=== PATIENT | male | born 1970 | race Caucasian/White ===

== ENCOUNTER → 2016-08-05 | Outpatient (REF) | payer OTHER ==
[~2016-08-05] MED LIST: /ADVA50050 IN; /BUSP5TA OR; /LAMO10TA PO; /LAMO15TA PO; /LAMO20TA PO; /QUET25TA OR; ALLE10TA11 PO; ALLO100T OR; AMBI10TA OR; BUSP10TA2 OR; BUSP15TA OR; CELE20TA OR; CELE40TA OR; CLAR5CHW OR; COLCRYS OR; COMBVENT; CONC18TA OR; CONC36TA2 PO; CONC54TA2 PO; EFFE75CA75 OR; FAMO40TA2 OR; FOLI1TAB86 PO; GABA600T3 OR; IBUP600T OR; IMIT100T PO; INDO50CA2 OR; KLON0.5T OR; KLON1TAB OR; MINI2CAP PO; NEUR600T OR; NEUR600T PO; NEXI20CA OR; NEXI20GR OR; NICO2LOZ PO; PEPC40TA OR; PRIL40CA PO; PROZ20CA11 PO; QUET30TA OR; THIA50CA PO; TRAM50TA2 OR; TRAZ100T OR; TRAZ100T2 PO; TRAZ150T OR; VENL75TA2 OR; VENTAER IN; proair
== END ==
LOC: M SFHCSACK 14:33
PROVIDERS: ATTEND Physician Assistant
DX: Z51.81 Encounter for therapeutic drug level monitoring (principal); Z79.899 Other long term (current) drug therapy

== ENCOUNTER 2016-09-18 18:21 | Inpatient (IN) | payer OTHER ==
[~2016-09-18] VITALS: Ht 180.3 cm; Wt 94.4 kg
[2016-09-18] MEDS ORDERED: HYDR25T PO (18:35)
[2016-09-18] MEDS ORDERED: METH40TA PO (18:35)
[2016-09-18] MEDS ORDERED: ADDE5TAB5 PO (18:35)
[2016-09-18] MEDS ORDERED: BUPR15TA PO (18:35)
[2016-09-18 19:58] LABS: MEAN CORPUSCULAR HEMOGLOBIN 31.1 pg (27.0-33.0); MEAN CORPUSCULAR HGB CONC 35.2 g/dl (32.0-36.5); MEAN CORPUSCULAR VOLUME 88.3 fl (80.0-96.0); RED CELL DISTRIBUTION WIDTH 13.9 % (11.5-14.5); WHITE BLOOD COUNT 5.8 K/mm3 (4.0-10.0)
[2016-09-18 20:26] LABS: METHADONE URINE POSITIVE (NEGATIVE)
[2016-09-18 20:35] LABS: ALBUMIN 4.2 GM/DL (3.2-5.2); ALBUMIN/GLOBULIN RATIO 1.56 (1.00-1.93); ALKALINE PHOSPHATASE 101 U/L (45-117); ALT/SGPT 125 U/L (12-78); ANION GAP 9 MEQ/L (8-16); AST/SGOT 81 U/L (15-37); BILIRUBIN,DIRECT 0.2 MG/DL (0.0-0.2); BILIRUBIN,TOTAL 0.4 MG/DL (0.2-1.0); BLOOD UREA NITROGEN 15 MG/DL (7-18); CALCIUM LEVEL 8.7 MG/DL (8.5-10.1); CARBON DIOXIDE LEVEL 25 MEQ/L (21-32); CHLORIDE LEVEL 108 MEQ/L (98-107); CREATININE FOR GFR 0.86 MG/DL (0.70-1.30); GLOMERULAR FILTRATION RATE > 60.0 (>60); GLUCOSE, FASTING 100 MG/DL (70-105); POTASSIUM SERUM 3.9 MEQ/L (3.5-5.1); SODIUM LEVEL 142 MEQ/L (136-145); TOTAL PROTEIN 6.9 GM/DL (6.4-8.2)
[2016-09-18] MEDS: hydrOXYzine 25 MG TAB PO SCH (21:00)
[2016-09-18] MEDS ORDERED: MAALOX 30 ML SUSP *UDC PO PRN (23:00)
[2016-09-18] MEDS ORDERED: MOM 30ML SUSPENSION UDC PO PRN (23:00)
[2016-09-18] MEDS ORDERED: ACETAMINOPHEN TAB 650MG DOSE (2X325MG) PO PRN (23:00)
[2016-09-18] MEDS ORDERED: SUMAtriptan SUCCINATE 25 MG TAB PO PRN (23:00)
[2016-09-18] MEDS ORDERED: traZODone 50 MG TAB PO PRN (23:00)
[2016-09-18] MEDS ORDERED: ALBUTEROL 90 MCG/ACT 8GM HFA INHALER INH PRN (23:00)
[2016-09-18] MEDS ORDERED: LORA10TA2 PO (23:31)
[2016-09-18] MEDS ORDERED: OMEP40CA2 PO (23:31)
[2016-09-18] MEDS ORDERED: METH10CO PO (23:31)
[2016-09-18] MEDS ORDERED: ALBU17IN INH (23:31)
[2016-09-18] MEDS ORDERED: SUMA100T2 PO (23:35)
[2016-09-18] MEDS ORDERED: NARC1SPR (23:35)
[2016-09-18] MEDS ORDERED: NICO2GUM PO (23:35)
[2016-09-18] MEDS ORDERED: NAPR1TAB86 PO (23:35)
[2016-09-19] MEDS ORDERED: diphenhydrAMINE INJ 50MG/ML VIAL (J1200) IM STA (00:55)
[2016-09-19] MEDS ORDERED: HALOPERIDOL 5 MG/ML VIAL (J1630) IM PRN (01:00)
[2016-09-19 03:27] VITALS: BP 125/75
[2016-09-19 08:00] VITALS: BP 134/76
[2016-09-19] MEDS: buPROPion **SR TABLET** (ZYBAN) 150MG PO SCH (08:11)
[2016-09-19] MEDS: OMEPRAZOLE 20 MG CAP PO SCH (08:11)
[2016-09-19] MEDS: LORATADINE 10 MG TAB PO SCH (08:11)
[2016-09-19] MEDS: hydrOXYzine 25 MG TAB PO SCH (08:11)
[2016-09-19] MEDS: ADDERALL 5 MG TAB PO SCH ×2 (08:12→14:35)
[2016-09-19] MEDS ORDERED: METH10CO PO (09:25)
[2016-09-19] MEDS ORDERED: METHADONE 5 MG TAB (S0109) PO ONE (09:45)
[2016-09-19] MEDS ORDERED: METHADONE 10 MG TAB (S0109) PO ONE (10:00)
--- NOTE | 2016-09-19 11:59 | HPEPDOC ---
Medical History and Physical Date of Admission Sep 18, 2016 at 22:52 History and Physical PCP: Dr Keenan Bernardo ATTENDING: Dr. Armaan Washington HPI: 46 yo M admitted to [facility] for unspecified depressive disorder, being medically examined today. No acute medical complaints today. Denies any fevers, chills, weakness, fatigue, QUINONES, CP, SOB, cough, palpitations, abdominal pain, N/V /D or changes in bowel or bladder habits. PMHx: Depression ADHD Anxiety Allergies GERD Asthma Migraine headache History of substance use-currently following [facility] History of hepatitis C- following with Dr. 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 History of cocaine , states none in the past 2 years. States no marijuana in the past 2 years. Has not used methamphetamine in the past 1 year. IV Drug Use: History of IV heroin. Tattoos done unprofessionally: Denies FAMHX: Mother: Alive, diabetes Father: , pancreatic cancer Siblings: One brother Alive, well Children: None Unexpected deaths due to medical reasons: None. ROS: As noted in HPI, otherwise 11pt ROS of systems reviewed and unremarkable PE: GEN: 46 yo M, appears stated age. Well-nourished, well developed. No acute distress. Alert and oriented x 3. Pleasant, interactive. HEENT: Normocephalic, atraumatic. Pupils are equal, round, and reactive to light. Extraocular movements are intact. No nystagmus appreciated. Sclera are nonicteric. Conjunctiva without injection. Nose midline. Nasal turbinates without bogginess. EACs both patent BL. TMs both visualized and flores with good cone of light, no bulging or erythema. No facial asymmetry. Moist mucous membranes. Dentition fair. Pharynx pink and moist, no cobblestoning. Neck supple , trachea midline. No lymphadenopathy or thyromegaly appreciated. CHEST: Regular rate and rhythm, +S1, +S2 LUNGS: Clear to auscultation bilaterally. No wheezes, rales, or rhonchi. Breathing appears symmetric and easy. Patient is speaking in full sentences. No accessory muscle use. ABD: Round, soft, non-tender, non-distended. +Bowel sounds throughout. No rebound or guarding. No costovertebral angle tenderness. EXT: Pulses 2+ bilaterally dorsalis pedis and radial. No lower extremity edema appreciated. SKIN: [place], dry, warm. Capillary refill <2sec. No rashes. NEURO: Alert and oriented x 3. Cranial nerves III-XII are intact. No focal deficits appreciated. EKG: pending A&P: 46 yo M admitted to [facility] for unspecified depressive disorder 1. Psych. Plan per Psychiatry. Obtain baseline EKG to assure the safety of psychiatric medications as they can prolong the QT interval. 2. Nicotine dependence. Patch available. 3. Elevated LFTs. Likely related to Chronic hepatitis C. Recheck CMP. Monitor. 4. History of chronic hepatitis C. Patient states is following with Dr. Brito. Arrange follow-up with Dr. Brito at discharge. 5. Follow up. No Primary Care Provider. Will attempt to establish PCP on discharge. 6. History of Substance use. Per psychiatry. Patient states following with [facility] methadone program. 7. GERD. Continue Prilosec 40 mg daily. 8. Allergies. Continue loratadine 10 mg daily. 9. Asthma. Continue albuterol HFA 2 puffs every 4 hours as needed. 10. Migraine headache. Continue naproxen 500 mg twice a day as needed, Imitrex 100 mg as needed at onset of headache. 11. Staff member Brennen present throughout exam. Vital Signs Vital Signs Label Value Date Time Patient Temperature 96.9 degrees F 09/19/16 0800 Temperature Source Core 09/19/16 08 Pulse 83 09/19/16 08 Respiratory Rate 16 bpm 09/19/16 08 Blood Pressure Assessment 134/76 (95) 09/19/16 08 Bedside Pulse Oximetry 96 % 09/19/16 08 Item Value Date Time Oxygen Delivery Method Room Air 09/19/16 0800 Laboratory Data Labs 24H Laboratory Tests 2 09/18/16 19:41: Acetaminophen Level 2.4L, Aspartate Amino Transf (AST/SGOT) 81H, Alanine Aminotransferase (ALT/SGPT) 125H, Alkaline Phosphatase 101, Total Bilirubin 0.4 , Direct Bilirubin 0.2, Albumin 4.2, Albumin/Globulin Ratio 1.56, Anion Gap 9, Calcium Level 8.7, Ethyl Alcohol Level < 0.003, Glomerular Filtration Rate > 60.0, Salicylates Level 2.0L, Thyroid Stimulating Hormone (TSH) 1.540, Total Protein 6.9, Urine Amphetamines Screen POSITIVEH, Urine Benzodiazepines Screen NEGATIVE, Urine Opiates Screen NEGATIVE, Urine Barbiturates Screen NEGATIVE, Urine Cannabinoids Screen NEGATIVE, Urine Cocaine Metabolite Screen NEGATIVE, Urine Methadone Screen POSITIVEH, Urine Phencyclidine Screen NEGATIVE CBC/BMP Laboratory Tests 09/18/16 19:41 Red Blood Count 4.55, Mean Corpuscular Volume 88.3, Mean Corpuscular Hemoglobin 31.1, Mean Corpuscular Hemoglobin Concent 35.2, Red Cell Distribution Width 13.9 Home Medications Scheduled (Methadone HCl) 10 Mg/Ml Con 113 MG PO DAILY . VERIFIED WITH CREDO Amphetamine/Dextroamphetamine (Adderall 5 mg) 1 Tab Tab 20 MG PO BID MORNING AND MID AFTERNOON Bupropion HCl (Wellbutrin Sr) 150 Mg Tabcr 150 MG PO DAILY Loratadine (Loratadine) 10 Mg Tab 10 MG PO DAILY Omeprazole (Omeprazole) 40 Mg Cap 40 MG PO DAILY Scheduled PRN (Narcan) 4 Mg/0.1 Ml Spr 4 MG NA ASDIRECTED PRN PRN OVERDOSE REVERSAL Albuterol Sulfate (Ventolin Hfa) 200 Puff/8 Gm Aers 2 PUFF INH QID PRN PRN SHORTNESS OF BREATH Hydroxyzine HCl (Hydroxyzine HCl) 25 Mg Tab 25 MG PO BID PRN PRN ANXIETY MID AFTERNOON AND QHS Naproxen Sodium (Naproxen Sodium) 500 Mg Tab 500 MG PO BID PRN PRN PAIN Nicotine Polacrilex (Nicotine Polacrilex) 2 Mg Gum 2 MG PO Q1H PRN PRN SMOKING CESSATION Sumatriptan Succinate (Sumatriptan Succinate) 100 Mg Tab 100 MG PO ASDIRECTED PRN PRN MIGRAINE Allergies Coded Allergies: No Known Allergies (Verified Allergy, 01/03/03) Gladys Azar Sep 19, 2016 11:59
[2016-09-19] MEDS: NICOTINE 21MG/24HR 1 EA TRANSDERMAL TD SCH (12:16)
[2016-09-19 12:46] LABS: ALBUMIN 4.6 GM/DL (3.2-5.2); ALBUMIN/GLOBULIN RATIO 1.77 (1.00-1.93); ALKALINE PHOSPHATASE 97 U/L (45-117); ALT/SGPT 136 U/L (12-78); ANION GAP 8 MEQ/L (8-16); AST/SGOT 88 U/L (15-37); BILIRUBIN,TOTAL 0.6 MG/DL (0.2-1.0); BLOOD UREA NITROGEN 14 MG/DL (7-18); CALCIUM LEVEL 9.5 MG/DL (8.5-10.1); CARBON DIOXIDE LEVEL 26 MEQ/L (21-32); CHLORIDE LEVEL 107 MEQ/L (98-107); GLOMERULAR FILTRATION RATE > 60.0 (>60); GLUCOSE, FASTING 96 MG/DL (70-105); POTASSIUM SERUM 4.2 MEQ/L (3.5-5.1); SODIUM LEVEL 141 MEQ/L (136-145); TOTAL PROTEIN 7.2 GM/DL (6.4-8.2)
[2016-09-19 18:00] VITALS: BP 132/73
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
--- NOTE | 2016-09-19 22:25 | ECGEPIP ---
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
[2016-09-20] MEDS: hydrOXYzine 25 MG TAB PO SCH ×3 (02:21→21:38)
[2016-09-20 06:20] VITALS: BP 146/91
[2016-09-20] MEDS: OMEPRAZOLE 20 MG CAP PO SCH (08:24)
[2016-09-20] MEDS: ADDERALL 5 MG TAB PO SCH ×2 (08:24→14:33)
[2016-09-20] MEDS: buPROPion **SR TABLET** (ZYBAN) 150MG PO SCH (08:24)
[2016-09-20] MEDS: NICOTINE 21MG/24HR 1 EA TRANSDERMAL TD SCH (08:25)
[2016-09-20] MEDS: LORATADINE 10 MG TAB PO SCH (08:25)
[2016-09-20] MEDS: METHADONE 10 MG TAB (S0109) PO SCH (08:25)
[2016-09-20] MEDS ORDERED: METHADONE 10 MG TAB (S0109) PO SCH (09:00)
[2016-09-20 11:38] LABS: ALBUMIN 4.3 GM/DL (3.2-5.2); ALBUMIN/GLOBULIN RATIO 1.48 (1.00-1.93); ALKALINE PHOSPHATASE 99 U/L (45-117); ALT/SGPT 126 U/L (12-78); ANION GAP 7 MEQ/L (8-16); AST/SGOT 82 U/L (15-37); BILIRUBIN,TOTAL 0.4 MG/DL (0.2-1.0); BLOOD UREA NITROGEN 17 MG/DL (7-18); CALCIUM LEVEL 9.1 MG/DL (8.5-10.1); CARBON DIOXIDE LEVEL 27 MEQ/L (21-32); CHLORIDE LEVEL 107 MEQ/L (98-107); CREATININE FOR GFR 0.82 MG/DL (0.70-1.30); GLOMERULAR FILTRATION RATE > 60.0 (>60); GLUCOSE, FASTING 103 MG/DL (70-105); POTASSIUM SERUM 4.1 MEQ/L (3.5-5.1); SODIUM LEVEL 141 MEQ/L (136-145); TOTAL PROTEIN 7.2 GM/DL (6.4-8.2)
--- NOTE | 2016-09-20 15:16 | REP ---
RIGHT UPPER QUADRANT ULTRASOUND: Real-time sonographic evaluation of the right upper quadrant performed. The gallbladder demonstrates no evidence of intraluminal sludge or calculi, wall thickening or pericholecystic fluid. There is no intrahepatic or extrahepatic biliary dilatation, common bile duct measuring 5 mm in diameter. Liver demonstrates diffuse fatty infiltration, but no gross mass. Pancreas not optimally seen due to overlying bowel gas but visualized portions are grossly unremarkable. The right kidney demonstrates no hydronephrosis or nephrolithiasis with normal size at 10.9 cm in length. IMPRESSION: Diffuse fibrofatty infiltration of the liver. Signed by Live Washington MD 09/20/2016 04:18 P
[2016-09-20 18:00] VITALS: BP 121/70
--- NOTE | 2016-09-20 20:09 | IPNPDOC ---
[facility] Progress Note Progress Note DATE OF SERVICE: 09/20/16 INTERVAL HISTORY: The patient is met with today shortly in his room. He described that he was feeling better in the milieu and that the groups had been helpful for making his mood less reactive. He alluded that he was feeling close to discharge as he was able to tolerate another patient's rudeness with out any issues. He spoke of the events that lead him in. Nurses note no issues overnight. VITAL SIGNS: See below. NEW TEST RESULTS: See below CURRENT MEDICATIONS: See below. MENTAL STATUS EXAMINATION: General: Well dressed with good hygiene Speech: Spontaneous and fluid Thought processes: Linear and logical Thought content: Curious about discharge Abstract reasoning, and computation: Intact Description of associations: Intact Description of abnormal or psychotic thoughts:Denies any suicidal or homicidal ideation. Denies any auditory or visual hallucinations. Does not appear to be responding to internal stimuli. Does not appear to be endorsing any bizarre or paranoid ideation. Judgment: Fair Insight: Fair Orientation: Alert and orientated 3 Recent and remote memory: Intact Attention span and concentration: Intact Fund of knowledge: Adequate Mood: "Better" Affect: Euthymic with a full range DIAGNOSES: 1. Unspecified depressive disorder. 2. Borderline personality disorder, provisional. 3. Polysubstance abuse, severe, on maintenance treatment ASSESSMENT: 46-year-old male with a long history of substance abuse who is currently on methadone treatment presents in a state provoked by acute stressors. He appears to stabilize quite well in the milieu with no severe psychiatric interventions required. MANAGEMENT PLAN: Medications: Continue methadone, bupropion, Adderall as below Psychotherapy: Standard per melendez Social: Family meeting with caesar for possible discharge Friday Misc: None Disposition: The patient will require a longer inpatient stay in order to arrange a safe and effective discharge TIME SPENT: 15 minutes. Vital Signs Vital Signs Date Time Temp Pulse Resp B/P Pulse Ox O2 Delivery O2 Flow Rate FiO2 09/20/16 08:25 16 09/20/16 06:20 97.8 115 146/91 09/19/16 08:00 96 Room Air Laboratory Data 24H Labs Laboratory Tests 2 09/20/16 10:32: Blood Urea Nitrogen 17, Creatinine 0.82, Sodium Level 141, Potassium Level 4.1, Chloride Level 107, Carbon Dioxide Level 27, Calcium Level 9.1, Aspartate Amino Transf (AST/SGOT) 82H, Alanine Aminotransferase (ALT/SGPT) 126H, Alkaline Phosphatase 99, Total Bilirubin 0.4, Total Protein 7.2, Albumin 4.3, Albumin/ Globulin Ratio 1.48, Anion Gap 7L, Glomerular Filtration Rate > 60.0 CBC/BMP Laboratory Tests 09/20/16 10:32 Calcium Level 9.1, Aspartate Amino Transf (AST/SGOT) 82 H, Alanine Aminotransferase (ALT/SGPT) 126 H, Alkaline Phosphatase 99, Total Bilirubin 0.4 , Total Protein 7.2, Albumin 4.3 Current Medications Current Medications Acetaminophen (Tylenol Tab) 650 mg Q6HP PRN PO HEADACHE or DISCOMFORT; Start at 23:00; Stop 10/18/16 at 22:59 Al Hydrox/Mg Hydrox/Simethicone (Mylanta) 30 ml Q4HP PRN PO HEARTBURN/ INDIGESTION; Start 09/18/16 at 23:00; Stop 10/18/16 at 22:59 Albuterol Sulfate (Proventil, Ventolin Hfa) 2 puff Q4HP PRN INH SHORTNESS OF BREATH; Start 09/18/16 at 23:00; Stop 10/18/16 at 22:59 Amphetamine/ Dextroamphetamine (Adderall) 20 mg BID@09,15 PO Last administered on 09/20/16 14:33; Start 09/19/16 at 09:00; Stop 09/26/16 at 08:59 Bupropion HCl (Zyban, Wellbutrin Sr) 150 mg DAILY PO Last administered on 08:24; Start 09/19/16 at 09:00; Stop 10/19/16 at 08:59 Haloperidol (Haldol) 5 mg Q6HP PRN IM AGITATION Last administered on 09/19/16 01:11; Start 09/19/16 at 01:00; Stop 09/19/16 at 03:34; Status DC Home Med (Med Rec Complete!) ASDIRECTED XX ; Start 09/18/16 at 23:45; Stop at 23:45; Status DC Hydroxyzine HCl (Atarax) 25 mg BID PO Last administered on 09/20/16 08:24; Start 09/18/16 at 21:00; Stop 10/18/16 at 20:59 Loratadine (Claritin) 10 mg DAILY PO Last administered on 09/20/16 08:25; Start 09/19/16 at 09:00; Stop 10/19/16 at 08:59 Magnesium Hydroxide (Milk Of Magnesia) 30 ml DAILYPRN PRN PO CONSTIPATION; Start 09/18/16 at 23:00; Stop 10/18/16 at 22:59 Methadone HCl (Dolophine) 110 mg DAILY PO Last administered on 09/20/16 08:25 ; Start 09/20/16 at 09:00; Stop 09/27/16 at 08:59 Methadone HCl (Dolophine) 113 mg DAILY PO ; Start 09/20/16 at 09:00; Stop at 09:00; Status DC Nicotine (Nicoderm Cq 21mg) 1 patch DAILY TD Last administered on 09/20/16 08: 25; Start 09/19/16 at 09:00; Stop 10/19/16 at 08:59 Omeprazole (PriLOSEC) 40 mg DAILY PO Last administered on 09/20/16 08:24; Start 09/19/16 at 09:00; Stop 10/19/16 at 08:59 Sumatriptan Succinate (Imitrex) 100 mg BIDP PRN PO HEADACHE; Start 09/18/16 at 23:00; Stop 10/18/16 at 22:59 Trazodone HCl (Desyrel) 50 mg QHSP PRN PO INSOMNIA; Start 09/18/16 at 23:00; Stop 10/18/16 at 22:59 Allergies Coded Allergies: No Known Allergies (Verified Allergy, 01/03/03) GME ATTESTATION My preceptor for this patient encounter was physically present in the building during the encounter and was fully available. As needed, all aspects of the patient interview, examination, medical decision making process, and medical care plan development were reviewed and approved by the preceptor. Preceptor is aware and concurs with the plan as stated in the body of this note and will attest to such by his/her cosignature. SIVAKUMAR VELASCO DO Sep 20, 2016 20:09 SIVAKUMAR VELASCO DO Sep 20, 2016 20:09
[2016-09-21 06:29] VITALS: BP 113/54
[2016-09-21 07:03] LABS: ALBUMIN 4.2 GM/DL (3.2-5.2); ALBUMIN/GLOBULIN RATIO 1.56 (1.00-1.93); ALKALINE PHOSPHATASE 110 U/L (45-117); ALT/SGPT 130 U/L (12-78); ANION GAP 8 MEQ/L (8-16); AST/SGOT 85 U/L (15-37); BILIRUBIN,TOTAL 0.5 MG/DL (0.2-1.0); BLOOD UREA NITROGEN 18 MG/DL (7-18); CARBON DIOXIDE LEVEL 27 MEQ/L (21-32); CHLORIDE LEVEL 108 MEQ/L (98-107); CREATININE FOR GFR 0.83 MG/DL (0.70-1.30); GLOMERULAR FILTRATION RATE > 60.0 (>60); GLUCOSE, FASTING 101 MG/DL (70-105); POTASSIUM SERUM 4.2 MEQ/L (3.5-5.1); SODIUM LEVEL 143 MEQ/L (136-145); TOTAL PROTEIN 6.9 GM/DL (6.4-8.2)
[2016-09-21] MEDS: OMEPRAZOLE 20 MG CAP PO SCH (08:03)
[2016-09-21] MEDS: hydrOXYzine 25 MG TAB PO SCH ×2 (08:03→21:16)
[2016-09-21] MEDS: LORATADINE 10 MG TAB PO SCH (08:03)
[2016-09-21] MEDS: ADDERALL 5 MG TAB PO SCH ×2 (08:03→16:02)
[2016-09-21] MEDS: NICOTINE 21MG/24HR 1 EA TRANSDERMAL TD SCH (08:03)
[2016-09-21] MEDS: buPROPion **SR TABLET** (ZYBAN) 150MG PO SCH (08:03)
[2016-09-21] MEDS: METHADONE 10 MG TAB (S0109) PO SCH (08:05)
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
[2016-09-21 18:00] VITALS: BP 130/84
[2016-09-21] MEDS: IBUPROFEN 400 MG TAB PO PRN (21:16)
[2016-09-22 06:26] VITALS: BP 128/74
[2016-09-22] MEDS: NICOTINE 21MG/24HR 1 EA TRANSDERMAL TD SCH (08:17)
[2016-09-22] MEDS: METHADONE 10 MG TAB (S0109) PO SCH (08:18)
[2016-09-22] MEDS: OMEPRAZOLE 20 MG CAP PO SCH (08:19)
[2016-09-22] MEDS: LORATADINE 10 MG TAB PO SCH (08:19)
[2016-09-22] MEDS: hydrOXYzine 25 MG TAB PO SCH ×2 (08:19→21:40)
[2016-09-22] MEDS: ADDERALL 5 MG TAB PO SCH ×2 (08:19→15:05)
[2016-09-22] MEDS: buPROPion **SR TABLET** (ZYBAN) 150MG PO SCH (08:19)
[2016-09-22] MEDS: IBUPROFEN 400 MG TAB PO PRN ×2 (08:20→21:40)
--- NOTE | 2016-09-22 08:20 | IPN ---
DATE: 09/22/2016 I reviewed the case of Mr. Alexis with Dr. Ventura yesterday. He stated the following. He stated the patient was feeling better after being from stressors and was able to begin planning eventual discharge. The patient had stated that he was doing well on Wellbutrin. The patient was interested in outpatient psychotherapy. MENTAL STATUS: It was early in the morning to the patient was not yet well dressed. Speech was spontaneous and fluid. Thought processes were linear and logical. Thought content demonstrated no thought disorder. The patient discussed how he was improving and looking forward to the future. Abstract reasoning is intact. No loose associations were noted. No suicidal or homicidal ideations. No auditory or visual hallucinations. Judgment fair. Insight improving. Orientation: Alert and oriented times three. Recent and remote memory were intact. Mood was improved. Affect was pleasant. Present medications and present orders include the patient is presently on Wellbutrin 150 mg daily, methadone 110 mg daily. DIAGNOSIS: Unspecified depressive disorder. Borderline personality disorder. Provisional polysubstance abuse, severe, on maintenance treatment.
[2016-09-22] MEDS ORDERED: buPROPion **XL** TABLET 150MG (WELLBUTRIN XL) PO SCH (09:00)
[2016-09-22 18:00] VITALS: BP 122/76
[2016-09-23 06:14] VITALS: BP 114/59
[2016-09-23] MEDS: NICOTINE 21MG/24HR 1 EA TRANSDERMAL TD SCH (08:26)
[2016-09-23] MEDS: buPROPion **SR TABLET** (ZYBAN) 150MG PO SCH (08:27)
[2016-09-23] MEDS: LORATADINE 10 MG TAB PO SCH (08:27)
[2016-09-23] MEDS: OMEPRAZOLE 20 MG CAP PO SCH (08:27)
[2016-09-23] MEDS: ADDERALL 5 MG TAB PO SCH ×2 (08:27→14:58)
[2016-09-23] MEDS: hydrOXYzine 25 MG TAB PO SCH (08:27)
[2016-09-23] MEDS: METHADONE 10 MG TAB (S0109) PO SCH (08:28)
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
== END 2016-09-23 16:30 | disposition home or self-care (01) | DRG 754 ==
LOC: M ED 20:09 → M ED INP 22:52 → M PSY 09-19 03:27
PROVIDERS: ADMIT Psychiatry & Neurology Psychiatry; ATTEND Psychiatry & Neurology Psychiatry
DX: F32.9 Major depressive disorder, single episode, unspecified (principal); B18.2 Chronic viral hepatitis C; Z79.899 Other long term (current) drug therapy; F17.200 Nicotine dependence, unspecified, uncomplicated; F60.3 Borderline personality disorder; J45.909 Unspecified asthma, uncomplicated; K21.9 Gastro-esophageal reflux disease without esophagitis; G43.909 Migraine, unspecified, not intractable, without status migrainosus

== ENCOUNTER → 2016-11-14 | Outpatient (REF) | payer OTHER ==
[~2016-11-14] MED LIST changes: +ADDE5TAB5 PO; +ALBU17IN INH; +BUPR15TA PO; +HYDR25T PO; +LORA10TA2 PO; +METH10CO PO; +METH40TA PO; +NAPR1TAB86 PO; +NARC1SPR; +NICO2GUM PO; +OMEP40CA2 PO; +SUMA100T2 PO
[2016-11-14 13:24] LABS: BASO % 0.4 % (0.0-1.0); EOS # 0.2 K/mm3 (0.0-0.50); EOS % 4.7 % (0.0-3.0); LARGE UNSTAINED CELL # 0.1 K/mm3 (0.0-0.4); LARGE UNSTAINED CELL % 1.6 % (0.0-4.0); LYMPH # 2.4 K/mm3 (1.5-4.5); LYMPH % 47.5 % (24.0-44.0); MEAN CORPUSCULAR HEMOGLOBIN 31.5 pg (27.0-33.0); MEAN CORPUSCULAR HGB CONC 35.1 g/dl (32.0-36.5); MEAN CORPUSCULAR VOLUME 89.8 fl (80.0-96.0); MONO # 0.3 K/mm3 (0.0-0.8); MONO % 5.3 % (0.0-5.0); NEUTROPHILS % 40.5 % (36.0-66.0); PLATELET COUNT, AUTOMATED 155 k/mm3 (150-450); RED CELL DISTRIBUTION WIDTH 12.9 % (11.5-14.5)
[2016-11-14 14:16] LABS: ALBUMIN 4.1 GM/DL (3.2-5.2); ALBUMIN/GLOBULIN RATIO 1.58 (1.00-1.93); ALKALINE PHOSPHATASE 138 U/L (45-117); ALT/SGPT 136 U/L (12-78); ANION GAP 8 MEQ/L (8-16); AST/SGOT 79 U/L (15-37); BILIRUBIN,TOTAL 0.4 MG/DL (0.2-1.0); BLOOD UREA NITROGEN 12 MG/DL (7-18); CALCIUM LEVEL 8.5 MG/DL (8.5-10.1); CARBON DIOXIDE LEVEL 26 MEQ/L (21-32); CHLORIDE LEVEL 108 MEQ/L (98-107); CREATININE FOR GFR 0.76 MG/DL (0.70-1.30); GLOMERULAR FILTRATION RATE > 60.0 (>60); GLUCOSE, FASTING 96 MG/DL (70-105); POTASSIUM SERUM 3.8 MEQ/L (3.5-5.1); SODIUM LEVEL 142 MEQ/L (136-145); TOTAL PROTEIN 6.7 GM/DL (6.4-8.2)
[2016-11-15 09:42] LABS: HEPATITIS B SURFACE ANTIBODY POSITIVE (POSITIVE)
[2016-11-16 08:07] LABS: ALT 132 IU/L (0-55); GGT 82 IU/L (0-65); HAPTOGLOBIN <10 mg/dL (34-200); TOTAL BILIRUBIN 0.3 mg/dL (0.0-1.2)
== END ==
LOC: M SFHCPLAZ 11:03
PROVIDERS: ATTEND Internal Medicine Infectious Disease
DX: B18.2 Chronic viral hepatitis C (principal)

== ENCOUNTER → 2017-04-01 | Outpatient (REF) | payer OTHER ==
[~2017-04-01] MED LIST changes: +ADDE1TAB14 PO; -ADDE5TAB5 PO; +HYDR-3363 PO; -HYDR25T PO; -NICO2GUM PO; +NICO2GUM40 PO
== END ==
LOC: M SFHCPLAZ 11:33
PROVIDERS: ATTEND Internal Medicine Infectious Disease
DX: B18.2 Chronic viral hepatitis C (principal)

== ENCOUNTER → 2017-06-09 | Outpatient (CLI) | payer OTHER ==
--- NOTE | 2017-06-10 11:20 | ECGEPIP ---
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 No significant change compared with 09/19/2016. Electronically Signed On 06-10-2017 11:20:06 EST by Armaan Orozco
== END ==
LOC: M EKG 10:12
PROVIDERS: ATTEND Family Medicine
DX: F11.20 Opioid dependence, uncomplicated (principal)

== ENCOUNTER → 2017-06-25 | Outpatient (REF) | payer OTHER ==
[2017-06-25 15:14] LABS: BASO % 0.7 % (0.0-1.0); EOS # 0.2 10^3/uL (0.0-0.50); IMMATURE GRANULOCYTE % 0.2 % (0-0); LYMPH # 2.4 10^3/uL (1.5-4.5); LYMPH % 41.9 % (24.0-44.0); MEAN CORPUSCULAR HEMOGLOBIN 30.7 pg (27.0-33.0); MEAN CORPUSCULAR HGB CONC 35.9 g/dl (32.0-36.5); MEAN CORPUSCULAR VOLUME 85.5 fl (80.0-96.0); MONO # 0.3 10^3/uL (0.0-0.8); NEUTROPHILS # 2.8 10^3/uL (1.8-7.7); NEUTROPHILS % 48.2 % (36.0-66.0); PLATELET COUNT, AUTOMATED 154 10^3/uL (150-450); RED CELL DISTRIBUTION WIDTH 12.7 % (11.5-14.5); WHITE BLOOD COUNT 5.8 10^3/uL (4.0-10.0)
[2017-06-25 15:24] LABS: PLT CLUMPS? POS FLAG; POS COUNT POS FLAG
[2017-06-25 15:34] LABS: ALBUMIN 4.7 GM/DL (3.2-5.2); ALBUMIN/GLOBULIN RATIO 1.57 (1.00-1.93); ALKALINE PHOSPHATASE 124 U/L (45-117); ALT/SGPT 81 U/L (12-78); AMYLASE 49 U/L (25-115); ANION GAP 7 MEQ/L (8-16); AST/SGOT 51 U/L (7-37); BILIRUBIN,DIRECT 0.2 MG/DL (0.0-0.2); BILIRUBIN,TOTAL 0.7 MG/DL (0.2-1.0); BLOOD UREA NITROGEN 11 MG/DL (7-18); CALCIUM LEVEL 9.1 MG/DL (8.5-10.1); CARBON DIOXIDE LEVEL 28 MEQ/L (21-32); CHLORIDE LEVEL 105 MEQ/L (98-107); CHOLESTEROL LEVEL 195 MG/DL (<200); CREATININE FOR GFR 0.85 MG/DL (0.70-1.30); GLOMERULAR FILTRATION RATE > 60.0 (>60); GLUCOSE, FASTING 100 MG/DL (70-105); POTASSIUM SERUM 4.3 MEQ/L (3.5-5.1); SODIUM LEVEL 140 MEQ/L (136-145); TOTAL PROTEIN 7.7 GM/DL (6.4-8.2); TRIGLYCERIDES LEVEL 142 MG/DL (<150)
[2017-07-01 14:19] LABS: HEPATITIS C QUANTITATION HCV Not Detected IU/mL (.)
== END ==
LOC: M SFHCSACK 09:35
DX: G47.01 Insomnia due to medical condition (principal); E78.2 Mixed hyperlipidemia; Z13.29 Encounter for screening for other suspected endocrine disorder; Z13.21 Encounter for screening for nutritional disorder; B18.2 Chronic viral hepatitis C; K21.9 Gastro-esophageal reflux disease without esophagitis

== ENCOUNTER → 2018-03-06 | Outpatient (CLI) | payer OTHER | LOC: M EKG 10:28 | DX: F11.20 Opioid dependence, uncomplicated (principal) | CPT/HCPCS: 93005 ==

== ENCOUNTER → 2018-05-06 | Outpatient (REF) | payer OTHER ==
[2018-05-06 14:29] LABS: BASO % 0.4 % (0.0-1.0); EOS # 0.2 10^3/uL (0.0-0.50); EOS % 3.5 % (0.0-3.0); HEMATOCRIT 43.5 % (42.0-52.0); HEMOGLOBIN 15.2 g/dl (13.5-17.5); IMMATURE GRANULOCYTE % 0.2 % (0-3.0); LYMPH % 37.4 % (24.0-44.0); MEAN CORPUSCULAR HEMOGLOBIN 29.8 pg (27.0-33.0); MEAN CORPUSCULAR HGB CONC 34.9 g/dl (32.0-36.5); MEAN CORPUSCULAR VOLUME 85.3 fl (80.0-96.0); MONO # 0.4 10^3/uL (0.0-0.8); MONO % 6.6 % (0.0-5.0); NEUTROPHILS # 2.8 10^3/uL (1.8-7.7); NEUTROPHILS % 51.9 % (36.0-66.0); PLATELET COUNT, AUTOMATED 150 10^3/uL (150-450); WHITE BLOOD COUNT 5.5 10^3/uL (4.0-10.0)
[2018-05-06 14:41] LABS: ALBUMIN 4.5 GM/DL (3.2-5.2); ALBUMIN/GLOBULIN RATIO 1.61 (1.00-1.93); ALKALINE PHOSPHATASE 99 U/L (45-117); ALT/SGPT 69 U/L (12-78); ANION GAP 8 MEQ/L (8-16); AST/SGOT 48 U/L (7-37); BILIRUBIN,TOTAL 0.4 MG/DL (0.2-1.0); BLOOD UREA NITROGEN 11 MG/DL (7-18); CALCIUM LEVEL 9.5 MG/DL (8.5-10.1); CARBON DIOXIDE LEVEL 27 MEQ/L (21-32); CHLORIDE LEVEL 104 MEQ/L (98-107); GLOMERULAR FILTRATION RATE > 60.0 (>60); GLUCOSE, FASTING 106 MG/DL (70-100); POTASSIUM SERUM 4.3 MEQ/L (3.5-5.1); SODIUM LEVEL 139 MEQ/L (136-145); TOTAL PROTEIN 7.3 GM/DL (6.4-8.2)
[2018-05-06 14:51] LABS: ESTIMATED AVERAGE GLUCOSE 100 MG/DL (60-110); HEMOGLOBIN A1c 5.1 %
== END ==
LOC: M SFHCSACK 08:58
DX: J30.9 Allergic rhinitis, unspecified (principal); E78.2 Mixed hyperlipidemia; F31.70 Bipolar disorder, currently in remission, most recent episode unspecified

== ENCOUNTER → 2018-09-23 | Outpatient (REF) | payer OTHER ==
[~2018-09-23] MED LIST changes: -/ADVA50050 IN; -/LAMO10TA PO; -/LAMO15TA PO; -/LAMO20TA PO; -/QUET25TA OR; +ADVA1AER2 IN; +LAMI1TAB7 PO; +LAMI1TAB8 PO; +LAMI1TAB9 PO; +LORA-243 PO; -LORA10TA2 PO; +SERO1TAB3 OR
== END ==
LOC: M SFHCPLAZ 10:29
PROVIDERS: ATTEND Dermatology
DX: D23.61 Other benign neoplasm of skin of right upper limb, including shoulder (principal)

== ENCOUNTER → 2018-11-10 | Outpatient (CLI) | payer OTHER ==
--- NOTE | 2018-11-11 02:01 | REP ---
Clinical: Right ankle pain Technique: AP, lateral, bilateral oblique views. Findings: Mild generalized age-related changes. No acute fracture or dislocation. Skeletal structures and joint spaces are intact and normal. Ankle mortise appears stable. No subcutaneous emphysema or radiodense foreign body. Impression: Mild lateral swelling. No acute fracture dislocation. Age-related changes noted. Electronically Signed by Fito Bullock MD 11/11/2018 01:53 A
== END ==
LOC: M WUC 11:21
PROVIDERS: ATTEND Physician Assistant
DX: M25.571 Pain in right ankle and joints of right foot (principal)

== ENCOUNTER → 2018-11-13 | Outpatient (REF) | payer OTHER ==
[2018-11-13 15:24] LABS: BASO % 0.8 % (0.0-1.0); EOS # 0.2 10^3/uL (0.0-0.50); HEMATOCRIT 41.7 % (42.0-52.0); HEMOGLOBIN 14.7 g/dl (13.5-17.5); LYMPH # 2.4 10^3/uL (1.5-4.5); LYMPH % 47.8 % (24.0-44.0); MEAN CORPUSCULAR HEMOGLOBIN 28.9 pg (27.0-33.0); MEAN CORPUSCULAR HGB CONC 35.3 g/dl (32.0-36.5); MEAN CORPUSCULAR VOLUME 81.9 fl (80.0-96.0); MONO # 0.4 10^3/uL (0.0-0.8); MONO % 7.2 % (0.0-5.0); PLATELET COUNT, AUTOMATED 137 10^3/uL (150-450); RED BLOOD COUNT 5.09 10^6/uL (4.30-6.10)
[2018-11-13 16:06] LABS: ALBUMIN 3.9 GM/DL (3.2-5.2); ALT/SGPT 89 U/L (12-78); AMYLASE 34 U/L (25-115); BILIRUBIN,TOTAL 0.4 MG/DL (0.2-1.0); BLOOD UREA NITROGEN 14 MG/DL (7-18); CALCIUM LEVEL 8.7 MG/DL (8.5-10.1); CARBON DIOXIDE LEVEL 28 MEQ/L (21-32); CHLORIDE LEVEL 105 MEQ/L (98-107); CHOLESTEROL LEVEL 173 MG/DL (<200); CHOLESTEROL RISK RATIO 4.942 (<5); CREATININE FOR GFR 0.84 MG/DL (0.70-1.30); FREE T4 0.79 NG/DL (0.76-1.46); GLOMERULAR FILTRATION RATE > 60.0 (>60); GLUCOSE, FASTING 113 MG/DL (70-100); HDL CHOLESTEROL 35 MG/DL (>40); LDL CHOLESTEROL 67 MG/DL (<100); LIPASE 119 U/L (73-393); NON-HDL-C 138 MG/DL; POTASSIUM SERUM 4.3 MEQ/L (3.5-5.1); SODIUM LEVEL 139 MEQ/L (136-145); TOTAL 25(OH) VITAMIN D 27.2 NG/ML (30.0-100.0); TOTAL PROTEIN 6.8 GM/DL (6.4-8.2); TRIGLYCERIDES LEVEL 357 MG/DL (<150)
[2018-11-13 19:17] LABS: HEMOGLOBIN A1c 5.7 %
[2018-11-18 00:08] LABS: TESTOSTERONE FREE (DIRECT) 0.4 pg/mL (6.8-21.5)
== END ==
LOC: M SFHCSACK 08:51
PROVIDERS: ATTEND Physician Assistant
DX: F10.21 Alcohol dependence, in remission (principal); J45.40 Moderate persistent asthma, uncomplicated; E78.2 Mixed hyperlipidemia; F90.2 Attention-deficit hyperactivity disorder, combined type; R73.01 Impaired fasting glucose; R68.82 Decreased libido; Z13.21 Encounter for screening for nutritional disorder

== ENCOUNTER → 2019-01-04 | Outpatient (CLI) | payer OTHER ==
--- NOTE | 2019-01-08 10:27 | SLEEPHOME ---
DATE OF PROCEDURE: 01/04/2019 ORDERED BY: JENNIFER Abel Diagnostic home sleep testing was performed due to concern for the obstructive sleep apnea syndrome in this patient with a history of excessive somnolence and nonrestorative sleep. For testing a nocturnal T3 respiratory monitoring device was used. Continuous record was made of pulse, oxygen saturation, airflow, chest and abdominal strain, and body position. 10 hours and 59 minutes of data were reviewed. There were 6 hours and 10 minutes marked time in bed. During the interval marked time in bed, there were 50 respiratory events identified of 10 seconds in duration or greater for a respiratory event index of 8.1. The events were primarily obstructive. 13 mixed and central apneas were seen. Baseline pulse rate 71 beats per minute. Pulse rate ranged 61-195. Baseline saturation 91%. Saturations fell to 76%. Testing was performed in both the supine and nonsupine positions. IMPRESSION: Abnormal home sleep testing with repetitive respiratory events and oxygen desaturations to 76% with a respiratory event index of 8.1 is consistent with the obstructive sleep apnea syndrome. RECOMMENDATIONS: The patient should be encouraged to undergo formal sleep evaluation.
== END ==
LOC: M SLEEP HO 11:30
PROVIDERS: ATTEND Nurse Practitioner Family
DX: R40.0 Somnolence (principal)

== ENCOUNTER → 2019-02-22 | Outpatient (REF) | payer OTHER | LOC: M SFHCPLAZ 08:19 | PROVIDERS: ATTEND Internal Medicine Infectious Disease | DX: B18.2 Chronic viral hepatitis C (principal) ==

== ENCOUNTER → 2019-02-22 | Outpatient (REF) | payer OTHER ==
[~2019-02-22] MED LIST changes: -OMEP40CA2 PO; +OMEP40CA97 PO
== END ==
LOC: M LABDRAWP 08:38
PROVIDERS: ATTEND Physician Assistant
DX: J45.40 Moderate persistent asthma, uncomplicated (principal); E78.2 Mixed hyperlipidemia; R73.01 Impaired fasting glucose; E55.9 Vitamin D deficiency, unspecified; Z53.9 Procedure and treatment not carried out, unspecified reason

== ENCOUNTER → 2019-02-23 | Outpatient (CLI) | payer OTHER ==
[~2019-02-23] MED LIST changes: +OMEP40CA2 PO; -OMEP40CA97 PO
[2019-02-23 08:01] LABS: BASO % 0.6 % (0.0-1.0); EOS # 0.2 10^3/uL (0.0-0.50); HEMATOCRIT 43.1 % (42.0-52.0); LYMPH # 2.2 10^3/uL (1.5-4.5); MEAN CORPUSCULAR HEMOGLOBIN 30.7 pg (27.0-33.0); MEAN CORPUSCULAR HGB CONC 34.8 g/dl (32.0-36.5); MEAN CORPUSCULAR VOLUME 88.1 fl (80.0-96.0); MONO # 0.3 10^3/uL (0.0-0.8); MONO % 6.3 % (0.0-5.0); NEUTROPHILS # 2.3 10^3/uL (1.8-7.7); NEUTROPHILS % 45.9 % (36.0-66.0); PLATELET COUNT, AUTOMATED 142 10^3/uL (150-450); RED BLOOD COUNT 4.89 10^6/uL (4.30-6.10); WHITE BLOOD COUNT 4.9 10^3/uL (4.0-10.0)
[2019-02-23 08:23] LABS: ALBUMIN 4.2 GM/DL (3.2-5.2); ALT/SGPT 102 U/L (12-78); BILIRUBIN,TOTAL 0.5 MG/DL (0.2-1.0); BLOOD UREA NITROGEN 16 MG/DL (7-18); CALCIUM LEVEL 9.3 MG/DL (8.5-10.1); CARBON DIOXIDE LEVEL 29 MEQ/L (21-32); CHLORIDE LEVEL 103 MEQ/L (98-107); CHOLESTEROL LEVEL 189 MG/DL (<200); CHOLESTEROL RISK RATIO 4.108 (<5); CREATININE FOR GFR 0.87 MG/DL (0.70-1.30); GLOMERULAR FILTRATION RATE > 60.0 (>60); GLUCOSE, FASTING 106 MG/DL (70-100); HDL CHOLESTEROL 46 MG/DL (>40); LDL CHOLESTEROL 100 MG/DL (<100); NON-HDL-C 143 MG/DL; POTASSIUM SERUM 4.1 MEQ/L (3.5-5.1); SODIUM LEVEL 141 MEQ/L (136-145); TOTAL PROTEIN 6.9 GM/DL (6.4-8.2); TRIGLYCERIDES LEVEL 217 MG/DL (<150)
[2019-02-23 09:02] LABS: TOTAL 25(OH) VITAMIN D 57.3 NG/ML (30.0-100.0)
[2019-02-23 15:56] LABS: HEMOGLOBIN A1c 5.1 %
== END ==
LOC: M LAB 07:27
PROVIDERS: ATTEND Physician Assistant
DX: J45.40 Moderate persistent asthma, uncomplicated (principal); E78.2 Mixed hyperlipidemia; R73.01 Impaired fasting glucose; E55.9 Vitamin D deficiency, unspecified

== ENCOUNTER → 2019-02-23 | Outpatient (CLI) | payer OTHER ==
[2019-02-26 14:28] LABS: ANTINUCLEAR ANTIBODIES DIRECT Negative (Negative); CERULOPLASMIN 25.3 mg/dL (16.0-31.0); HEPATITIS C QUANTITATION HCV Not Detected IU/mL (.)
== END ==
LOC: M LAB 07:25
PROVIDERS: ATTEND Internal Medicine Infectious Disease
DX: B18.2 Chronic viral hepatitis C (principal)

== ENCOUNTER → 2019-03-03 | Outpatient (CLI) | payer OTHER ==
[~2019-03-03] MED LIST changes: -OMEP40CA2 PO; +OMEP40CA97 PO
[2019-03-03 09:58] LABS: FREE T4 0.98 NG/DL (0.76-1.46); PERCENT SATURATION 34.3 % (19.7-50.0); THYROID STIMULATING HORMONE 1.2 uIU/ML (0.358-3.740)
[2019-03-03 12:50] LABS: CORTISOL AM 5.7 UG/DL (4.3-22.4)
[2019-03-06 08:24] LABS: ANTINUCLEAR ANTIBODIES DIRECT Negative (Negative); CERULOPLASMIN 24.9 mg/dL (16.0-31.0); HEPATITIS C QUANTITATION HCV Not Detected IU/mL (.)
== END ==
LOC: M LAB 07:42
PROVIDERS: ATTEND Internal Medicine Infectious Disease
DX: E34.9 Endocrine disorder, unspecified (principal); B18.2 Chronic viral hepatitis C

== ENCOUNTER → 2019-03-03 | Outpatient (CLI) | payer OTHER ==
[2019-03-03 07:38] LABS: HEMATOCRIT 41.8 % (42.0-52.0); HEMOGLOBIN 14.9 g/dl (13.5-17.5); MEAN CORPUSCULAR HEMOGLOBIN 31.3 pg (27.0-33.0); MEAN CORPUSCULAR HGB CONC 35.6 g/dl (32.0-36.5); MEAN CORPUSCULAR VOLUME 87.8 fl (80.0-96.0); PLATELET COUNT, AUTOMATED 141 10^3/uL (150-450); RED BLOOD COUNT 4.76 10^6/uL (4.30-6.10); WHITE BLOOD COUNT 5.1 10^3/uL (4.0-10.0)
[2019-03-03 08:10] LABS: ALBUMIN 4.2 GM/DL (3.2-5.2); ALT/SGPT 88 U/L (12-78); BILIRUBIN,TOTAL 0.5 MG/DL (0.2-1.0); BLOOD UREA NITROGEN 16 MG/DL (7-18); CALCIUM LEVEL 9.1 MG/DL (8.5-10.1); CARBON DIOXIDE LEVEL 31 MEQ/L (21-32); CHLORIDE LEVEL 105 MEQ/L (98-107); GLOMERULAR FILTRATION RATE > 60.0 (>60); GLUCOSE, FASTING 113 MG/DL (70-100); SODIUM LEVEL 141 MEQ/L (136-145); TOTAL PROTEIN 6.9 GM/DL (6.4-8.2)
[2019-03-03 09:47] LABS: CHLAMYDIA DNA AMPLIFICATION NEGATIVE (NEGATIVE); GC DNA AMPLIFICATION NEGATIVE (NEGATIVE)
[2019-03-03 12:44] LABS: HEPATITIS B SURFACE ANTIGEN NEGATIVE (NEGATIVE)
[2019-03-03 13:11] LABS: HIV 1&2 SCREEN CENTAUR NEGATIVE (NEGATIVE)
[2019-03-03 13:45] LABS: HEPATITIS C VIRUS ABY INDEX > 11.0 INDEX (<0.8)
--- NOTE | 2019-03-03 20:34 | ECGEPIP ---
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
== END ==
LOC: M LAB 06:47
PROVIDERS: ATTEND Family Medicine
DX: F11.20 Opioid dependence, uncomplicated (principal)

== ENCOUNTER → 2019-03-03 | Outpatient (CLI) | payer OTHER ==
[2019-03-03 09:25] LABS: HEMATOCRIT 42.2 % (42.0-52.0); HEMOGLOBIN 15.2 g/dl (13.5-17.5); MEAN CORPUSCULAR HEMOGLOBIN 31.3 pg (27.0-33.0); PLATELET COUNT, AUTOMATED 138 10^3/uL (150-450); RED BLOOD COUNT 4.85 10^6/uL (4.30-6.10)
[2019-03-03 09:52] LABS: ALBUMIN 4.2 GM/DL (3.2-5.2); ALT/SGPT 92 U/L (12-78); BILIRUBIN,DIRECT 0.1 MG/DL (0.0-0.2); BILIRUBIN,TOTAL 0.6 MG/DL (0.2-1.0); TOTAL PROTEIN 6.9 GM/DL (6.4-8.2)
[2019-03-03 12:39] LABS: ESTRADIOL < 19.0 PG/ML (<39.8); LUTEINIZING HORMONE 0.7 mIU/mL (1.5-9.3); PROLACTIN 2.8 NG/ML (2.1-17.7)
[2019-03-03 12:40] LABS: FOLLICLE STIMULATING HORMONE 1.6 mIU/mL (1.4-18.1)
[2019-03-05 00:07] LABS: TESTOSTERONE FREE (DIRECT) 1.3 pg/mL (6.8-21.5)
== END ==
LOC: M LAB 07:46
PROVIDERS: ATTEND Nurse Practitioner Women's Health
DX: E29.1 Testicular hypofunction (principal); Z12.5 Encounter for screening for malignant neoplasm of prostate

== ENCOUNTER → 2019-04-01 | Outpatient (CLI) | payer OTHER ==
[~2019-04-01] MED LIST changes: +OMEP40CA2 PO; -OMEP40CA97 PO; +PROHANCE 279.3MG/ML 15ML VIAL (A9576) As Ordered ONE; +PROHANCE 279.3MG/ML 5ML VIAL (A9576) As Ordered ONE
--- NOTE | 2019-04-01 13:06 | REP ---
MRI brain without and with intravenous contrast: Pituitary study. History: Testicular hypofunction. Comparison brain CT study: May 05, 2009. Technique: Axial and sagittal imaging planes are utilized for T1 and T2-weighted scans. Sequences include spin-echo, fast spin echo, FLAIR, and diffusion weighted sequences. This study includes dynamic postcontrast imaging of the pituitary. Gadolinium enhancement dose is 10 mL of intravenous ProHance. MRI findings: Bony calvarium is intact. Craniocervical junction and upper cervical cord are normal in appearance. There is no MR evidence of significant paranasal sinus disease. No intraorbital abnormality is seen. The deep facial soft tissues are unremarkable. Pituitary and sella turcica appear normal in size. Pituitary gland measures 5 mm in height which is normal. The pituitary stalk is in the midline. Dynamically acquired sequential post contrast images show homogeneous enhancement of pituitary gland and the pituitary stalk. There is no evidence of pituitary microadenoma or macroadenoma. The suprasellar cistern is unremarkable. Optic chiasm is unremarkable. [place]-white differentiation pattern is intact. No abnormal white matter lesion is appreciated. There is no evidence of hemorrhage, mass, infarct midline shift. 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 Impression: There is no evidence of pituitary or parasellar neoplasm. Unremarkable MRI study of the brain. Electronically Signed by Yaya Mcqueen MD 04/01/2019 02:05 P
== END ==
LOC: M RAD 08:11
PROVIDERS: ATTEND Internal Medicine Endocrinology, Diabetes & Metabolism
DX: E29.1 Testicular hypofunction (principal)
CPT/HCPCS: 70553; A9576

== ENCOUNTER → 2019-05-04 | Outpatient (CLI) | payer OTHER ==
[~2019-05-04] MED LIST changes: -OMEP40CA2 PO; +OMEP40CA97 PO; -PROHANCE 279.3MG/ML 15ML VIAL (A9576) As Ordered ONE; -PROHANCE 279.3MG/ML 5ML VIAL (A9576) As Ordered ONE
[2019-05-04 10:46] LABS: HEMATOCRIT 49.4 % (42.0-52.0); HEMOGLOBIN 16.6 g/dl (13.5-17.5)
== END ==
LOC: M LAB 09:57
PROVIDERS: ATTEND Nurse Practitioner Family
DX: E29.1 Testicular hypofunction (principal)

== ENCOUNTER → 2019-05-12 | Outpatient (CLI) | payer OTHER ==
--- NOTE | 2019-05-13 18:48 | SLEEPHOME ---
DATE OF PROCEDURE: 05/12/2019 ORDERED BY: JENNIFER Abel Diagnostic home sleep testing was performed due to concern for the obstructive sleep apnea syndrome in this patient with a history of excessive somnolence, snoring and nonrestorative sleep. For testing a nocturnal T3 respiratory monitoring device was used. Continuous record was made of pulse, oxygen saturation, airflow, chest, abdominal strain and body position. 10 hours and 59 minutes of data were reviewed. There were 7 hours and 48 minutes marked as time in bed. During the interval marked time in bed, there were 40 respiratory events identified of 10 seconds in duration or greater for a respiratory event index of 5.1. The events were primarily obstructive. They were more frequently associated with supine posture. Baseline pulse rate 76 beats per minute. Pulse rate ranged 46-111. Baseline saturation was 91%. Lowest oxygen saturation recorded was 80%. Testing was performed in both the supine and nonsupine positions. IMPRESSION: Abnormal home sleep testing with repetitive respiratory events and oxygen desaturations to 80% with a respiratory event index of 5.1 is consistent with the obstructive sleep apnea syndrome. RECOMMENDATIONS: Though the events were primarily seen in the supine posture, the significant oxygen desaturations suggest further workup would be appropriate, and the patient should be encouraged to undergo a formal sleep evaluation.
== END ==
LOC: M SLEEP HO 11:28
PROVIDERS: ATTEND Nurse Practitioner Family
DX: R40.0 Somnolence (principal); G47.9 Sleep disorder, unspecified

== ENCOUNTER → 2019-05-18 | Outpatient (CLI) | payer OTHER | LOC: M LAB 08:36 | PROVIDERS: ATTEND Internal Medicine Endocrinology, Diabetes & Metabolism | DX: E29.1 Testicular hypofunction (principal) ==

== ENCOUNTER → 2019-07-21 | Outpatient (REF) | payer OTHER | LOC: M SFHCSACK 09:32 | PROVIDERS: ATTEND Physician Assistant | DX: J45.40 Moderate persistent asthma, uncomplicated (principal); E78.2 Mixed hyperlipidemia; R73.01 Impaired fasting glucose; E55.9 Vitamin D deficiency, unspecified; Z53.9 Procedure and treatment not carried out, unspecified reason ==

== ENCOUNTER → 2019-07-27 | Outpatient (CLI) | payer OTHER ==
[2019-07-27 11:35] LABS: BASO % 0.3 % (0.0-1.0); EOS # 0.1 10^3/uL (0.0-0.5); EOS % 2.2 % (0.0-3.0); HEMATOCRIT 51.7 % (42.0-52.0); HEMOGLOBIN 17.1 g/dl (13.5-17.5); LYMPH # 2.3 10^3/uL (1.5-5.0); MEAN CORPUSCULAR HEMOGLOBIN 28.5 pg (27.0-33.0); MEAN CORPUSCULAR HGB CONC 33.1 g/dl (32.0-36.5); MEAN CORPUSCULAR VOLUME 86.2 fl (80.0-96.0); MONO # 0.4 10^3/uL (0.0-0.8); MONO % 6.5 % (0.0-5.0); NEUTROPHILS # 3.5 10^3/uL (1.5-8.5); NEUTROPHILS % 54.7 % (36.0-66.0); PLATELET COUNT, AUTOMATED 161 10^3/uL (150-450); WHITE BLOOD COUNT 6.3 10^3/uL (4.0-10.0)
[2019-07-27 11:56] LABS: HEMOGLOBIN A1c 6.3 %
[2019-07-27 12:10] LABS: ALBUMIN 4.6 GM/DL (3.2-5.2); ALT/SGPT 104 U/L (12-78); BILIRUBIN,TOTAL 0.6 MG/DL (0.2-1.0); BLOOD UREA NITROGEN 9 MG/DL (7-18); CALCIUM LEVEL 9.8 MG/DL (8.5-10.1); CARBON DIOXIDE LEVEL 30 MEQ/L (21-32); CHLORIDE LEVEL 103 MEQ/L (98-107); CHOLESTEROL LEVEL 181 MG/DL (<200); CHOLESTEROL RISK RATIO 3.851 (<5); CREATININE FOR GFR 0.88 MG/DL (0.70-1.30); GLOMERULAR FILTRATION RATE > 60.0 (>60); GLUCOSE, FASTING 86 MG/DL (70-100); HDL CHOLESTEROL 47 MG/DL (>40); LDL CHOLESTEROL 81 MG/DL (<100); NON-HDL-C 134 MG/DL; POTASSIUM SERUM 4.3 MEQ/L (3.5-5.1); SODIUM LEVEL 139 MEQ/L (136-145); TOTAL PROTEIN 7.6 GM/DL (6.4-8.2); TRIGLYCERIDES LEVEL 267 MG/DL (<150)
[2019-07-27 12:13] LABS: TOTAL 25(OH) VITAMIN D 32.9 NG/ML (30.0-100.0)
== END ==
LOC: M LAB 10:53
PROVIDERS: ATTEND Physician Assistant
DX: J45.40 Moderate persistent asthma, uncomplicated (principal); E78.2 Mixed hyperlipidemia; R73.01 Impaired fasting glucose; E55.9 Vitamin D deficiency, unspecified

== ENCOUNTER → 2019-10-08 | Outpatient (CLI) | payer OTHER ==
[2019-10-08 08:09] LABS: HEMATOCRIT 50.4 % (42.0-52.0); HEMOGLOBIN 17.4 g/dl (13.5-17.5)
== END ==
LOC: M LAB 07:15
PROVIDERS: ATTEND Nurse Practitioner Family
DX: E29.1 Testicular hypofunction (principal)

== ENCOUNTER → 2019-12-30 | Outpatient (CLI) | payer OTHER ==
[2019-12-30 11:50] LABS: BASO # 0.1 10^3/uL (0.0-0.2); BASO % 0.6 % (0.0-1.0); EOS # 0.1 10^3/uL (0.0-0.5); EOS % 1.5 % (0.0-3.0); HEMATOCRIT 51.5 % (42.0-52.0); HEMOGLOBIN 17.5 g/dl (13.5-17.5); LYMPH # 2.9 10^3/uL (1.5-5.0); LYMPH % 36.4 % (24.0-44.0); MEAN CORPUSCULAR HEMOGLOBIN 28.9 pg (27.0-33.0); MEAN CORPUSCULAR VOLUME 85.1 fl (80.0-96.0); MONO # 0.6 10^3/uL (0.0-0.8); MONO % 7.5 % (0.0-5.0); NEUTROPHILS # 4.2 10^3/uL (1.5-8.5); NEUTROPHILS % 53.7 % (36.0-66.0); PLATELET COUNT, AUTOMATED 177 10^3/uL (150-450); RED BLOOD COUNT 6.05 10^6/uL (4.30-6.10); WHITE BLOOD COUNT 7.9 10^3/uL (4.0-10.0)
[2019-12-30 12:33] LABS: ALBUMIN 4.6 GM/DL (3.2-5.2); ALT/SGPT 108 U/L (12-78); BILIRUBIN,TOTAL 0.9 MG/DL (0.2-1.0); BLOOD UREA NITROGEN 12 MG/DL (7-18); CALCIUM LEVEL 9.9 MG/DL (8.5-10.1); CARBON DIOXIDE LEVEL 27 MEQ/L (21-32); CHLORIDE LEVEL 104 MEQ/L (98-107); CHOLESTEROL LEVEL 165 MG/DL (<200); CHOLESTEROL RISK RATIO 4.024 (<5); CREATININE FOR GFR 0.99 MG/DL (0.70-1.30); FREE T4 0.93 NG/DL (0.76-1.46); GLOMERULAR FILTRATION RATE > 60.0 (>60); GLUCOSE, FASTING 103 MG/DL (70-100); HDL CHOLESTEROL 41 MG/DL (>40); LDL CHOLESTEROL 75 MG/DL (<100); LITHIUM LEVEL 0.35 MEQ/L (0.60-1.20); NON-HDL-C 124 MG/DL; POTASSIUM SERUM 4.2 MEQ/L (3.5-5.1); SODIUM LEVEL 140 MEQ/L (136-145); THYROID STIMULATING HORMONE 0.823 uIU/ML (0.358-3.740); TOTAL PROTEIN 7.7 GM/DL (6.4-8.2); TRIGLYCERIDES LEVEL 243 MG/DL (<150)
== END ==
LOC: M LAB 10:59
PROVIDERS: ATTEND Nurse Practitioner Psychiatric/Mental Health
DX: F31.81 Bipolar II disorder (principal)

== ENCOUNTER → 2020-03-29 | Outpatient (CLI) | payer OTHER, MEDICAID ==
[2020-03-29 11:07] LABS: HEMOGLOBIN 15.8 g/dl (13.5-17.5); MEAN CORPUSCULAR HEMOGLOBIN 28.4 pg (27.0-33.0); MEAN CORPUSCULAR HGB CONC 33.6 g/dl (32.0-36.5); MEAN CORPUSCULAR VOLUME 84.5 fl (80.0-96.0); PLATELET COUNT, AUTOMATED 142 10^3/uL (150-450); RED BLOOD COUNT 5.56 10^6/uL (4.30-6.10); WHITE BLOOD COUNT 4.7 10^3/uL (4.0-10.0)
[2020-03-29 11:45] LABS: ALBUMIN 4.3 GM/DL (3.2-5.2); ALT/SGPT 64 U/L (12-78); BILIRUBIN,TOTAL 0.6 MG/DL (0.2-1.0); BLOOD UREA NITROGEN 9 MG/DL (7-18); CALCIUM LEVEL 9.1 MG/DL (8.5-10.1); CARBON DIOXIDE LEVEL 27 MEQ/L (21-32); CHLORIDE LEVEL 107 MEQ/L (98-107); CREATININE FOR GFR 0.86 MG/DL (0.70-1.30); GLOMERULAR FILTRATION RATE > 60.0 (>60); GLUCOSE, FASTING 96 MG/DL (70-100); POTASSIUM SERUM 3.8 MEQ/L (3.5-5.1); SODIUM LEVEL 138 MEQ/L (136-145); TOTAL PROTEIN 7.4 GM/DL (6.4-8.2)
[2020-03-29 13:01] LABS: HEPATITIS B SURFACE ANTIGEN NEGATIVE (NEGATIVE)
[2020-03-29 13:29] LABS: HIV 1&2 SCREEN CENTAUR NEGATIVE (NEGATIVE)
[2020-03-29 13:54] LABS: HEPATITIS C VIRUS ABY INDEX > 11.0 INDEX (<0.8)
== END ==
LOC: M LAB 08:55
PROVIDERS: ATTEND Family Medicine
DX: F11.10 Opioid abuse, uncomplicated (principal)

== ENCOUNTER → 2020-04-27 | Outpatient (CLI) | payer OTHER ==
[2020-04-27 08:50] LABS: FREE T4 0.89 NG/DL (0.76-1.46); LITHIUM LEVEL 0.54 MEQ/L (0.60-1.20); THYROID STIMULATING HORMONE 1.16 uIU/ML (0.358-3.740)
== END ==
LOC: M LAB 07:54
PROVIDERS: ATTEND Nurse Practitioner Psychiatric/Mental Health
DX: F43.12 Post-traumatic stress disorder, chronic (principal)

== ENCOUNTER → 2020-05-15 | Outpatient (CLI) | payer OTHER ==
[2020-05-15 08:13] LABS: HEMATOCRIT 46.2 % (42.0-52.0); HEMOGLOBIN 15.3 g/dl (13.5-17.5)
== END ==
LOC: M LAB 07:21
PROVIDERS: ATTEND Nurse Practitioner Family
DX: E29.1 Testicular hypofunction (principal)

== ENCOUNTER → 2020-11-24 | Outpatient (CLI) | payer OTHER ==
[2020-11-24 08:21] LABS: HEMATOCRIT 50.7 % (42.0-52.0)
== END ==
LOC: M LAB 07:17
PROVIDERS: ATTEND Nurse Practitioner Family
DX: E29.1 Testicular hypofunction (principal)

== ENCOUNTER 2021-04-12 13:46 | Inpatient (IN) | payer OTHER ==
[~2021-04-12] VITALS: Ht 180.3 cm; Wt 109.1 kg
[~2021-04-12 13:46] MED LIST changes: +OMEP40CA4 PO; -OMEP40CA97 PO
--- OUTSIDE RECORDS SUMMARY | 2021-04-12 13:54 | CCD | Continuity of Care Document ---
Author Author Fortunato Mendez Organization Unknown Address [address] [place] [address] Phone [phone] Care Team Providers Care Sanitation Officer Name Role Phone Earl Sin JENNIFER AUTM [phone] Archana Johnson PA-C AUTM [phone] Problems Active Problems Provider Date Pure hyperglyceridemia Mar Chakraborty MD Onset: 03/04/2019 Testicular hypofunction Mar Chakraborty MD Onset: 9 Social History Type Date Description Comments Sex Unknown Cigarette Use Former Cigarette Smoker 1 Pack D aily quit 2015 ETOH Use Rarely consumes alcohol Tobacco Use Start: Unknown End: Unknown Patient is a former smoker Recreational Drug Use Former Drug User past ETOH , cocaine and IV Heroin Smoking Status Reviewed: 12/13/20 Patient is a former smoker Allergies, Adverse Reactions, Alerts Description No Known Drug Allergies Medications Active Medications SIG Qnty Indications Ordering Provide r Date BD 3ML Syringe/Safetyglide Shielding Im Needle 62GC1-5/2" 22G X 1-1/2" 3 ML Misc use every 10 days with testosterone 10units Whitley Castorena NP 04/30/2019 Testosterone Cypionate 200mg/ml So lution inject 0.6ml intramuscularly every 10 days code f testo def. 3ml E29.1 Mar Chakraborty MD 04/07/2019 Bupropion Hydrochloride ER (XL) 300mg Tablets ER 24HR 1 po qd Unknown Esomeprazole Magnesium 40mg Capsul es DR 1 po qd Unknown Cetirizine HCL 10mg Tablets 1 po qd Unknown Multivitamin Adult Tablets 1 by mouth every day Unknown Prazosin HCL 1mg Capsules 1 p o qd Unknown Mirtazapine 15mg Tablets 1 po qd Unknown Hydroxyzine HCL 25mg Tablets 1 po qd Unknown Arnuity Ellipta 100mcg/Act Aerosol 1 inhalation once daily Unknown Gabapentin 600mg Tablets 1 by mouth three times a day Unknown Fluticasone Propionate 50mcg/Act Suspension prn Unknown Ventolin HFA 108(90Base) mcg/Act A erosol prn Unknown Vitamin D3 1000Unit Capsules 1 by mouth every day Unknown Methadone HCL 40mg Tablets Soluble 1 tie by mouth daily. states its 55 mg's Unknown Immunizations Description No Information Available Vital Signs Date Vital Result Comment 12/13/2020 9:28am BP Systolic 140 mmHg BP Diastolic 84 mmHg Heart Rate 73 /min Body Temperature 97.1 F Height 70.4 inches 5'10.40" Weight 256.00 lb BMI (Body Mass Index) 36.3 kg/m2 O2 % BldC Oximetry 93 % 10/05/2020 9:59am Body Temperature 96.0 F Height 70.4 inches 5'10.40" Results Test Acquired Date Facility Test Result H/L Range Note Hemoglobin & Hematocrit 11/24/2020 [facility] [address] [place] [address] [phone])- - Hemoglobin 17.0 g/dL Normal 13.5-17.5 Hematocrit 50.7 % Normal 42.0-52.0 Laboratory test finding 11/24/2020 [facility] [address] [place] [address] (315)- - Testosterone 777 ng/dL Normal 241-827 1 1 NORMAL RANGES ARE FOR ADULT FEMALES (OVER 15 YRS) AND MALES (OVER 19 YRS). FOR PEDIATRIC RANGES PLE ASE CONSULT LITERATURE. Procedures Date Code Description Status 03/01/2021 02841 Injec Therapeutic Or Diagnostic Subcut Or Intramuscular Completed 02/19/2021 24294 Injec Therapeutic Or Diagnostic Subcut Or Intramuscular Completed 02/08/2021 47621 Injec Therapeutic Or Diagnostic Subcut Or Intramuscular Completed 01/25/2021 87226 Injec Therapeutic Or Diagnostic Subcut Or Intramuscular Completed 01/15/2021 60380 Injec Therapeutic Or Diagnostic Subcut Or Intramuscular Completed 01/05/2021 57967 Injec Therapeutic Or Diagnostic Subcut Or Intramuscular Completed 12/25/2020 81354 Injec Therapeutic Or Diagnostic Subcut Or Intramuscular Completed 12/13/2020 57312 Injec Therapeutic Or Diagnostic Subcut Or Intramuscular Completed 12/13/2020 27627 Office/Outpatient Established Mo d MDM 30-39 Min Completed 11/20/2020 79312 Injec Therapeutic Or Diagnostic Subcut Or Intramuscular Completed 11/10/2020 83111 Injec Therapeutic Or Diagnostic Subcut Or Intramuscular Completed 10/31/2020 24043 Injec Therapeutic Or Diagnostic Subcut Or Intramuscular Completed 10/16/2020 07457 Injec Therapeutic Or Diagnostic Subcut Or Intramuscular Completed 10/05/2020 18619 Injec Therapeutic Or Diagnostic Subcut Or Intramuscular Completed 09/25/2020 84025 Injec Therapeutic Or Diagnostic Subcut Or Intramuscular Completed 09/14/2020 12921 Injec Therapeutic Or Diagnostic Subcut Or Intramuscular Completed 09/04/2020 70947 Injec Therapeutic Or Diagnostic Subcut Or Intramuscular Completed Medical Devices Description No Information Available Encounters Type Date Location Provider Dx Diagnosis Office Visit 03/01/2021 9:00a DR. Mar Chakraborty [facility] E29.1 Testicular hypofunction Office Visit 02/19/2021 9:00a DR. Mar Chakraborty [facility] E29.1 Testicular hypofunction Office Visit 02/08/2021 9:00a DR. Mar Chakraborty End[facility] Nurses E29.1 Testicular hypofunction Office Visit 01/25/2021 10:00a DR. Mar Chakraborty Endo Nurses E29.1 Testicular hypofunction Office Visit 01/15/2021 9:00a DR. Mar Chakraborty Endo Nurses E29.1 Testicular hypofunction Office Visit 01/05/2021 9:00a DR. Mar Chakraborty Endo Nurses E29.1 Testicular hypofunction Office Visit 12/25/2020 9:00a DR. Mar Chakraborty Endo Nurses E29.1 Testicular hypofunction Office Visit 12/13/2020 9:00a DR. Mar Castorena, Gypsy P E29.1 Testicular hypofunction Office Visit 11/20/2020 9:00a DR. Mar Chakraborty Endo Nurses E29.1 Testicular hypofunction Office Visit 11/10/2020 9:00a DR. Mar Chakraborty Endo Nurses E29.1 Testicular hypofunction Office Visit 10/31/2020 9:00a DR. Mar Chakraborty Endo Nurses E29.1 Testicular hypofunction Office Visit 10/16/2020 10:00a DR. Mar Chakraborty Endo Nurses E29.1 Testicular hypofunction Office Visit 10/05/2020 9:30a DR. Mar Chakraborty Endo Nurses E29.1 Testicular hypofunction Office Visit 09/25/2020 9:30a DR. Mar Chakraborty Endo Nurses E29.1 Testicular hypofunction Office Visit 09/14/2020 9:30a DR. Mar Chakraborty Endo Nurses E29.1 Testicular hypofunction Office Visit 09/04/2020 9:30a DR. Mar Chakraborty Endo Nurses E29.1 Testicular hypofunction Assessments Date Code Description Provider 03/01/2021 E29.1 Testicular hypofunction Whitley Castorena, JOE 03/01/2021 E29.1 Testicular hypofunction Endo Elaine ses 02/19/2021 E29.1 Testicular hypofunction Mar Chakraborty MD 02/19/2021 E29.1 Testicular hypofunction Endo Elaine ses 02/08/2021 E29.1 Testicular hypofunction Whitley Castorena, JOE 02/08/2021 E29.1 Testicular hypofunction Endo Elaine ses 01/25/2021 E29.1 Testicular hypofunction Mar Chakraborty MD 01/25/2021 E29.1 Testicular hypofunction Endo Elaine ses 01/15/2021 E29.1 Testicular hypofunction Whitley Castorena, JOE 01/15/2021 E29.1 Testicular hypofunction Endo Elaine ses 01/05/2021 E29.1 Testicular hypofunction Whitley Castorena, JOE 01/05/2021 E29.1 Testicular hypofunction Endo Elaine ses 12/25/2020 E29.1 Testicular hypofunction Mar Chakraborty MD 12/25/2020 E29.1 Testicular hypofunction Endo Elaine ses 12/13/2020 E29.1 Testicular hypofunction Whitley Castorena NP 11/20/2020 E29.1 Testicular hypofunction Mar Chakraborty MD 11/20/2020 E29.1 Testicular hypofunction Endo Elaine ses 11/10/2020 E29.1 Testicular hypofunction Mar Chakraborty MD 11/10/2020 E29.1 Testicular hypofunction Endo Elaine ses 10/31/2020 E29.1 Testicular hypofunction Whitley Castorena, CIGAR HEAD PERFORATOR 10/31/2020 E29.1 Testicular hypofunction Endo Elaine ses 10/16/2020 E29.1 Testicular hypofunction Whitley Castorena, CIGAR HEAD PERFORATOR 10/16/2020 E29.1 Testicular hypofunction Endo Elaine ses 10/05/2020 E29.1 Testicular hypofunction Mar Chakraborty MD 10/05/2020 E29.1 Testicular hypofunction Endo Elaine ses 09/25/2020 E29.1 Testicular hypofunction Whitley Castorena, CIGAR HEAD PERFORATOR 09/25/2020 E29.1 Testicular hypofunction Endo Elaine ses 09/14/2020 E29.1 Testicular hypofunction Whitley Castorena, CIGAR HEAD PERFORATOR 09/14/2020 E29.1 Testicular hypofunction Endo Elaine ses 09/04/2020 E29.1 Testicular hypofunction Whitley Castorena, CIGAR HEAD PERFORATOR 09/04/2020 E29.1 Testicular hypofunction Endo Elaine ses Plan of Treatment Future Appointment(s):* 03/12/2021 9:00 am - Endo Nurses at DR. Mar Chakraborty * 06/13/2021 9:00 am - Whitley Castorena, CIGAR HEAD PERFORATOR at DR. Mar Chakraborty Functional Status Description No Information Available Mental Status Description No Information Available Referrals Refer to Dr Reason for Referral Status Appt Date Mar Chakraborty MD TESTICULAR HYPO FUNCTION Created [facility], [address] [place] [address] [phone]
--- OUTSIDE RECORDS SUMMARY | 2021-04-12 13:54 | CCD | Continuity of Care Document ---
Author Author Fortunato Mendez Organization Unknown Address [address] [place] [address] Phone [phone] Care Team Providers Care Top Ironer Name Role Phone Earl Sin JENNIFER AUTM [phone] Archana Johnson PA-C AUTM [phone] Problems Active Problems Provider Date Pure hyperglyceridemia [...] Date BD 3ML Syringe/Safetyglide Shielding Im Needle 90OW5-0/2" 22G X 1-1/2" 3 ML Misc use [...] H/L Range Note Hemoglobin & Hematocrit 11/24/2020 [facility] [address] [place] [address] (315)- - Hemoglobin 17.0 g/dL Normal 13.5-17.5 Hematocrit 50.7 % Normal 42.0-52.0 Laboratory test finding 11/24/2020 [facility] [address] [place] [address] (315)- - Testosterone 777 ng/dL Normal 241-827 1 1 NORMAL RANGES ARE FOR ADULT FEMALES (OVER 15 YRS) AND MALES (OVER 19 YRS). FOR PEDIATRIC RANGES PLE ASE CONSULT LITERATURE. Procedures Date Code Description Status 03/01/2021 31437 Injec Therapeutic Or Diagnostic Subcut Or Intramuscular Completed 02/19/2021 56759 Injec Therapeutic Or Diagnostic Subcut Or Intramuscular Completed 02/08/2021 58705 Injec Therapeutic Or Diagnostic Subcut Or Intramuscular Completed 01/25/2021 90898 Injec Therapeutic Or Diagnostic Subcut Or Intramuscular Completed 01/15/2021 04018 Injec Therapeutic Or Diagnostic Subcut Or Intramuscular Completed 01/05/2021 55593 Injec Therapeutic Or Diagnostic Subcut Or Intramuscular Completed 12/25/2020 48159 Injec Therapeutic Or Diagnostic Subcut Or Intramuscular Completed 12/13/2020 26380 Injec Therapeutic Or Diagnostic Subcut Or Intramuscular Completed 12/13/2020 99746 Office/Outpatient Established Mo d MDM 30-39 Min Completed 11/20/2020 35590 Injec Therapeutic Or Diagnostic Subcut Or Intramuscular Completed 11/10/2020 71657 Injec Therapeutic Or Diagnostic Subcut Or Intramuscular Completed 10/31/2020 25363 Injec Therapeutic Or Diagnostic Subcut Or Intramuscular Completed 10/16/2020 47954 Injec Therapeutic Or Diagnostic Subcut Or Intramuscular Completed 10/05/2020 42094 Injec Therapeutic Or Diagnostic Subcut Or Intramuscular Completed 09/25/2020 71374 Injec Therapeutic Or Diagnostic Subcut Or Intramuscular Completed 09/14/2020 71459 Injec Therapeutic Or Diagnostic Subcut Or Intramuscular Completed 09/04/2020 44986 Injec Therapeutic Or Diagnostic Subcut Or Intramuscular [...] Code Description Provider 03/01/2021 E29.1 Testicular hypofunction Endo Elaine ses [...] ses 01/05/2021 E29.1 Testicular hypofunction Whitley Castorena, LEVEE SUPERINTENDENT 01/05/2021 E29.1 Testicular hypofunction Endo Elaine ses 12/25/2020 E29.1 Testicular hypofunction Mar Chakraborty MD 12/25/2020 E29.1 Testicular hypofunction Endo Elaine ses 12/13/2020 E29.1 Testicular hypofunction Whitley Castorena, JOE 11/20/2020 E29.1 Testicular hypofunction Mar Chakraborty MD 11/20/2020 E29.1 Testicular hypofunction Endo Elaine ses 11/10/2020 E29.1 Testicular hypofunction Mar Chakraborty MD 11/10/2020 E29.1 Testicular hypofunction Endo Elaine ses 10/31/2020 E29.1 Testicular hypofunction Whitley Castorena, LEVEE SUPERINTENDENT 10/31/2020 E29.1 Testicular hypofunction Endo Elaine ses 10/16/2020 E29.1 Testicular hypofunction Whitley Castorena, LEVEE SUPERINTENDENT 10/16/2020 E29.1 Testicular hypofunction Endo Elaine ses 10/05/2020 E29.1 Testicular hypofunction Mar Chakraborty MD 10/05/2020 E29.1 Testicular hypofunction Endo Elaine ses 09/25/2020 E29.1 Testicular hypofunction Whitley Castorena, LEVEE SUPERINTENDENT 09/25/2020 E29.1 Testicular hypofunction Endo Elaine ses 09/14/2020 E29.1 Testicular hypofunction Whitley Castorena, LEVEE SUPERINTENDENT 09/14/2020 E29.1 Testicular hypofunction Endo Elaine ses 09/04/2020 E29.1 Testicular hypofunction Whitley Castorena, LEVEE SUPERINTENDENT 09/04/2020 E29.1 Testicular hypofunction Endo Elaine ses Plan of Treatment Future Appointment(s):* 03/12/2021 9:00 am - Endo Nurses at DR. Mar Chakraborty * 06/13/2021 9:00 am - Whitley Castorena NP at DR. Mar Chakraborty Functional Status Description No Information Available Mental Status Description No Information Available Referrals Refer to Dr Reason for Referral Status Appt Date Mar Chakraborty MD TESTICULAR HYPO FUNCTION Created [address] [facility], [address] [place] [address] [phone]
--- OUTSIDE RECORDS SUMMARY | 2021-04-12 13:54 | CCD | Continuity of Care Document ---
Author Author Fortunato Mendez Organization Unknown Address [address] [place] [address] [address] [place] [address] Phone [phone] Care Team Providers Care Bulk Plant Operator Name Role Phone Earl Sin JENNIFER AUTM [phone] Archana Johnson PA-C AUTM [phone] Problems Active Problems Provider Date Pure hyperglyceridemia [...] Reviewed: 12/13/20 Patient is a former smoker Allergies and adverse reactions Description No Known Drug Allergies Medications Active Medications SIG Qnty Indications Ordering Provide r Date BD 3ML Syringe/Safetyglide Shielding Im Needle 07LT8-2/2" 22G X 1-1/2" 3 ML Misc use [...] H/L Range Note Hemoglobin & Hematocrit 11/24/2020 [facility] [address] [place] [address] (315)- - Hemoglobin 17.0 g/dL Normal 13.5-17.5 Hematocrit 50.7 % Normal 42.0-52.0 Laboratory test finding 11/24/2020 [facility] [address] [place] [address] (315)- - Testosterone 777 ng/dL Normal 241-827 1 1 NORMAL RANGES ARE FOR ADULT FEMALES (OVER 15 YRS) AND MALES (OVER 19 YRS). FOR PEDIATRIC RANGES PLE ASE CONSULT LITERATURE. Procedures Date Code Description Status 03/27/2021 49877 Injec Therapeutic Or Diagnostic Subcut Or Intramuscular Completed 03/12/2021 59699 Injec Therapeutic Or Diagnostic Subcut Or Intramuscular Completed 03/01/2021 73598 Injec Therapeutic Or Diagnostic Subcut Or Intramuscular Completed 02/19/2021 99387 Injec Therapeutic Or Diagnostic Subcut Or Intramuscular Completed 02/08/2021 42256 Injec Therapeutic Or Diagnostic Subcut Or Intramuscular Completed 01/25/2021 11654 Injec Therapeutic Or Diagnostic Subcut Or Intramuscular Completed 01/15/2021 28850 Injec Therapeutic Or Diagnostic Subcut Or Intramuscular Completed 01/05/2021 94212 Injec Therapeutic Or Diagnostic Subcut Or Intramuscular Completed 12/25/2020 61133 Injec Therapeutic Or Diagnostic Subcut Or Intramuscular Completed 12/13/2020 06471 Office/Outpatient Established Mo d MDM 30-39 Min Completed 12/13/2020 34539 Injec Therapeutic Or Diagnostic Subcut Or Intramuscular Completed 11/20/2020 49634 Injec Therapeutic Or Diagnostic Subcut Or Intramuscular Completed 11/10/2020 66603 Injec Therapeutic Or Diagnostic Subcut Or Intramuscular Completed 10/31/2020 41234 Injec Therapeutic Or Diagnostic Subcut Or Intramuscular Completed 10/16/2020 07640 Injec Therapeutic Or Diagnostic Subcut Or Intramuscular Completed Medical Devices Description No Information Available Encounters Type Date Location Provider Dx Diagnosis Office Visit 03/27/2021 9:00a DR. Mar Chakraborty End[facility] Nurses E29.1 Testicular hypofunction Office Visit 03/12/2021 9:00a DR. Mar Chakraborty Endo Nurses E29.1 Testicular hypofunction Office Visit 03/01/2021 9:00a DR. Mar Chakraborty [...] Testicular hypofunction Assessments Date Code Description Provider 03/27/2021 E29.1 Testicular hypofunction Whitley Castorena, CORNER BLOCK CUTTER 03/27/2021 E29.1 Testicular hypofunction Endo Elaine ses 03/12/2021 E29.1 Testicular hypofunction Whitley Castorena, CORNER BLOCK CUTTER 03/12/2021 E29.1 Testicular hypofunction Endo Elaine ses 03/01/2021 E29.1 Testicular hypofunction Whitley Castorena, CORNER BLOCK CUTTER 03/01/2021 E29.1 Testicular hypofunction Endo Elaine ses 02/19/2021 E29.1 Testicular hypofunction Mar Chakraborty MD 02/19/2021 E29.1 Testicular hypofunction Endo Elaine ses 02/08/2021 E29.1 Testicular hypofunction Whitley Castorena, CORNER BLOCK CUTTER 02/08/2021 E29.1 Testicular hypofunction Endo Elaine ses 01/25/2021 E29.1 Testicular hypofunction Mar Chakraborty MD 01/25/2021 E29.1 Testicular hypofunction Endo Elaine ses 01/15/2021 E29.1 Testicular hypofunction Whitley Castorena, CORNER BLOCK CUTTER 01/15/2021 E29.1 Testicular hypofunction Endo Elaine ses 01/05/2021 E29.1 Testicular hypofunction Whitley Castorena, CORNER BLOCK CUTTER 01/05/2021 E29.1 Testicular hypofunction Endo Elaine ses 12/25/2020 E29.1 Testicular hypofunction Mar Chakraborty MD 12/25/2020 E29.1 Testicular hypofunction Endo Elaine ses 12/13/2020 E29.1 Testicular hypofunction Whitley Castorena, CORNER BLOCK CUTTER 11/20/2020 E29.1 Testicular hypofunction Mar Chakraborty MD 11/20/2020 E29.1 Testicular hypofunction Endo Elaine ses 11/10/2020 E29.1 Testicular hypofunction Mar Chakraborty MD 11/10/2020 E29.1 Testicular hypofunction Endo Elaine ses 10/31/2020 E29.1 Testicular hypofunction Whitley Castorena NP 10/31/2020 E29.1 Testicular hypofunction Endo Elaine ses 10/16/2020 E29.1 Testicular hypofunction Whitley Castorena NP 10/16/2020 E29.1 Testicular hypofunction Endo Elaine ses Plan of Treatment Future Appointment(s):* 04/16/2021 9:00 am - Endo Nurses at DR. Mar Chakraborty * 06/13/2021 9:00 am - Whitley Castorena NP at DR. Mar Chakraborty Functional Status Description No Information Available Mental Status Description No Information Available Referrals Refer to Reason for Referral Status Appt Date Mar Chakraborty MD TESTICULAR HYPO FUNCTION Created [address] [facility], [address] [place] [address] [phone]
--- OUTSIDE RECORDS SUMMARY | 2021-04-12 13:54 | CCD | Continuity of Care Document ---
Author Author Fortunato Mendez Organization Unknown Address [address] [place] [address] Phone [phone] Care Team Providers Care Doorperson Or Luggage Porter Name Role Phone Earl Sin JENNIFER AUTM [phone] Archana Johnson PA-C AUTM [phone] Problems Active Problems Provider Date Pure hyperglyceridemia [...] Date BD 3ML Syringe/Safetyglide Shielding Im Needle 78RI1-7/2" 22G X 1-1/2" 3 ML Misc use [...] H/L Range Note Hemoglobin & Hematocrit [facility] [address] [place] [address] (315)- - Hemoglobin 17.0 g/dL Normal 13.5-17.5 Hematocrit 50.7 % Normal 42.0-52.0 Laboratory test finding 11/24/2020 [facility] [address] [place] [address] (315)- - Testosterone 777 ng/dL Normal 241-827 1 1 NORMAL RANGES ARE FOR ADULT FEMALES (OVER 15 YRS) AND MALES (OVER 19 YRS). FOR PEDIATRIC RANGES PLE ASE CONSULT LITERATURE. Procedures Date Code Description Status 03/12/2021 92346 Injec Therapeutic Or Diagnostic Subcut Or Intramuscular Completed 03/01/2021 10274 Injec Therapeutic Or Diagnostic Subcut Or Intramuscular Completed 02/19/2021 94932 Injec Therapeutic Or Diagnostic Subcut Or Intramuscular Completed 02/08/2021 97947 Injec Therapeutic Or Diagnostic Subcut Or Intramuscular Completed 01/25/2021 30596 Injec Therapeutic Or Diagnostic Subcut Or Intramuscular Completed 01/15/2021 88630 Injec Therapeutic Or Diagnostic Subcut Or Intramuscular Completed 01/05/2021 25005 Injec Therapeutic Or Diagnostic Subcut Or Intramuscular Completed 12/25/2020 85605 Injec Therapeutic Or Diagnostic Subcut Or Intramuscular Completed 12/13/2020 54104 Office/Outpatient Established Mo d MDM 30-39 Min Completed 12/13/2020 76541 Injec Therapeutic Or Diagnostic Subcut Or Intramuscular Completed 11/20/2020 20296 Injec Therapeutic Or Diagnostic Subcut Or Intramuscular Completed 11/10/2020 91705 Injec Therapeutic Or Diagnostic Subcut Or Intramuscular Completed 10/31/2020 80495 Injec Therapeutic Or Diagnostic Subcut Or Intramuscular Completed 10/16/2020 11357 Injec Therapeutic Or Diagnostic Subcut Or Intramuscular Completed 10/05/2020 22800 Injec Therapeutic Or Diagnostic Subcut Or Intramuscular Completed 09/25/2020 79965 Injec Therapeutic Or Diagnostic Subcut Or Intramuscular Completed Medical Devices Description No Information Available Encounters Type Date Location Provider Dx Diagnosis Office Visit 03/12/2021 9:00a DR. Mar Chakraborty [...] Testicular hypofunction Assessments Date Code Description Provider 03/12/2021 E29.1 Testicular hypofunction Whitley Castorena, JOE 03/12/2021 E29.1 Testicular hypofunction Endo Elaine ses 03/01/2021 E29.1 Testicular hypofunction Whitley Castorena, JOE [...] Elaine ses 09/25/2020 E29.1 Testicular hypofunction Whitley Castorena NP 09/25/2020 E29.1 Testicular hypofunction Endo Elaine ses Plan of Treatment Future Appointment(s):* 03/22/2021 10:00 am - Margo Nurses at DR. Mar Chakraborty * 06/13/2021 9:00 am - Whitley Castorena NP at DR. Mar Chakraborty Functional Status Description No Information Available Mental Status Description No Information Available Referrals Refer to Dr Reason for Referral Status Appt Date Mar Chakraborty MD TESTICULAR HYPO FUNCTION Created [facility], [address] [place] [address] [phone]
--- OUTSIDE RECORDS SUMMARY | 2021-04-12 13:54 | CCD | Continuity of Care Document ---
Author Author Fortunato Mendez Organization Unknown Address [address] [place] [address] [address] [place] [address] Phone [phone] Care Team Providers Care Processing Rep Name Role Phone Earl Sin JENNIFER AUTM [phone] Archana Johnson PA-C AUTM [phone] Problems Active Problems Provider Date Pure hyperglyceridemia [...] Date BD 3ML Syringe/Safetyglide Shielding Im Needle 58CM4-5/2" 22G X 1-1/2" 3 ML Misc use every 10 days with testosterone 10units Whitley aCstorena NP 04/30/2019 Testosterone Cypionate 200mg/ml So lution [...] H/L Range Note Hemoglobin & Hematocrit 11/24/2020 [facility] [address] [place] [address] [phone])- - Hemoglobin 17.0 g/dL Normal 13.5-17.5 Hematocrit 50.7 % Normal 42.0-52.0 Laboratory test finding 11/24/2020 [facility] [address] [place] [address] (315)- - Testosterone 777 ng/dL Normal 241-827 1 1 NORMAL RANGES ARE FOR ADULT FEMALES (OVER 15 YRS) AND MALES (OVER 19 YRS). FOR PEDIATRIC RANGES PLE ASE CONSULT LITERATURE. Procedures Date Code Description Status 04/06/2021 88732 [facility] Therapeutic Or Diagnostic Subcut Or Intramuscular Completed 03/27/2021 76151 Injec Therapeutic Or Diagnostic Subcut Or Intramuscular Completed 03/12/2021 90348 Injec Therapeutic Or Diagnostic Subcut Or Intramuscular Completed 03/01/2021 74661 Injec Therapeutic Or Diagnostic Subcut Or Intramuscular Completed 02/19/2021 01095 Injec Therapeutic Or Diagnostic Subcut Or Intramuscular Completed 02/08/2021 46267 Injec Therapeutic Or Diagnostic Subcut Or Intramuscular Completed 01/25/2021 74032 Injec Therapeutic Or Diagnostic Subcut Or Intramuscular Completed 01/15/2021 53880 Injec Therapeutic Or Diagnostic Subcut Or Intramuscular Completed 01/05/2021 55602 Injec Therapeutic Or Diagnostic Subcut Or Intramuscular Completed 12/25/2020 94690 Injec Therapeutic Or Diagnostic Subcut Or Intramuscular Completed 12/13/2020 26244 Office/Outpatient Established Mo d MDM 30-39 Min Completed 12/13/2020 43633 Injec Therapeutic Or Diagnostic Subcut Or Intramuscular Completed 11/20/2020 94448 Injec Therapeutic Or Diagnostic Subcut Or Intramuscular Completed 11/10/2020 66761 Injec Therapeutic Or Diagnostic Subcut Or Intramuscular Completed 10/31/2020 75787 Injec Therapeutic Or Diagnostic Subcut Or Intramuscular Completed 10/16/2020 22305 Injec Therapeutic Or Diagnostic Subcut Or Intramuscular Completed Medical Devices Description No Information Available Encounters Type Date Location Provider Dx Diagnosis Office Visit 04/06/2021 9:30a DR. Mar Chakraborty End[facility] Nurses E29.1 Testicular hypofunction Office Visit 03/27/2021 9:00a DR. Mar Chakraborty [...] Office Visit 12/13/2020 9:00a DR. Mar Castorena, N P E29.1 Testicular hypofunction Office Visit 11/20/2020 9:00a DR. Mar Chakraborty Endo Nurses E29.1 Testicular hypofunction Office Visit 11/10/2020 9:00a DR. Mar Chakraborty Endo Nurses E29.1 Testicular hypofunction Office Visit 10/31/2020 9:00a DR. Mar Chakraborty Endo Nurses E29.1 Testicular hypofunction Office Visit 10/16/2020 10:00a DR. Mar Chakraborty Endo Nurses E29.1 Testicular hypofunction Assessments Date Code Description Provider 04/06/2021 E29.1 Testicular hypofunction Mar Chakraborty MD 04/06/2021 E29.1 Testicular hypofunction Endo Elaine ses 03/27/2021 E29.1 Testicular hypofunction Whitley Castorena, INDUSTRIAL MAINTENANCE MANAGER 03/27/2021 E29.1 Testicular hypofunction Endo Elaine ses 03/12/2021 E29.1 Testicular hypofunction Whitley Castorena, INDUSTRIAL MAINTENANCE MANAGER 03/12/2021 E29.1 Testicular hypofunction Endo Elaine ses 03/01/2021 E29.1 Testicular hypofunction Whitley Castorena, INDUSTRIAL MAINTENANCE MANAGER 03/01/2021 E29.1 Testicular hypofunction Endo Elaine ses 02/19/2021 E29.1 Testicular hypofunction Mar Chakraborty MD 02/19/2021 E29.1 Testicular hypofunction Endo Elaine ses 02/08/2021 E29.1 Testicular hypofunction Whitley Castorena, INDUSTRIAL MAINTENANCE MANAGER 02/08/2021 E29.1 Testicular hypofunction Endo Elaine ses 01/25/2021 E29.1 Testicular hypofunction Mar Chakraborty MD 01/25/2021 E29.1 Testicular hypofunction Endo Elaine ses 01/15/2021 E29.1 Testicular hypofunction Whitley Castorena, JOE 01/15/2021 E29.1 Testicular hypofunction Endo Elaine ses 01/05/2021 E29.1 Testicular hypofunction Whitley Castorena, INDUSTRIAL MAINTENANCE MANAGER 01/05/2021 E29.1 Testicular hypofunction Endo Elaine ses 12/25/2020 E29.1 Testicular hypofunction Mar Chakraborty MD 12/25/2020 E29.1 Testicular hypofunction Endo Elaine ses 12/13/2020 E29.1 Testicular hypofunction Whitley Castorena, JOE 11/20/2020 E29.1 Testicular hypofunction Mar Chakraborty MD 11/20/2020 E29.1 Testicular hypofunction Endo Elaine ses 11/10/2020 E29.1 Testicular hypofunction Mar Chakraborty MD 11/10/2020 E29.1 Testicular hypofunction Endo Elaine ses 10/31/2020 E29.1 Testicular hypofunction Whitley Castorena, JOE 10/31/2020 E29.1 Testicular hypofunction Endo Elaine ses 10/16/2020 E29.1 Testicular hypofunction Whitley Castorena NP 10/16/2020 E29.1 Testicular hypofunction Endo Elaine ses Plan of Treatment Future Appointment(s):* 04/16/2021 9:00 am - Margo Nurses at DR. Mar Chakraborty * 06/13/2021 9:00 am - Whitley Castorena NP at DR. Mar Chakraborty Functional Status Description No Information Available Mental Status Description No Information Available Referrals Refer to Reason for Referral Status Appt Date Mar Chakraborty MD TESTICULAR HYPO FUNCTION Created [address] [facility], [address] [place] [address] [phone]
--- OUTSIDE RECORDS SUMMARY | 2021-04-12 13:54 | CCD | Continuity of Care Document ---
Author Author Fortunato Mendez Organization Unknown Address [address] [place] [address] Phone [phone] Care Team Providers Care Cloud Architect Name Role Phone Earl Sin JENNIFER AUTM [phone] Archana Johnson PA-C AUTM [phone] Problems Active Problems Provider Date Pure hyperglyceridemia [...] Date BD 3ML Syringe/Safetyglide Shielding Im Needle 60QX5-2/2" 22G X 1-1/2" 3 ML Misc use [...] H/L Range Note Hemoglobin & Hematocrit [facility] [address] [place] [address] (315)- - Hemoglobin 17.0 g/dL Normal 13.5-17.5 Hematocrit 50.7 % Normal 42.0-52.0 Laboratory test finding 11/24/2020 [facility] [address] [place] [address] (315)- - Testosterone 777 ng/dL Normal 241-827 1 1 NORMAL RANGES ARE FOR ADULT FEMALES (OVER 15 YRS) AND MALES (OVER 19 YRS). FOR PEDIATRIC RANGES PLE ASE CONSULT LITERATURE. Procedures Date Code Description Status 03/12/2021 71805 Injec Therapeutic Or Diagnostic Subcut Or Intramuscular Completed 03/01/2021 10430 Injec Therapeutic Or Diagnostic Subcut Or Intramuscular Completed 02/19/2021 52688 Injec Therapeutic Or Diagnostic Subcut Or Intramuscular Completed 02/08/2021 32547 Injec Therapeutic Or Diagnostic Subcut Or Intramuscular Completed 01/25/2021 34973 Injec Therapeutic Or Diagnostic Subcut Or Intramuscular Completed 01/15/2021 09436 Injec Therapeutic Or Diagnostic Subcut Or Intramuscular Completed 01/05/2021 70279 Injec Therapeutic Or Diagnostic Subcut Or Intramuscular Completed 12/25/2020 49882 Injec Therapeutic Or Diagnostic Subcut Or Intramuscular Completed 12/13/2020 08687 Office/Outpatient Established Mo d MDM 30-39 Min Completed 12/13/2020 29046 Injec Therapeutic Or Diagnostic Subcut Or Intramuscular Completed 11/20/2020 20841 Injec Therapeutic Or Diagnostic Subcut Or Intramuscular Completed 11/10/2020 60249 Injec Therapeutic Or Diagnostic Subcut Or Intramuscular Completed 10/31/2020 67830 Injec Therapeutic Or Diagnostic Subcut Or Intramuscular Completed 10/16/2020 98455 Injec Therapeutic Or Diagnostic Subcut Or Intramuscular Completed 10/05/2020 91328 Injec Therapeutic Or Diagnostic Subcut Or Intramuscular Completed 09/25/2020 15450 Injec Therapeutic Or Diagnostic Subcut Or Intramuscular Completed 09/14/2020 29462 Injec Therapeutic Or Diagnostic Subcut Or Intramuscular Completed Medical Devices Description No Information Available Encounters Type Date Location Provider Dx Diagnosis Office Visit 03/12/2021 9:00a DR. Mar Chakraborty End[facility]es E29.1 Testicular hypofunction Office Visit 03/01/2021 9:00a DR. Mra Chakraborty Endo Nurses E29.1 Testicular hypofunction Office [...] hypofunction Office Visit 12/13/2020 9:00a DR. Mar Fish Whitley B. Raffaele, N P E29.1 Testicular hypofunction Office Visit [...] Code Description Provider 03/12/2021 E29.1 Testicular hypofunction Endo Elaine ses 03/01/2021 E29.1 Testicular hypofunction Whitley Castorena, JOE 03/01/2021 E29.1 Testicular hypofunction Endo Elaine ses 02/19/2021 E29.1 Testicular hypofunction Mar Chakraborty MD 02/19/2021 E29.1 Testicular hypofunction Endo Elaien ses 02/08/2021 E29.1 Testicular hypofunction Whitley Castorena, JOE 02/08/2021 E29.1 Testicular hypofunction Endo Elaine ses 01/25/2021 E29.1 Testicular hypofunction Mar Chakraborty MD 01/25/2021 E29.1 Testicular hypofunction Endo Elaine ses 01/15/2021 E29.1 Testicular hypofunction Whitley Castorena, JOE 01/15/2021 E29.1 Testicular hypofunction Endo Elaine ses 01/05/2021 E29.1 Testicular hypofunction Whitley Castorena NP 01/05/2021 E29.1 Testicular hypofunction Endo Elaine ses 12/25/2020 E29.1 Testicular hypofunction Mar Chakraborty MD 12/25/2020 E29.1 Testicular hypofunction Endo Elaine ses 12/13/2020 E29.1 Testicular hypofunction Whitley Castorena, JOE 11/20/2020 E29.1 Testicular hypofunction Mar Chakraborty MD 11/20/2020 E29.1 Testicular hypofunction Endo Elaine ses 11/10/2020 E29.1 Testicular hypofunction Mar Chakraborty MD 11/10/2020 E29.1 Testicular hypofunction Endo Elaine ses 10/31/2020 E29.1 Testicular hypofunction Whitley Castorena, INSTRUCTIONAL MATERIALS DIRECTOR 10/31/2020 E29.1 Testicular hypofunction Endo Elaine ses 10/16/2020 E29.1 Testicular hypofunction Whitley Castorena, INSTRUCTIONAL MATERIALS DIRECTOR 10/16/2020 E29.1 Testicular hypofunction Endo Elaine ses 10/05/2020 E29.1 Testicular hypofunction Mar Chakraborty MD 10/05/2020 E29.1 Testicular hypofunction Endo Elaine ses 09/25/2020 E29.1 Testicular hypofunction Whitley Castorena, INSTRUCTIONAL MATERIALS DIRECTOR 09/25/2020 E29.1 Testicular hypofunction Endo Elaine ses 09/14/2020 E29.1 Testicular hypofunction Whitley Castorena, INSTRUCTIONAL MATERIALS DIRECTOR 09/14/2020 E29.1 Testicular hypofunction Endo Elaine ses Plan of Treatment Future Appointment(s):* 03/22/2021 10:00 am - Endo Nurses at DR. Mar Chakraborty * 06/13/2021 9:00 am - Whitley Castorena NP at DR. Mar Chakraborty Functional Status Description No Information Available Mental Status Description No Information Available Referrals Refer to Dr Reason for Referral Status Appt Date Mar Chakraborty MD TESTICULAR HYPO FUNCTION Created [address] [facility], [address] [place] [address] [phone]
--- OUTSIDE RECORDS SUMMARY | 2021-04-12 13:54 | CCD | Continuity of Care Document ---
Author Author Fortunato Mendez Organization Unknown Address [address] [place] [address] Phone [phone] Care Team Providers Care Level Designer Name Role Phone Earl Sin JENNIFER AUTM [phone] Archana Johnson PA-C AUTM [phone] Problems Active Problems Provider Date Pure hyperglyceridemia [...] Date BD 3ML Syringe/Safetyglide Shielding Im Needle 66SI5-5/2" 22G X 1-1/2" 3 ML Misc use [...] H/L Range Note Hemoglobin & Hematocrit 11/24/2020 [facility] [address] [place] [address] (315)- - Hemoglobin 17.0 g/dL Normal 13.5-17.5 Hematocrit 50.7 % Normal 42.0-52.0 Laboratory test finding 11/24/2020 [facility] [address] [place] [address] (315)- - Testosterone 777 ng/dL Normal 241-827 1 1 NORMAL RANGES ARE FOR ADULT FEMALES (OVER 15 YRS) AND MALES (OVER 19 YRS). FOR PEDIATRIC RANGES PLE ASE CONSULT LITERATURE. Procedures Date Code Description Status 02/19/2021 41665 Injec Therapeutic Or Diagnostic Subcut Or Intramuscular Completed 02/08/2021 16834 Injec Therapeutic Or Diagnostic Subcut Or Intramuscular Completed 01/25/2021 91654 Injec Therapeutic Or Diagnostic Subcut Or Intramuscular Completed 01/15/2021 74041 Injec Therapeutic Or Diagnostic Subcut Or Intramuscular Completed 01/05/2021 93485 Injec Therapeutic Or Diagnostic Subcut Or Intramuscular Completed 12/25/2020 72644 Injec Therapeutic Or Diagnostic Subcut Or Intramuscular Completed 12/13/2020 24225 Office/Outpatient Established Mo d MDM 30-39 Min Completed 12/13/2020 89495 Injec Therapeutic Or Diagnostic Subcut Or Intramuscular Completed 11/20/2020 47884 Injec Therapeutic Or Diagnostic Subcut Or Intramuscular Completed 11/10/2020 24566 Injec Therapeutic Or Diagnostic Subcut Or Intramuscular Completed 10/31/2020 92448 Injec Therapeutic Or Diagnostic Subcut Or Intramuscular Completed 10/16/2020 03028 Injec Therapeutic Or Diagnostic Subcut Or Intramuscular Completed 10/05/2020 66889 Injec Therapeutic Or Diagnostic Subcut Or Intramuscular Completed 09/25/2020 60367 Injec Therapeutic Or Diagnostic Subcut Or Intramuscular Completed 09/14/2020 02633 Injec Therapeutic Or Diagnostic Subcut Or Intramuscular Completed 09/04/2020 32472 Injec Therapeutic Or Diagnostic Subcut Or Intramuscular Completed Medical Devices Description No Information Available Encounters Type Date Location Provider Dx Diagnosis Office Visit 02/19/2021 9:00a DR. Mar Chakraborty [...] E29.1 Testicular hypofunction Office Visit 12/13/2020 9:00a Gypsy Merritt E29.1 Testicular hypofunction Office Visit 11/20/2020 9:00a [...] Testicular hypofunction Assessments Date Code Description Provider 02/19/2021 E29.1 Testicular hypofunction Mar Chakraborty MD 02/19/2021 E29.1 Testicular hypofunction Endo Elaine ses 02/08/2021 E29.1 Testicular hypofunction Whitley Castorena, NURSERY TECHNICIAN 02/08/2021 E29.1 Testicular hypofunction Endo Elaine ses 01/25/2021 E29.1 Testicular hypofunction Mar Chakraborty MD 01/25/2021 E29.1 Testicular hypofunction Endo Elaine ses 01/15/2021 E29.1 Testicular hypofunction Whitley Castorena, NURSERY TECHNICIAN 01/15/2021 E29.1 Testicular hypofunction Endo Elaine ses 01/05/2021 E29.1 Testicular hypofunction Whitley Castorena, NURSERY TECHNICIAN 01/05/2021 E29.1 Testicular hypofunction Endo Elaine ses 12/25/2020 E29.1 Testicular hypofunction Mar Chakraborty MD 12/25/2020 E29.1 Testicular hypofunction Endo Elaine ses 12/13/2020 E29.1 Testicular hypofunction Whitley Castorena, NURSERY TECHNICIAN 11/20/2020 E29.1 Testicular hypofunction Mar Chakraborty MD 11/20/2020 E29.1 Testicular hypofunction Endo Elaine ses 11/10/2020 E29.1 Testicular hypofunction Mar Chakraborty MD 11/10/2020 E29.1 Testicular hypofunction Endo Elaine ses 10/31/2020 E29.1 Testicular hypofunction Whitley Castorena, JOE 10/31/2020 E29.1 Testicular hypofunction Endo Elaine ses 10/16/2020 E29.1 Testicular hypofunction Whitley Castorena, NURSERY TECHNICIAN 10/16/2020 E29.1 Testicular hypofunction Endo Elaine ses 10/05/2020 E29.1 Testicular hypofunction Mar Chakraborty MD 10/05/2020 E29.1 Testicular hypofunction Endo Elaine ses 09/25/2020 E29.1 Testicular hypofunction Whitley Castorena, NURSERY TECHNICIAN 09/25/2020 E29.1 Testicular hypofunction Endo Elaine ses 09/14/2020 E29.1 Testicular hypofunction Whitley Castorena, NURSERY TECHNICIAN 09/14/2020 E29.1 Testicular hypofunction Endo Elaine ses 09/04/2020 E29.1 Testicular hypofunction Whitley Castorena, NURSERY TECHNICIAN 09/04/2020 E29.1 Testicular hypofunction Endo Elaine ses Plan of Treatment Future Appointment(s):* 03/01/2021 9:00 am - [facility] Nurses at DR. Mar Chakraborty * 06/13/2021 9:00 am - Whitley Castorena NP at DR. Mar Chakraborty Functional Status Description No Information Available Mental Status Description No Information Available Referrals Refer to Dr Reason for Referral Status Appt Date Mar Chakraborty MD TESTICULAR HYPO FUNCTION Created [facility], [address] [place] [address] [phone]
--- OUTSIDE RECORDS SUMMARY | 2021-04-12 13:54 | CCD ---
Author Author [facility] Organization [facility] Address Unknown Phone Unavailable Care Team Providers Care Watch Commander Name Role Phone Bing Nash Unavailable PROBLEMS Type Condition ICD9-CM Code [id number] Code Onset Dates Condition S tatus W/U Status Risk SNOMED Code Notes Problem GLADYS (obstructive sleep apnea) G47.33 Active confirm ed 64250027 Problem Chronic hepatitis C without hepatic coma B18.2 Active confirmed 773385662 Problem Attention deficit hyperactivity disorder (ADHD), combi lisa type F90.2 Active confirmed 84179170 Problem History of alcoholism F10.21 Active confirmed 467570577 Problem Bipolar disorder in full rem ission, most recent episode unspecified type F31.70 Active confirmed 38185837 Problem Lentigines L81.4 Active confirmed 620847184 Problem Lipoma of abdominal wall D17.1 Active confirmed 998038593 Problem Insomnia due to medical condition G47.01 Active confirmed 25674472 Problem GERD (gastroesophageal reflux disease) K21.9 A ctive confirmed 592937186 Problem Allergic rhinitis, cause unspecified J30.9 Act iker confirmed 32040697 Problem Mixed hyperlipidemia E78.2 Active confirmed 428217792 Problem Moderate persistent asthma without complication J4 5.40 Active confirmed 019819354 Problem PTSD (post-traumatic stress disorder) F43.10 Ac tive confirmed 03125858 Problem Melanocytic nevi of face D22.30 Active confirmed 229046728 Problem Vitamin D deficiency E55.9 Active confirmed 08798624 Problem Melanocytic nevi of left upper limb, including shoulder D22.62 Active confirmed 826482519 Problem Melanocytic nevi of right upper limb, including shoulder D22.61 Active confirmed 306664352 Problem Family history of pancreatic cancer Z80.0 Acti ve confirmed 404199458 Problem Chewing tobacco nicotine dependence without complication F17.220 Active confirmed 25890015 Problem Migraines G43.909 Active confirmed 15351035 Problem Hypertensive heart disease without heart failure I 11.9 Active confirmed 90875448 Problem 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 Acti ve confirmed 828544483 Problem Tobacco dependence F17.200 Active confirmed 43995645 Problem Low testosterone in male E29.1 Active confirmed 967792148 Problem Testosterone insufficiency E34.9 Active confirmed 3282437950974 Problem Prolactin increased E22.9 Active confirmed 220466306 Problem Nicotine dependence, cigarettes, uncomplicated F17 .210 Active confirmed 52009868 ALLERGIES Allergen (clinical drug ingredient) Drug/Non Drug Allergy do cumented on EMR Reaction Allergy Type Onset Date Status Seasonal Unknown Non Drug Allergy Active ENCOUNTERS from 1971 to 2021-04-10 Encounter Location Date Provider Diagnosis [address] [phone] [place] [address] 11 Mar, 2021 Bing Nash IMMUNIZATIONS Vaccine Route Administration Date Status Influenza 18 yrs & older Flublok Unknown Apr 27, 2018 Refused Hepatitis A & B 1mL Twinrix Unknown November 16, 2012 Admi nistered Influenza 6mo & up Fluzone IM Intramuscular Apr 26, 2014 Admi nistered SOCIAL HISTORY Tobacco Use: Social History Observation Description Date Details (start date - stop date) Former Smoker Sex Assigned At : Social History Observation Description Sex Assigned At Unknown Education: Question Answer Notes Level of Education: Not Finished College Worship: Question Answer Notes Worship 08 Hindu[employer] Domestic Violence: Question Answer Notes Status: denies 04/2018 Sexual Hx: Question Answer Notes Had sex in the last 12 months (vaginal, oral, or anal)? No Have you ever had an STD? No Alcohol Screening: Question Answer Notes Did you have a drink containing alcohol in the past year? No Points 0 Interpretation Negative BMI Care Goal Follow-Up Question Answer Notes Above Normal BMI Follow-Up Lifestyle education regarding t Tobacco Use: Question Answer Notes Are you a: former smoker Smoking Cessation Information Given 07/03/2018 How long has it been since you last smoked? 1-3 months REASON FOR REFERRAL No Information VITAL SIGNS No information MEDICATIONS Medication SIG (Take, Route, Frequency, Duration) Notes Start Da te End Date Status Omeprazole 40 MG 1 capsule Orally Once a day for 90 day(s) Active Ventolin HFA 108 (90 Base) MCG/ACT 2 puffs as needed I nhalation every 4 hrs for 1 month Jan, Active Neurontin 300 MG 1 capsule Orally twice daily for 30 Days Active Multivitamin Adults - as directed Orally Active Nicorette Starter Kit 4 MG 1 piece for 30 minute as ne eded Mouth/Throat 24 time(s) a day for 30 days Aug, Active Arnuity Ellipta 100 MCG/ACT 1 puff Inhalation Once a day Not-Taking Adderall 20 mg 1 tablet Orally Twice a day, mdd=2 for 30 Days Jul, Not-Taking Nicorette Starter Kit 2 MG 1 piece as needed Mouth/Thr oat 24 time(s) a day for 7 Not-Taking ZyrTEC Allergy 10 MG 1 tablet Orally Once a day for 90 day(s) Active Simvastatin 20 MG 1 tablet in the evening Orally Once a day for 90 da y(s) Active Methadone HCl 10 MG/ML 40mg Orally Daily Active hydrOXYzine HCl 25 MG 1-2 tablets Orally at bedtime for 30 Days Active Flonase Allergy Relief 50 MCG/ACT 1 spray in each nost ril Nasally Once a day for 30 day(s) Active Wellbutrin 100 MG 3 tablets Orally once a day for 30 Days Active ZyPREXA 5 MG 1 tablet Orally Once a day for 30 day(s) Active Lisinopril 30 MG 1 tablet Orally Once a day for 30 day(s) Jun, Active hydroCHLOROthiazide 12.5 MG 1 tablet in the morning Or ally Once a day for 90 days Jul, Active Remeron 15 MG 1 tablet at bedtime Orally Once a day for 30 Days Active Imitrex 50 MG 1 tablet as needed for a hea dache; repeat once in 2 hours as needed Orally as directed PRN for 30 days Active Fish Oil Active Oxybutynin 3.9 MG/24HR 1 patch to skin Transdermal Two times a Week for 30 day(s) Active PROCEDURES No Information RESULTS No Results REASON FOR VISIT light headed/dizzy MEDICAL (GENERAL) HISTORY Type Description Date Medical History hepatitis C chronic genotype 1B viral lo ad 5 million stage F1-2 Medical History Esophageal reflux Medical History asthma Medical History allergies [facility] Medical History ADHD Medical History PTSD Medical History IVDU heroin rare/Alcoholism [facility] rehab [address] [facility] Medical History Hepatitis A and B immune Medical History Nephrolithiasis Medical History GLADYS Medical History Mixed Hyperlipidemia Medical History Sleep apnea Medical History Testicular hypofunction- follows with Dr Amarilys Chakraborty Surgical History wart removal 2019 Hospitalization History Mental Health 2017, 2013, 2012 , 2011 Goals Section No Information Health Concerns No Information MEDICAL EQUIPMENT No Information MENTAL STATUS No Information FUNCTIONAL STATUS No Information ASSESSMENTS No Information PLAN OF TREATMENT Medication Medication Name Sig Start Date Stop Date Lisinopril 30 MG 1 tablet Orally Once a day for 30 day(s) Jun Imitrex 50 MG 1 tablet as needed for a hea dache; repeat once in 2 hours as needed Orally as directed PRN for 30 days Nicorette Starter Kit 4 MG 1 piece for 30 minute as ne eded Mouth/Throat 24 time(s) a day for 30 days Aug, hydroCHLOROthiazide 12.5 MG 1 tablet in the morning Or ally Once a day for 90 days Jul, Next Appt Details Provider Name:Bing Nash, 2020-06 0-13 02:15:00 PM, [address] [facility], , [place], [address], Insurance Providers Payer Name Payer Address Payer Phone Insured Name Patient Relati onship to Insured Coverage Start Date Coverage End Date [facility] [facility] [address] [facility] [id number] MARIN RAI 2015 06/29/9999
--- OUTSIDE RECORDS SUMMARY | 2021-04-12 13:54 | CCD | Continuity of Care Document ---
Author Author Fortunato Mendez Organization Unknown Address [address] [place] [address] [address] [place] [address] Phone [phone] Care Team Providers Care Clinical Assistant Name Role Phone Earl Sin Sarita RODRIGUEZ AUTM [phone] Archana Johnson PA-C AUTM [phone] Problems Active Problems Provider Date Pure hyperglyceridemia [...] Date BD 3ML Syringe/Safetyglide Shielding Im Needle 02JB9-6/2" 22G X 1-1/2" 3 ML Misc use every 10 days with testosterone 10units Whitley Castorena NP 04/30/2019 Testosterone Cypionate 200mg/ml So lution inject 0.6ml intramuscularly every 10 days code f testo def. 3ml E29.1 Whitley Castorena NP 04/07/2019 Bupropion Hydrochloride ER (XL) 300mg Tablets [...] H/L Range Note Hemoglobin & Hematocrit 11/24/2020 [facility] [address] [place] [address] (315)- - Hemoglobin 17.0 g/dL Normal 13.5-17.5 Hematocrit 50.7 % Normal 42.0-52.0 Laboratory test finding 11/24/2020 [facility] [address] [place] [address] (315)- - Testosterone 777 ng/dL Normal 241-827 1 1 NORMAL RANGES ARE FOR ADULT FEMALES (OVER 15 YRS) AND MALES (OVER 19 YRS). FOR PEDIATRIC RANGES PLE ASE CONSULT LITERATURE. Procedures Date Code Description Status 02/08/2021 96535 Injec Therapeutic Or Diagnostic Subcut Or Intramuscular Completed 01/25/2021 93240 Injec Therapeutic Or Diagnostic Subcut Or Intramuscular Completed 01/15/2021 02764 Injec Therapeutic Or Diagnostic Subcut Or Intramuscular Completed 01/05/2021 93907 Injec Therapeutic Or Diagnostic Subcut Or Intramuscular Completed 12/25/2020 97117 Injec Therapeutic Or Diagnostic Subcut Or Intramuscular Completed 12/13/2020 54687 Office/Outpatient Established Mo d MDM 30-39 Min Completed 12/13/2020 51907 Injec Therapeutic Or Diagnostic Subcut Or Intramuscular Completed 11/20/2020 62826 Injec Therapeutic Or Diagnostic Subcut Or Intramuscular Completed 11/10/2020 73664 Injec Therapeutic Or Diagnostic Subcut Or Intramuscular Completed 10/31/2020 77838 Injec Therapeutic Or Diagnostic Subcut Or Intramuscular Completed 10/16/2020 36124 Injec Therapeutic Or Diagnostic Subcut Or Intramuscular Completed 10/05/2020 22641 Injec Therapeutic Or Diagnostic Subcut Or Intramuscular Completed 09/25/2020 44201 Injec Therapeutic Or Diagnostic Subcut Or Intramuscular Completed 09/14/2020 30417 Injec Therapeutic Or Diagnostic Subcut Or Intramuscular Completed 09/04/2020 20528 Injec Therapeutic Or Diagnostic Subcut Or Intramuscular Completed 08/25/2020 97268 Injec Therapeutic Or Diagnostic Subcut Or Intramuscular Completed 08/16/2020 16599 Injec Therapeutic Or Diagnostic Subcut Or Intramuscular Completed Medical Devices Description No Information Available Encounters Type Date Location Provider Dx Diagnosis Office Visit 02/08/2021 9:00a DR. Mar Chakraborty [...] hypofunction Office Visit 12/13/2020 9:00a Gypsy Merritt P E29.1 Testicular hypofunction Office Visit 11/20/2020 [...] Endo Nurses E29.1 Testicular hypofunction Office Visit 08/25/2020 10:00a DR. Mar Chakraborty Endo Nurses E29.1 Testicular hypofunction Office Visit 08/16/2020 12:15p DR. Mar Chakraborty MD E 29.1 Testicular hypofunction Assessments Date Code Description Provider 02/08/2021 E29.1 Testicular hypofunction Endo Elaine ses 01/25/2021 E29.1 Testicular hypofunction Mar Chakraborty MD 01/25/2021 E29.1 Testicular hypofunction Endo Elaine ses 01/15/2021 E29.1 Testicular hypofunction Whitley Castorena, DIRECTOR SELECTION AND ADMINISTRATION 01/15/2021 E29.1 Testicular hypofunction Endo Elaine ses 01/05/2021 E29.1 Testicular hypofunction Whitley Castorena, DIRECTOR SELECTION AND ADMINISTRATION 01/05/2021 E29.1 Testicular hypofunction Endo Elaine ses [...] ses 10/16/2020 E29.1 Testicular hypofunction Whitley Castorena, DIRECTOR SELECTION AND ADMINISTRATION 10/16/2020 E29.1 Testicular hypofunction Endo Elaine ses 10/05/2020 E29.1 Testicular hypofunction Mar Chakraborty MD 10/05/2020 E29.1 Testicular hypofunction Endo Elaine ses 09/25/2020 E29.1 Testicular hypofunction Whitley Panda Raffaele, DIRECTOR SELECTION AND ADMINISTRATION 09/25/2020 E29.1 Testicular hypofunction Endo Elaine ses 09/14/2020 E29.1 Testicular hypofunction Whitley Panda Raffaele, DIRECTOR SELECTION AND ADMINISTRATION 09/14/2020 E29.1 Testicular hypofunction Endo Elaine ses 09/04/2020 E29.1 Testicular hypofunction Whitley Castorena, DIRECTOR SELECTION AND ADMINISTRATION 09/04/2020 E29.1 Testicular hypofunction Endo Elaine ses 08/25/2020 E29.1 Testicular hypofunction Whitley Castorena, DIRECTOR SELECTION AND ADMINISTRATION 08/25/2020 E29.1 Testicular hypofunction Endo Elaine ses 08/16/2020 E29.1 Testicular hypofunction Mar Chakraborty MD Plan of Treatment Future Appointment(s):* 02/19/2021 9:00 am - Endo Nurses at DR. Mar Chakraborty * 06/13/2021 9:00 am - Whitley Castorena NP at DR. Mar Chakraborty Functional Status Description No Information Available Mental Status Description No Information Available Referrals Refer to Dr Reason for Referral Status Appt Date Mar Chakraborty MD TESTICULAR HYPO FUNCTION Created [address] [facility], [address] [place] [address] [phone]
--- OUTSIDE RECORDS SUMMARY | 2021-04-12 13:54 | CCD | Continuity of Care Document ---
Author Author Fortunato Mendez Organization Unknown Address [address] [place] [address] [address] [place] [address] Phone [phone] Care Team Providers Care Tree Thinner Name Role Phone Earl Sin Sarita RODRIGUEZ AUTM [phone] Archana Johnson PA-C AUTM [phone] Problems Active Problems Provider Date Pure hyperglyceridemia [...] Date BD 3ML Syringe/Safetyglide Shielding Im Needle 00TE6-0/2" 22G X 1-1/2" 3 ML Misc use [...] H/L Range Note Hemoglobin & Hematocrit 11/24/2020 [facility] [address] [place] [address] (315)- - Hemoglobin 17.0 g/dL Normal 13.5-17.5 Hematocrit 50.7 % Normal 42.0-52.0 Laboratory test finding 11/24/2020 [facility] [address] [place] [address] (315)- - Testosterone 777 ng/dL Normal 241-827 1 1 NORMAL RANGES ARE FOR ADULT FEMALES (OVER 15 YRS) AND MALES (OVER 19 YRS). FOR PEDIATRIC RANGES PLE ASE CONSULT LITERATURE. Procedures Date Code Description Status 02/08/2021 76969 Injec Therapeutic Or Diagnostic Subcut Or Intramuscular Completed 01/25/2021 68393 Injec Therapeutic Or Diagnostic Subcut Or Intramuscular Completed 01/15/2021 84333 Injec Therapeutic Or Diagnostic Subcut Or Intramuscular Completed 01/05/2021 41023 Injec Therapeutic Or Diagnostic Subcut Or Intramuscular Completed 12/25/2020 06470 Injec Therapeutic Or Diagnostic Subcut Or Intramuscular Completed 12/13/2020 82124 Office/Outpatient Established Mo d MDM 30-39 Min Completed 12/13/2020 04498 Injec Therapeutic Or Diagnostic Subcut Or Intramuscular Completed 11/20/2020 17619 Injec Therapeutic Or Diagnostic Subcut Or Intramuscular Completed 11/10/2020 26961 Injec Therapeutic Or Diagnostic Subcut Or Intramuscular Completed 10/31/2020 61163 Injec Therapeutic Or Diagnostic Subcut Or Intramuscular Completed 10/16/2020 88506 Injec Therapeutic Or Diagnostic Subcut Or Intramuscular Completed 10/05/2020 74256 Injec Therapeutic Or Diagnostic Subcut Or Intramuscular Completed 09/25/2020 23218 Injec Therapeutic Or Diagnostic Subcut Or Intramuscular Completed 09/14/2020 07335 Injec Therapeutic Or Diagnostic Subcut Or Intramuscular Completed 09/04/2020 69184 Injec Therapeutic Or Diagnostic Subcut Or Intramuscular Completed 08/25/2020 33575 Injec Therapeutic Or Diagnostic Subcut Or Intramuscular Completed 08/16/2020 50577 Injec Therapeutic Or Diagnostic Subcut Or Intramuscular [...] Code Description Provider 02/08/2021 E29.1 Testicular hypofunction Whitley Castorena, JOE [...] ses 10/31/2020 E29.1 Testicular hypofunction Whitley Castorena, BONE CRUSHER 10/31/2020 E29.1 Testicular hypofunction Endo Elaine ses 10/16/2020 E29.1 Testicular hypofunction Whitley Castorena, BONE CRUSHER 10/16/2020 E29.1 Testicular hypofunction Endo Elaine ses 10/05/2020 E29.1 Testicular hypofunction Mar Chakraborty MD 10/05/2020 E29.1 Testicular hypofunction Endo Elaine ses 09/25/2020 E29.1 Testicular hypofunction Whitley Castorena, BONE CRUSHER 09/25/2020 E29.1 Testicular hypofunction Endo Elaine ses 09/14/2020 E29.1 Testicular hypofunction Whitley Castorena, BONE CRUSHER 09/14/2020 E29.1 Testicular hypofunction Endo Elaine ses 09/04/2020 E29.1 Testicular hypofunction Whitley Castorena, BONE CRUSHER 09/04/2020 E29.1 Testicular hypofunction Endo Elaine ses 08/25/2020 E29.1 Testicular hypofunction Whitley Castorena, BONE CRUSHER 08/25/2020 E29.1 Testicular hypofunction Endo Elaine ses 08/16/2020 E29.1 Testicular hypofunction Mar Chakraborty MD Plan of Treatment Future Appointment(s):* 02/19/2021 9:00 am - Margo Nurses at DR. Mar Chakraborty * 06/13/2021 9:00 am - Whitley Castorena, JOE at DR. Mar Chakraborty Functional Status Description No Information Available Mental Status Description No Information Available Referrals Refer to Dr Reason for Referral Status Appt Date Mar Chakraborty MD TESTICULAR HYPO FUNCTION Created [address] [facility] [address] [place] [address] [phone]
--- OUTSIDE RECORDS SUMMARY | 2021-04-12 13:54 | CCD | Continuity of Care Document ---
Author Author Fortunato Mendez Organization Unknown Address [address] [place] [address] Phone [phone] Care Team Providers Care Delivery Aide Name Role Phone Earl Sin JENNIFER AUTM [phone] Archana Johnson PA-C AUTM [phone] Problems Active Problems Provider Date Pure hyperglyceridemia [...] Date BD 3ML Syringe/Safetyglide Shielding Im Needle 43EI1-7/2" 22G X 1-1/2" 3 ML Misc use [...] H/L Range Note Hemoglobin & Hematocrit [facility] [address] [place] [address] (315)- - Hemoglobin 17.0 g/dL Normal 13.5-17.5 Hematocrit 50.7 % Normal 42.0-52.0 Laboratory test finding 11/24/2020 [facility] [address] [place] [address] (315)- - Testosterone 777 ng/dL Normal 241-827 1 1 NORMAL RANGES ARE FOR ADULT FEMALES (OVER 15 YRS) AND MALES (OVER 19 YRS). FOR PEDIATRIC RANGES PLE ASE CONSULT LITERATURE. Procedures Date Code Description Status 03/27/2021 74140 Injec Therapeutic Or Diagnostic Subcut Or Intramuscular Completed 03/12/2021 03528 Injec Therapeutic Or Diagnostic Subcut Or Intramuscular Completed 03/01/2021 61720 Injec Therapeutic Or Diagnostic Subcut Or Intramuscular Completed 02/19/2021 92967 Injec Therapeutic Or Diagnostic Subcut Or Intramuscular Completed 02/08/2021 97777 Injec Therapeutic Or Diagnostic Subcut Or Intramuscular Completed 01/25/2021 24443 Injec Therapeutic Or Diagnostic Subcut Or Intramuscular Completed 01/15/2021 13614 Injec Therapeutic Or Diagnostic Subcut Or Intramuscular Completed 01/05/2021 05134 Injec Therapeutic Or Diagnostic Subcut Or Intramuscular Completed 12/25/2020 28989 Injec Therapeutic Or Diagnostic Subcut Or Intramuscular Completed 12/13/2020 96640 Office/Outpatient Established Mo d MDM 30-39 Min Completed 12/13/2020 27109 Injec Therapeutic Or Diagnostic Subcut Or Intramuscular Completed 11/20/2020 76557 Injec Therapeutic Or Diagnostic Subcut Or Intramuscular Completed 11/10/2020 78455 Injec Therapeutic Or Diagnostic Subcut Or Intramuscular Completed 10/31/2020 30200 Injec Therapeutic Or Diagnostic Subcut Or Intramuscular Completed 10/16/2020 80465 Injec Therapeutic Or Diagnostic Subcut Or Intramuscular Completed 10/05/2020 77033 Injec Therapeutic Or Diagnostic Subcut Or Intramuscular Completed 09/25/2020 08586 Injec Therapeutic Or Diagnostic Subcut Or Intramuscular [...] Code Description Provider 03/27/2021 E29.1 Testicular hypofunction Endo Elaine ses 03/12/2021 E29.1 Testicular hypofunction Whitley Castorena, JOE 03/12/2021 E29.1 Testicular hypofunction Endo Elaine ses 03/01/2021 E29.1 Testicular hypofunction Whitley Castorena, PRECISION FARMING COORDINATOR 03/01/2021 E29.1 Testicular hypofunction Endo Elaine ses [...] Elaine ses 10/05/2020 E29.1 Testicular hypofunction Mar Chakraobrty MD 10/05/2020 E29.1 Testicular hypofunction Endo Elaine ses 09/25/2020 E29.1 Testicular hypofunction Whitley Castorena NP 09/25/2020 E29.1 Testicular hypofunction Endo Elaine ses Plan of Treatment Future Appointment(s):* 04/06/2021 9:30 am - Endo Nurses at DR. Mar Chakraborty * 06/13/2021 9:00 am - Whitley Castorena NP at DR. Mar Chakraborty Functional Status Description No Information Available Mental Status Description No Information Available Referrals Refer to Dr Reason for Referral Status Appt Date Mar Chakraborty MD TESTICULAR HYPO FUNCTION Created [address] [facility], [address] [place] [address] [phone]
--- OUTSIDE RECORDS SUMMARY | 2021-04-12 13:54 | CCD | Continuity of Care Document ---
Author Author Fortunato Mendez Organization Unknown Address [address] [place] [address] [address] [place] [address] Phone [phone] Care Team Providers Care Lye Treater Name Role Phone Earl Sin JENNIFER AUTM [phone] Archana Johnson PA-C AUTM [phone] Problems Active Problems Provider Date Pure hyperglyceridemia [...] Date BD 3ML Syringe/Safetyglide Shielding Im Needle 95FI5-9/2" 22G X 1-1/2" 3 ML Misc use [...] H/L Range Note Hemoglobin & Hematocrit [facility] [address] [place] [address] (315)- - Hemoglobin 17.0 g/dL Normal 13.5-17.5 Hematocrit 50.7 % Normal 42.0-52.0 Laboratory test finding 11/24/2020 [facility] [address] [place] [address] (315)- - Testosterone 777 ng/dL Normal 241-827 1 1 NORMAL RANGES ARE FOR ADULT FEMALES (OVER 15 YRS) AND MALES (OVER 19 YRS). FOR PEDIATRIC RANGES PLE ASE CONSULT LITERATURE. Procedures Date Code Description Status 03/27/2021 56445 Injec Therapeutic Or Diagnostic Subcut Or Intramuscular Completed 03/12/2021 79729 Injec Therapeutic Or Diagnostic Subcut Or Intramuscular Completed 03/01/2021 59254 Injec Therapeutic Or Diagnostic Subcut Or Intramuscular Completed 02/19/2021 63177 Injec Therapeutic Or Diagnostic Subcut Or Intramuscular Completed 02/08/2021 96767 Injec Therapeutic Or Diagnostic Subcut Or Intramuscular Completed 01/25/2021 98650 Injec Therapeutic Or Diagnostic Subcut Or Intramuscular Completed 01/15/2021 18281 Injec Therapeutic Or Diagnostic Subcut Or Intramuscular Completed 01/05/2021 54954 Injec Therapeutic Or Diagnostic Subcut Or Intramuscular Completed 12/25/2020 06512 Injec Therapeutic Or Diagnostic Subcut Or Intramuscular Completed 12/13/2020 71987 Office/Outpatient Established Mo d MDM 30-39 Min Completed 12/13/2020 64473 Injec Therapeutic Or Diagnostic Subcut Or Intramuscular Completed 11/20/2020 93790 Injec Therapeutic Or Diagnostic Subcut Or Intramuscular Completed 11/10/2020 19416 Injec Therapeutic Or Diagnostic Subcut Or Intramuscular Completed 10/31/2020 93343 Injec Therapeutic Or Diagnostic Subcut Or Intramuscular Completed 10/16/2020 72517 Injec Therapeutic Or Diagnostic Subcut Or Intramuscular Completed 10/05/2020 13717 Injec Therapeutic Or Diagnostic Subcut Or Intramuscular [...] Provider 03/27/2021 E29.1 Testicular hypofunction Whitley Castorena, HEAD TRANSFER CLERK 03/27/2021 E29.1 Testicular hypofunction Endo Elaine ses 03/12/2021 E29.1 Testicular hypofunction Whitley Castorena, HEAD TRANSFER CLERK 03/12/2021 E29.1 Testicular hypofunction Endo Elaine ses 03/01/2021 E29.1 Testicular hypofunction Whitley Castorena, HEAD TRANSFER CLERK 03/01/2021 E29.1 Testicular hypofunction Endo Elaine ses 02/19/2021 E29.1 Testicular hypofunction Mar Chakraborty MD 02/19/2021 E29.1 Testicular hypofunction Endo Elaine ses 02/08/2021 E29.1 Testicular hypofunction Whitley Castorena, HEAD TRANSFER CLERK 02/08/2021 E29.1 Testicular hypofunction Endo Elaine ses 01/25/2021 E29.1 Testicular hypofunction Mar Chakraborty MD 01/25/2021 E29.1 Testicular hypofunction Endo Elaine ses 01/15/2021 E29.1 Testicular hypofunction Whitley Castorena, HEAD TRANSFER CLERK 01/15/2021 E29.1 Testicular hypofunction Endo Elaine ses 01/05/2021 E29.1 Testicular hypofunction Whitley Castorena, HEAD TRANSFER CLERK 01/05/2021 E29.1 Testicular hypofunction Endo Elaine ses [...] ses 10/16/2020 E29.1 Testicular hypofunction Whitley Castorena, JOE 10/16/2020 E29.1 Testicular hypofunction Endo Elaine ses 10/05/2020 E29.1 Testicular hypofunction Mar Chakraborty MD 10/05/2020 E29.1 Testicular hypofunction Endo Elaine ses Plan of Treatment Future Appointment(s):* 04/06/2021 9:30 am - Endo Nurses at DR. Mar Chakraborty * 06/13/2021 9:00 am - Whitley Castorena NP at DR. Mar Chakraborty Functional Status Description No Information Available Mental Status Description No Information Available Referrals Refer to Dr Reason for Referral Status Appt Date Mar Chakraborty MD TESTICULAR HYPO FUNCTION Created [facility] [address] [place] [address] [phone]
--- OUTSIDE RECORDS SUMMARY | 2021-04-12 13:55 | CCD | Continuity of Care Document ---
Author Author Fortunato Mendez Organization Unknown Address [address] [place] [address] [address] [place] [address] Phone [phone] Care Team Providers Care Director Of Corporate Responsibility Name Role Phone Earl Sin Sarita RODRIGUEZ AUTM [phone] Archana Johnson PA-C AUTM [phone] Problems Active Problems Provider Date Pure hyperglyceridemia [...] Date BD 3ML Syringe/Safetyglide Shielding Im Needle 34JK0-5/2" 22G X 1-1/2" 3 ML Misc use [...] H/L Range Note Hemoglobin & Hematocrit 11/24/2020 [facility] [address] [place] [address] (315)- - Hemoglobin 17.0 g/dL Normal 13.5-17.5 Hematocrit 50.7 % Normal 42.0-52.0 Laboratory test finding 11/24/2020 [facility] [address] [place] [address] (315)- - Testosterone 777 ng/dL Normal 241-827 1 1 NORMAL RANGES ARE FOR ADULT FEMALES (OVER 15 YRS) AND MALES (OVER 19 YRS). FOR PEDIATRIC RANGES PLE ASE CONSULT LITERATURE. Procedures Date Code Description Status 01/15/2021 39070 Injec Therapeutic Or Diagnostic Subcut Or Intramuscular Completed 01/05/2021 60425 Injec Therapeutic Or Diagnostic Subcut Or Intramuscular Completed 12/25/2020 31934 Injec Therapeutic Or Diagnostic Subcut Or Intramuscular Completed 12/13/2020 23697 Office/Outpatient Established Mo d MDM 30-39 Min Completed 12/13/2020 09275 Injec Therapeutic Or Diagnostic Subcut Or Intramuscular Completed 11/20/2020 21574 Injec Therapeutic Or Diagnostic Subcut Or Intramuscular Completed 11/10/2020 78194 Injec Therapeutic Or Diagnostic Subcut Or Intramuscular Completed 10/31/2020 45157 Injec Therapeutic Or Diagnostic Subcut Or Intramuscular Completed 10/16/2020 67269 Injec Therapeutic Or Diagnostic Subcut Or Intramuscular Completed 10/05/2020 19973 Injec Therapeutic Or Diagnostic Subcut Or Intramuscular Completed 09/25/2020 50845 Injec Therapeutic Or Diagnostic Subcut Or Intramuscular Completed 09/14/2020 99564 Injec Therapeutic Or Diagnostic Subcut Or Intramuscular Completed 09/04/2020 66810 Injec Therapeutic Or Diagnostic Subcut Or Intramuscular Completed 08/25/2020 69966 Injec Therapeutic Or Diagnostic Subcut Or Intramuscular Completed 08/16/2020 39941 Injec Therapeutic Or Diagnostic Subcut Or Intramuscular Completed 08/03/2020 18932 Injec Therapeutic Or Diagnostic Subcut Or Intramuscular Completed Medical Devices Description No Information Available Encounters Type Date Location Provider Dx Diagnosis Office Visit 01/15/2021 9:00a DR. Mar Chakraborty [...] Testicular hypofunction Office Visit 09/14/2020 9:30a DR. Mra Chakraborty Endo Nurses E29.1 Testicular hypofunction Office Visit 09/04/2020 9:30a DR. Mar Chakraborty Endo Nurses E29.1 Testicular hypofunction Office Visit 08/25/2020 10:00a DR. Mar Chakraborty Endo Nurses E29.1 Testicular hypofunction Office Visit 08/16/2020 12:15p DR. Mar Chakraborty MD E 29.1 Testicular hypofunction Office Visit 08/03/2020 9:00a DR. Mar Chakraborty Endo Nurses E29.1 Testicular hypofunction Assessments Date Code Description Provider 01/15/2021 E29.1 Testicular hypofunction Endo Elaine ses 01/05/2021 E29.1 Testicular hypofunction Whitley Castorena, SCOOPER 01/05/2021 E29.1 Testicular hypofunction Endo Elaine ses 12/25/2020 E29.1 Testicular hypofunction Mar Chakraborty MD 12/25/2020 E29.1 Testicular hypofunction Endo Elaine ses 12/13/2020 E29.1 Testicular hypofunction Whitley Castorena, SCOOPER 11/20/2020 E29.1 Testicular hypofunction Mar Chakraborty MD 11/20/2020 E29.1 Testicular hypofunction Endo Elaine ses 11/10/2020 E29.1 Testicular hypofunction Mar Chakraborty MD 11/10/2020 E29.1 Testicular hypofunction Endo Elaine ses 10/31/2020 E29.1 Testicular hypofunction Whitley Castorena, SCOOPER 10/31/2020 E29.1 Testicular hypofunction Endo Elaine ses 10/16/2020 E29.1 Testicular hypofunction Whitley Castorena, SCOOPER 10/16/2020 E29.1 Testicular hypofunction Endo Elaine ses 10/05/2020 E29.1 Testicular hypofunction Mar Chakraborty MD 10/05/2020 E29.1 Testicular hypofunction Endo Elaine ses 09/25/2020 E29.1 Testicular hypofunction Whitley Castorena, SCOOPER 09/25/2020 E29.1 Testicular hypofunction Endo Elaine ses 09/14/2020 E29.1 Testicular hypofunction Whitley Castorena, SCOOPER 09/14/2020 E29.1 Testicular hypofunction Endo Elaine ses 09/04/2020 E29.1 Testicular hypofunction Whitley Castorena, SCOOPER 09/04/2020 E29.1 Testicular hypofunction Endo Elaine ses 08/25/2020 E29.1 Testicular hypofunction Whitley Castorena, SCOOPER 08/25/2020 E29.1 Testicular hypofunction Endo Elaine ses 08/16/2020 E29.1 Testicular hypofunction Mar Chakraborty MD 08/03/2020 E29.1 Testicular hypofunction Whitley Castorena, SCOOPER 08/03/2020 E29.1 Testicular hypofunction Endo Elaine ses Plan of Treatment Future Appointment(s):* 02/08/2021 9:00 am - Margo Nurses at DR. Mar Chakraborty * 06/13/2021 9:00 am - Whitley Castorena NP at DR. Mar Chakraborty Functional Status Description No Information Available Mental Status Description No Information Available Referrals Refer to Reason for Referral Status Appt Date Mar Chakraborty MD TESTICULAR HYPO FUNCTION Created [address] [facility], [address] [place] [address] [phone]
--- OUTSIDE RECORDS SUMMARY | 2021-04-12 13:55 | CCD | Continuity of Care Document ---
Author Author Fortunato Mendez Organization Unknown Address [address] [place] [address] [address] [place] [address] Phone [phone] Care Team Providers Care Financial Reporting Consultant Name Role Phone Earl Sin Sarita RODRIGUEZ AUTM [phone] Archana Johnson PA-C AUTM [phone] Problems Active Problems Provider Date Pure hyperglyceridemia [...] Date BD 3ML Syringe/Safetyglide Shielding Im Needle 73TD4-0/2" 22G X 1-1/2" 3 ML Misc use every 10 days with testosterone 10units Whitley Castroena NP 04/30/2019 Testosterone Cypionate 200mg/ml So lution [...] H/L Range Note Hemoglobin & Hematocrit 11/24/2020 [facility] [address] [place] [address] (315)- - Hemoglobin 17.0 g/dL Normal 13.5-17.5 Hematocrit 50.7 % Normal 42.0-52.0 Laboratory test finding 11/24/2020 [facility] [address] [place] [address] (315)- - Testosterone 777 ng/dL Normal 241-827 1 1 NORMAL RANGES ARE FOR ADULT FEMALES (OVER 15 YRS) AND MALES (OVER 19 YRS). FOR PEDIATRIC RANGES PLE ASE CONSULT LITERATURE. Procedures Date Code Description Status 01/25/2021 15612 [facility] Therapeutic Or Diagnostic Subcut Or Intramuscular Completed 01/15/2021 53786 [facility] Therapeutic Or Diagnostic Subcut Or Intramuscular Completed 01/05/2021 37311 [facility] Therapeutic Or Diagnostic Subcut Or Intramuscular Completed 12/25/2020 74104 [facility] Therapeutic Or Diagnostic Subcut Or Intramuscular Completed 12/13/2020 19275 Office/Outpatient Established Mo d MDM 30-39 Min Completed 12/13/2020 34839 [facility] Therapeutic Or Diagnostic Subcut Or Intramuscular Completed 11/20/2020 81976 [facility] Therapeutic Or Diagnostic Subcut Or Intramuscular Completed 11/10/2020 35484 [facility] Therapeutic Or Diagnostic Subcut Or Intramuscular Completed 10/31/2020 27184 [facility] Therapeutic Or Diagnostic Subcut Or Intramuscular Completed 10/16/2020 11304 [facility] Therapeutic Or Diagnostic Subcut Or Intramuscular Completed 10/05/2020 71083 [facility] Therapeutic Or Diagnostic Subcut Or Intramuscular Completed 09/25/2020 33311 [facility] Therapeutic Or Diagnostic Subcut Or Intramuscular Completed 09/14/2020 92818 [facility] Therapeutic Or Diagnostic Subcut Or Intramuscular Completed 09/04/2020 17398 [facility] Therapeutic Or Diagnostic Subcut Or Intramuscular Completed 08/25/2020 80325 [facility] Therapeutic Or Diagnostic Subcut Or Intramuscular Completed 08/16/2020 01012 [facility] Therapeutic Or Diagnostic Subcut Or Intramuscular [...] Testicular hypofunction Assessments Date Code Description Provider 01/25/2021 E29.1 Testicular hypofunction Endo Elaine ses 01/15/2021 E29.1 Testicular hypofunction Whitley Castorena, JOE 01/15/2021 E29.1 Testicular hypofunction Endo Elaine ses 01/05/2021 E29.1 Testicular hypofunction Whitley Castorena, [employer] 01/05/2021 E29.1 Testicular hypofunction Endo Elaine ses [...] ses 09/25/2020 E29.1 Testicular hypofunction Whitley Castorena, JOE 09/25/2020 E29.1 Testicular hypofunction Endo Elaine ses 09/14/2020 E29.1 Testicular hypofunction Whitley Castorena, [employer] 09/14/2020 E29.1 Testicular hypofunction Endo Elaine ses 09/04/2020 E29.1 Testicular hypofunction Whitley Castorena, [employer] 09/04/2020 E29.1 Testicular hypofunction Endo Elaine ses 08/25/2020 E29.1 Testicular hypofunction Whitley Castorena, [employer] 08/25/2020 E29.1 Testicular hypofunction Endo Elaine ses 08/16/2020 E29.1 Testicular hypofunction Mar Chakraborty MD Plan of Treatment Future Appointment(s):* 02/08/2021 9:00 am - Endo Nurses at DR. Mar Chakraborty * 06/13/2021 9:00 am - Whitley Castorena NP at DR. Mar Chakraborty Functional Status Description No Information Available Mental Status Description No Information Available Referrals Refer to Dr Reason for Referral Status Appt Date Mar Chakraborty MD TESTICULAR HYPO FUNCTION Created [facility], [address] [address] [phone]
--- OUTSIDE RECORDS SUMMARY | 2021-04-12 13:55 | CCD ---
Continuity of Care Document (CCD) Created on: 02/02/2021 Fortunato Alexsi External Reference #: [id number] : 1970 Sex: Male Author Author Fortunato Mendez Organization Unknown Address [address] [place] [address] [address] [place] [address] Phone [phone] Care Team Providers Care Thumb Sewer Name Role Phone Earl Sin Sarita RODRIGUEZ AUTM [phone] Archana Johnson PA-C AUTM [phone] Problems Active Problems Provider Date Pure hyperglyceridemia [...] Date BD 3ML Syringe/Safetyglide Shielding Im Needle 01XX9-7/2" 22G X 1-1/2" 3 ML Misc use [...] H/L Range Note Hemoglobin & Hematocrit 11/24/2020 [facility] [address] [place] [address] (315)- - Hemoglobin 17.0 g/dL Normal 13.5-17.5 Hematocrit 50.7 % Normal 42.0-52.0 Laboratory test finding 11/24/2020 [facility] [address] [place] [address] (315)- - Testosterone 777 ng/dL Normal 241-827 1 1 NORMAL RANGES ARE FOR ADULT FEMALES (OVER 15 YRS) AND MALES (OVER 19 YRS). FOR PEDIATRIC RANGES PLE ASE CONSULT LITERATURE. Procedures Date Code Description Status 01/25/2021 66387 [facility] Therapeutic Or Diagnostic Subcut Or Intramuscular Completed 01/15/2021 13318 [facility] Therapeutic Or Diagnostic Subcut Or Intramuscular Completed 01/05/2021 50297 [facility] Therapeutic Or Diagnostic Subcut Or Intramuscular Completed 12/25/2020 95921 [facility] Therapeutic Or Diagnostic Subcut Or Intramuscular Completed 12/13/2020 83759 Office/Outpatient Established Mo d MDM 30-39 Min Completed 12/13/2020 46287 [facility] Therapeutic Or Diagnostic Subcut Or Intramuscular Completed 11/20/2020 85761 [facility] Therapeutic Or Diagnostic Subcut Or Intramuscular Completed 11/10/2020 28858 [facility] Therapeutic Or Diagnostic Subcut Or Intramuscular Completed 10/31/2020 65932 [facility] Therapeutic Or Diagnostic Subcut Or Intramuscular Completed 10/16/2020 51011 [facility] Therapeutic Or Diagnostic Subcut Or Intramuscular Completed 10/05/2020 02412 [facility] Therapeutic Or Diagnostic Subcut Or Intramuscular Completed 09/25/2020 21735 [facility] Therapeutic Or Diagnostic Subcut Or Intramuscular Completed 09/14/2020 28380 [facility] Therapeutic Or Diagnostic Subcut Or Intramuscular Completed 09/04/2020 47462 [facility] Therapeutic Or Diagnostic Subcut Or Intramuscular Completed 08/25/2020 22184 [facility] Therapeutic Or Diagnostic Subcut Or Intramuscular Completed 08/16/2020 56844 [facility] Therapeutic Or Diagnostic Subcut Or Intramuscular Completed Medical Devices Description No Information Available Encounters Type Date Location Provider Dx Diagnosis Office Visit 01/25/2021 10:00a DR. Mar Chakraborty [...] Testicular hypofunction Office Visit 10/05/2020 9:30a DR. aMr Chakraborty Endo Nurses E29.1 Testicular hypofunction Office [...] Code Description Provider 01/25/2021 E29.1 Testicular hypofunction Mar Chakraborty MD 01/25/2021 E29.1 Testicular hypofunction Endo Elaine ses 01/15/2021 E29.1 Testicular hypofunction Whitley Castorena, APPLIED PSYCHOLOGY PROFESSOR 01/15/2021 E29.1 Testicular hypofunction Endo Elaine ses 01/05/2021 E29.1 Testicular hypofunction Whitley Castorena, APPLIED PSYCHOLOGY PROFESSOR 01/05/2021 E29.1 Testicular hypofunction Endo Elaine ses 12/25/2020 E29.1 Testicular hypofunction Mar Chakraborty MD 12/25/2020 E29.1 Testicular hypofunction Endo Elaine ses 12/13/2020 E29.1 Testicular hypofunction Whitley Castorena, APPLIED PSYCHOLOGY PROFESSOR 11/20/2020 E29.1 Testicular hypofunction Mar Chakraborty MD [...] ses 09/25/2020 E29.1 Testicular hypofunction Whitley Castorena, APPLIED PSYCHOLOGY PROFESSOR 09/25/2020 E29.1 Testicular hypofunction Endo Elaine ses 09/14/2020 E29.1 Testicular hypofunction Whitley Castorena, APPLIED PSYCHOLOGY PROFESSOR 09/14/2020 E29.1 Testicular hypofunction Endo Elaine ses 09/04/2020 E29.1 Testicular hypofunction Whitley Castorena, APPLIED PSYCHOLOGY PROFESSOR 09/04/2020 E29.1 Testicular hypofunction Endo Elaine ses 08/25/2020 E29.1 Testicular hypofunction Whitley Castorena, APPLIED PSYCHOLOGY PROFESSOR 08/25/2020 E29.1 Testicular hypofunction Endo Elaine ses [...] Chakraborty MD TESTICULAR HYPO FUNCTION Created [address] [facility], [address] [place] [address] [phone]
--- OUTSIDE RECORDS SUMMARY | 2021-04-12 13:55 | CCD | Continuity of Care Document ---
Author Author Fortunato Mendez Organization Unknown Address [address] [place] [address] [address] [place] [address] Phone [phone] Care Team Providers Care Export Sales Assistant Name Role Phone Earl Sin Halle RODRIGUEZ AUTM [phone] Archana Johnson PA-C AUTM [phone] Problems Active Problems Provider Date Pure hyperglyceridemia [...] Date BD 3ML Syringe/Safetyglide Shielding Im Needle 81EW7-3/2" 22G X 1-1/2" 3 ML Misc use [...] H/L Range Note Hemoglobin & Hematocrit 11/24/2020 [facility] [address] [place] [address] (315)- - Hemoglobin 17.0 g/dL Normal 13.5-17.5 Hematocrit 50.7 % Normal 42.0-52.0 Laboratory test finding 11/24/2020 [facility] [address] [place] [address] (315)- - Testosterone 777 ng/dL Normal 241-827 1 1 NORMAL RANGES ARE FOR ADULT FEMALES (OVER 15 YRS) AND MALES (OVER 19 YRS). FOR PEDIATRIC RANGES PLE ASE CONSULT LITERATURE. Procedures Date Code Description Status 01/15/2021 77494 [facility] Therapeutic Or Diagnostic Subcut Or Intramuscular Completed 01/05/2021 99991 [facility] Therapeutic Or Diagnostic Subcut Or Intramuscular Completed 12/25/2020 85426 [facility] Therapeutic Or Diagnostic Subcut Or Intramuscular Completed 12/13/2020 56134 Office/Outpatient Established Mo d MDM 30-39 Min Completed 12/13/2020 18019 [facility] Therapeutic Or Diagnostic Subcut Or Intramuscular Completed 11/20/2020 84235 [facility] Therapeutic Or Diagnostic Subcut Or Intramuscular Completed 11/10/2020 39019 [facility] Therapeutic Or Diagnostic Subcut Or Intramuscular Completed 10/31/2020 64478 [facility] Therapeutic Or Diagnostic Subcut Or Intramuscular Completed 10/16/2020 90625 [facility] Therapeutic Or Diagnostic Subcut Or Intramuscular Completed 10/05/2020 79881 [facility] Therapeutic Or Diagnostic Subcut Or Intramuscular Completed 09/25/2020 09539 [facility] Therapeutic Or Diagnostic Subcut Or Intramuscular Completed 09/14/2020 80232 [facility] Therapeutic Or Diagnostic Subcut Or Intramuscular Completed 09/04/2020 69308 [facility] Therapeutic Or Diagnostic Subcut Or Intramuscular Completed 08/25/2020 20156 [facility] Therapeutic Or Diagnostic Subcut Or Intramuscular Completed 08/16/2020 77194 [facility] Therapeutic Or Diagnostic Subcut Or Intramuscular Completed 08/03/2020 85254 [facility] Therapeutic Or Diagnostic Subcut Or Intramuscular Completed 07/24/2020 93640 [facility] Therapeutic Or Diagnostic Subcut Or Intramuscular [...] Endo Nurses E29.1 Testicular hypofunction Office Visit 07/24/2020 9:00a DR. Mar Chakraborty Endo Nurses E29.1 [...] 09/25/2020 E29.1 Testicular hypofunction Whitley Panda Raffaele, VETERANS SERVICE OFFICER 09/25/2020 E29.1 Testicular hypofunction Endo Elaine ses 09/14/2020 E29.1 Testicular hypofunction Whitley Chevy Panda Raffaele, VETER[employer] SERVICE OFFICER 09/14/2020 E29.1 Testicular hypofunction Endo Elaine ses 09/04/2020 E29.1 Testicular hypofunction Whitley Panda Raffaele, VETERANS SERVICE OFFICER 09/04/2020 E29.1 Testicular hypofunction Endo Elaine ses 08/25/2020 E29.1 Testicular hypofunction Whitleyhalle Manerance, VETERANS SERVICE OFFICER 08/25/2020 E29.1 Testicular hypofunction Endo Elaine ses 08/16/2020 E29.1 Testicular hypofunction Mar Chakraborty MD 08/03/2020 E29.1 Testicular hypofunction Whitley Castorena, VETER[employer] SERVICE OFFICER 08/03/2020 E29.1 Testicular hypofunction Endo Elaine ses 07/24/2020 E29.1 Testicular hypofunction Whitley Castorena, VETER[employer] SERVICE OFFICER 07/24/2020 E29.1 Testicular hypofunction Endo Elaine ses Plan of Treatment Future Appointment(s):* 01/25/2021 10:00 am - Endo Nurses at DR. Mar Chakraborty * 06/13/2021 9:00 am - Whitley Castorena NP at DR. Mar Chakraborty Functional Status Description No Information Available Mental Status Description No Information Available Referrals Refer to Reason for Referral Status Appt Date Mar Chakraborty MD TESTICULAR HYPO FUNCTION Created [address] [facility], [address] [place] [address] [phone]
--- OUTSIDE RECORDS SUMMARY | 2021-04-12 13:56 | CCD ---
Author Author [facility] Organization [facility] Address Unknown Phone Unavailable Care Team Providers Care Production Sound Mixer Name Role Phone Demond Jaquez MD Unavailable Unavailable Demond Jaquez MD Unavailable Unavailable Demond Jaquez MD Unavailable Unavailable Demond Jaquez MD Unavailable Unavailable Demond Jaquez MD Unavailable Unavailable Demond Jaquez MD Unavailable Unavailable Demond Jaquez MD Unavailable Unavailable Demond Jaquez MD Unavailable Unavailable Demond Jaquez MD Unavailable Unavailable Demond Jaquez MD Unavailable Unavailable Demond Jaquez MD Unavailable Unavailable Demond Jaquez MD Unavailable Unavailable Demond Jaquez MD Unavailable Unavailable Demond Jaquez MD Unavailable Unavailable Demond Jaquez MD Unavailable Unavailable Demond Jaquez MD Unavailable Unavailable Demond Jaquez MD Unavailable Unavailable Demond Jaquez MD Unavailable Unavailable Demond Jaquez MD Unavailable Unavailable Demond Jaquez MD Unavailable Unavailable Demond Jaquez MD Unavailable Unavailable Demond Jaquez MD Unavailable Unavailable Demond Jaquez MD Unavailable Unavailable Demond Jaquez MD Unavailable Unavailable Demond Jaquez MD Unavailable Unavailable Demond Jaquez MD Unavailable Unavailable Demond Jaquez MD Unavailable Unavailable Demond Jaquez MD Unavailable Unavailable Demond Jaquez MD Unavailable Unavailable Demond Jaquez MD Unavailable Unavailable Demond Jaquez MD Unavailable Unavailable Demond Jaquez MD Unavailable Unavailable Demond Jaqeuz MD Unavailable Unavailable Demond Jaquez MD Unavailable Unavailable Demond Jaquez MD Unavailable Unavailable Demond Jaquez MD Unavailable Unavailable JaquezDemond MD Unavailable Unavailable JaquezDemond MD Unavailable Unavailable Demond Jaquez MD Unavailable Unavailable Demond Jaquez MD Unavailable Unavailable Demond Jaquez MD Unavailable Unavailable Demond Jaquez MD Unavailable Unavailable Demond Jaquez MD Unavailable Unavailable Demond Jaquez MD Unavailable Unavailable Demond Jaquez MD Unavailable Unavailable JaquezDemond MD Unavailable Unavailable Jaquez, Demond Aiken MD Unavailable Unavailable JaquezDemond MD Unavailable Unavailable JaquezDemond MD Unavailable Unavailable JaquezDemond MD Unavailable Unavailable Demond Jaquez MD Unavailable Unavailable Demond Jaquez MD Unavailable Unavailable JaquezDemond MD Unavailable Unavailable JaquezDemond MD Unavailable Unavailable JaquezDemond MD Unavailable Unavailable JaquezDemond MD Unavailable Unavailable JaquezDemond MD Unavailable Unavailable Demond Jaquez MD Unavailable Unavailable Demond Jaquez MD Unavailable Unavailable Demond Jaquez MD Unavailable Unavailable Demond Jaquez MD Unavailable Unavailable Demond Jaquez MD Unavailable Unavailable Demond Jaquez MD Unavailable Unavailable JaquezDemond MD Unavailable Unavailable JaquezDemond MD Unavailable Unavailable JaquezDemond MD Unavailable Unavailable Demond Jaquez MD Unavailable Unavailable Demond Jaquez MD Unavailable Unavailable Demond Jaquez MD Unavailable Unavailable Demond Jaquez MD Unavailable Unavailable Demond Jaquez MD Unavailable Unavailable Demond Jaquez MD Unavailable Unavailable Demond Jaquez MD Unavailable Unavailable Demond Jaquez MD Unavailable Unavailable Demond Jaquez MD Unavailable Unavailable Demond Jaquez MD Unavailable Unavailable Demond Jaquez MD Unavailable Unavailable Demond Jaquez MD Unavailable Unavailable Demond Jaquez MD Unavailable Unavailable Demond Jaquez MD Unavailable Unavailable Demond Jaquez MD Unavailable Unavailable Demond Jaquez MD Unavailable Unavailable Demond Jaquez MD Unavailable Unavailable Demond Jaquez MD Unavailable Unavailable Demond Jaquez MD Unavailable Unavailable Demond Jaquez MD Unavailable Unavailable Demond Jaquez MD Unavailable Unavailable Demond Jaquez MD Unavailable Unavailable Demond Jaquez MD Unavailable Unavailable Demond Jaquez MD Unavailable Unavailable Demond Jaquez MD Unavailable Unavailable Demond Jaquez MD Unavailable Unavailable Demond Jaquez MD Unavailable Unavailable LANDON, B JORDON SUPERVISOR ORCHARD Unavailable Unavailable LANDON, B JORDON SUPERVISOR ORCHARD Unavailable Unavailable LANDON, B JORDON SUPERVISOR ORCHARD Unavailable Unavailable LANDON, B JORDON SUPERVISOR ORCHARD Unavailable Unavailable LANDON, B JORDON SUPERVISOR ORCHARD Unavailable Unavailable LANDON, B JORDON SUPERVISOR ORCHARD Unavailable Unavailable LANDON, B JORDON SUPERVISOR ORCHARD Unavailable Unavailable LANDON, B JORDON SUPERVISOR ORCHARD Unavailable Unavailable LANDON, B JORDON SUPERVISOR ORCHARD Unavailable Unavailable LANDON, B JORDON SUPERVISOR ORCHARD Unavailable Unavailable LANDON, B JORDON SUPERVISOR ORCHARD Unavailable Unavailable LANDON, B JORDON SUPERVISOR ORCHARD Unavailable Unavailable LANDON, B JORDON SUPERVISOR ORCHARD Unavailable Unavailable LANDON, B JORDON SUPERVISOR ORCHARD Unavailable Unavailable LANDON, B JORDON SUPERVISOR ORCHARD Unavailable Unavailable LANDON, B JORDON SUPERVISOR ORCHARD Unavailable Unavailable LANDON, B JORDON SUPERVISOR ORCHARD Unavailable Unavailable LANDON, B JORDON SUPERVISOR ORCHARD Unavailable Unavailable LANDON, B JORDON SUPERVISOR ORCHARD Unavailable Unavailable LANDON, B JORDON SUPERVISOR ORCHARD Unavailable Unavailable LANDON, B JORDON SUPERVISOR ORCHARD Unavailable Unavailable LANDON, B JORDON SUPERVISOR ORCHARD Unavailable Unavailable LANDON, B JORDON SUPERVISOR ORCHARD Unavailable Unavailable LANDON, B JORDON SUPERVISOR ORCHARD Unavailable Unavailable LANDON, B JORDON SUPERVISOR ORCHARD Unavailable Unavailable LANDON, B JORDON SUPERVISOR ORCHARD Unavailable Unavailable LANDON, B JORDON SUPERVISOR ORCHARD Unavailable Unavailable LANDON, B JORDON SUPERVISOR ORCHARD Unavailable Unavailable LANDON, B JORDON SUPERVISOR ORCHARD Unavailable Unavailable LANDON, B JORDON SUPERVISOR ORCHARD Unavailable Unavailable LANDON, B JORDON SUPERVISOR ORCHARD Unavailable Unavailable LANDON, B JORDON SUPERVISOR ORCHARD Unavailable Unavailable LANDON, B JORDON SUPERVISOR ORCHARD Unavailable Unavailable LANDON, B JORDON SUPERVISOR ORCHARD Unavailable Unavailable LANDON, B JORDON SUPERVISOR ORCHARD Unavailable Unavailable LANDON, B JORDON SUPERVISOR ORCHARD Unavailable Unavailable LANDON, B JORDON SUPERVISOR ORCHARD Unavailable Unavailable LANDON, B JORDON SUPERVISOR ORCHARD Unavailable Unavailable LANDON, B JORDON SUPERVISOR ORCHARD Unavailable Unavailable LANDON, B JORDON SUPERVISOR ORCHARD Unavailable Unavailable LANDON, B JORDON SUPERVISOR ORCHARD Unavailable Unavailable LANDON, B JORDON SUPERVISOR ORCHARD Unavailable Unavailable LANDON, B JORDON SUPERVISOR ORCHARD Unavailable Unavailable LANDON, B JORDON SUPERVISOR ORCHARD Unavailable Unavailable LANDON, B JORDON SUPERVISOR ORCHARD Unavailable Unavailable LANDON, B JORDON SUPERVISOR ORCHARD Unavailable Unavailable LANDON, B JORDON SUPERVISOR ORCHARD Unavailable Unavailable LANDON, B JORDON SUPERVISOR ORCHARD Unavailable Unavailable LANDON, B JORDON SUPERVISOR ORCHARD Unavailable Unavailable LANDON, B JORDON SUPERVISOR ORCHARD Unavailable Unavailable LANDON, B JORDON SUPERVISOR ORCHARD Unavailable Unavailable LANDON, B JORDON SUPERVISOR ORCHARD Unavailable Unavailable LANDON, B JORDON SUPERVISOR ORCHARD Unavailable Unavailable LANDON, B JORDON SUPERVISOR ORCHARD Unavailable Unavailable LANDON, B JORDON SUPERVISOR ORCHARD Unavailable Unavailable LANDON, B JORDON SUPERVISOR ORCHARD Unavailable Unavailable LANDON, B JORDON SUPERVISOR ORCHARD Unavailable Unavailable LANDON, B JORDON SUPERVISOR ORCHARD Unavailable Unavailable LANDON, B JORDON SUPERVISOR ORCHARD Unavailable Unavailable LANDON, B JORDON SUPERVISOR ORCHARD Unavailable Unavailable LANDON, B JORDON SUPERVISOR ORCHARD Unavailable Unavailable LANDON, B JORDON SUPERVISOR ORCHARD Unavailable Unavailable Fish, Chevy Manuel MD Unavailable Unavailable Fish, Chevy Manuel MD Unavailable Unavailable Fish, Chevy Manuel MD Unavailable Unavailable Fish, Chevy Manuel MD Unavailable Unavailable Fish, Chevy Manuel MD Unavailable Unavailable Fish, Chevy Manuel MD Unavailable Unavailable Fish, Chevy Manuel MD Unavailable Unavailable Fish, Chevy Manuel MD Unavailable Unavailable Fish, Chevy Manuel MD Unavailable Unavailable Fish, Chevy Manuel MD Unavailable Unavailable Fish, Chevy Manuel MD Unavailable Unavailable Fish, Chevy Manuel MD Unavailable Unavailable Fish, Chevy Manuel MD Unavailable Unavailable Fish, B Mar KRUEGER Unavailable Unavailable Fish, B Mar KRUEGER Unavailable Unavailable Fish, B Mar KRUEGER Unavailable Unavailable Fish, Chevy Manuel MD Unavailable Unavailable Fish, Chevy Manuel MD Unavailable Unavailable Fish, Chevy Manuel MD Unavailable Unavailable Fish, Chevy Manuel MD Unavailable Unavailable Fish, Chevy Manuel MD Unavailable Unavailable Fish, Chevy Manuel MD Unavailable Unavailable Fish, Chevy Manuel MD Unavailable Unavailable Fish, Chevy Manuel MD Unavailable Unavailable Fish, Chevy Manuel MD Unavailable Unavailable Fish, Chevy Manuel MD Unavailable Unavailable Fish, Chevy Manuel MD Unavailable Unavailable Fish, Chevy Manuel MD Unavailable Unavailable Fish, Chevy Manuel MD Unavailable Unavailable Fish, Chevy Manuel MD Unavailable Unavailable Fish, Chevy Manuel MD Unavailable Unavailable Fish, Chevy Manuel MD Unavailable Unavailable Fish, Chevy Manuel MD Unavailable Unavailable Fish, Chevy Manuel MD Unavailable Unavailable Fish, Chevy Manuel MD Unavailable Unavailable Fish, Chevy Manuel MD Unavailable Unavailable Fish, Chevy Manuel MD Unavailable Unavailable Fish, Chevy Manuel MD Unavailable Unavailable Fish, Chevy Manuel MD Unavailable Unavailable Fish, Chevy Manuel MD Unavailable Unavailable Fish, Chevy Manuel MD Unavailable Unavailable Fish, Chevy Manuel MD Unavailable Unavailable Fish, Chevy Manuel MD Unavailable Unavailable Fish, Chevy Manuel MD Unavailable Unavailable Fish, Chevy Manuel MD Unavailable Unavailable Fish, Chevy Manuel MD Unavailable Unavailable Fish, Chevy Manuel MD Unavailable Unavailable Fish, Chevy Manuel MD Unavailable Unavailable Fish, Chevy Manuel MD Unavailable Unavailable Fish, Chevy Manuel MD Unavailable Unavailable Fish, Chevy Manuel MD Unavailable Unavailable Fish, Chevy Manuel MD Unavailable Unavailable Fish, Chevy Manuel MD Unavailable Unavailable Fish, Chevy Manuel MD Unavailable Unavailable Fish, Chevy Manuel MD Unavailable Unavailable Fish, Chevy Manuel MD Unavailable Unavailable Fish, Chevy Manuel MD Unavailable Unavailable Fish, B Mar KRUEGER Unavailable Unavailable Fish, B Mar KRUEGER Unavailable Unavailable Fish, B Mar KRUEGER Unavailable Unavailable Fish, B Mar KRUEGER Unavailable Unavailable Fish, B Mar KRUEGER Unavailable Unavailable Fish, B Mar KRUEGER Unavailable Unavailable Fish, B Mar KRUEGER Unavailable Unavailable Fish, B Mar KRUEGER Unavailable Unavailable MEDENT_[id number], NA Unavailable [phone] Ivory Rubi Unavailable Jeff, K Mikayla PMH-SUPERVISOR ORCHARD Unavailable Unavailable Gateway, K Mikayla PMH-SUPERVISOR ORCHARD Unavailable Unavailable Gateway, K Mikayla PMH-SUPERVISOR ORCHARD Unavailable Unavailable Gateway, K Mikayla PMH-SUPERVISOR ORCHARD Unavailable Unavailable Jeff, K Mikayla PMH-SUPERVISOR ORCHARD Unavailable Unavailable Jeff, K Mikayla PMH-SUPERVISOR ORCHARD Unavailable Unavailable Gateway, K Mikayla PMH-SUPERVISOR ORCHARD Unavailable Unavailable Jeff, K Mikayla PMH-SUPERVISOR ORCHARD Unavailable Unavailable Re-disclosure Warning The records that you are about to access may contain information from federally-assisted alcohol or drug abuse programs. If such information is present, then the following federally mandated warning applies: This information has been disclosed to you from records protected by federal confidentiality rules (42 CFR part 2). The federal rules prohibit you from making any further disclosure of this information unless further disclosure is expressly permitted by the written consent of the person to whom it pertains or as otherwise permitted by 42 CFR part 2. A general authorization for the release of medical or other information is NOT sufficient for this purpose. The Federal rules restrict any use of the information to criminally investigate or prosecute any alcohol or drug abuse patient.The records that you are about to access may contain highly sensitive health information, the redisclosure of which is protected by Article 27-F of the [facility] Public Health law. If you continue you may have access to information: Regarding HIV / AIDS; Provided by facilities licensed or operated by the [facility] Office of Mental Health; or Provided by the [facility] Office for People With Developmental Disabilities. If such information is present, then the following [facility] mandated warning applies: This information has been disclosed to you from confidential records which are protected by state law. State law prohibits you from making any further disclosure of this information without the specific written consent of the person to whom it pertains, or as otherwise permitted by law. Any unauthorized further disclosure in violation of state law may result in a fine or usp sentence or both. A general authorization for the release of medical or other information is NOT sufficient authorization for further disc losure. Allergies and Adverse Reactions Type Description Substance Reaction Status Data Source(s ) Allergy to substance Allergy to substance Allergy to substance [facility] ([facility]) Allergy to substance Allergy to substance Allergy to substance [facility] ([facility]) Family History Family Member Name Family Member Gender Family Member Status Date o f Status Description Data Source(s) Unknown Unknown Problem [facility] Encounters Encounter Providers Location Date Indications Data Source(s ) Unknown [address] [facility], [facility] [address] 04/09/2021 12:00:00 AM EDT eCW1 ([facility]) Office Visit Attender: NA MEDENT_[id number] Physical Therapy 021 09:30:00 AM EDT MEDENT ([facility]) Office Visit Attender: NA MEDENT_991 Physical Therapy 021 09:00:00 AM EDT MEDENT ([facility]) Office Visit Attender: NA MEDENT_991 Physical Therapy 021 09:00:00 AM EDT MEDENT ([facility]) Office Visit Attender: NA MEDENT_991 Physical Therapy 021 09:00:00 AM EDT MEDENT ([facility]) Office Visit Attender: NA MEDENT_991 Physical Therapy 021 09:00:00 AM EDT MEDENT ([facility]) Office Visit Attender: NA MEDENT_991 Physical Therapy 021 09:00:00 AM EDT MEDENT ([facility]) Office Visit Attender: NA MEDENT_991 Physical Therapy 021 10:00:00 AM EDT MEDENT ([facility]) Office Visit Attender: NA MEDENT_991 Physical Therapy 021 09:00:00 AM EDT MEDENT ([facility]) Office Visit Attender: NA MEDENT_991 Physical Therapy 09:00:00 AM EDT MEDENT ([facility]) Extended Individual Psychotherapy - 45 min Attender: Conchita Rubi [facility] 12/29/2020 09:00:00 AM EDT - 12/29/2020 09:00:00 AM EDT [facility] ([facility]) Attender: Ivory Elicia 12/29/2020 12:00:0 0 AM EDT [facility] ([facility]) Outpatient Attender: Mikayla Aguilar [facility] 12/28/2020 08:00:00 AM EDT - 12/28/2020 08:00:00 AM EDT [facility] ([facility]) Attender: Mikayla Aguilar [facility]PER[facility] ORCHARD 12/28/2020 12: 00:00 AM EDT [facility] ([facility]) Office Visit Attender: BRITANY [id number] Physical Therapy 09:00:00 AM EDT MEDENT ([facility]) Outpatient Attender: JORDON NAVARRETE NP Physical Therapy 09:00:00 AM EDT MEDENT ([facility]) Extended Individual Psychotherapy - 45 min Attender: Conchita Rubi [facility] 12/12/2020 10:00:00 AM EDT - 12/12/2020 10:00:00 AM EDT [facility] ([facility]) Attender: Ivory Rubi 12/12/2020 12:00:0 0 AM EDT [facility] ([facility]) Unknown [address] [facility] [address] 11/23/2020 12:00:00 AM EDT eCW1 ([facility]) Office Visit Attender: BRITANY TONY_991 Physical Therapy 09:00:00 AM EDT MEDENT ([facility]) Unknown [address] [facility] [address] 11/13/2020 12:00:00 AM EDT [facility] Office Visit Attender: BRITANY TONY_[email or web address] Physical Therapy 09:00:00 AM EDT MEDENT ([facility]) Extended Individual Psychotherapy - 45 min Attender: Conchita Rubi [facility] 11/10/2020 08:00:00 AM EDT - 11/10/2020 08:00:00 AM EDT [facility] ([facility]) Attender: Ivory Rubi 11/10/2020 12:00:0 0 AM EDT [facility] ([facility]) Office Visit Attender: BRITANY TONY_991 Physical Therapy 09:00:00 AM EDT MEDENT ([facility]) Extended Individual Psychotherapy - 45 min [facility] 10/26/2020 08:00:00 AM EDT - 10/26/2020 08:00:00 AM EDT [facility] ([facility]) Attila Jaquez MD: [address] [place] [phone], Ph. Attender: Attila Jaquez MD [place] - [facility] Medical 10/26/2020 12:00:00 AM EDT ELIJAH ([facility]) Attender: Ivory Rubi 10/26/2020 12:00:0 0 AM EDT [facility] ([facility]) Unknown [address] [facility] [address] 10/23/2020 12:00:00 AM EDT eCW1 ([facility]) Extended Individual Psychotherapy - 45 min Attender: Conchitapetra Rubi [facility] 10/20/2020 08:00:00 AM EDT - 10/20/2020 08:00:00 AM EDT [facility] ([facility]) Attender: Ivory Rubi 10/20/2020 12:00:0 0 AM EDT [facility] ([facility]) Office Visit Attender: BRITANY TONY_991 Physical Therapy 10:00:00 AM EDT MEDENT ([facility]) Unknown [address] [facility] [address] 10/13/2020 12:00:00 AM EDT eCW1 ([facility]) Office Visit Attender: BRITANY OTNY_991 Physical Therapy 09:30:00 AM EDT MEDENT ([facility]) Attila Jaquez MD: [address] [place] [phone], Ph. Attender: Attila Jaquez MD [facility] Medical 09/26/2020 12:00:00 AM EDT ELIJAH ([facility]) Attila Jaquez MD: [address] [place] [phone], Ph. Attender: Attila Jaquez MD [facility] Medical 09/26/2020 12:00:00 AM EDT ELIJAH ([facility]) Office Visit Attender: BRITANY TONY_991 Physical Therapy 09:30:00 AM EDT MEDENT ([facility]) Extended Individual Psychotherapy - 45 min Attender: Conchita Rubi [facility] 09/21/2020 08:45:00 AM EDT - 09/21/2020 08:45:00 AM EDT [facility] ([facility]) Attender: Ivory Rubi 09/21/2020 12:00:0 0 AM EDT [facility] ([facility]) Unknown [address] [facility] [address] 09/15/2020 12:00:00 AM EDT eCW1 ([facility]) Unknown [address] [facility] [address] 09/15/2020 12:00:00 AM EDT eCW1 ([facility]) Office Visit Attender: BRITANY TONY_991 Physical Therapy 021 09:30:00 AM EDT MEDENT ([facility]) Outpatient [address] [facility] [address] 09/11/2020 12:00:00 AM EDT [facility]CW1 [facility] Unknown [address] [facility] [address] 09/08/2020 12:00:00 AM EST [facility] Extended Individual Psychotherapy - 45 min Attender: Conchita Rubi [facility] 09/06/2020 08:00:00 AM EST - 09/06/2020 08:00:00 AM EST [facility] ([facility]) Attender: Ivory Rubi 09/06/2020 12:00:0 0 AM EST [facility] ([facility]) Office Visit Attender: BRITANY TONY_991 Physical Therapy 021 08:30:00 AM EST MEDENT ([facility]) Unknown [address] [facility] [address] 08/29/2020 12:00:00 AM EST [facility]CW1 [facility] Office Visit Attender: BRITANY THOMAS991 Physical Therapy 021 09:00:00 AM EST [facility] ([facility]) Outpatient [address] [facility] [address] 08/24/2020 12:00:00 AM EST [facility]CW1 [facility] Office Visit Attender: Mar Chakraborty MD Physical Therapy 08/16 11:15:00 AM EST [facility] ([facility]) Unknown [address] [facility] [address] 08/14/2020 12:00:00 AM EST [facility]CW1 [facility] Unknown [address] [facility] [address] 08/10/2020 12:00:00 AM EST eCW1 ([facility] Office Visit Attender: BRITANY TONY_991 Physical Therapy 021 08:00:00 AM EST [facility] ([facility]) Outpatient [address] [facility] [address] 07/27/2020 12:00:00 AM EST [facility]CW1 [facility] Office Visit Attender: BRITANY TONY_991 Physical Therapy 021 08:00:00 AM EST MEDENT ([facility]) Office Visit Attender: BRITANY TONY_991 Physical Therapy 021 08:00:00 AM EST [facility] ([facility]) Unknown [address] [facility] [address] 07/12/2020 12:00:00 AM EST [facility]CW1 [facility] Unknown [address] [facility] [address] 07/04/2020 12:00:00 AM EST [facility]CW1 [facility] Office Visit Attender: BRITANY TONY_991 Physical Therapy 09:30:00 AM EST MED[facility] ([facility]) Office Visit Attender: BRITANY TONY_991 Physical Therapy 08:30:00 AM EST [facility] ([facility]) Extended Individual Psychotherapy - 45 min Attender: Conchita Rubi [facility] 06/20/2020 11:45:00 AM EST - 06/20/2020 11:45:00 AM EST [facility] ([facility]) Attender: Ivory Rubi 06/20/2020 12:00:0 0 AM EST [facility] ([facility]) Outpatient Attender: Mikayla Aguilar [facility]-SUPERVISOR ORCHARD [facility] 06/15/2020 10:30:00 AM EST - 06/15/2020 10:30:00 AM EST [facility] ([facility]) Attender: Mikayla LEAVITT-JOE 06/15/2020 12: 00:00 AM EST [facility] ([facility]) Office Visit Attender: BRITANY TONY_991 Physical Therapy 09:00:00 AM EST MED[facility] ([facility]) Outpatient [address] [place] [address] 06/12/2020 12:00:00 AM EST eCW1 ([facility]) TEMPMHCTelemed 30" Psychotherapy Attender: Ivory espinoza [facility] 06/05/2020 11:30:00 AM EST - 06/05/2020 11:30:00 AM EST [facility] ([facility]) Attender: Ivory Rubi 06/05/2020 12:00:0 0 AM EST [facility] ([facility]) OFFICE OUTPATIENT VISIT 15 MINUTES Attender: JORDON NAVARRETE NP Physical Therapy 05/31/2020 07:30:00 AM EST MEDENT ([facility]) Unknown [id number] [facility] [address] 05/18/2020 12:00:00 AM EST eCW1 ([facility]) Outpatient Attender: Mikayla LEAVITTDOMINGUEZ [facility] 05/11/2020 10:00:00 AM EST - 05/11/2020 10:00:00 AM EST [facility] ([facility]) Attender: Mikayla TADEO 05/11/2020 12: 00:00 AM EST [facility] ([facility]) Office Visit Attender: BRITANY TONY_991 Physical Therapy 020 08:00:00 AM EST MEDENT ([facility]) Office Visit Attender: BRITANY THOMAS991 Physical Therapy 020 09:00:00 AM EDT MEDENT ([facility]) Outpatient Attender: Mikayla TADEO [facility] 04/06/2020 09:30:00 AM EDT - 04/06/2020 09:30:00 AM EDT [facility] ([facility]) Attender: Mikayla TADEO 04/06/2020 12: 00:00 AM EDT [facility] ([facility]) Office Visit Attender: BRITANY THOMAS991 Physical Therapy 10:00:00 AM EDT MEDENT ([facility]) TEMPMHCTelemed 30" Psychotherapy Attender: Ivory espinoza [facility] 03/24/2020 08:00:00 AM EDT - 03/24/2020 08:00:00 AM EDT [facility] ([facility]) Attender: Ivory Rubi 03/24/2020 12:00:0 0 AM EDT [facility] ([facility]) Office Visit Attender: BRITANY THOMAS991 Physical Therapy 10:00:00 AM EDT MEDENT ([facility]) Office Visit Attender: BRITANY SRINIVASAN1 Physical Therapy 09:00:00 AM EDT [facility] ([facility]) Outpatient Attender: Mikayla Aguilar [facility] 03/09/2020 09:00:00 AM EDT - 03/09/2020 09:00:00 AM EDT [facility] ([facility]) Attender: Mikayla LEAVITT-JOE 03/09/2020 12: 00:00 AM EDT [facility] ([facility]) Office Visit Attender: BRITANY THOMAS991 Physical Therapy 09:30:00 AM EDT MEDENT ([facility]) Attender: Ivory Rubi 03/01/2020 12:00:0 0 AM EDT [facility] ([facility]) Attender: Ivory Rubi [facility] 02/29/2020 10:00:00 AM EDT - 02/29/2020 10:00:00 AM EDT [facility] ([facility]) Extended Individual Psychotherapy - 45 min Attender: Conchita Rubi [facility] 02/29/2020 10:00:00 AM EDT - 02/29/2020 10:00:00 AM EDT [facility] ([facility]) Office Visit Attender: BRITANY TONY_991 Physical Therapy 08/24/2 020 09:30:00 AM [facility] Functional Status Immunizations Vaccine Date Status Description Data Source(s) COVID-19, mRNA, LNP-S, PF, 100 mcg/0.5 mL dose 10/26/2020 11 :21:03 AM EDT completed 10.5 mL [facility] COVID-19 VACCINE Moderna 10/26/2020 12:00:00 AM EDT completed NYSIIS Vaccine Series Complete: YESThis Data wa s Submitted to [facility] Via [employer]. COVID-19, mRNA, LNP-S, PF, 100 mcg/0.5 mL dose 09/26/2020 09 :54:18 AM EDT completed 10.5 mL EL[facility] ([facility]) COVID-19, mRNA, LNP-S, PF, 100 mcg/0.5 mL dose 09/26/2020 09 :54:18 AM EDT completed .5 mL [facility] ([facility]) COVID-19 VACCINE Moderna 09/26/2020 12:00:00 AM EDT completed NYSIIS Vaccine Series Complete: NOThis Data was Submitted to [facility] Via [employer]. Medications Medication Brand Name Start Date Product Form Dose Route Admi nistrative Instructions Pharmacy Instructions Status Indications Reaction Description Data Source(s) 200 mg/mL 02/21/2021 12:00:00 AM EDT oil 3 INJECT 0.6ML INTRAMUSCULARLY EVERY 10 DAYS MAXIMUM DAILY DOSE = 0.6ML EVERY 10 DAYS INJECT 0.6ML INTRAMUSCULARLY EVERY 10 DAYS MAXIMUM DAILY DOSE = 0.6ML EVERY 10 DAYS SOLD: 02/24/2021 [facility] 5 mg 02/08/2021 12:00:00 AM EDT tablet 30 TAKE 1/2 TABLET BY MOUTH TWICE A DAY TAKE 1/2 TABLET BY MOUTH TWICE A DAY SOLD: 03/19/2021 [facility] 5 mg 02/08/2021 12:00:00 AM EDT tablet 30 TAKE 1/2 TABLET BY MOUTH TWICE A DAY TAKE 1/2 TABLET BY MOUTH TWICE A DAY SOLD: 02/09/2021 [facility] 800-160 mg 02/02/2021 12:00:00 AM EDT tablet 28 TAKE ONE TABLET BY MOUTH TWICE A DAY FOR 14 DAYS TAKE ONE TABLET BY MOUTH TWICE A DAY FOR 14 DAYS SOLD: 02/02/2021 [facility] olanzapine 15 MG Oral Tablet olanzapine 12/25/2020 12:00:00 AM EDT 15 mg by mouth completed <td ID="Medica tionRxNorm_5">831771</td><td ID="MedicationMedication_5">olanzapine</td><td ID="MedicationRoute_5">by mouth</td><td ID="MedicationRouteConcept_5">N88980</td><td ID="MedicationStartDate_5">12/25/2020</td><td ID="MedicationStopDate_5">02/23/2021</td><td ID="MedicationDosageFrequency_5">every night</td><td ID="MedicationDuration_5">30</td><td ID="MedicationFormulaStrength_5">15 mg</td><td ID="MedicationDosageForm_5">tablet</td><td ID="MedicationDosageFormCode_5"></td><td ID="MedicationDosageDescription_5"></td><td ID="MedicationMedicationId_5">[id number]</td><td ID="MedicationAccount_5">[id number]</td><td ID="MedicationNpid_5">[id number]</td><td ID="MedicationAuthorFirstName_5">Mikayla</td><td ID="MedicationAuthorLastName_5">Jeff</td><td ID="MedicationTaxonomyCode_5">[id number]</td><td ID="MedicationTaxonomyDesc_5">Psychiatric/Mental Health</td><td ID="MedicationPhoneNumber_5">[phone]</td> [facility] ([facility]) 200 mg/mL 11/11/2020 12:00:00 AM EDT oil 3 INJECT 0.7ML INTRAMUSCULARLY EVERY 10 DAYS MAXIMUM DAILY DOSE = 0.7ML EVERY 10 DAYS INJECT 0.7ML INTRAMUSCULARLY EVERY 10 DAYS MAXIMUM DAILY DOSE = 0.7ML EVERY 10 DAYS SOLD: 11/21/2020 [facility] lamotrigine 25 MG Oral Tablet lamotrigine 11/02/2020 12:00:00 AM EDT 25 mg by mouth completed <td ID="Medica tionRxNorm_4">899752</td><td ID="MedicationMedication_4">lamotrigine</td><td ID="MedicationRoute_4">by mouth</td><td ID="MedicationRouteConcept_4">D85087</td><td ID="MedicationStartDate_4">11/02/2020</td><td ID="MedicationStopDate_4"></td><td ID="MedicationDosageFrequency_4">as directed</td><td ID="MedicationDuration_4"></td><td ID="MedicationFormulaStrength_4">25 mg</td><td ID="MedicationDosageForm_4">tablet</td><td ID="MedicationDosageFormCode_4"></td><td ID="MedicationDosageDescription_4"></td><td ID="MedicationMedicationId_4">[id number]</td><td ID="MedicationAccount_4">[id number]</td><td ID="MedicationNpid_4">[id number]</td><td ID="MedicationAuthorFirstName_4">Mikayla</td><td ID="MedicationAuthorLastName_4">Jeff</td><td ID="MedicationTaxonomyCode_4">[id number]</td><td ID="MedicationTaxonomyDesc_4">Psychiatric/Mental Health</td><td ID="MedicationPhoneNumber_4">[phone]</td> [facility] ([facility]) lamotrigine 25 MG Oral Tablet lamotrigine 11/02/2020 12:00:00 AM EDT 25 mg by mouth completed <td ID="Medica tionRxNorm_3">775769</td><td ID="MedicationMedication_3">lamotrigine</td><td ID="MedicationRoute_3">by mouth</td><td ID="MedicationRouteConcept_3">Z39527</td><td ID="MedicationStartDate_3">11/02/2020</td><td ID="MedicationStopDate_3"></td><td ID="MedicationDosageFrequency_3">as directed</td><td ID="MedicationDuration_3"></td><td ID="MedicationFormulaStrength_3">25 mg</td><td ID="MedicationDosageForm_3">tablet</td><td ID="MedicationDosageFormCode_3"></td><td ID="MedicationDosageDescription_3"></td><td ID="MedicationMedicationId_3">[id number]</td><td ID="MedicationAccount_3">[id number]</td><td ID="MedicationNpid_3">[id number]</td><td ID="MedicationAuthorFirstName_3">Mikayla</td><td ID="MedicationAuthorLastName_3">[facility]</td><td ID="MedicationTaxonomyCode_3">[id number]</td><td ID="MedicationTaxonomyDesc_3">Psychiatric/Mental Health</td><td ID="MedicationPhoneNumber_3">[phone]</td> [facility] ([facility]) lamotrigine 25 MG Oral Tablet lamotrigine 11/02/2020 12:00:00 AM EDT 25 mg by mouth completed <td ID="Medica tionRxNorm_1">081797</td><td ID="MedicationMedication_1">lamotrigine</td><td ID="MedicationRoute_1">by mouth</td><td ID="MedicationRouteConcept_1">M71234</td><td ID="MedicationStartDate_1">11/02/2020</td><td ID="MedicationStopDate_1">01/21/2021</td><td ID="MedicationDosageFrequency_1">once a day</td><td ID="MedicationDuration_1">30</td><td ID="MedicationFormulaStrength_1">25 mg</td><td ID="MedicationDosageForm_1">tablet</td><td ID="MedicationDosageFormCode_1"></td><td ID="MedicationDosageDescription_1">as directed</td><td ID="MedicationMedicationId_1">[id number]</td><td ID="MedicationAccount_1">[id number]</td><td ID="MedicationNpid_1">[id number]</td><td ID="MedicationAuthorFirstName_1">Oscar</td><td ID="MedicationAuthorLastName_1">[facility]</td><td ID="MedicationTaxonomyCode_1">[id number]</td><td ID="MedicationTaxonomyDesc_1">Nurse Practitioner</td><td ID="MedicationPhoneNumber_1">[phone]</td> [facility] 3 mL 22 x 1 1/2" 11/01/2020 12:00:00 AM EDT syringe 10 USE DIRECTED EVERY 10 DAYS WITH TESTOSTERONE USE DIRECTED EVERY 10 DAYS WITH TESTOSTERONE SOLD: 11/09/2020 [facility] 5 mg 10/09/2020 12:00:00 AM EDT tablet 30 TAKE 1/2 TABLET BY MOUTH TWO TIMES A DAY TAKE 1/2 TABLET BY MOUTH TWO TIMES A DAY SOLD: 10/09/2020 [facility] 5 mg 10/09/2020 12:00:00 AM EDT tablet 30 TAKE 1/2 TABLET BY MOUTH TWO TIMES A DAY TAKE 1/2 TABLET BY MOUTH TWO TIMES A DAY SOLD: 12/27/2020 [facility] 5 mg 10/09/2020 12:00:00 AM EDT tablet 30 TAKE 1/2 TABLET BY MOUTH TWO TIMES A DAY TAKE 1/2 TABLET BY MOUTH TWO TIMES A DAY SOLD: 11/09/2020 [facility] 200 mg/mL 10/06/2020 12:00:00 AM EDT oil 3 INJECT 0.7ML INTRAMUSCULARLY EVERY 10 DAYS MAXIMUM DAILY DOSE = 0.7ML / 10 DAYS INJECT 0.7ML INTRAMUSCULARLY EVERY 10 DAYS MAXIMUM DAILY DOSE = 0.7ML / 10 DAYS SOLD: 10/09/2020 [facility] 3 mL 22 x 1 1/2" 10/06/2020 12:00:00 AM EDT syringe 3 USE EVERY 10 DAYS WITH TESTOSTERONE USE EVERY 10 DAYS WITH TESTOSTERONE SOLD: 10/09/2020 [facility] olanzapine 15 MG Oral Tablet olanzapine 09/28/2020 12:00:00 AM EDT 15 mg by mouth completed <td ID="Medica tionRxNorm_4">892070</td><td ID="MedicationMedication_4">olanzapine</td><td ID="MedicationRoute_4">by mouth</td><td ID="MedicationRouteConcept_4">K78334</td><td ID="MedicationStartDate_4">09/28/2020</td><td ID="MedicationStopDate_4">11/27/2020</td><td ID="MedicationDosageFrequency_4">every night</td><td ID="MedicationDuration_4">30</td><td ID="MedicationFormulaStrength_4">15 mg</td><td ID="MedicationDosageForm_4">tablet</td><td ID="MedicationDosageFormCode_4"></td><td ID="MedicationDosageDescription_4"></td><td ID="MedicationMedicationId_4">[id number]</td><td ID="MedicationAccount_4">[id number]</td><td ID="MedicationNpid_4">[id number]</td><td ID="MedicationAuthorFirstName_4">Mikayla</td><td ID="MedicationAuthorLastName_4">[facility]</td><td ID="MedicationTaxonomyCode_4">[id number]</td><td ID="MedicationTaxonomyDesc_4">Psychiatric/Mental Health</td><td ID="MedicationPhoneNumber_4">[phone]</td> [facility] ([facility]) olanzapine 10 MG Oral Tablet olanzapine 09/28/2020 12:00:00 AM EDT 10 mg by mouth completed <td ID="Medica tionRxNorm_1">753633</td><td ID="MedicationMedication_1">olanzapine</td><td ID="MedicationRoute_1">by mouth</td><td ID="MedicationRouteConcept_1">A23497</td><td ID="MedicationStartDate_1">09/28/2020</td><td ID="MedicationStopDate_1">02/06/2021</td><td ID="MedicationDosageFrequency_1">every night</td><td ID="MedicationDuration_1">30</td><td ID="MedicationFormulaStrength_1">10 mg</td><td ID="MedicationDosageForm_1">tablet</td><td ID="MedicationDosageFormCode_1"></td><td ID="MedicationDosageDescription_1"></td><td ID="MedicationMedicationId_1">[id number]</td><td ID="MedicationAccount_1">[id number]</td><td ID="MedicationNpid_1">[id number]</td><td ID="MedicationAuthorFirstName_1">Oscar</td><td ID="MedicationAuthorLastName_1">[facility]</td><td ID="MedicationTaxonomyCode_1">[id number]</td><td ID="MedicationTaxonomyDesc_1">Nurse Practitioner</td><td ID="MedicationPhoneNumber_1">[phone]</td> [facility] ([facility]) Nicotine 4 MG Chewing Gum [Nicorette] Nicorette Starte r Kit 4 MG Nicorette Starter Kit 4 MG 09/15/2020 12:00:00 AM EDT a ctive Nicorette Starter Kit 4 MG eCW1 ([facility]) Nicotine 4 MG Chewing Gum [Nicorette] Nicorette Starte r Kit 4 MG Nicorette Starter Kit 4 MG 09/15/2020 12:00:00 AM EDT a ctive Nicorette Starter Kit 4 MG eCW1 ([facility]) Nicotine 4 MG Chewing Gum [Nicorette] Nicorette Starte r Kit 4 MG Nicorette Starter Kit 4 MG 09/15/2020 12:00:00 AM EDT a ctive Nicorette Starter Kit 4 MG eCW1 ([facility]) Nicotine 4 MG Chewing Gum [Nicorette] Nicorette Starte r Kit 4 MG Nicorette Starter Kit 4 MG 09/15/2020 12:00:00 AM EDT a ctive Nicorette Starter Kit 4 MG eCW1 ([facility]) Nicotine 4 MG Chewing Gum [Nicorette] Nicorette Starte r Kit 4 MG Nicorette Starter Kit 4 MG 09/15/2020 12:00:00 AM EDT a ctive Nicorette Starter Kit 4 MG eCW1 ([facility]) Nicotine 4 MG Chewing Gum [Nicorette] Nicorette Starte r Kit 4 MG Nicorette Starter Kit 4 MG 09/15/2020 12:00:00 AM EDT a ctive Nicorette Starter Kit 4 MG eCW1 ([facility]) Nicotine 4 MG Chewing Gum [Nicorette] Nicorette Starte r Kit 4 MG Nicorette Starter Kit 4 MG 09/15/2020 12:00:00 AM EDT a ctive Nicorette Starter Kit 4 MG eCW1 ([facility]) Nicotine 4 MG Chewing Gum [Nicorette] Nicorette Starte r Kit 4 MG Nicorette Starter Kit 4 MG 09/15/2020 12:00:00 AM EDT a ctive Nicorette Starter Kit 4 MG eCW1 ([facility]) Nicotine 4 MG Chewing Gum [Nicorette] Nicorette Starte r Kit 4 MG Nicorette Starter Kit 4 MG 09/15/2020 12:00:00 AM EDT a ctive Nicorette Starter Kit 4 MG eCW1 ([facility]) Hydroxyzine Hydrochloride 50 MG Oral Tablet hydroxyzine HCl 09/06/2020 12:00:00 AM EST 50 mg completed <td ID ="MedicationRxNorm_2">202293</td><td ID="MedicationMedication_2">hydroxyzine HCl</td><td ID="MedicationRoute_2"></td><td ID="MedicationRouteConcept_2"></td><td ID="MedicationStartDate_2">09/06/2020</td><td ID="MedicationStopDate_2"></td><td ID="MedicationDosageFrequency_2"></td><td ID="MedicationDuration_2"></td><td ID="MedicationFormulaStrength_2">50 mg</td><td ID="MedicationDosageForm_2">tablet</td><td ID="MedicationDosageFormCode_2"></td><td ID="MedicationDosageDescription_2"></td><td ID="MedicationMedicationId_2">[id number]</td><td ID="MedicationAccount_2">[id number]</td><td ID="MedicationNpid_2">[id number]</td><td ID="MedicationAuthorFirstName_2">Mikayla</td><td ID="MedicationAuthorLastName_2">[facility]</td><td ID="MedicationTaxonomyCode_2">[id number]</td><td ID="MedicationTaxonomyDesc_2">Psychiatric/Mental Health</td><td ID="MedicationPhoneNumber_2">[phone]</td> [facility] ([facility]) Hydroxyzine Hydrochloride 50 MG Oral Tablet hydroxyzine HCl 09/06/2020 12:00:00 AM EST 50 mg completed <td ID ="MedicationRxNorm_3">048045</td><td ID="MedicationMedication_3">hydroxyzine HCl</td><td ID="MedicationRoute_3"></td><td ID="MedicationRouteConcept_3"></td><td ID="MedicationStartDate_3">09/06/2020</td><td ID="MedicationStopDate_3"></td><td ID="MedicationDosageFrequency_3"></td><td ID="MedicationDuration_3"></td><td ID="MedicationFormulaStrength_3">50 mg</td><td ID="MedicationDosageForm_3">tablet</td><td ID="MedicationDosageFormCode_3"></td><td ID="MedicationDosageDescription_3"></td><td ID="MedicationMedicationId_3">[id number]</td><td ID="MedicationAccount_3">[id number]</td><td ID="MedicationNpid_3">[id number]</td><td ID="MedicationAuthorFirstName_3">Mikayla</td><td ID="MedicationAuthorLastName_3">[facility]</td><td ID="MedicationTaxonomyCode_3">[id number]</td><td ID="MedicationTaxonomyDesc_3">Psychiatric/Mental Health</td><td ID="MedicationPhoneNumber_3">[phone]</td> [facility] ([facility]) gabapentin 300 MG Oral Capsule gabapentin 09/06/2020 12:00:00 AM EST 300 mg by mouth completed <td ID="Medica tionRxNorm_4">785454</td><td ID="MedicationMedication_4">gabapentin</td><td ID="MedicationRoute_4">by mouth</td><td ID="MedicationRouteConcept_4">T98455</td><td ID="MedicationStartDate_4">09/06/2020</td><td ID="MedicationStopDate_4">02/23/2021</td><td ID="MedicationDosageFrequency_4">twice a day</td><td ID="MedicationDuration_4">30</td><td ID="MedicationFormulaStrength_4">300 mg</td><td ID="MedicationDosageForm_4">capsule</td><td ID="MedicationDosageFormCode_4"></td><td ID="MedicationDosageDescription_4"></td><td ID="MedicationMedicationId_4">[id number]</td><td ID="MedicationAccount_4">[id number]</td><td ID="MedicationNpid_4">[id number]</td><td ID="MedicationAuthorFirstName_4">Mikayla</td><td ID="MedicationAuthorLastName_4">[facility]</td><td ID="MedicationTaxonomyCode_4">[id number]</td><td ID="MedicationTaxonomyDesc_4">Psychiatric/Mental Health</td><td ID="MedicationPhoneNumber_4">[phone]</td> [facility] ([facility]) gabapentin 300 MG Oral Capsule gabapentin 09/06/2020 12:00:00 AM EST 300 mg by mouth completed <td ID="Medica tionRxNorm_3">747314</td><td ID="MedicationMedication_3">gabapentin</td><td ID="MedicationRoute_3">by mouth</td><td ID="MedicationRouteConcept_3">Q94163</td><td ID="MedicationStartDate_3">09/06/2020</td><td ID="MedicationStopDate_3">11/05/2020</td><td ID="MedicationDosageFrequency_3">twice a day</td><td ID="MedicationDuration_3">30</td><td ID="MedicationFormulaStrength_3">300 mg</td><td ID="MedicationDosageForm_3">capsule</td><td ID="MedicationDosageFormCode_3"></td><td ID="MedicationDosageDescription_3"></td><td ID="MedicationMedicationId_3">[id number]</td><td ID="MedicationAccount_3">[id number]</td><td ID="MedicationNpid_3">[id number]</td><td ID="MedicationAuthorFirstName_3">Mikayla</td><td ID="MedicationAuthorLastName_3">Jeff</td><td ID="MedicationTaxonomyCode_3">[id number]</td><td ID="MedicationTaxonomyDesc_3">Psychiatric/Mental Health</td><td ID="MedicationPhoneNumber_3">[phone]</td> [facility] ([facility]) gabapentin 300 MG Oral Capsule gabapentin 09/06/2020 12:00:00 AM EST 300 mg by mouth completed <td ID="Medica tionRxNorm_6">852871</td><td ID="MedicationMedication_6">gabapentin</td><td ID="MedicationRoute_6">by mouth</td><td ID="MedicationRouteConcept_6">X49032</td><td ID="MedicationStartDate_6">09/06/2020</td><td ID="MedicationStopDate_6">11/05/2020</td><td ID="MedicationDosageFrequency_6">twice a day</td><td ID="MedicationDuration_6">30</td><td ID="MedicationFormulaStrength_6">300 mg</td><td ID="MedicationDosageForm_6">capsule</td><td ID="MedicationDosageFormCode_6"></td><td ID="MedicationDosageDescription_6"></td><td ID="MedicationMedicationId_6">[id number]</td><td ID="MedicationAccount_6">[id number]</td><td ID="MedicationNpid_6">[id number]</td><td ID="MedicationAuthorFirstName_6">Mikayla</td><td ID="MedicationAuthorLastName_6">Jeff</td><td ID="MedicationTaxonomyCode_6">[id number]</td><td ID="MedicationTaxonomyDesc_6">Psychiatric/Mental Health</td><td ID="MedicationPhoneNumber_6">[phone]</td> [facility] ([facility]) gabapentin 300 MG Oral Capsule gabapentin 09/06/2020 12:00:00 AM EST 300 mg by mouth completed <td ID="Medica tionRxNorm_5">492402</td><td ID="MedicationMedication_5">gabapentin</td><td ID="MedicationRoute_5">by mouth</td><td ID="MedicationRouteConcept_5">R42370</td><td ID="MedicationStartDate_5">09/06/2020</td><td ID="MedicationStopDate_5">01/01/2021</td><td ID="MedicationDosageFrequency_5">twice a day</td><td ID="MedicationDuration_5">30</td><td ID="MedicationFormulaStrength_5">300 mg</td><td ID="MedicationDosageForm_5">capsule</td><td ID="MedicationDosageFormCode_5"></td><td ID="MedicationDosageDescription_5"></td><td ID="MedicationMedicationId_5">[id number]</td><td ID="MedicationAccount_5">[id number]</td><td ID="MedicationNpid_5">[id number]</td><td ID="MedicationAuthorFirstName_5">Mikayla</td><td ID="MedicationAuthorLastName_5">[facility]</td><td ID="MedicationTaxonomyCode_5">[id number]</td><td ID="MedicationTaxonomyDesc_5">Psychiatric/Mental Health</td><td ID="MedicationPhoneNumber_5">[phone]</td> [facility] ([facility]) Hydroxyzine Hydrochloride 50 MG Oral Tablet hydroxyzine HCl 09/06/2020 12:00:00 AM EST 50 mg completed <td ID ="MedicationRxNorm_7">247030</td><td ID="MedicationMedication_7">hydroxyzine HCl</td><td ID="MedicationRoute_7"></td><td ID="MedicationRouteConcept_7"></td><td ID="MedicationStartDate_7">09/06/2020</td><td ID="MedicationStopDate_7"></td><td ID="MedicationDosageFrequency_7"></td><td ID="MedicationDuration_7"></td><td ID="MedicationFormulaStrength_7">50 mg</td><td ID="MedicationDosageForm_7">tablet</td><td ID="MedicationDosageFormCode_7"></td><td ID="MedicationDosageDescription_7"></td><td ID="MedicationMedicationId_7">[id number]</td><td ID="MedicationAccount_7">[id number]</td><td ID="MedicationNpid_7">[id number]</td><td ID="MedicationAuthorFirstName_7">Mikayla</td><td ID="MedicationAuthorLastName_7">Jeff</td><td ID="MedicationTaxonomyCode_7">[id number]</td><td ID="MedicationTaxonomyDesc_7">Psychiatric/Mental Health</td><td ID="MedicationPhoneNumber_7">[phone]</td> [facility] ([facility]) 200 mg/mL 08/26/2020 12:00:00 AM EST oil 3 INJECT 0.7MLS INTRAMUSCULARLY EVERY 10 DAYS MAXIMUM DAILY DOSE = 0.7MLS/10 DAY INJECT 0.7MLS INTRAMUSCULARLY EVERY 10 DAYS MAXIMUM DAILY DOSE = 0.7MLS/10 DAY SOLD: 09/01/2020 [facility] Hydrochlorothiazide 12.5 MG Oral Tablet Hydrochlorothiazide 12.5 MG 08/24/2020 12:00:00 AM EST 1.0 {tablet_in_the_morning} acti ve Hydrochlorothiazide 12.5 MG eCW1 ([facility]) 30 mg 08/24/2020 12:00:00 AM EST tablet 30 TAKE ONE TABLET BY MOUTH EVERY DAY TAKE ONE TABLET BY MOUTH EVERY DAY SOLD: 08/26/2020 [facility] Hydrochlorothiazide 12.5 MG Oral Tablet HYDROCHLOROTHIAZIDE 08/24/2020 12:00:00 AM EST tablet 30 TAKE ONE TABLET BY MOUTH NYDIA DAY IN THE MORNING TAKE ONE TABLET BY MOUTH EVERY DAY IN THE MORNING SOLD: 08/26/2020 [facility] Hydrochlorothiazide 12.5 MG Oral Tablet Hydrochlorothiazide 12.5 MG 08/24/2020 12:00:00 AM EST 1.0 {tablet_in_the_morning} acti ve Hydrochlorothiazide 12.5 MG eCW1 ([facility]) Hydrochlorothiazide 12.5 MG Oral Tablet Hydrochlorothiazide 12.5 MG 08/24/2020 12:00:00 AM EST 1.0 {tablet_in_the_morning} acti ve Hydrochlorothiazide 12.5 MG eCW1 ([facility]) Hydrochlorothiazide 12.5 MG Oral Tablet Hydrochlorothiazide 12.5 MG 08/24/2020 12:00:00 AM EST 1.0 {tablet_in_the_morning} acti ve Hydrochlorothiazide 12.5 MG eCW1 ([facility]) Hydrochlorothiazide 12.5 MG Oral Tablet Hydrochlorothiazide 12.5 MG 08/24/2020 12:00:00 AM EST 1.0 {tablet_in_the_morning} acti ve Hydrochlorothiazide 12.5 MG eCW1 ([facility] [place]) Hydrochlorothiazide 12.5 MG Oral Tablet Hydrochlorothiazide 12.5 MG 08/24/2020 12:00:00 AM EST 1.0 {tablet_in_the_morning} acti ve Hydrochlorothiazide 12.5 MG eCW1 ([facility] [place]) Hydrochlorothiazide 12.5 MG Oral Tablet Hydrochlorothiazide 12.5 MG 08/24/2020 12:00:00 AM EST 1.0 {tablet_in_the_morning} acti ve Hydrochlorothiazide 12.5 MG eCW1 ([facility] [place]) Hydrochlorothiazide 12.5 MG Oral Tablet Hydrochlorothiazide 12.5 MG 08/24/2020 12:00:00 AM EST 1.0 {tablet_in_the_morning} acti ve Hydrochlorothiazide 12.5 MG eCW1 ([facility]) Hydrochlorothiazide 12.5 MG Oral Tablet Hydrochlorothiazide 12.5 MG 08/24/2020 12:00:00 AM EST 1.0 {tablet_in_the_morning} acti ve Hydrochlorothiazide 12.5 MG W1 ([facility]) Hydrochlorothiazide 12.5 MG Oral Tablet Hydrochlorothiazide 12.5 MG 08/24/2020 12:00:00 AM EST 1.0 {tablet_in_the_morning} acti ve Hydrochlorothiazide 12.5 MG W ([facility]) Hydrochlorothiazide 12.5 MG Oral Tablet hydroCHLOROthi azide 12.5 MG hydroCHLOROthiazide 12.5 MG 08/24/2020 12:00:00 AM EST 1.0 {tablet_in_the_morning} active hydroCHL OROthiazide 12.5 MG [facility] ([facility]) Hydrochlorothiazide 12.5 MG Oral Tablet Hydrochlorothiazide 12.5 MG 08/24/2020 12:00:00 AM EST 1.0 {tablet_in_the_morning} acti ve Hydrochlorothiazide 12.5 MG W ([facility]) 5 mg 08/23/2020 12:00:00 AM EST tablet 30 TAKE ONE-HALF TABLET BY MOUTH EVERY DAY FOR 7 DAYS, THEN TAKE ONE-HALF TABLET BY MOUTH TWICE A DAY TAKE ONE- HALF TABLET BY MOUTH EVERY DAY FOR 7 DAYS, THEN TAKE ONE-HALF TABLET BY MOUTH TWICE A DAY SOLD: 08/24/2020 [facility] 10 mg 08/23/2020 12:00:00 AM EST tablet 30 TAKE ONE TABLET BY MOUTH EVERY DAY TAKE ONE TABLET BY MOUTH EVERY DAY SOLD: 08/24/2020 [facility] 20 mg 08/12/2020 12:00:00 AM EST tablet 47 TAKE ONE TABLET BY MOUTH TWICE A DAY MAXIMUM DAILY DOSE = 2 TABLETS TAKE ONE TABLET BY MOUTH TWICE A DAY MAX IMUM DAILY DOSE = 2 TABLETS SOLD: 08/12/2020 [facility] 20 mg 08/12/2020 12:00:00 AM EST tablet 13 TAKE ONE TABLET BY MOUTH TWICE A DAY MAXIMUM DAILY DOSE = 2 TABLETS TAKE ONE TABLET BY MOUTH TWICE A DAY MAX IMUM DAILY DOSE = 2 TABLETS SOLD: 08/12/2020 [facility] 300 mg 08/11/2020 12:00:00 AM EST capsule 60 TAKE ONE CAPSULE BY MOUTH TWICE A DAY TAKE ONE CAPSULE BY MOUTH TWICE A DAY SOLD: 08/12/2020 [facility] Amphetamine aspartate 5 MG / Amphetamine Sulfate 5 MG / Dextroamphetamine saccharate 5 MG / Dextroamphetamine Sulfate 5 MG Oral Tablet [Adderall] Adderall 20 mg Adderall 20 mg 08/10/2020 12:00:00 AM EST 1.0 {tablet} suspended Adderall 20 mg eCW1 ([facility]) Amphetamine aspartate 5 MG / Amphetamine Sulfate 5 MG / Dextroamphetamine saccharate 5 MG / Dextroamphetamine Sulfate 5 MG Oral Tablet [Adderall] Adderall 20 mg Adderall 20 mg 08/10/2020 12:00:00 AM EST 1.0 {tablet} suspended Adderall 20 mg eCW1 ([facility]) Amphetamine aspartate 5 MG / Amphetamine Sulfate 5 MG / Dextroamphetamine saccharate 5 MG / Dextroamphetamine Sulfate 5 MG Oral Tablet [Adderall] Adderall 20 mg Adderall 20 mg 08/10/2020 12:00:00 AM EST 1.0 {tablet} active Adderall 20 mg eCW1 ([facility]) Amphetamine aspartate 5 MG / Amphetamine Sulfate 5 MG / Dextroamphetamine saccharate 5 MG / Dextroamphetamine Sulfate 5 MG Oral Tablet [Adderall] Adderall 20 mg Adderall 20 mg 08/10/2020 12:00:00 AM EST 1.0 {tablet} suspended Adderall 20 mg eCW1 ([facility]) Amphetamine aspartate 5 MG / Amphetamine Sulfate 5 MG / Dextroamphetamine saccharate 5 MG / Dextroamphetamine Sulfate 5 MG Oral Tablet [Adderall] Adderall 20 mg Adderall 20 mg 08/10/2020 12:00:00 AM EST 1.0 {tablet} suspended Adderall 20 mg eCW1 ([facility]) Amphetamine aspartate 5 MG / Amphetamine Sulfate 5 MG / Dextroamphetamine saccharate 5 MG / Dextroamphetamine Sulfate 5 MG Oral Tablet [Adderall] Adderall 20 mg Adderall 20 mg 08/10/2020 12:00:00 AM EST 1.0 {tablet} suspended Adderall 20 mg eCW1 ([facility]) Amphetamine aspartate 5 MG / Amphetamine Sulfate 5 MG / Dextroamphetamine saccharate 5 MG / Dextroamphetamine Sulfate 5 MG Oral Tablet [Adderall] Adderall 20 mg Adderall 20 mg 08/10/2020 12:00:00 AM EST 1.0 {tablet} active Adderall 20 mg eCW1 ([facility]) Amphetamine aspartate 5 MG / Amphetamine Sulfate 5 MG / Dextroamphetamine saccharate 5 MG / Dextroamphetamine Sulfate 5 MG Oral Tablet [Adderall] Adderall 20 mg Adderall 20 mg 08/10/2020 12:00:00 AM EST 1.0 {tablet} suspended Adderall 20 mg eCW1 ([facility]) 25 mg 08/10/2020 12:00:00 AM EST tablet 60 TAKE ONE TO TWO TABLETS BY MOUTH AT BEDTIME TAKE ONE TO TWO TABLETS BY MOUTH AT BEDTIME SOLD: 08/11/2020 [facility] Amphetamine aspartate 5 MG / Amphetamine Sulfate 5 MG / Dextroamphetamine saccharate 5 MG / Dextroamphetamine Sulfate 5 MG Oral Tablet [Adderall] Adderall 20 mg Adderall 20 mg 08/10/2020 12:00:00 AM EST 1.0 {tablet} suspended Adderall 20 mg eCW1 ([facility]) Amphetamine aspartate 5 MG / Amphetamine Sulfate 5 MG / Dextroamphetamine saccharate 5 MG / Dextroamphetamine Sulfate 5 MG Oral Tablet [Adderall] Adderall 20 mg Adderall 20 mg 08/10/2020 12:00:00 AM EST 1.0 {tablet} suspended Adderall 20 mg eCW1 ([facility]) Amphetamine aspartate 5 MG / Amphetamine Sulfate 5 MG / Dextroamphetamine saccharate 5 MG / Dextroamphetamine Sulfate 5 MG Oral Tablet [Adderall] Adderall 20 mg Adderall 20 mg 08/10/2020 12:00:00 AM EST 1.0 {tablet} active Adderall 20 mg eCW1 ([facility]) Amphetamine aspartate 5 MG / Amphetamine Sulfate 5 MG / Dextroamphetamine saccharate 5 MG / Dextroamphetamine Sulfate 5 MG Oral Tablet [Adderall] Adderall 20 mg Adderall 20 mg 08/10/2020 12:00:00 AM EST 1.0 {tablet} active Adderall 20 mg eCW1 ([facility]) Amphetamine aspartate 5 MG / Amphetamine Sulfate 5 MG / Dextroamphetamine saccharate 5 MG / Dextroamphetamine Sulfate 5 MG Oral Tablet [Adderall] Adderall 20 mg Adderall 20 mg 08/10/2020 12:00:00 AM EST 1.0 {tablet} suspended Adderall 20 mg eCW1 ([facility]) Amphetamine aspartate 5 MG / Amphetamine Sulfate 5 MG / Dextroamphetamine saccharate 5 MG / Dextroamphetamine Sulfate 5 MG Oral Tablet [Adderall] Adderall 20 mg Adderall 20 mg 08/10/2020 12:00:00 AM EST 1.0 {tablet} suspended Adderall 20 mg eCW1 ([facility]) 10 mg 07/28/2020 12:00:00 AM EST tablet 30 TAKE ONE TABLET BY MOUTH EVERY DAY TAKE ONE TABLET BY MOUTH EVERY DAY SOLD: 07/28/2020 [facility] Lisinopril 30 MG Oral Tablet Lisinopril 30 MG 07/27/2020 12:00:00 A M EST 1.0 {tablet} active Lisinopril 30 MG eCW1 ( [facility]) Lisinopril 30 MG Oral Tablet Lisinopril 30 MG 07/27/2020 12:00:00 A M EST 1.0 {tablet} active Lisinopril 30 MG eCW1 ( [facility]) Lisinopril 30 MG Oral Tablet Lisinopril 30 MG 07/27/2020 12:00:00 A M EST 1.0 {tablet} active Lisinopril 30 MG eCW1 ( [facility]) Lisinopril 30 MG Oral Tablet Lisinopril 30 MG 07/27/2020 12:00:00 A M EST 1.0 {tablet} active Lisinopril 30 MG eCW1 ( [facility]) Lisinopril 30 MG Oral Tablet Lisinopril 30 MG 07/27/2020 12:00:00 A M EST 1.0 {tablet} active Lisinopril 30 MG eCW1 ( [facility]) 20 mg 07/27/2020 12:00:00 AM EST tablet 30 TAKE ONE TABLET BY MOUTH EVERY DAY TAKE ONE TABLET BY MOUTH EVERY DAY SOLD: 07/28/2020 [facility] Lisinopril 30 MG Oral Tablet Lisinopril 30 MG 07/27/2020 12:00:00 A M EST 1.0 {tablet} active Lisinopril 30 MG eCW1 ( [facility]) Lisinopril 30 MG Oral Tablet Lisinopril 30 MG 07/27/2020 12:00:00 A M EST 1.0 {tablet} active Lisinopril 30 MG eCW1 ( [facility]) Lisinopril 30 MG Oral Tablet Lisinopril 30 MG 07/27/2020 12:00:00 A M EST 1.0 {tablet} active Lisinopril 30 MG eCW1 ( [facility]) Lisinopril 20 MG Oral Tablet Lisinopril 20 MG 07/27/2020 12:00:00 A M EST 1.0 {tablet} active Lisinopril 20 MG eCW1 ( [facility]) 20 mg 07/27/2020 12:00:00 AM EST tablet 30 TAKE ONE TABLET BY MOUTH EVERY DAY TAKE ONE TABLET BY MOUTH EVERY DAY SOLD: 08/24/2020 [facility] Lisinopril 30 MG Oral Tablet Lisinopril 30 MG 07/27/2020 12:00:00 A M EST 1.0 {tablet} active Lisinopril 30 MG eCW1 ( [facility]) Lisinopril 20 MG Oral Tablet Lisinopril 20 MG 07/27/2020 12:00:00 A M EST 1.0 {tablet} active Lisinopril 20 MG eCW1 ( [facility]) Lisinopril 20 MG Oral Tablet Lisinopril 20 MG 07/27/2020 12:00:00 A M EST 1.0 {tablet} active Lisinopril 20 MG eCW1 ( [facility]) Lisinopril 30 MG Oral Tablet Lisinopril 30 MG 07/27/2020 12:00:00 A M EST 1.0 {tablet} active Lisinopril 30 MG eCW1 ( [facility]) Lisinopril 30 MG Oral Tablet Lisinopril 30 MG 07/27/2020 12:00:00 A M EST 1.0 {tablet} active Lisinopril 30 MG eCW1 ( [facility]) Lisinopril 30 MG Oral Tablet Lisinopril 30 MG 07/27/2020 12:00:00 A M EST 1.0 {tablet} active Lisinopril 30 MG eCW1 ( [facility]) Amphetamine aspartate 5 MG / Amphetamine Sulfate 5 MG / Dextroamphetamine saccharate 5 MG / Dextroamphetamine Sulfate 5 MG Oral Tablet [Adderall] Adderall 20 mg Adderall 20 mg 07/13/2020 12:00:00 AM EST 1.0 {tablet} active Adderall 20 mg eCW1 ([facility]) 200 mg/mL 07/13/2020 12:00:00 AM EST oil 3 INJECT 0.7ML INTRAMUSCULARLY EVERY 10 DAYS MAXIMUM DAILY DOSE = .7ML EVERY 10 DAYS INJECT 0.7ML INTRAMUSCULARLY EVERY 10 DAYS MAXIMUM DAILY DOSE = .7ML EVERY 10 DAYS SOLD: 07/14/2020 [facility] 20 mg 07/13/2020 12:00:00 AM EST tablet 60 TAKE ONE TABLET BY MOUTH TWICE A DAY MAXIMUM DAILY DOSE = 2 TAKE ONE TABLET BY MOUTH TWICE A DAY MAX IMUM DAILY DOSE = 2 SOLD: 07/14/2020 [facility] Amphetamine aspartate 5 MG / Amphetamine Sulfate 5 MG / Dextroamphetamine saccharate 5 MG / Dextroamphetamine Sulfate 5 MG Oral Tablet [Adderall] Adderall 20 mg Adderall 20 mg 07/13/2020 12:00:00 AM EST 1.0 {tablet} active Adderall 20 mg eCW1 ([facility]) 20 mg 06/12/2020 12:00:00 AM EST tablet 60 TAKE ONE TABLET BY MOUTH TWICE A DAY, MAXIMUM DAILY DOSE = 2 TAKE ONE TABLET BY MOUTH TWICE A DAY, SIM STONE DAILY DOSE = 2 SOLD: 06/13/2020 [facility] 15 mg 06/12/2020 12:00:00 AM EST tablet 30 TAKE ONE TABLET BY MOUTH EVERY DAY AT BEDTIME TAKE ONE TABLET BY MOUTH EVERY DAY AT BEDTIME SOLD: 06/13/2020 [facility] 90 mcg/actuation 06/12/2020 12:00:00 AM EST HFA aerosol inha ler 18 INHALE TWO PUFFS BY MOUTH EVERY 4 HOURS NEEDED INHALE TWO PUFFS BY MOUTH EVERY 4 HOURS NEEDED SOLD: 08/11/2020 [facility] 300 mg 06/12/2020 12:00:00 AM EST capsule 60 TAKE ONE CAPSULE BY MOUTH TWICE A DAY TAKE ONE CAPSULE BY MOUTH TWICE A DAY SOLD: 06/13/2020 [facility] 50 mcg/actuation 06/12/2020 12:00:00 AM EST spray,suspension 16 SPRAY 1 SPRAY IN EACH NOSTRIL DAILY SPRAY 1 SPRAY IN EACH NOSTRIL DAILY SOLD: 08/11/2020 [facility] 40 mg 06/12/2020 12:00:00 AM EST capsule,delayed release (DR/EC) 90 TAKE ONE CAPSULE BY MOUTH EVERY DAY TAKE ONE CAPSULE BY MOUTH EVERY DAY SOLD: 06/13/2020 [facility] 90 mcg/actuation 06/12/2020 12:00:00 AM EST HFA aerosol inha ler 18 INHALE TWO PUFFS BY MOUTH EVERY 4 HOURS NEEDED INHALE TWO PUFFS BY MOUTH EVERY 4 HOURS NEEDED SOLD: 06/13/2020 [facility] 40 mg 06/12/2020 12:00:00 AM EST capsule,delayed release (DR/EC) 30 TAKE ONE CAPSULE BY MOUTH EVERY DAY TAKE ONE CAPSULE BY MOUTH EVERY DAY SOLD: 08/12/2020 [facility] 100 mg 06/12/2020 12:00:00 AM EST tablet 90 TAKE THREE TABLETS BY MOUTH EVERY DAY TAKE THREE TABLETS BY MOUTH EVERY DAY SOLD: 07/14/2020 [facility] 20 mg 06/12/2020 12:00:00 AM EST tablet 90 TAKE ONE TABLET BY MOUTH EVERY EVENING TAKE ONE TABLET BY MOUTH EVERY EVENING SOLD: 06/13/2020 [facility] 20 mg 06/12/2020 12:00:00 AM EST tablet 30 TAKE ONE TABLET BY MOUTH EVERY EVENING TAKE ONE TABLET BY MOUTH EVERY EVENING SOLD: 08/11/2020 [facility] 50 mcg/actuation 06/12/2020 12:00:00 AM EST spray,suspension 16 SPRAY 1 SPRAY IN EACH NOSTRIL DAILY SPRAY 1 SPRAY IN EACH NOSTRIL DAILY SOLD: 06/13/2020 [facility] 15 mg 06/12/2020 12:00:00 AM EST tablet 30 TAKE ONE TABLET BY MOUTH EVERY DAY AT BEDTIME TAKE ONE TABLET BY MOUTH EVERY DAY AT BEDTIME SOLD: 07/14/2020 [facility] 300 mg 06/12/2020 12:00:00 AM EST capsule 60 TAKE ONE CAPSULE BY MOUTH TWICE A DAY TAKE ONE CAPSULE BY MOUTH TWICE A DAY SOLD: 07/14/2020 [facility] 50 mg 06/12/2020 12:00:00 AM EST tablet 9 TAKE 1 TABLET BY MOUTH NEEDED FOR A HEADACHE, REPEAT IN 2 HOURS ONCE IF NEEDED TAKE 1 TABLET BY MOUTH NEEDED FOR A HEADACHE, REPEAT IN 2 HOURS ONCE IF NEEDED SOLD: 06/13/2020 [facility] Amphetamine aspartate 5 MG / Amphetamine Sulfate 5 MG / Dextroamphetamine saccharate 5 MG / Dextroamphetamine Sulfate 5 MG Oral Tablet [Adderall] Adderall 20 mg Adderall 20 mg 06/12/2020 12:00:00 AM EST 1.0 {tablet} active Adderall 20 mg W1 ([facility]) 100 mg 06/12/2020 12:00:00 AM EST tablet 90 TAKE THREE TABLETS BY MOUTH EVERY DAY TAKE THREE TABLETS BY MOUTH EVERY DAY SOLD: 06/13/2020 [facility] 200 mg/mL 05/09/2020 12:00:00 AM EST oil 3 INJECT 0.7MLS INTRAMUSCULARLY EVERY 10 DAYS MAXIMUM DAILY DOSE = .7MLS EVERY 10 DAYS INJECT 0.7MLS INTRAMUSCULARLY EVERY 10 DAYS MAXIMUM DAILY DOSE = .7MLS EVERY 10 DAYS SOLD: 05/17/2020 [facility] 0.1 mg 05/06/2020 12:00:00 AM EST tablet 6 TAKE ONE TABLET BY MOUTH THREE TIMES A DAY NEEDED TAKE ONE TABLET BY MOUTH THREE TIMES A DAY NEEDED S OLD: 05/09/2020 [facility] Clonidine Hydrochloride 0.1 MG Oral Tablet CLONIDINE HCL 05/03/2020 12:00:00 AM EST tablet 6 TAKE ONE TABLET BY MOUTH THR EE TIMES A DAY NEEDED TAKE ONE TABLET BY MOUTH THREE TIMES A DAY NEEDED SOLD: 05/03/2020 [facility] 200 mg/mL 03/17/2020 12:00:00 AM EDT oil 3 INJECT 0.7ML INTRAMUSCULARLY EVERY 10 DAYS MAXIMUM DAILY DOSE = 0.7ML EVERY 10 DAYS INJECT 0.7ML INTRAMUSCULARLY EVERY 10 DAYS MAXIMUM DAILY DOSE = 0.7ML EVERY 10 DAYS SOLD: 03/23/2020 [facility] olanzapine 7.5 MG Oral Tablet olanzapine 03/09/2020 12:00:00 AM EDT 7.5 mg by mouth completed <td ID="Medica tionRxNorm_9">270405</td><td ID="MedicationMedication_9">olanzapine</td><td ID="MedicationRoute_9">by mouth</td><td ID="MedicationRouteConcept_9">A03486</td><td ID="MedicationStartDate_9">03/09/2020</td><td ID="MedicationStopDate_9">05/08/2020</td><td ID="MedicationDosageFrequency_9">at bedtime</td><td ID="MedicationDuration_9">30</td><td ID="MedicationFormulaStrength_9">7.5 mg</td><td ID="MedicationDosageForm_9">tablet</td><td ID="MedicationDosageFormCode_9"></td><td ID="MedicationDosageDescription_9"></td><td ID="MedicationMedicationId_9">[id number]</td><td ID="MedicationAccount_9">[id number]</td><td ID="MedicationNpid_9">[id number]</td><td ID="MedicationAuthorFirstName_9">Mikayla</td><td ID="MedicationAuthorLastName_9">[facility]</td><td ID="MedicationTaxonomyCode_9">[id number]</td><td ID="MedicationTaxonomyDesc_9">Psychiatric/Mental Health</td><td ID="MedicationPhoneNumber_9">[phone]</td> [facility] ([facility]) olanzapine 7.5 MG Oral Tablet olanzapine 03/09/2020 12:00:00 AM EDT 7.5 mg by mouth completed <td ID="Medica tionRxNorm_6">[id number]</td><td ID="MedicationMedication_6">olanzapine</td><td ID="MedicationRoute_6">by mouth</td><td ID="MedicationRouteConcept_6">G14504</td><td ID="MedicationStartDate_6">03/09/2020</td><td ID="MedicationStopDate_6">07/10/2020</td><td ID="MedicationDosageFrequency_6">at bedtime</td><td ID="MedicationDuration_6">30</td><td ID="MedicationFormulaStrength_6">7.5 mg</td><td ID="MedicationDosageForm_6">tablet</td><td ID="MedicationDosageFormCode_6"></td><td ID="MedicationDosageDescription_6"></td><td ID="MedicationMedicationId_6">[id number]</td><td ID="MedicationAccount_6">[id number]</td><td ID="MedicationNpid_6">[id number]</td><td ID="MedicationAuthorFirstName_6">Mikayla</td><td ID="MedicationAuthorLastName_6">[facility]</td><td ID="MedicationTaxonomyCode_6">[id number]</td><td ID="MedicationTaxonomyDesc_6">Psychiatric/Mental Health</td><td ID="MedicationPhoneNumber_6">[phone]</td> [facility] ([facility]) olanzapine 7.5 MG Oral Tablet olanzapine 03/09/2020 12:00:00 AM EDT 7.5 mg by mouth completed <td ID="Medica tionRxNorm_7">144791</td><td ID="MedicationMedication_7">olanzapine</td><td ID="MedicationRoute_7">by mouth</td><td ID="MedicationRouteConcept_7">O56994</td><td ID="MedicationStartDate_7">03/09/2020</td><td ID="MedicationStopDate_7">05/08/2020</td><td ID="MedicationDosageFrequency_7">at bedtime</td><td ID="MedicationDuration_7">30</td><td ID="MedicationFormulaStrength_7">7.5 mg</td><td ID="MedicationDosageForm_7">tablet</td><td ID="MedicationDosageFormCode_7"></td><td ID="MedicationDosageDescription_7"></td><td ID="MedicationMedicationId_7">[id number]</td><td ID="MedicationAccount_7">[id number]</td><td ID="MedicationNpid_7">[id number]</td><td ID="MedicationAuthorFirstName_7">Mikayla</td><td ID="MedicationAuthorLastName_7">Jeff</td><td ID="MedicationTaxonomyCode_7">[id number]</td><td ID="MedicationTaxonomyDesc_7">Psychiatric/Mental Health</td><td ID="MedicationPhoneNumber_7">[phone]</td> [facility] ([facility]) Prazosin 1 MG Oral Capsule prazosin 02/10/2020 12:00:00 AM EDT 1 mg by mouth completed <td ID="Medicat ionRxNorm_3">563068</td><td ID="MedicationMedication_3">prazosin</td><td ID="MedicationRoute_3">by mouth</td><td ID="MedicationRouteConcept_3">W67524</td><td ID="MedicationStartDate_3">02/10/2020</td><td ID="MedicationStopDate_3">09/06/2020</td><td ID="MedicationDosageFrequency_3">every night</td><td ID="MedicationDuration_3"></td><td ID="MedicationFormulaStrength_3">1 mg</td><td ID="MedicationDosageForm_3">capsule</td><td ID="MedicationDosageFormCode_3"></td><td ID="MedicationDosageDescription_3"></td><td ID="MedicationMedicationId_3">[id number]</td><td ID="MedicationAccount_3">[id number]</td><td ID="MedicationNpid_3">[id number]</td><td ID="MedicationAuthorFirstName_3">Mikayla</td><td ID="MedicationAuthorLastName_3">Jeff</td><td ID="MedicationTaxonomyCode_3">[id number]</td><td ID="MedicationTaxonomyDesc_3">Psychiatric/Mental Health</td><td ID="MedicationPhoneNumber_3">[phone]</td> [facility] ([facility]) olanzapine 5 MG Oral Tablet olanzapine 02/10/2020 12:00:00 AM EDT 5 mg by mouth completed <td ID="Medica tionRxNorm_8">976871</td><td ID="MedicationMedication_8">olanzapine</td><td ID="MedicationRoute_8">by mouth</td><td ID="MedicationRouteConcept_8">V42539</td><td ID="MedicationStartDate_8">02/10/2020</td><td ID="MedicationStopDate_8">03/09/2020</td><td ID="MedicationDosageFrequency_8">at bedtime</td><td ID="MedicationDuration_8">30</td><td ID="MedicationFormulaStrength_8">5 mg</td><td ID="MedicationDosageForm_8">tablet</td><td ID="MedicationDosageFormCode_8"></td><td ID="MedicationDosageDescription_8"></td><td ID="MedicationMedicationId_8">[id number]</td><td ID="MedicationAccount_8">[id number]</td><td ID="MedicationNpid_8">[id number]</td><td ID="MedicationAuthorFirstName_8">Mikayla</td><td ID="MedicationAuthorLastName_8">[facility]</td><td ID="MedicationTaxonomyCode_8">[id number]</td><td ID="MedicationTaxonomyDesc_8">Psychiatric/Mental Health</td><td ID="MedicationPhoneNumber_8">[phone]</td> [facility] ([facility]) gabapentin 600 MG Oral Tablet gabapentin 02/10/2020 12:00:00 AM EDT 600 mg by mouth completed <td ID="Medica tionRxNorm_7">549603</td><td ID="MedicationMedication_7">gabapentin</td><td ID="MedicationRoute_7">by mouth</td><td ID="MedicationRouteConcept_7">A39915</td><td ID="MedicationStartDate_7">02/10/2020</td><td ID="MedicationStopDate_7">03/09/2020</td><td ID="MedicationDosageFrequency_7">four times a day</td><td ID="MedicationDuration_7">30</td><td ID="MedicationFormulaStrength_7">600 mg</td><td ID="MedicationDosageForm_7">tablet</td><td ID="MedicationDosageFormCode_7"></td><td ID="MedicationDosageDescription_7"> </td><td ID="MedicationMedicationId_7">[id number]</td><td ID="MedicationAccount_7">[id number]</td><td ID="MedicationNpid_7">[id number]</td><td ID="MedicationAuthorFirstName_7">Mikayla</td><td ID="MedicationAuthorLastName_7">[facility]</td><td ID="MedicationTaxonomyCode_7">[id number]</td><td ID="MedicationTaxonomyDesc_7">Psychiatric/Mental Health</td><td ID="MedicationPhoneNumber_7">[phone]</td> [facility] ([facility]) [place] Carbonate 300 MG Oral Capsule lithium carbonate 12:00:00 AM EDT 300 mg by mouth completed <td ID="MedicationRxNorm_8">278654</td><td ID="MedicationMedication_8">lithium carbonate</td><td ID="MedicationRoute_8">by mouth</td><td ID="MedicationRouteConcept_8">X58337</td><td ID="MedicationStartDate_8">12/27/2019</td><td ID="MedicationStopDate_8">09/06/2020</td><td ID="MedicationDosageFrequency_8">every night</td><td ID="MedicationDuration_8"></td><td ID="MedicationFormulaStrength_8">300 mg</td><td ID="MedicationDosageForm_8">capsule</td><td ID="MedicationDosageFormCode_8"></td><td ID="MedicationDosageDescription_8"></td><td ID="MedicationMedicationId_8">[id number]</td><td ID="MedicationAccount_8">[id number]</td><td ID="MedicationNpid_8">[id number]</td><td ID="MedicationAuthorFirstName_8">Mikayla</td><td ID="MedicationAuthorLastName_8">[facility]</td><td ID="MedicationTaxonomyCode_8">[id number]</td><td ID="MedicationTaxonomyDesc_8">Psychiatric/Mental Health</td><td ID="MedicationPhoneNumber_8">[phone]</td> [facility] ([facility]) Insurance Providers Payer name Policy type / Coverage type Policy ID Covered democrat ID Covered democrat's relationship to qureshi Policy [place] Plan Information Managed Care - Community Plan [facility] P [id number] S [id number] Managed Care - Community Plan [facility] P [id number] S [id number] Managed Care BCBS O [id number] S [id number] Medicaid Dental S [id number] S [id number] Managed Care - Community Plan [facility] P [id number] S [id number] Medicaid S [id number] S [id number] [facility] [id number] SP [id number] ANSI-Medicaid [id number] ANSI-Medicaid [id number] ANSI-Medicaid [id number] ANSI-Medicaid [id number] ANSI-Medicaid [id number] ANSI-Medicaid [id number] ANSI-Medicaid [id number] ANSI-Medicaid [id number] ANSI-Medicaid [id number] ANSI-Medicaid [id number] ANSI-Medicaid [id number] ANSI-Medicaid [id number] ANSI-Medicaid [id number] ANSI-Medicaid [id number] ANSI-Medicaid [id number] ANSI-Medicaid [id number] ANSI-Medicaid [id number] ANSI-Medicaid [id number] ANSI-Medicaid [id number] ANSI-Medicaid [id number] ANSI-Medicaid [id number] ANSI-Medicaid [id number] ANSI-Medicaid [id number] Self Pay P UNAVAILABLE S [employer] BLE Medicaid S [id number] S [id number] [facility] [facility] [place] [id number] 18 [id number] [place] [id number] 18 [id number] [employer] COMMUNITY PLAN MCDHMO [id number] SP [id number] [facility](MCAID) O [id number] S [id number] [facility] Health Maintenance Organization (HMO) [id number] Self D Managed Care [facility] P [id number] S [id number] [employer] COMMUNITY PLAN MCDHMO [id number] SP [id number] MEDICAID [id number] SP [id number] MEDICAID [id number] SP [id number] BLUE CROSS [employer] PLAN [id number] SP [id number] O BLUE [id number] SP [id number] UN COMMUNITY PLAN MCDHMO [id number] SP [id number] [facility] [id number] SP [id number] [facility](MCAID) O [id number] S [id number] ANSI-Medicaid [id number] ANSI-Medicaid [id number] ANSI-Medicaid [id number] ANSI-Medicaid [id number] ANSI-Medicaid [id number] Problems, Conditions, and Diagnoses Code Display Name Description Problem Type Effective Dates Data Source(s) F90.2 Attention-deficit hyperactivity disorder , combined type Attention- Deficit/Hyperactivity Disorder, Combined presentation Condition 12/12/2020 12:00:00 AM EDT [facility] ([facility]) 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 Condition 12/12/2020 12:00:00 AM EDT [facility] ([facility]) F43.12 Post-traumatic stress disorder, chronic Post-traumatic stress disorder, chronic Condition 12/12/2020 12:00:00 AM EDT [facility] ([facility]) F11.20 Opioid dependence, uncomplicated Opioid Use Disorder, Severe Condition 12/12/2020 12:00:00 AM EDT [facility] ([facility]) F31.81 Bipolar II disorder Bipolar II Disorder Condition 0 12/12/2020 12:00:00 AM EDT [facility] ([facility]) F17.220 [id number] Chewing tobacco nicotine depende nce without complication Problem 09/29/2020 12:00:00 AM EDT eCW1 ([facility] F11.20 Opioid dependence, uncomplicated Opioid Use Disorder, Severe Condition 09/21/2020 12:00:00 AM EDT [facility] ([facility]) F90.2 Attention-deficit hyperactivity disorder , combined type Attention- Deficit/Hyperactivity Disorder, Combined presentation Condition 09/21/2020 12:00:00 AM EDT [facility] ([facility]) 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 Condition 09/21/2020 12:00:00 AM EDT [facility] ([facility]) F43.12 Post-traumatic stress disorder, chronic Post-traumatic stress disorder, chronic Condition 09/21/2020 12:00:00 AM EDT [facility] ([facility]) Z72.0 Tobacco use Tobacco Use Disorder, Mild Condition 0 09/06/2020 12:00:00 AM EST [facility] ([facility]) [id number] Finding of esophagus Finding of Esophagus Problem 08/01/2020 08:32:47 AM EST [facility] ([facility]) [id number] Asthma Asthma Problem 08/01/2020 08:32:47 AM ES T ELIJAH ([facility]) [id number] Finding of esophagus Finding of Esophagus Problem 08/01/2020 08:32:47 AM EST ELIJAH ([facility]) [id number] Asthma Asthma Problem 08/01/2020 08:32:47 AM ES T ELIJAH ([facility]) [id number] SNOMED CT Concept SNOMED CT Concept Problem 08/01 08:32:46 AM EST ELIJAH ([facility]) [id number] Depressive disorder Depressive Disorder Problem 0 08/01/2020 08:32:46 AM EST ELIJAH ([facility]) [id number] Viral hepatitis C Viral Hepatitis C Problem 08/01/2020 08:32:46 AM EST ELIJAH ([facility]) [id number] SNOMED CT Concept SNOMED CT Concept Problem 08/01 08:32:46 AM EST ELIJAH ([facility]) 43001441 Depressive disorder Depressive Disorder Problem 0 08/01/2020 08:32:46 AM EST ELIJAH ([facility]) 50230842 Viral hepatitis C Viral Hepatitis C Problem 08/01/2020 08:32:46 AM EST ELIJAH ([facility]) I11.9 [id number] Hypertensive heart disease without heart failure Problem 07/27/2020 12:00:00 AM EST eCW1 ([facility]) F17.210 [id number] Nicotine dependence, cigarettes, uncompli cated Problem 06/12/2020 12:00:00 AM EST eCW1 ([facility]) Surgeries/Procedures Procedure Description Date Indications Data Source(s) THERAPEUTIC PROPHYLACTIC/DX INJECTION SUBQ/IM 04/06/20 21 12:00:00 AM EDT [facility] ([facility] ) THERAPEUTIC PROPHYLACTIC/DX INJECTION SUBQ/IM 03/27/20 21 12:00:00 AM EDT [facility] ([facility] ) THERAPEUTIC PROPHYLACTIC/DX INJECTION SUBQ/IM 03/12/20 21 12:00:00 AM EDT [facility] ([facility] ) THERAPEUTIC PROPHYLACTIC/DX INJECTION SUBQ/IM 03/01/20 21 12:00:00 AM EDT [facility] ([facility] ) THERAPEUTIC PROPHYLACTIC/DX INJECTION SUBQ/IM 02/20/20 21 12:00:00 AM EDT [facility] ([facility] ) THERAPEUTIC PROPHYLACTIC/DX INJECTION SUBQ/IM 02/09/20 21 12:00:00 AM EDT [facility] ([facility] ) THERAPEUTIC PROPHYLACTIC/DX INJECTION SUBQ/IM 01/26/20 21 12:00:00 AM EDT [facility] ([facility] ) THERAPEUTIC PROPHYLACTIC/DX INJECTION SUBQ/IM 01/16/20 21 12:00:00 AM EDT [facility] ([facility] ) THERAPEUTIC PROPHYLACTIC/DX INJECTION SUBQ/IM 01/06/20 21 12:00:00 AM EDT [facility] ([facility]) Extended Individual Psychotherapy - 45 min 12/29/2020 12:00:00 AM EDT - 12/29/2020 12:00:00 AM EDT [facility] ([facility]) Extended Individual Psychotherapy - 45 min 12:00:00 AM EDT [facility] ([facility]) OFFICE OUTPATIENT VISIT 15 MINUTES 12/28 12:00:00 AM EDT - 12/28/2020 12:00:00 AM EDT [facility] ([facility]) OFFICE OUTPATIENT VISIT 15 MINUTES 12/28/2020 12:00:00 AM EDT [facility] ([facility]) THERAPEUTIC PROPHYLACTIC/DX INJECTION SUBQ/IM 12/26/19 21 12:00:00 AM EDT [facility] ([facility] ) THERAPEUTIC PROPHYLACTIC/DX INJECTION SUBQ/IM 12/14/19 21 12:00:00 AM EDT [facility] ([facility]) OFFICE OUTPATIENT VISIT 25 MINUTES 12/13/2020 12:00:00 AM EDT [facility] ([facility]) OFFICE OUTPATIENT VISIT 15 MINUTES 12/13/2020 12:00:00 AM EDT [facility] ([facility]) Extended Individual Psychotherapy - 45 min 12/12/2020 12:00:00 AM EDT - 12/12/2020 12:00:00 AM EDT [facility] ([facility]) Extended Individual Psychotherapy - 45 min 12:00:00 AM EDT [facility] ([facility]) THERAPEUTIC PROPHYLACTIC/DX INJECTION SUBQ/IM 11/21/19 12:00:00 AM EDT [facility] ([facility]) THERAPEUTIC PROPHYLACTIC/DX INJECTION SUBQ/IM 11/11/19 12:00:00 AM EDT [facility] ([facility]) Extended Individual Psychotherapy - 45 min 11/10/2020 12:00:00 AM EDT - 11/10/2020 12:00:00 AM EDT [facility] ([facility]) Extended Individual Psychotherapy - 45 min 12:00:00 AM EDT [facility] ([facility]) THERAPEUTIC PROPHYLACTIC/DX INJECTION SUBQ/IM 11/01/19 12:00:00 AM EDT [facility] ([facility]) Extended Individual Psychotherapy - 45 min 10/26/2020 12:00:00 AM EDT - 10/26/2020 12:00:00 AM EDT [facility] ([facility]) Extended Individual Psychotherapy - 45 min 12:00:00 AM EDT [facility] ([facility]) Extended Individual Psychotherapy - 45 min 10/20/2020 12:00:00 AM EDT - 10/20/2020 12:00:00 AM EDT [facility] ([facility]) Extended Individual Psychotherapy - 45 min 12:00:00 AM EDT [facility] ([facility]) THERAPEUTIC PROPHYLACTIC/DX INJECTION SUBQ/IM 10/17/19 12:00:00 AM EDT [facility] ([facility] ) THERAPEUTIC PROPHYLACTIC/DX INJECTION SUBQ/IM 10/06/19 21 12:00:00 AM EDT [facility] ([facility] ) THERAPEUTIC PROPHYLACTIC/DX INJECTION SUBQ/IM 09/26/19 21 12:00:00 AM EDT [facility] ([facility] ) Extended Individual Psychotherapy - 45 min 09/21/2020 12:00:00 AM EDT - 09/21/2020 12:00:00 AM EDT [facility] ([facility]) Extended Individual Psychotherapy - 45 min 12:00:00 AM EDT [facility] ([facility]) THERAPEUTIC PROPHYLACTIC/DX INJECTION SUBQ/IM 09/15/19 21 12:00:00 AM EDT [facility] ([facility]) Extended Individual Psychotherapy - 45 min 09/06/2020 12:00:00 AM EST - 09/06/2020 12:00:00 AM EST [facility] ([facility]) Extended Individual Psychotherapy - 45 min 12:00:00 AM EST [facility] ([facility]) THERAPEUTIC PROPHYLACTIC/DX INJECTION SUBQ/IM 09/05/19 21 12:00:00 AM EST [facility] ([facility] ) THERAPEUTIC PROPHYLACTIC/DX INJECTION SUBQ/IM 08/25/19 21 12:00:00 AM EST [facility] ([facility] ) THERAPEUTIC PROPHYLACTIC/DX INJECTION SUBQ/IM 08/16/19 21 12:00:00 AM EST [facility] ([facility] ) THERAPEUTIC PROPHYLACTIC/DX INJECTION SUBQ/IM 08/03/19 21 12:00:00 AM EST [facility] ([facility] ) THERAPEUTIC PROPHYLACTIC/DX INJECTION SUBQ/IM 07/24/19 21 12:00:00 AM EST [facility] ([facility]) THERAPEUTIC PROPHYLACTIC/DX INJECTION SUBQ/IM 07/13/19 21 12:00:00 AM EST [facility] ([facility] ) THERAPEUTIC PROPHYLACTIC/DX INJECTION SUBQ/IM 07/03/19 21 12:00:00 AM EST [facility] ([facility] ) THERAPEUTIC PROPHYLACTIC/DX INJECTION SUBQ/IM 06/21/20 20 12:00:00 AM EST [facility] ([facility]) Extended Individual Psychotherapy - 45 min 06/20/2020 12:00:00 AM EST - 06/20/2020 12:00:00 AM EST [facility] ([facility]) Extended Individual Psychotherapy - 45 min 0 12:00:00 AM EST [facility] ([facility]) OFFICE OUTPATIENT VISIT 15 MINUTES 06/15 12:00:00 AM EST - 06/15/2020 12:00:00 AM EST [facility] ([facility]) OFFICE OUTPATIENT VISIT 15 MINUTES 06/15/2020 12:00:00 AM EST [facility] ([facility]) THERAPEUTIC PROPHYLACTIC/DX INJECTION SUBQ/IM 06/12/20 20 12:00:00 AM EST [facility] ([facility] ) TEMPMHCTelemed 30" Psychotherapy 020 12:00:00 AM EST - 06/05/2020 12:00:00 AM EST [facility] ([facility]) TEMPMHCTelemed 30" Psychotherapy 06/05/2020 12:00:00 A M EST [facility] ([facility]) THERAPEUTIC PROPHYLACTIC/DX INJECTION SUBQ/IM 05/31/20 20 12:00:00 AM EST [facility] ([facility] ) OFFICE OUTPATIENT VISIT 15 MINUTES 05/11 12:00:00 AM EST - 05/11/2020 12:00:00 AM EST [facility] ([facility]) Psychotherapy ADD ON - 30 Minutes 05/11/2020 12:00:00 AM EST [facility] ([facility]) OFFICE OUTPATIENT VISIT 15 MINUTES 05/11/2020 12:00:00 AM EST [facility] ([facility]) THERAPEUTIC PROPHYLACTIC/DX INJECTION SUBQ/IM 05/09/20 20 12:00:00 AM EST [facility] ([facility]) THERAPEUTIC PROPHYLACTIC/DX INJECTION SUBQ/IM 04/18/20 20 12:00:00 AM EDT [facility] ([facility]) MHC Telemed E/M Lvl 3--Est pt 04/06/2020 12:00:00 AM EDT - 04/06/2020 12:00:00 AM EDT [facility] ([facility]) Telemed A/O 30" 04/06/2020 12:00:00 AM EDT [facility] ([facility]) MHC Telemed E/M Lvl 3--Est pt 04/06/2020 12:00:00 AM E DT [facility] ([facility]) THERAPEUTIC PROPHYLACTIC/DX INJECTION SUBQ/IM 04/03/20 20 12:00:00 AM EDT [facility] ([facility] ) TEMPMHCTelemed 30" Psychotherapy 020 12:00:00 AM EDT - 03/24/2020 12:00:00 AM EDT [facility] ([facility]) TEMPMHCTelemed 30" Psychotherapy 03/24/2020 12:00:00 A M EDT [facility] ([facility]) THERAPEUTIC PROPHYLACTIC/DX INJECTION SUBQ/IM 03/23/20 20 12:00:00 AM EDT [facility] ([facility] ) THERAPEUTIC PROPHYLACTIC/DX INJECTION SUBQ/IM 03/13/20 20 12:00:00 AM EDT [facility] ([facility] ) MHC Telemed E/M Lvl 3--Est pt 03/09/2020 12:00:00 AM EDT - 03/09/2020 12:00:00 AM EDT [facility] ([facility]) Telemed A/O 30" 03/09/2020 12:00:00 AM EDT [facility] ([facility]) MHC Telemed E/M Lvl 3--Est pt 03/09/2020 12:00:00 AM E DT [facility] ([facility]) THERAPEUTIC PROPHYLACTIC/DX INJECTION SUBQ/IM 03/02/20 20 12:00:00 AM EDT [facility] ([facility] ) Extended Individual Psychotherapy - 45 min 03/01/2020 12:00:00 AM EDT - 03/01/2020 12:00:00 AM EDT [facility] ([facility]) Extended Individual Psychotherapy - 45 min 0 12:00:00 AM EDT [facility] ([facility]) THERAPEUTIC PROPHYLACTIC/DX INJECTION SUBQ/IM 08/24/20 20 12:00:00 AM EDT [facility] ([facility]) Results ID Date Data Source [id number] 11/24/2020 07:29:00 AM EDT [facility] ([facility]) Name Value Range Interpretation Code Description Data Hoda rce(s) Supporting Document(s) Testosterone [Mass/volume] in Serum or Plasma 777 ng/dL [id number] [facility] ([facility]) NORMAL RANGES ARE FOR ADULT FEMALES (OVE R 15 YRS) AND MALES (OVER 19 YRS). FOR PEDIATRIC RANGES PLE ASE CONSULT LITERATURE. ID Date Data Source [id number] 11/24/2020 07:29:00 AM EDT [facility] ([facility]) Name Value Range Interpretation Code Description Data Hoda rce(s) Supporting Document(s) Hemoglobin 17.0 g/dL 13.5-17.5 [facility] ([facility]) Hematocrit 50.7 % 42.0-52.0 [facility] ([facility]) ID Date Data Source [id number] 05/15/2020 07:32:00 AM EST [facility] ([facility]) Name Value Range Interpretation Code Description Data Hoda rce(s) Supporting Document(s) Prostate specific Ag [Mass/volume] in Serum or Plasma 0.70 ng/mL [facility] ([facility]) The PSA assay is performed on the myLINGO analyzer by LOC[employer] sandwich chemiluminescent immunoassay and should not be compared interchangeably with other methods. It should not be used alone as a screening test or diagnosis for the presence or absence of malignant disease. Predictions of disease recurrence should not be based solely on values obtained from serial patient serum values. ID Date Data Source [id number] 05/15/2020 07:32:00 AM EST [facility] ([facility]) Name Value Range Interpretation Code Description Data Hoda rce(s) Supporting Document(s) Hemoglobin 15.3 g/dL 13.5-17.5 [facility] ([facility]) Hematocrit 46.2 % 42.0-52.0 [facility] ([facility]) ID Date Data Source [id number] 05/15/2020 07:32:00 AM EST [facility] ([facility]) Name Value Range Interpretation Code Description Data Hoda rce(s) Supporting Document(s) Testosterone [Mass/volume] in Serum or Plasma 626 ng/dL [id number] [facility] ([facility] ) NORMAL RANGES ARE FOR ADULT FEMALES (OVE R 15 YRS) AND MALES (OVER 19 YRS). FOR PEDIATRIC RANGES PLE ASE CONSULT LITERATURE. Procedure Social History Code Duration Value Status Description Data Source(s ) Smoking 12/29/2020 12:00:00 AM EDT Unknown if ever smoked comp leted Unknown if ever smoked [facility] ([facility]) Smoking 12/28/2020 12:00:00 AM EDT Unknown if ever smoked comp leted Unknown if ever smoked [facility] ([facility]) Smoking 12/13/2020 12:00:00 AM EDT Patient is a former smoker completed Patient is a former smoker [facility] ([facility]) Smoking 12/12/2020 12:00:00 AM EDT Unknown if ever smoked comp leted Unknown if ever smoked [facility] ([facility]) Smoking 11/10/2020 12:00:00 AM EDT Unknown if ever smoked comp leted Unknown if ever smoked [facility] ([facility]) Smoking 10/26/2020 12:00:00 AM EDT Unknown if ever smoked comp leted Unknown if ever smoked [facility] ([facility]) Smoking 10/20/2020 12:00:00 AM EDT Unknown if ever smoked comp leted Unknown if ever smoked [facility] ([facility]) Smoking 09/21/2020 12:00:00 AM EDT Unknown if ever smoked comp leted Unknown if ever smoked [facility] ([facility]) Smoking 09/11/2020 12:00:00 AM EDT Former Smoker completed Former Smoker eCW1 ([facility]) Smoking 09/11/2020 12:00:00 AM EDT Former Smoker completed Former Smoker eCW1 ([facility]) Smoking 09/11/2020 12:00:00 AM EDT Former Smoker completed Former Smoker eCW1 ([facility]) Smoking 09/11/2020 12:00:00 AM EDT Former Smoker completed Former Smoker eCW1 ([facility]) Smoking 09/11/2020 12:00:00 AM EDT Former Smoker completed Former Smoker eCW1 ([facility]) Smoking 09/11/2020 12:00:00 AM EDT Former Smoker completed Former Smoker eCW1 ([facility]) Smoking 09/11/2020 12:00:00 AM EDT Former Smoker completed Former Smoker eCW1 ([facility]) Smoking 09/11/2020 12:00:00 AM EDT Former Smoker completed Former Smoker eCW1 ([facility]) Smoking 09/11/2020 12:00:00 AM EDT Former Smoker completed Former Smoker eCW1 ([facility]) Smoking 09/11/2020 12:00:00 AM EDT Former Smoker completed Former Smoker eCW1 ([facility]) Smoking 09/06/2020 12:00:00 AM EST Unknown if ever smoked comp leted Unknown if ever smoked [facility] ([facility]) Smoking 08/24/2020 12:00:00 AM EST Former Smoker completed Former Smoker eCW1 ([facility]) Smoking 08/24/2020 12:00:00 AM EST Former Smoker completed Former Smoker eCW1 ([facility]) Smoking 07/27/2020 12:00:00 AM EST Former Smoker completed Former Smoker eCW1 ([facility]) Smoking 07/27/2020 12:00:00 AM EST Former Smoker completed Former Smoker eCW1 ([facility]) Smoking 07/27/2020 12:00:00 AM EST Former Smoker completed Former Smoker eCW1 ([facility]) Smoking 06/20/2020 12:00:00 AM EST Unknown if ever smoked comp leted Unknown if ever smoked [facility] ([facility]) Smoking 06/15/2020 12:00:00 AM EST Unknown if ever smoked comp leted Unknown if ever smoked [facility] ([facility]) Smoking 06/12/2020 12:00:00 AM EST Former Smoker completed Former Smoker eCW1 ([facility]) Smoking 06/12/2020 12:00:00 AM EST Former Smoker completed Former Smoker eCW1 ([facility]) Smoking 06/05/2020 12:00:00 AM EST Unknown if ever smoked comp leted Unknown if ever smoked [facility] ([facility]) Smoking 05/11/2020 12:00:00 AM EST Unknown if ever smoked comp leted Unknown if ever smoked [facility] ([facility]) Smoking 04/13/2020 12:00:00 AM EDT Former Smoker completed Former Smoker eCW1 ([facility]) Smoking 04/06/2020 12:00:00 AM EDT Unknown if ever smoked comp leted Unknown if ever smoked [facility] ([facility]) Smoking 03/24/2020 12:00:00 AM EDT Unknown if ever smoked comp leted Unknown if ever smoked [facility] ([facility]) Smoking 03/09/2020 12:00:00 AM EDT Unknown if ever smoked comp leted Unknown if ever smoked [facility] ([facility]) Smoking 03/01/2020 12:00:00 AM EDT Unknown if ever smoked comp leted Unknown if ever smoked [facility] ([facility]) Vital Signs ID Date Data Source UNK Name Value Range Interpretation Code Description Data Source(s) Oxygen saturation in Arterial blood by Pulse oximetry 93 % 93 % [facility] ([facility]) Body temperature 97.1 [degF] 97.1 [degF] [facility] Systolic blood pressure 140 mm[Hg] 140 mm[Hg] M EDENT ([facility]) Diastolic blood pressure 84 mm[Hg] 84 mm[Hg] [facility] ([facility]) Heart rate 73 /min 73 /min [facility] ([facility]) Body mass index (BMI) [Ratio] 36.3 kg/m2 36.3 k g/m2 [facility] ([facility]) Body height 70.4 [in_i] 70.4 [in_i] [facility] ([facility]) 5'10.40" Body weight 256.00 [lb_av] 256.00 [lb_av] MEDEN T ([facility]) Body temperature 96.0 [degF] 96.0 [degF] [facility] ([facility]) Body height 70.4 [in_i] 70.4 [in_i] [facility] ([facility]) 5'10.40" Body weight 268.8 [lb_av] 268.8 [lb_av] eCW1 ([facility]) Body height 71 [in_i] 71 [in_i] eCW1 ([facility]) Body mass index (BMI) [Ratio] 37.49 kg/m2 37.49 kg/m2 eCW1 ([facility]) Heart rate 103 /min 103 /min eCW1 ([facility]) Respiratory rate 18 /min 18 /min eCW1 ([facility]) Body temperature 97.9 [degF] 97.9 [degF] eCW1 ( [facility]) Systolic blood pressure 146 mm[Hg] 146 mm[Hg] e CW1 ([facility]) Diastolic blood pressure 86 mm[Hg] 86 mm[Hg] eCW1 ([facility]) Body weight 259.4 [lb_av] 259.4 [lb_av] eCW1 ([facility]) Body height 71 [in_i] 71 [in_i] eCW1 ([facility]) Body mass index (BMI) [Ratio] 36.18 kg/m2 36.18 kg/m2 eCW1 ([facility]) Heart rate 98 /min 98 /min eCW1 ([facility]) Respiratory rate 18 /min 18 /min eCW1 ([facility]) Body temperature 98.4 [degF] 98.4 [degF] eCW1 ( [facility]) Systolic blood pressure 142 mm[Hg] 142 mm[Hg] e CW1 ([facility]) Diastolic blood pressure 90 mm[Hg] 90 mm[Hg] eCW1 ([facility] [facility]) Body weight 266 [lb_av] 266 [lb_av] eCW1 ([facility]) Body height 71 [in_i] 71 [in_i] eCW1 ([facility]) Body mass index (BMI) [Ratio] 37.10 kg/m2 37.10 kg/m2 eCW1 ([facility]) Heart rate 111 /min 111 /min eCW1 ([facility]) Respiratory rate 18 /min 18 /min eCW1 ([facility]) Body temperature 97.4 [degF] 97.4 [degF] eCW1 ( [facility]) Systolic blood pressure 152 mm[Hg] 152 mm[Hg] e CW1 ([facility]) Diastolic blood pressure 90 mm[Hg] 90 mm[Hg] eCW1 ([facility]) Body temperature 97.1 [degF] 97.1 [degF] MEDENT ([facility]) Body height 70.4 [in_i] 70.4 [in_i] MEDENT ([facility]) 5'10.40" Body weight 254 [lb_av] 254 [lb_av] eCW1 ([facility]) Body height 71 [in_i] 71 [in_i] eCW1 ([facility]) Body mass index (BMI) [Ratio] 35.42 kg/m2 35.42 kg/m2 eCW1 ([facility]) Heart rate 96 /min 96 /min eCW1 ([facility]) Respiratory rate 18 /min 18 /min eCW1 ([facility]) Body temperature 98.7 [degF] 98.7 [degF] eCW1 ( [facility]) Systolic blood pressure 142 mm[Hg] 142 mm[Hg] e CW1 ([facility]) Diastolic blood pressure 90 mm[Hg] 90 mm[Hg] eCW1 ([facility]) Body mass index (BMI) [Ratio] 35.1 kg/m2 35.1 k g/m2 MEDENT ([facility]) Systolic blood pressure 140 mm[Hg] 140 mm[Hg] M EDENT ([facility]) Heart rate 100 /min 100 /min MEDENT ([facility]) Diastolic blood pressure 100 mm[Hg] 100 mm[Hg] MEDENT ([facility]) Body temperature 96.9 [degF] 96.9 [degF] MEDENT ([facility]) Body height 70.4 [in_i] 70.4 [in_i] MEDENT ([facility]) 5'10.40" Body weight 247.50 [lb_av] 247.50 [lb_av] MEDEN T ([facility]) Body height 0.00 in Normal (applies to non-numeric resu lts) 0.00 in [facility] ([facility]) Body weight Measured 0.00 lbs Normal (applies to n on-numeric results) 0.00 lbs [facility] ([facility]) Body mass index (BMI) [Ratio] 0.00 kg/m2 No rmal (applies to non-numeric results) 0.00 kg/m2 [facility] ([facility]) Systolic blood pressure 0 mm[Hg] Normal (applies t o non-numeric results) 0 mm[Hg] [facility] ([facility]) Diastolic blood pressure 0 mm[Hg] Normal (applies to non-numeric results) 0 mm[Hg] [facility] ([facility]) Body height 0.00 in Normal (applies to non-numeric resu lts) 0.00 in [facility] ([facility]) Body weight Measured 0.00 lbs Normal (applies to n on-numeric results) 0.00 lbs [facility] ([facility]) Body mass index (BMI) [Ratio] 0.00 kg/m2 No rmal (applies to non-numeric results) 0.00 kg/m2 [facility] ([facility]) Systolic blood pressure 0 mm[Hg] Normal (applies t o non-numeric results) 0 mm[Hg] [facility] ([facility]) Diastolic blood pressure 0 mm[Hg] Normal (applies to non-numeric results) 0 mm[Hg] [facility] ([facility]) Body height 0.00 in Normal (applies to non-numeric resu lts) 0.00 in [facility] ([facility]) Body weight Measured 0.00 lbs Normal (applies to n on-numeric results) 0.00 lbs [facility] ([facility]) Body mass index (BMI) [Ratio] 0.00 kg/m2 No rmal (applies to non-numeric results) 0.00 kg/m2 [facility] ([facility]) Systolic blood pressure 0 mm[Hg] Normal (applies t o non-numeric results) 0 mm[Hg] [facility] ([facility]) Diastolic blood pressure 0 mm[Hg] Normal (applies to non-numeric results) 0 mm[Hg] [facility] ([facility]) Patient Treatment Plan of Care Planned Activity Planned Date Details Description Data Source (s) Nicotine 4 MG Chewing Gum [Nicorette] 09/15/2020 12:00:00 AM EDT eCW1 ([facility]) Nicotine 4 MG Chewing Gum [Nicorette] 09/15/2020 12:00:00 AM EDT eCW1 ([facility]) Nicotine 4 MG Chewing Gum [Nicorette] 09/15/2020 12:00:00 AM EDT eCW1 ([facility]) Nicotine 4 MG Chewing Gum [Nicorette] 09/15/2020 12:00:00 AM EDT eCW1 ([facility]) Nicotine 4 MG Chewing Gum [Nicorette] 09/15/2020 12:00:00 AM EDT eCW1 ([facility]) Nicotine 4 MG Chewing Gum [Nicorette] 09/15/2020 12:00:00 AM EDT eCW1 ([facility]) Nicotine 4 MG Chewing Gum [Nicorette] 09/15/2020 12:00:00 AM EDT eCW1 ([facility]) Nicotine 4 MG Chewing Gum [Nicorette] 09/15/2020 12:00:00 AM EDT eCW1 ([facility]) Nicotine 4 MG Chewing Gum [Nicorette] 09/15/2020 12:00:00 AM EDT eCW1 ([facility]) Hydrochlorothiazide 12.5 MG Oral Tablet 08/24/2020 12:00:00 AM EST eCW1 ([facility]) Hydrochlorothiazide 12.5 MG Oral Tablet 08/24/2020 12:00:00 AM EST eCW1 ([facility]) Hydrochlorothiazide 12.5 MG Oral Tablet 08/24/2020 12:00:00 AM EST eCW1 ([facility]) Hydrochlorothiazide 12.5 MG Oral Tablet 08/24/2020 12:00:00 AM EST eCW1 ([facility]) Hydrochlorothiazide 12.5 MG Oral Tablet 08/24/2020 12:00:00 AM EST eCW1 ([facility]) Amphetamine aspartate 5 MG / Amphetamine Sulfate 5 MG / Dextroamphetamine saccharate 5 MG / Dextroamphetamine Sulfate 5 MG Oral Tablet [Adderall] 08/10/2020 12:00:00 AM EST eCW1 ([facility]) Amphetamine aspartate 5 MG / Amphetamine Sulfate 5 MG / Dextroamphetamine saccharate 5 MG / Dextroamphetamine Sulfate 5 MG Oral Tablet [Adderall] 08/10/2020 12:00:00 AM EST eCW1 ([facility]) Lisinopril 30 MG Oral Tablet 07/27/2020 12:00:00 AM EST eCW1 ([facility]) Lisinopril 30 MG Oral Tablet 07/27/2020 12:00:00 AM EST eCW1 ([facility]) Lisinopril 30 MG Oral Tablet 07/27/2020 12:00:00 AM EST eCW1 ([facility]) Lisinopril 30 MG Oral Tablet 07/27/2020 12:00:00 AM EST eCW1 ([facility]) Lisinopril 20 MG Oral Tablet 07/27/2020 12:00:00 AM EST eCW1 ([facility]) Lisinopril 20 MG Oral Tablet 07/27/2020 12:00:00 AM EST eCW1 ([facility]) Lisinopril 20 MG Oral Tablet 07/27/2020 12:00:00 AM EST eCW1 ([facility]) Amphetamine aspartate 5 MG / Amphetamine Sulfate 5 MG / Dextroamphetamine saccharate 5 MG / Dextroamphetamine Sulfate 5 MG Oral Tablet [Adderall] 07/13/2020 12:00:00 AM EST eCW1 ([facility]) Amphetamine aspartate 5 MG / Amphetamine Sulfate 5 MG / Dextroamphetamine saccharate 5 MG / Dextroamphetamine Sulfate 5 MG Oral Tablet [Adderall] 06/12/2020 12:00:00 AM EST eCW1 ([facility])
--- NOTE | 2021-04-12 14:41 | REP ---
INDICATION: DYSPNEA/COUGH COMPARISON: 05/10/2016 TECHNIQUE: Portable AP view of the chest FINDINGS: The mediastinum and cardiac silhouette are stable and within normal limits for portable technique. The lung fontenot demonstrate right lower lobe airspace disease. No effusion or pneumothorax. Skeletal structures are intact. IMPRESSION: Right lower lobe airspace disease suggesting pneumonia versus atelectasis. Follow-up to resolution recommended. <Electronically signed by Fito Bullock > 04/12/21 [id number]
[2021-04-12 14:49] LABS: BASO % 0.7 % (0.0-1.0); EOS # 0.2 10^3/uL (0.0-0.5); EOS % 3.1 % (0.0-3.0); HEMATOCRIT 44.1 % (42.0-52.0); HEMOGLOBIN 15.1 g/dl (13.5-17.5); LYMPH # 1.6 10^3/uL (1.5-5.0); LYMPH % 28.1 % (24.0-44.0); MEAN CORPUSCULAR HEMOGLOBIN 29.3 pg (27.0-33.0); MEAN CORPUSCULAR HGB CONC 34.2 g/dl (32.0-36.5); MEAN CORPUSCULAR VOLUME 85.6 fl (80.0-96.0); MONO # 0.6 10^3/uL (0.0-0.8); MONO % 9.9 % (2.0-8.0); NEUTROPHILS # 3.3 10^3/uL (1.5-8.5); NEUTROPHILS % 57.9 % (36.0-66.0); PLATELET COUNT, AUTOMATED 136 10^3/uL (150-450); RED BLOOD COUNT 5.15 10^6/uL (4.30-6.10); WHITE BLOOD COUNT 5.8 10^3/uL (4.0-10.0)
[2021-04-12] MEDS ORDERED: NS 3,270 ML in IV 1 EA IV ONE (15:05)
[2021-04-12] MEDS ORDERED: cefTRIAXone SOD 2 GM in D5W MINI-BAG PLUS 50 ML IV ONE (15:05)
[2021-04-12 15:54] LABS: ALBUMIN 2.9 GM/DL (3.2-5.2); ALT/SGPT 111 U/L (12-78); AMYLASE 32 U/L (25-115); BILIRUBIN,DIRECT 0.2 MG/DL (0.0-0.2); BILIRUBIN,TOTAL 0.6 MG/DL (0.2-1.0); BLOOD UREA NITROGEN 34 MG/DL (7-18); C REACTIVE PROTEIN QUANTITATIV 3.17 MG/DL (0.00-0.30); CALCIUM LEVEL 7.5 MG/DL (8.5-10.1); CARBON DIOXIDE LEVEL 26 MEQ/L (21-32); CHLORIDE LEVEL 107 MEQ/L (98-107); CK-MB VALUE MASS < 1.0 NG/ML (<3.6); CPK CREATINE PHOSPHOKINASE 57 U/L (39-308); CREATININE FOR GFR 2.65 MG/DL (0.70-1.30); GLOMERULAR FILTRATION RATE 27.3 (>56); GLUCOSE, FASTING 247 MG/DL (70-100); MB/CK RELATIVE INDEX 1.75 (< OR =4); POTASSIUM SERUM 4.2 MEQ/L (3.5-5.1); SODIUM LEVEL 138 MEQ/L (136-145); THYROID STIMULATING HORMONE 0.647 uIU/ML (0.358-3.740); TOTAL PROTEIN 6.1 GM/DL (6.4-8.2); TROPONIN I < 0.02 NG/ML (< 0.10)
--- OUTSIDE RECORDS SUMMARY | 2021-04-12 16:37 | CCD ---
Author Author [facility] Organization [facility] Address Unknown Phone Unavailable Care Team Providers Care Coding Analyst Name Role Phone Demond Jaquez MD Unavailable [...] Unavailable Demond Jaquez MD Unavailable Unavailable Demond Jaquze MD Unavailable Unavailable JaquezDemond MD Unavailable Unavailable [...] Unavailable Unavailable Demond Jaquez MD Unavailable Unavailable Demodn Jaquez MD Unavailable Unavailable Demond Jaquez MD [...] Jaquez MD Unavailable Unavailable LANDON, B JORDON PROJECT CONTROLLER Unavailable Unavailable LANDON, B JORDON PROJECT CONTROLLER Unavailable Unavailable LANDON, B JORDON PROJECT CONTROLLER Unavailable Unavailable LANDON, B JORDON PROJECT CONTROLLER Unavailable Unavailable LANDON, B JORDON PROJECT CONTROLLER Unavailable Unavailable LANDON, B JORDON PROJECT CONTROLLER Unavailable Unavailable LANDON, B JORDON PROJECT CONTROLLER Unavailable Unavailable LANDON, B JORDON PROJECT CONTROLLER Unavailable Unavailable LANDON, B JORDON PROJECT CONTROLLER Unavailable Unavailable LANDON, B JORDON PROJECT CONTROLLER Unavailable Unavailable LANDON, B JORDON PROJECT CONTROLLER Unavailable Unavailable LANDON, B JORDON PROJECT CONTROLLER Unavailable Unavailable LANDON, B JORDON PROJECT CONTROLLER Unavailable Unavailable LANDON, B JORDON PROJECT CONTROLLER Unavailable Unavailable LANDON, B JORDON PROJECT CONTROLLER Unavailable Unavailable LANDON, B JORDON PROJECT CONTROLLER Unavailable Unavailable LANDON, B JORDON PROJECT CONTROLLER Unavailable Unavailable LANDON, B JORDON PROJECT CONTROLLER Unavailable Unavailable LANDON, B JORDON PROJECT CONTROLLER Unavailable Unavailable LANDON, B JORDON PROJECT CONTROLLER Unavailable Unavailable LANDON, B JORDON PROJECT CONTROLLER Unavailable Unavailable LANDON, B JORDON PROJECT CONTROLLER Unavailable Unavailable LANDON, B JORDON PROJECT CONTROLLER Unavailable Unavailable LANDON, B JORDON PROJECT CONTROLLER Unavailable Unavailable LANDON, B JORDON PROJECT CONTROLLER Unavailable Unavailable LANDON, B JORDON PROJECT CONTROLLER Unavailable Unavailable LANODN, B JORDON PROJECT CONTROLLER Unavailable Unavailable LANDON, B JORDON PROJECT CONTROLLER Unavailable Unavailable LANDON, B JORDON PROJECT CONTROLLER Unavailable Unavailable LANDON, B JORDON PROJECT CONTROLLER Unavailable Unavailable LANDON, B JORDON PROJECT CONTROLLER Unavailable Unavailable LANDON, B JORDON PROJECT CONTROLLER Unavailable Unavailable LANDON, B JORDON PROJECT CONTROLLER Unavailable Unavailable LANDON, B JORDON PROJECT CONTROLLER Unavailable Unavailable LANDON, B JORDON PROJECT CONTROLLER Unavailable Unavailable LANDON, B JORDON PROJECT CONTROLLER Unavailable Unavailable LANDON, B JORDON PROJECT CONTROLLER Unavailable Unavailable LANDON, B JORDON PROJECT CONTROLLER Unavailable Unavailable LANDON, B JORDON PROJECT CONTROLLER Unavailable Unavailable LANDON, B JORDON PROJECT CONTROLLER Unavailable Unavailable LANDON, B JORDON PROJECT CONTROLLER Unavailable Unavailable LANDON, B JORDON PROJECT CONTROLLER Unavailable Unavailable LANDON, B JORDON PROJECT CONTROLLER Unavailable Unavailable LANDON, B JORDON PROJECT CONTROLLER Unavailable Unavailable LANDON, B JORDON PROJECT CONTROLLER Unavailable Unavailable LANDON, B JORDON PROJECT CONTROLLER Unavailable Unavailable LANDON, B JORDON PROJECT CONTROLLER Unavailable Unavailable LANDON, B JORDON PROJECT CONTROLLER Unavailable Unavailable LANDON, B JORDON PROJECT CONTROLLER Unavailable Unavailable LANDON, B JORDON PROJECT CONTROLLER Unavailable Unavailable LANDON, B JORDON PROJECT CONTROLLER Unavailable Unavailable LANDON, B JORDON PROJECT CONTROLLER Unavailable Unavailable LANDON, B JORDON PROJECT CONTROLLER Unavailable Unavailable LANDON, B JORDON PROJECT CONTROLLER Unavailable Unavailable LANDON, B JORDON PROJECT CONTROLLER Unavailable Unavailable LANDON, B JORDON PROJECT CONTROLLER Unavailable Unavailable LANDON, B JORDNO PROJECT CONTROLLER Unavailable Unavailable LANDON, B JORDON PROJECT CONTROLLER Unavailable Unavailable LANDON, B JORDON PROJECT CONTROLLER Unavailable Unavailable LANDON, B JORDON PROJECT CONTROLLER Unavailable Unavailable LANDON, B JORDON PROJECT CONTROLLER Unavailable Unavailable LANDON, B JORDON PROJECT CONTROLLER Unavailable Unavailable Fish, Chevy Manuel MD Unavailable Unavailable Fish, Chevy Manuel MD Unavailable Unavailable Fish, Chevy Manuel MD Unavailable Unavailable Fish, Chevy Manuel MD Unavailable Unavailable Fish, Chevy Manuel MD Unavailable Unavailable Fish, Cheyv Manuel MD Unavailable Unavailable Fish, Chevy Manuel [...] Mar KRUEGER Unavailable Unavailable MEDENT_991, NA Unavailable [phone] Ivory Rubi Unavailable [place], K Mikayla PMH-PROJECT CONTROLLER Unavailable Unavailable [place], K Mikayla PMH-PROJECT CONTROLLER Unavailable Unavailable Jeff, K Mikayla PMH-PROJECT CONTROLLER Unavailable Unavailable Jeff, K Mikayla PMH-PROJECT CONTROLLER Unavailable Unavailable Jeff, K Mikayla PMH-PROJECT CONTROLLER Unavailable Unavailable Jeff, K Mikayla PMH-PROJECT CONTROLLER Unavailable Unavailable [place], K Mikayla PMH-PROJECT CONTROLLER Unavailable Unavailable [place], K Mikayla PMH-PROJECT CONTROLLER Unavailable Unavailable Re-disclosure Warning The records that [...] is protected by Article 27-F of the [facility] Public Health law. If you continue you may have access to information: Regarding HIV / AIDS; Provided by facilities licensed or operated by the [facility] Office of Mental Health; or Provided by the [facility] Office for People With Developmental Disabilities. If such information is present, then the following [facility] mandated warning applies: This information has been [...] Allergy to substance Allergy to substance ELIJAH ([facility]) Allergy to substance Allergy to substance Allergy to substance ELIJAH ([facility]) Family History Family Member Name Family Member Gender Family Member Status Date o f Status Description Data Source(s) Unknown Unknown Problem [facility] ([facility] Encounters Encounter Providers Location Date Indications Data Source(s ) Unknown [address] [facility], [facility] [address] 04/09/2021 12:00:00 AM EDT eCW1 ([facility]) Office Visit Attender: NA MEDENT_991 Physical Therapy 021 09:30:00 AM EDT MEDENT ([facility]) Office Visit Attender: NA MEDENT_991 Physical Therapy 021 09:00:00 AM EDT MEDENT ([facility]) Office Visit Attender: NA MEDENT_991 Physical Therapy 021 09:00:00 AM EDT MEDENT ([facility]) Office Visit Attender: NA MEDENT_991 Physical Therapy 021 09:00:00 AM EDT MEDENT ([facility]) Office Visit Attender: NA MEDENT_991 Physical Therapy 021 09:00:00 AM EDT MEDENT ([facility]) Office Visit Attender: NA MEDENT_991 Physical Therapy 021 09:00:00 AM EDT MEDENT ([facility]) Office Visit Attender: NA MEDENT_991 Physical Therapy 021 10:00:00 AM EDT MEDENT ([facility]) Office Visit Attender: NA MEDENT_991 Physical Therapy 021 09:00:00 AM EDT MEDENT ([facility]) Office Visit Attender: NA MEDENT_991 Physical Therapy 09:00:00 AM EDT MEDENT ([facility]) Extended Individual Psychotherapy - 45 min Attender: Conchita Rubi [facility] 12/29/2020 09:00:00 AM EDT - 12/29/2020 09:00:00 AM EDT [facility] ([facility]) Attender: Ivory Elicia 12/29/2020 12:00:0 0 AM EDT [facility] ([facility]) Outpatient Attender: Mikayla Aguilar [facility] 12/28/2020 08:00:00 AM EDT - 12/28/2020 08:00:00 AM EDT [facility] ([facility]) Attender: Mikayla Aguilar [facility]-PROJECT [facility]ER 12/28/2020 12: 00:00 AM EDT [facility] ([facility]) Office Visit Attender: BRITANY THOMAS991 Physical Therapy 09:00:00 AM EDT MEDENT ([facility]) Outpatient Attender: JORDON NAVARRETE NP Physical Therapy 09:00:00 AM EDT MEDENT ([facility]) Extended Individual Psychotherapy - 45 min Attender: Conchita Rubi [facility] 12/12/2020 10:00:00 AM EDT - 12/12/2020 10:00:00 AM EDT [facility] ([facility]) Attender: Ivory Rubi 12/12/2020 12:00:0 0 AM EDT [facility] ([facility]) [place] [address] [facility] [address] 11/23/2020 12:00:00 AM EDT eCW1 ([facility]) Office Visit Attender: BRITANY TONY_991 Physical Therapy 09:00:00 AM EDT MEDENT ([facility]) Unknown [address] [facility] [address] 11/13/2020 12:00:00 AM EDT eCW1 ([facility]) Office Visit Attender: BRITANY TONY_991 Physical Therapy 09:00:00 AM EDT MEDENT ([facility]) Extended Individual Psychotherapy - 45 min Attender: Conchita Rubi [facility] 11/10/2020 08:00:00 AM EDT - 11/10/2020 08:00:00 AM EDT [facility] ([facility]) Attender: Ivory Rubi 11/10/2020 12:00:0 0 AM EDT [facility] ([facility]) Office Visit Attender: BRITANY TONY_991 Physical Therapy 09:00:00 AM EDT MEDENT ([facility]) Extended Individual Psychotherapy - 45 min [facility]/26/2020 08:00:00 AM EDT - 10/26/2020 08:00:00 AM EDT [facility] ([facility]) Attila Jaquez MD: [address] [place] [phone], Ph. Attender: Attila Jaquez MD [place] - [facility] Medical 10/26/2020 12:00:00 AM EDT ELIJAH ([facility]) Attender: Ivory Rubi 10/26/2020 12:00:0 0 AM EDT [facility] ([facility]) Unknown [address] [facility] [address] 10/23/2020 12:00:00 AM EDT eCW1 ([facility]) Extended Individual Psychotherapy - 45 min Attender: Conchitapetra Rubi [facility] 10/20/2020 08:00:00 AM EDT - 10/20/2020 08:00:00 AM EDT [facility] ([facility]) Attender: Ivory Rubi 10/20/2020 12:00:0 0 AM EDT [facility] ([facility]) Office Visit Attender: BRITANY TONY_991 Physical Therapy 10:00:00 AM EDT MEDENT ([facility]) Unknown [address] [facility] [address] 10/13/2020 12:00:00 AM EDT eCW1 ([facility]) Office Visit Attender: BRITANY TONY_991 Physical Therapy 09:30:00 AM EDT MEDENT ([facility]) Attila Jaquez MD: [address] [place] [phone], Ph. Attender: Attila Jaquez MD [facility] Medical 09/26/2020 12:00:00 AM EDT ELIJAH ([facility]) Attila Jaquez MD: [address] [place] [phone], Ph. Attender: Attila Jaquez MD [facility] Medical 09/26/2020 12:00:00 AM EDT ELIJAH ([facility]) Office Visit Attender: BRITANY TONY_991 Physical Therapy 09:30:00 AM EDT MEDENT ([facility]) Extended Individual Psychotherapy - 45 min Attender: Conchita Rubi [facility] 09/21/2020 08:45:00 AM EDT - 09/21/2020 08:45:00 AM EDT [facility] ([facility]) Attender: Ivory Rubi 09/21/2020 12:00:0 0 AM EDT [facility] ([facility]) [place] [address] [facility] [address] 09/15/2020 12:00:00 AM EDT eCW1 ([facility]) Unknown [address] [facility] [address] 09/15/2020 12:00:00 AM EDT eCW1 ([facility]) Office Visit Attender: BRITANY TONY_991 Physical Therapy 021 09:30:00 AM EDT MEDENT ([facility]) Outpatient [address] [facility] [address] 09/11/2020 12:00:00 AM EDT eCW1 ([facility]) Unknown [address] [facility] [address] 09/08/2020 12:00:00 AM EST eCW1 ([facility]) Extended Individual Psychotherapy - 45 min Attender: Conchita Rubi [facility] 09/06/2020 08:00:00 AM EST - 09/06/2020 08:00:00 AM EST [facility] ([facility]) Attender: Ivory Rubi 09/06/2020 12:00:0 0 AM EST [facility] ([facility]) Office Visit Attender: BRITANY TONY_991 Physical Therapy 021 08:30:00 AM EST MED[facility] ([facility]) [place] [address] [facility] [address] 08/29/2020 12:00:00 AM EST eCW1 ([facility]) Office Visit Attender: BRITANY THOMAS991 Physical Therapy 021 09:00:00 AM EST [facility] ([facility]) Outpatient [address] [facility] [address] 08/24/2020 12:00:00 AM EST eCW1 ([facility]) Office Visit Attender: Mar Chakraborty MD Physical Therapy 08/16 11:15:00 AM EST MED[facility] ([facility]) Unknown [address] [facility] [address] 08/14/2020 12:00:00 AM EST eCW1 ([facility]) Unknown [address] [facility] [address] 08/10/2020 12:00:00 AM EST eCW1 ([facility]) Office Visit Attender: BRITANY TONY_991 Physical Therapy 021 08:00:00 AM EST MED[facility] ([facility]) Outpatient [address] [facility] [address] 07/27/2020 12:00:00 AM EST eCW1 ([facility]) Office Visit Attender: BRITANY TONY_991 Physical Therapy 021 08:00:00 AM EST MEDENT ([facility]) Office Visit Attender: BRITANY TONY_991 Physical Therapy 021 08:00:00 AM EST MED[facility] ([facility]) Unknown [address] [facility] [address] 07/12/2020 12:00:00 AM EST eCW1 ([facility]) Unknown [address] [facility] [address] 07/04/2020 12:00:00 AM EST eCW1 ([facility]) Office Visit Attender: BRITANY TONY_991 Physical Therapy 09:30:00 AM EST MEDENT ([facility]) Office Visit Attender: BRITANY TONY_991 Physical Therapy 08:30:00 AM EST MEDENT ([facility]) Extended Individual Psychotherapy - 45 min Attender: Conchita Rubi [facility] 06/20/2020 11:45:00 AM EST - 06/20/2020 11:45:00 AM EST [facility] ([facility]) Attender: Ivory Rubi 06/20/2020 12:00:0 0 AM EST [facility] ([facility]) Outpatient Attender: Mikayla Aguilar [facility]-PROJECT CONTROLLER [facility] 06/15/2020 10:30:00 AM EST - 06/15/2020 10:30:00 AM EST [facility] ([facility]) Attender: Mikayla LEAVITT-JOE 06/15/2020 12: 00:00 AM EST [facility] ([facility]) Office Visit Attender: BRITANY TONY_991 Physical Therapy 09:00:00 AM EST MED[facility] ([facility]) Outpatient [address] [facility] [address] 06/12/2020 12:00:00 AM EST eCW1 ([facility]) TEMPMHCTelemed 30" Psychotherapy Attender: Ivory espinoza [facility] 06/05/2020 11:30:00 AM EST - 06/05/2020 11:30:00 AM EST [facility] ([facility]) Attender: Ivory Rubi 06/05/2020 12:00:0 0 AM EST [facility] ([facility]) OFFICE OUTPATIENT VISIT 15 MINUTES Attender: JORDON NAVARRETE NP Physical Therapy 05/31/2020 07:30:00 AM EST MED[facility] ([facility]) Unknown [address] [facility] [address] 05/18/2020 12:00:00 AM EST eCW1 ([facility]) Outpatient Attender: Mikayla LEAVITTDOMINGUEZ [facility] 05/11/2020 10:00:00 AM EST - 05/11/2020 10:00:00 AM EST [facility] ([facility]) Attender: Mikayla TADEO 05/11/2020 12: 00:00 AM EST [facility] ([facility]) Office Visit Attender: BRITANY TONY_991 Physical Therapy 020 08:00:00 AM EST MED[facility] ([facility]) Office Visit Attender: BRITANY THOMAS991 Physical Therapy 020 09:00:00 AM EDT MED[facility] ([facility]) Outpatient Attender: Mikayla TADEO [facility] 04/06/2020 09:30:00 AM EDT - 04/06/2020 09:30:00 AM EDT [facility] ([facility]) Attender: Mikayla TADEO 04/06/2020 12: 00:00 AM EDT [facility] ([facility]) Office Visit Attender: BRITANY THOMAS991 Physical Therapy 10:00:00 AM EDT MED[facility] ([facility]) TEMPMHCTelemed 30" Psychotherapy Attender: Ivory espinoza [facility] 03/24/2020 08:00:00 AM EDT - 03/24/2020 08:00:00 AM EDT [facility] ([facility]) Attender: Ivory Rubi 03/24/2020 12:00:0 0 AM EDT [facility] ([facility]) Office Visit Attender: BRITANY THOMAS991 Physical Therapy 10:00:00 AM EDT MEDENT ([facility]) Office Visit Attender: BRITANY SRINIVASAN1 Physical Therapy 09:00:00 AM EDT MEDENT ([facility]) Outpatient Attender: Mikayla Aguilar [facility]-PROJECT CONTRO[facility]ER [facility] 03/09/2020 09:00:00 AM EDT - 03/09/2020 09:00:00 AM EDT [facility] ([facility]) Attender: Mikayla LEAVITT-JOE 03/09/2020 12: 00:00 AM EDT [facility] ([facility]) Office Visit Attender: BRITANY THOMAS991 Physical Therapy 09:30:00 AM EDT MEDENT ([facility]) Attender: Ivory Rubi 03/01/2020 12:00:0 0 AM EDT [facility] ([facility]) Attender: Ivory Rubi [facility] 02/29/2020 10:00:00 AM EDT - 02/29/2020 10:00:00 AM EDT [facility] ([facility]) Extended Individual Psychotherapy - 45 min Attender: Conchita Rubi [facility] 02/29/2020 10:00:00 AM EDT - 02/29/2020 10:00:00 AM EDT [facility] ([facility]) Office Visit Attender: BRITANY TONY_991 Physical Therapy 08/24/2 020 09:30:00 AM [facility] Functional Status Immunizations Vaccine Date Status Description Data Source(s) COVID-19, mRNA, LNP-S, PF, 100 mcg/0.5 mL dose 10/26/2020 11 :21:03 AM EDT completed 10.5 mL ELIJAH ([facility]) COVID-19 VACCINE Moderna 10/26/2020 12:00:00 AM EDT completed NYSIIS Vaccine Series Complete: YESThis Data wa s Submitted to [facility] [employer]. COVID-19, mRNA, LNP-S, PF, 100 mcg/0.5 mL dose 09/26/2020 09 :54:18 AM EDT completed 10.5 mL ELIJAH ([facility]) COVID-19, mRNA, LNP-S, PF, 100 mcg/0.5 mL dose 09/26/2020 09 :54:18 AM EDT completed .5 mL ELIJAH ([facility]) COVID-19 VACCINE Moderna 09/26/2020 12:00:00 AM EDT completed [place]SIIS Vaccine Series Complete: NOThis Data was Submitted to [facility] [employer]. Medications Medication Brand Name Start Date Product [...] 15 mg by mouth completed <td ID="Medica tionRxNorm_5">994978</td><td ID="MedicationMedication_5">olanzapine</td><td ID="MedicationRoute_5">by mouth</td><td ID="MedicationRouteConcept_5">I76517</td><td ID="MedicationStartDate_5">12/25/2020</td><td ID="MedicationStopDate_5">02/23/2021</td><td ID="MedicationDosageFrequency_5">every night</td><td ID="MedicationDuration_5">30</td><td ID="MedicationFormulaStrength_5">15 mg</td><td ID="MedicationDosageForm_5">tablet</td><td ID="MedicationDosageFormCode_5"></td><td ID="MedicationDosageDescription_5"></td><td ID="MedicationMedicationId_5">[id number]</td><td ID="MedicationAccount_5">[id number]</td><td ID="MedicationNpid_5">[id number]</td><td ID="MedicationAuthorFirstName_5">Mikayla</td><td ID="MedicationAuthorLastName_5">Jeff</td><td ID="MedicationTaxonomyCode_5">[id number]</td><td ID="MedicationTaxonomyDesc_5">Psychiatric/Mental Health</td><td ID="MedicationPhoneNumber_5">[phone]</td> [facility] ([facility]) 200 mg/mL 11/11/2020 12:00:00 AM EDT oil 3 INJECT 0.7ML INTRAMUSCULARLY EVERY 10 DAYS MAXIMUM DAILY DOSE = 0.7ML EVERY 10 DAYS INJECT 0.7ML INTRAMUSCULARLY EVERY 10 DAYS MAXIMUM DAILY DOSE = 0.7ML EVERY 10 DAYS SOLD: 11/21/2020 [facility] lamotrigine 25 MG Oral Tablet lamotrigine 11/02/2020 12:00:00 AM EDT 25 mg by mouth completed <td ID="Medica tionRxNorm_4">[id number]</td><td ID="MedicationMedication_4">lamotrigine</td><td ID="MedicationRoute_4">by mouth</td><td ID="MedicationRouteConcept_4">J83839</td><td ID="MedicationStartDate_4">11/02/2020</td><td ID="MedicationStopDate_4"></td><td ID="MedicationDosageFrequency_4">as directed</td><td ID="MedicationDuration_4"></td><td ID="MedicationFormulaStrength_4">25 mg</td><td ID="MedicationDosageForm_4">tablet</td><td ID="MedicationDosageFormCode_4"></td><td ID="MedicationDosageDescription_4"></td><td ID="MedicationMedicationId_4">[id number]</td><td ID="MedicationAccount_4">[id number]</td><td ID="MedicationNpid_4">[id number]</td><td ID="MedicationAuthorFirstName_4">Mikayla</td><td ID="MedicationAuthorLastName_4">Jeff</td><td ID="MedicationTaxonomyCode_4">[id number]</td><td ID="MedicationTaxonomyDesc_4">Psychiatric/Mental Health</td><td ID="MedicationPhoneNumber_4">[phone]</td> [facility] ([facility]) lamotrigine 25 MG Oral Tablet lamotrigine 11/02/2020 12:00:00 AM EDT 25 mg by mouth completed <td ID="Medica tionRxNorm_3">[id number]</td><td ID="MedicationMedication_3">lamotrigine</td><td ID="MedicationRoute_3">by mouth</td><td ID="MedicationRouteConcept_3">A03435</td><td ID="MedicationStartDate_3">11/02/2020</td><td ID="MedicationStopDate_3"></td><td ID="MedicationDosageFrequency_3">as directed</td><td ID="MedicationDuration_3"></td><td ID="MedicationFormulaStrength_3">25 mg</td><td ID="MedicationDosageForm_3">tablet</td><td ID="MedicationDosageFormCode_3"></td><td ID="MedicationDosageDescription_3"></td><td ID="MedicationMedicationId_3">[id number]</td><td ID="MedicationAccount_3">[id number]</td><td ID="MedicationNpid_3">[id number]</td><td ID="MedicationAuthorFirstName_3">Mikayla</td><td ID="MedicationAuthorLastName_3">[place]</td><td ID="MedicationTaxonomyCode_3">[id number]</td><td ID="MedicationTaxonomyDesc_3">Psychiatric/Mental Health</td><td ID="MedicationPhoneNumber_3">[phone]</td> [facility] ([facility]) lamotrigine 25 MG Oral Tablet lamotrigine 11/02/2020 12:00:00 AM EDT 25 mg by mouth completed <td ID="Medica tionRxNorm_1">109880</td><td ID="MedicationMedication_1">lamotrigine</td><td ID="MedicationRoute_1">by mouth</td><td ID="MedicationRouteConcept_1">A81452</td><td ID="MedicationStartDate_1">11/02/2020</td><td ID="MedicationStopDate_1">01/21/2021</td><td ID="MedicationDosageFrequency_1">once a day</td><td ID="MedicationDuration_1">30</td><td ID="MedicationFormulaStrength_1">25 mg</td><td ID="MedicationDosageForm_1">tablet</td><td ID="MedicationDosageFormCode_1"></td><td ID="MedicationDosageDescription_1">as directed</td><td ID="MedicationMedicationId_1">[id number]</td><td ID="MedicationAccount_1">[id number]</td><td ID="MedicationNpid_1">[id number]</td><td ID="MedicationAuthorFirstName_1">Oscar</td><td ID="MedicationAuthorLastName_1">[place]cid</td><td ID="MedicationTaxonomyCode_1">[id number]</td><td ID="MedicationTaxonomyDesc_1">Nurse Practitioner</td><td ID="MedicationPhoneNumber_1">[phone]</td> [facility] [facility]) 3 mL 22 x 1 1/2" 11/01/2020 [...] 15 mg by mouth completed <td ID="Medica tionRxNorm_4">408396</td><td ID="MedicationMedication_4">olanzapine</td><td ID="MedicationRoute_4">by mouth</td><td ID="MedicationRouteConcept_4">F45524</td><td ID="MedicationStartDate_4">09/28/2020</td><td ID="MedicationStopDate_4">11/27/2020</td><td ID="MedicationDosageFrequency_4">every night</td><td ID="MedicationDuration_4">30</td><td ID="MedicationFormulaStrength_4">15 mg</td><td ID="MedicationDosageForm_4">tablet</td><td ID="MedicationDosageFormCode_4"></td><td ID="MedicationDosageDescription_4"></td><td ID="MedicationMedicationId_4">[id number]</td><td ID="MedicationAccount_4">[id number]</td><td ID="MedicationNpid_4">[id number]</td><td ID="MedicationAuthorFirstName_4">Mikayla</td><td ID="MedicationAuthorLastName_4">Jeff</td><td ID="MedicationTaxonomyCode_4">[id number]</td><td ID="MedicationTaxonomyDesc_4">Psychiatric/Mental Health</td><td ID="MedicationPhoneNumber_4">[phone]</td> [facility] ([facility]) olanzapine 10 MG Oral Tablet olanzapine 09/28/2020 12:00:00 AM EDT 10 mg by mouth completed <td ID="Medica tionRxNorm_1">127447</td><td ID="MedicationMedication_1">olanzapine</td><td ID="MedicationRoute_1">by mouth</td><td ID="MedicationRouteConcept_1">V87111</td><td ID="MedicationStartDate_1">09/28/2020</td><td ID="MedicationStopDate_1">02/06/2021</td><td ID="MedicationDosageFrequency_1">every night</td><td ID="MedicationDuration_1">30</td><td ID="MedicationFormulaStrength_1">10 mg</td><td ID="MedicationDosageForm_1">tablet</td><td ID="MedicationDosageFormCode_1"></td><td ID="MedicationDosageDescription_1"></td><td ID="MedicationMedicationId_1">[id number]</td><td ID="MedicationAccount_1">[id number]</td><td ID="MedicationNpid_1">[id number]</td><td ID="MedicationAuthorFirstName_1">Oscar</td><td ID="MedicationAuthorLastName_1">Delcid</td><td ID="MedicationTaxonomyCode_1">[id number]</td><td ID="MedicationTaxonomyDesc_1">Nurse Practitioner</td><td ID="MedicationPhoneNumber_1">[phone]</td> [facility] ([facility]) Nicotine 4 MG Chewing Gum [Nicorette] Nicorette Starte r Kit 4 MG Nicorette Starter Kit 4 MG 09/15/2020 12:00:00 AM EDT a ctive Nicorette Starter Kit 4 MG eCW1 ([facility]) Nicotine 4 MG Chewing Gum [Nicorette] Nicorette Starte r Kit 4 MG Nicorette Starter Kit 4 MG 09/15/2020 12:00:00 AM EDT a ctive Nicorette Starter Kit 4 MG eCW1 ([facility]) Nicotine 4 MG Chewing Gum [Nicorette] Nicorette Starte r Kit 4 MG Nicorette Starter Kit 4 MG 09/15/2020 12:00:00 AM EDT a ctive Nicorette Starter Kit 4 MG eCW1 ([facility]) Nicotine 4 MG Chewing Gum [Nicorette] Nicorette Starte r Kit 4 MG Nicorette Starter Kit 4 MG 09/15/2020 12:00:00 AM EDT a ctive Nicorette Starter Kit 4 MG eCW1 ([facility]) Nicotine 4 MG Chewing Gum [Nicorette] Nicorette Starte r Kit 4 MG Nicorette Starter Kit 4 MG 09/15/2020 12:00:00 AM EDT a ctive Nicorette Starter Kit 4 MG eCW1 ([facility]) Nicotine 4 MG Chewing Gum [Nicorette] Nicorette Starte r Kit 4 MG Nicorette Starter Kit 4 MG 09/15/2020 12:00:00 AM EDT a ctive Nicorette Starter Kit 4 MG eCW1 ([facility]) Nicotine 4 MG Chewing Gum [Nicorette] Nicorette Starte r Kit 4 MG Nicorette Starter Kit 4 MG 09/15/2020 12:00:00 AM EDT a ctive Nicorette Starter Kit 4 MG eCW1 ([facility]) Nicotine 4 MG Chewing Gum [Nicorette] Nicorette Starte r Kit 4 MG Nicorette Starter Kit 4 MG 09/15/2020 12:00:00 AM EDT a ctive Nicorette Starter Kit 4 MG eCW1 ([facility]) Nicotine 4 MG Chewing Gum [Nicorette] Nicorette Starte r Kit 4 MG Nicorette Starter Kit 4 MG 09/15/2020 12:00:00 AM EDT a ctive Nicorette Starter Kit 4 MG eCW1 ([facility]) Hydroxyzine Hydrochloride 50 MG Oral Tablet hydroxyzine HCl 09/06/2020 12:00:00 AM EST 50 mg completed <td ID ="MedicationRxNorm_2">[id number]</td><td ID="MedicationMedication_2">hydroxyzine HCl</td><td ID="MedicationRoute_2"></td><td ID="MedicationRouteConcept_2"></td><td ID="MedicationStartDate_2">09/06/2020</td><td ID="MedicationStopDate_2"></td><td ID="MedicationDosageFrequency_2"></td><td ID="MedicationDuration_2"></td><td ID="MedicationFormulaStrength_2">50 mg</td><td ID="MedicationDosageForm_2">tablet</td><td ID="MedicationDosageFormCode_2"></td><td ID="MedicationDosageDescription_2"></td><td ID="MedicationMedicationId_2">[id number]</td><td ID="MedicationAccount_2">[id number]</td><td ID="MedicationNpid_2">[id number]</td><td ID="MedicationAuthorFirstName_2">Mikayla</td><td ID="MedicationAuthorLastName_2">[place]</td><td ID="MedicationTaxonomyCode_2">[id number]</td><td ID="MedicationTaxonomyDesc_2">Psychiatric/Mental Health</td><td ID="MedicationPhoneNumber_2">[phone]</td> [facility] ([facility]) Hydroxyzine Hydrochloride 50 MG Oral Tablet hydroxyzine HCl 09/06/2020 12:00:00 AM EST 50 mg completed <td ID ="MedicationRxNorm_3">[id number]</td><td ID="MedicationMedication_3">hydroxyzine HCl</td><td ID="MedicationRoute_3"></td><td ID="MedicationRouteConcept_3"></td><td ID="MedicationStartDate_3">09/06/2020</td><td ID="MedicationStopDate_3"></td><td ID="MedicationDosageFrequency_3"></td><td ID="MedicationDuration_3"></td><td ID="MedicationFormulaStrength_3">50 mg</td><td ID="MedicationDosageForm_3">tablet</td><td ID="MedicationDosageFormCode_3"></td><td ID="MedicationDosageDescription_3"></td><td ID="MedicationMedicationId_3">[id number]</td><td ID="MedicationAccount_3">[id number]</td><td ID="MedicationNpid_3">[id number]</td><td ID="MedicationAuthorFirstName_3">Mikayla</td><td ID="MedicationAuthorLastName_3">[place]</td><td ID="MedicationTaxonomyCode_3">[id number]</td><td ID="MedicationTaxonomyDesc_3">Psychiatric/Mental Health</td><td ID="MedicationPhoneNumber_3">[phone]</td> [facility] ([facility]) gabapentin 300 MG Oral Capsule gabapentin 09/06/2020 12:00:00 AM EST 300 mg by mouth completed <td ID="Medica tionRxNorm_4">[id number]</td><td ID="MedicationMedication_4">gabapentin</td><td ID="MedicationRoute_4">by mouth</td><td ID="MedicationRouteConcept_4">T30966</td><td ID="MedicationStartDate_4">09/06/2020</td><td ID="MedicationStopDate_4">02/23/2021</td><td ID="MedicationDosageFrequency_4">twice a day</td><td ID="MedicationDuration_4">30</td><td ID="MedicationFormulaStrength_4">300 mg</td><td ID="MedicationDosageForm_4">capsule</td><td ID="MedicationDosageFormCode_4"></td><td ID="MedicationDosageDescription_4"></td><td ID="MedicationMedicationId_4">[id number]</td><td ID="MedicationAccount_4">[id number]</td><td ID="MedicationNpid_4">[id number]</td><td ID="MedicationAuthorFirstName_4">Mikayla</td><td ID="MedicationAuthorLastName_4">[place]</td><td ID="MedicationTaxonomyCode_4">[id number]</td><td ID="MedicationTaxonomyDesc_4">Psychiatric/Mental Health</td><td ID="MedicationPhoneNumber_4">[phone]</td> [facility] ([facility]) gabapentin 300 MG Oral Capsule gabapentin 09/06/2020 12:00:00 AM EST 300 mg by mouth completed <td ID="Medica tionRxNorm_3">032735</td><td ID="MedicationMedication_3">gabapentin</td><td ID="MedicationRoute_3">by mouth</td><td ID="MedicationRouteConcept_3">I34190</td><td ID="MedicationStartDate_3">09/06/2020</td><td ID="MedicationStopDate_3">11/05/2020</td><td ID="MedicationDosageFrequency_3">twice a day</td><td ID="MedicationDuration_3">30</td><td ID="MedicationFormulaStrength_3">300 mg</td><td ID="MedicationDosageForm_3">capsule</td><td ID="MedicationDosageFormCode_3"></td><td ID="MedicationDosageDescription_3"></td><td ID="MedicationMedicationId_3">[id number]</td><td ID="MedicationAccount_3">[id number]</td><td ID="MedicationNpid_3">[id number]</td><td ID="MedicationAuthorFirstName_3">Mikayla</td><td ID="MedicationAuthorLastName_3">[place]</td><td ID="MedicationTaxonomyCode_3">[id number]</td><td ID="MedicationTaxonomyDesc_3">Psychiatric/Mental Health</td><td ID="MedicationPhoneNumber_3">[phone]</td> [facility] ([facility]) gabapentin 300 MG Oral Capsule gabapentin 09/06/2020 12:00:00 AM EST 300 mg by mouth completed <td ID="Medica tionRxNorm_6">015479</td><td ID="MedicationMedication_6">gabapentin</td><td ID="MedicationRoute_6">by mouth</td><td ID="MedicationRouteConcept_6">W14528</td><td ID="MedicationStartDate_6">09/06/2020</td><td ID="MedicationStopDate_6">11/05/2020</td><td ID="MedicationDosageFrequency_6">twice a day</td><td ID="MedicationDuration_6">30</td><td ID="MedicationFormulaStrength_6">300 mg</td><td ID="MedicationDosageForm_6">capsule</td><td ID="MedicationDosageFormCode_6"></td><td ID="MedicationDosageDescription_6"></td><td ID="MedicationMedicationId_6">[id number]</td><td ID="MedicationAccount_6">[id number]</td><td ID="MedicationNpid_6">[id number]</td><td ID="MedicationAuthorFirstName_6">Mikayla</td><td ID="MedicationAuthorLastName_6">Jeff</td><td ID="MedicationTaxonomyCode_6">[id number]</td><td ID="MedicationTaxonomyDesc_6">Psychiatric/Mental Health</td><td ID="MedicationPhoneNumber_6">[phone]</td> [facility] ([facility]) gabapentin 300 MG Oral Capsule gabapentin 09/06/2020 12:00:00 AM EST 300 mg by mouth completed <td ID="Medica tionRxNorm_5">112636</td><td ID="MedicationMedication_5">gabapentin</td><td ID="MedicationRoute_5">by mouth</td><td ID="MedicationRouteConcept_5">G39289</td><td ID="MedicationStartDate_5">09/06/2020</td><td ID="MedicationStopDate_5">01/01/2021</td><td ID="MedicationDosageFrequency_5">twice a day</td><td ID="MedicationDuration_5">30</td><td ID="MedicationFormulaStrength_5">300 mg</td><td ID="MedicationDosageForm_5">capsule</td><td ID="MedicationDosageFormCode_5"></td><td ID="MedicationDosageDescription_5"></td><td ID="MedicationMedicationId_5">[id number]</td><td ID="MedicationAccount_5">[id number]</td><td ID="MedicationNpid_5">[id number]</td><td ID="MedicationAuthorFirstName_5">Mikayla</td><td ID="MedicationAuthorLastName_5">Jeff</td><td ID="MedicationTaxonomyCode_5">[id number]</td><td ID="MedicationTaxonomyDesc_5">Psychiatric/Mental Health</td><td ID="MedicationPhoneNumber_5">[phone]</td> [facility] ([facility]) Hydroxyzine Hydrochloride 50 MG Oral Tablet hydroxyzine HCl 09/06/2020 12:00:00 AM EST 50 mg completed <td ID ="MedicationRxNorm_7">[id number]</td><td ID="MedicationMedication_7">hydroxyzine HCl</td><td ID="MedicationRoute_7"></td><td ID="MedicationRouteConcept_7"></td><td ID="MedicationStartDate_7">09/06/2020</td><td ID="MedicationStopDate_7"></td><td ID="MedicationDosageFrequency_7"></td><td ID="MedicationDuration_7"></td><td ID="MedicationFormulaStrength_7">50 mg</td><td ID="MedicationDosageForm_7">tablet</td><td ID="MedicationDosageFormCode_7"></td><td ID="MedicationDosageDescription_7"></td><td ID="MedicationMedicationId_7">[id number]</td><td ID="MedicationAccount_7">[id number]</td><td ID="MedicationNpid_7">[id number]</td><td ID="MedicationAuthorFirstName_7">Mikayla</td><td ID="MedicationAuthorLastName_7">Jeff</td><td ID="MedicationTaxonomyCode_7">[id number]</td><td ID="MedicationTaxonomyDesc_7">Psychiatric/Mental Health</td><td ID="MedicationPhoneNumber_7">[phone]</td> [facility] ([facility]) 200 mg/mL 08/26/2020 12:00:00 AM EST oil 3 INJECT 0.7MLS INTRAMUSCULARLY EVERY 10 DAYS MAXIMUM DAILY DOSE = 0.7MLS/10 DAY INJECT 0.7MLS INTRAMUSCULARLY EVERY 10 DAYS MAXIMUM DAILY DOSE = 0.7MLS/10 DAY SOLD: 09/01/2020 [facility] Hydrochlorothiazide 12.5 MG Oral Tablet Hydrochlorothiazide 12.5 MG 08/24/2020 12:00:00 AM EST 1.0 {tablet_in_the_morning} acti ve Hydrochlorothiazide 12.5 MG eCW1 ([facility]) 30 mg 08/24/2020 12:00:00 AM EST tablet [...] {tablet_in_the_morning} acti ve Hydrochlorothiazide 12.5 MG eCW1 ([facility]) Hydrochlorothiazide 12.5 MG Oral Tablet Hydrochlorothiazide 12.5 MG 08/24/2020 12:00:00 AM EST 1.0 {tablet_in_the_morning} acti ve Hydrochlorothiazide 12.5 MG eCW1 ([facility]) Hydrochlorothiazide 12.5 MG Oral Tablet Hydrochlorothiazide 12.5 MG 08/24/2020 12:00:00 AM EST 1.0 {tablet_in_the_morning} acti ve Hydrochlorothiazide 12.5 MG eCW1 ([facility]) Hydrochlorothiazide 12.5 MG Oral Tablet Hydrochlorothiazide 12.5 MG 08/24/2020 12:00:00 AM EST 1.0 {tablet_in_the_morning} acti ve Hydrochlorothiazide 12.5 MG eCW1 ([facility]) Hydrochlorothiazide 12.5 MG Oral Tablet Hydrochlorothiazide 12.5 MG 08/24/2020 12:00:00 AM EST 1.0 {tablet_in_the_morning} acti ve Hydrochlorothiazide 12.5 MG eCW1 ([facility]) Hydrochlorothiazide 12.5 MG Oral Tablet Hydrochlorothiazide 12.5 MG 08/24/2020 12:00:00 AM EST 1.0 {tablet_in_the_morning} acti ve Hydrochlorothiazide 12.5 MG eCW1 ([facility]) Hydrochlorothiazide 12.5 MG Oral Tablet Hydrochlorothiazide 12.5 MG 08/24/2020 12:00:00 AM EST 1.0 {tablet_in_the_morning} acti ve Hydrochlorothiazide 12.5 MG eCW1 ([facility]) Hydrochlorothiazide 12.5 MG Oral Tablet Hydrochlorothiazide 12.5 MG 08/24/2020 12:00:00 AM EST 1.0 {tablet_in_the_morning} acti ve Hydrochlorothiazide 12.5 MG W1 ([facility]) Hydrochlorothiazide 12.5 MG Oral Tablet Hydrochlorothiazide 12.5 MG 08/24/2020 12:00:00 AM EST 1.0 {tablet_in_the_morning} acti ve Hydrochlorothiazide 12.5 MG W ([facility]) Hydrochlorothiazide 12.5 MG Oral Tablet hydroCHLOROthi azide 12.5 MG hydroCHLOROthiazide 12.5 MG 08/24/2020 12:00:00 AM EST 1.0 {tablet_in_the_morning} active hydroCHL OROthiazide 12.5 MG [facility] ([facility]) Hydrochlorothiazide 12.5 MG Oral Tablet Hydrochlorothiazide 12.5 MG 08/24/2020 12:00:00 AM EST 1.0 {tablet_in_the_morning} acti ve Hydrochlorothiazide 12.5 MG W ([facility]) 5 mg 08/23/2020 12:00:00 AM EST tablet [...] 1.0 {tablet} suspended Adderall 20 mg eCW1 ([facility]) Amphetamine aspartate 5 MG / Amphetamine Sulfate 5 MG / Dextroamphetamine saccharate 5 MG / Dextroamphetamine Sulfate 5 MG Oral Tablet [Adderall] Adderall 20 mg Adderall 20 mg 08/10/2020 12:00:00 AM EST 1.0 {tablet} suspended Adderall 20 mg eCW1 ([facility]) Amphetamine aspartate 5 MG / Amphetamine Sulfate 5 MG / Dextroamphetamine saccharate 5 MG / Dextroamphetamine Sulfate 5 MG Oral Tablet [Adderall] Adderall 20 mg Adderall 20 mg 08/10/2020 12:00:00 AM EST 1.0 {tablet} active Adderall 20 mg eCW1 ([facility]) Amphetamine aspartate 5 MG / Amphetamine Sulfate 5 MG / Dextroamphetamine saccharate 5 MG / Dextroamphetamine Sulfate 5 MG Oral Tablet [Adderall] Adderall 20 mg Adderall 20 mg 08/10/2020 12:00:00 AM EST 1.0 {tablet} suspended Adderall 20 mg eCW1 ([facility]) Amphetamine aspartate 5 MG / Amphetamine Sulfate 5 MG / Dextroamphetamine saccharate 5 MG / Dextroamphetamine Sulfate 5 MG Oral Tablet [Adderall] Adderall 20 mg Adderall 20 mg 08/10/2020 12:00:00 AM EST 1.0 {tablet} suspended Adderall 20 mg eCW1 ([facility]) Amphetamine aspartate 5 MG / Amphetamine Sulfate 5 MG / Dextroamphetamine saccharate 5 MG / Dextroamphetamine Sulfate 5 MG Oral Tablet [Adderall] Adderall 20 mg Adderall 20 mg 08/10/2020 12:00:00 AM EST 1.0 {tablet} suspended Adderall 20 mg eCW1 ([facility]) Amphetamine aspartate 5 MG / Amphetamine Sulfate 5 MG / Dextroamphetamine saccharate 5 MG / Dextroamphetamine Sulfate 5 MG Oral Tablet [Adderall] Adderall 20 mg Adderall 20 mg 08/10/2020 12:00:00 AM EST 1.0 {tablet} active Adderall 20 mg eCW1 ([facility]) Amphetamine aspartate 5 MG / Amphetamine Sulfate 5 MG / Dextroamphetamine saccharate 5 MG / Dextroamphetamine Sulfate 5 MG Oral Tablet [Adderall] Adderall 20 mg Adderall 20 mg 08/10/2020 12:00:00 AM EST 1.0 {tablet} suspended Adderall 20 mg eCW1 ([facility]) 25 mg 08/10/2020 12:00:00 AM EST tablet [...] 1.0 {tablet} suspended Adderall 20 mg eCW1 ([facility]) Amphetamine aspartate 5 MG / Amphetamine Sulfate 5 MG / Dextroamphetamine saccharate 5 MG / Dextroamphetamine Sulfate 5 MG Oral Tablet [Adderall] Adderall 20 mg Adderall 20 mg 08/10/2020 12:00:00 AM EST 1.0 {tablet} suspended Adderall 20 mg eCW1 ([facility]) Amphetamine aspartate 5 MG / Amphetamine Sulfate 5 MG / Dextroamphetamine saccharate 5 MG / Dextroamphetamine Sulfate 5 MG Oral Tablet [Adderall] Adderall 20 mg Adderall 20 mg 08/10/2020 12:00:00 AM EST 1.0 {tablet} active Adderall 20 mg eCW1 ([facility]) Amphetamine aspartate 5 MG / Amphetamine Sulfate 5 MG / Dextroamphetamine saccharate 5 MG / Dextroamphetamine Sulfate 5 MG Oral Tablet [Adderall] Adderall 20 mg Adderall 20 mg 08/10/2020 12:00:00 AM EST 1.0 {tablet} active Adderall 20 mg eCW1 ([facility]) Amphetamine aspartate 5 MG / Amphetamine Sulfate 5 MG / Dextroamphetamine saccharate 5 MG / Dextroamphetamine Sulfate 5 MG Oral Tablet [Adderall] Adderall 20 mg Adderall 20 mg 08/10/2020 12:00:00 AM EST 1.0 {tablet} suspended Adderall 20 mg eCW1 ([facility]) Amphetamine aspartate 5 MG / Amphetamine Sulfate 5 MG / Dextroamphetamine saccharate 5 MG / Dextroamphetamine Sulfate 5 MG Oral Tablet [Adderall] Adderall 20 mg Adderall 20 mg 08/10/2020 12:00:00 AM EST 1.0 {tablet} suspended Adderall 20 mg eCW1 ([facility]) 10 mg 07/28/2020 12:00:00 AM EST tablet 30 TAKE ONE TABLET BY MOUTH EVERY DAY TAKE ONE TABLET BY MOUTH EVERY DAY SOLD: 07/28/2020 [facility] Lisinopril 30 MG Oral Tablet Lisinopril 30 MG 07/27/2020 12:00:00 A M EST 1.0 {tablet} active Lisinopril 30 MG eCW1 ( [facility]) Lisinopril 30 MG Oral Tablet Lisinopril 30 MG 07/27/2020 12:00:00 A M EST 1.0 {tablet} active Lisinopril 30 MG eCW1 ( [facility]) Lisinopril 30 MG Oral Tablet Lisinopril 30 MG 07/27/2020 12:00:00 A M EST 1.0 {tablet} active Lisinopril 30 MG eCW1 ( [facility]) Lisinopril 30 MG Oral Tablet Lisinopril 30 MG 07/27/2020 12:00:00 A M EST 1.0 {tablet} active Lisinopril 30 MG eCW1 ( [facility]) Lisinopril 30 MG Oral Tablet Lisinopril 30 MG 07/27/2020 12:00:00 A M EST 1.0 {tablet} active Lisinopril 30 MG eCW1 ( [facility]) 20 mg 07/27/2020 12:00:00 AM EST tablet 30 TAKE ONE TABLET BY MOUTH EVERY DAY TAKE ONE TABLET BY MOUTH EVERY DAY SOLD: 07/28/2020 [facility] Lisinopril 30 MG Oral Tablet Lisinopril 30 MG 07/27/2020 12:00:00 A M EST 1.0 {tablet} active Lisinopril 30 MG eCW1 ( [facility]) Lisinopril 30 MG Oral Tablet Lisinopril 30 MG 07/27/2020 12:00:00 A M EST 1.0 {tablet} active Lisinopril 30 MG eCW1 ( [facility]) Lisinopril 30 MG Oral Tablet Lisinopril 30 MG 07/27/2020 12:00:00 A M EST 1.0 {tablet} active Lisinopril 30 MG eCW1 ( [facility]) Lisinopril 20 MG Oral Tablet Lisinopril 20 MG 07/27/2020 12:00:00 A M EST 1.0 {tablet} active Lisinopril 20 MG eCW1 ( [facility]) 20 mg 07/27/2020 12:00:00 AM EST tablet 30 TAKE ONE TABLET BY MOUTH EVERY DAY TAKE ONE TABLET BY MOUTH EVERY DAY SOLD: 08/24/2020 [facility] Lisinopril 30 MG Oral Tablet Lisinopril 30 MG 07/27/2020 12:00:00 A M EST 1.0 {tablet} active Lisinopril 30 MG eCW1 ( [facility]) Lisinopril 20 MG Oral Tablet Lisinopril 20 MG 07/27/2020 12:00:00 A M EST 1.0 {tablet} active Lisinopril 20 MG eCW1 ( [facility]) Lisinopril 20 MG Oral Tablet Lisinopril 20 MG 07/27/2020 12:00:00 A M EST 1.0 {tablet} active Lisinopril 20 MG eCW1 ( [facility]) Lisinopril 30 MG Oral Tablet Lisinopril 30 MG 07/27/2020 12:00:00 A M EST 1.0 {tablet} active Lisinopril 30 MG eCW1 ( [facility]) Lisinopril 30 MG Oral Tablet Lisinopril 30 MG 07/27/2020 12:00:00 A M EST 1.0 {tablet} active Lisinopril 30 MG eCW1 ( [facility]) Lisinopril 30 MG Oral Tablet Lisinopril 30 MG 07/27/2020 12:00:00 A M EST 1.0 {tablet} active Lisinopril 30 MG eCW1 ( [facility]) Amphetamine aspartate 5 MG / Amphetamine Sulfate 5 MG / Dextroamphetamine saccharate 5 MG / Dextroamphetamine Sulfate 5 MG Oral Tablet [Adderall] Adderall 20 mg Adderall 20 mg 07/13/2020 12:00:00 AM EST 1.0 {tablet} active Adderall 20 mg eCW1 ([facility]) 200 mg/mL 07/13/2020 12:00:00 AM EST oil [...] 1.0 {tablet} active Adderall 20 mg eCW1 ([facility]) 20 mg 06/12/2020 12:00:00 AM EST tablet [...] 1.0 {tablet} active Adderall 20 mg W1 ([facility]) 100 mg 06/12/2020 12:00:00 AM EST tablet [...] 7.5 mg by mouth completed <td ID="Medica tionRxNorm_9">[id number]</td><td ID="MedicationMedication_9">olanzapine</td><td ID="MedicationRoute_9">by mouth</td><td ID="MedicationRouteConcept_9">L96707</td><td ID="MedicationStartDate_9">03/09/2020</td><td ID="MedicationStopDate_9">05/08/2020</td><td ID="MedicationDosageFrequency_9">at bedtime</td><td ID="MedicationDuration_9">30</td><td ID="MedicationFormulaStrength_9">7.5 mg</td><td ID="MedicationDosageForm_9">tablet</td><td ID="MedicationDosageFormCode_9"></td><td ID="MedicationDosageDescription_9"></td><td ID="MedicationMedicationId_9">[id number]</td><td ID="MedicationAccount_9">[id number]</td><td ID="MedicationNpid_9">[id number]</td><td ID="MedicationAuthorFirstName_9">Mikayla</td><td ID="MedicationAuthorLastName_9">[place]</td><td ID="MedicationTaxonomyCode_9">[id number]</td><td ID="MedicationTaxonomyDesc_9">Psychiatric/Mental Health</td><td ID="MedicationPhoneNumber_9">[phone]</td> [facility] ([facility]) olanzapine 7.5 MG Oral Tablet olanzapine 03/09/2020 12:00:00 AM EDT 7.5 mg by mouth completed <td ID="Medica tionRxNorm_6">[id number]</td><td ID="MedicationMedication_6">olanzapine</td><td ID="MedicationRoute_6">by mouth</td><td ID="MedicationRouteConcept_6">O63180</td><td ID="MedicationStartDate_6">03/09/2020</td><td ID="MedicationStopDate_6">07/10/2020</td><td ID="MedicationDosageFrequency_6">at bedtime</td><td ID="MedicationDuration_6">30</td><td ID="MedicationFormulaStrength_6">7.5 mg</td><td ID="MedicationDosageForm_6">tablet</td><td ID="MedicationDosageFormCode_6"></td><td ID="MedicationDosageDescription_6"></td><td ID="MedicationMedicationId_6">[id number]</td><td ID="MedicationAccount_6">[id number]</td><td ID="MedicationNpid_6">[id number]</td><td ID="MedicationAuthorFirstName_6">Mikayla</td><td ID="MedicationAuthorLastName_6">Jeff</td><td ID="MedicationTaxonomyCode_6">[id number]</td><td ID="MedicationTaxonomyDesc_6">Psychiatric/Mental Health</td><td ID="MedicationPhoneNumber_6">[phone]</td> [facility] ([facility]) olanzapine 7.5 MG Oral Tablet olanzapine 03/09/2020 12:00:00 AM EDT 7.5 mg by mouth completed <td ID="Medica tionRxNorm_7">769311</td><td ID="MedicationMedication_7">olanzapine</td><td ID="MedicationRoute_7">by mouth</td><td ID="MedicationRouteConcept_7">N72108</td><td ID="MedicationStartDate_7">03/09/2020</td><td ID="MedicationStopDate_7">05/08/2020</td><td ID="MedicationDosageFrequency_7">at bedtime</td><td ID="MedicationDuration_7">30</td><td ID="MedicationFormulaStrength_7">7.5 mg</td><td ID="MedicationDosageForm_7">tablet</td><td ID="MedicationDosageFormCode_7"></td><td ID="MedicationDosageDescription_7"></td><td ID="MedicationMedicationId_7">[id number]</td><td ID="MedicationAccount_7">[id number]</td><td ID="MedicationNpid_7">[id number]</td><td ID="MedicationAuthorFirstName_7">Mikayla</td><td ID="MedicationAuthorLastName_7">[place]</td><td ID="MedicationTaxonomyCode_7">[id number]</td><td ID="MedicationTaxonomyDesc_7">Psychiatric/Mental Health</td><td ID="MedicationPhoneNumber_7">[phone]</td> [facility] ([facility]) Prazosin 1 MG Oral Capsule prazosin 02/10/2020 12:00:00 AM EDT 1 mg by mouth completed <td ID="Medicat ionRxNorm_3">967993</td><td ID="MedicationMedication_3">prazosin</td><td ID="MedicationRoute_3">by mouth</td><td ID="MedicationRouteConcept_3">E20051</td><td ID="MedicationStartDate_3">02/10/2020</td><td ID="MedicationStopDate_3">09/06/2020</td><td ID="MedicationDosageFrequency_3">every night</td><td ID="MedicationDuration_3"></td><td ID="MedicationFormulaStrength_3">1 mg</td><td ID="MedicationDosageForm_3">capsule</td><td ID="MedicationDosageFormCode_3"></td><td ID="MedicationDosageDescription_3"></td><td ID="MedicationMedicationId_3">[id number]</td><td ID="MedicationAccount_3">[id number]</td><td ID="MedicationNpid_3">[id number]</td><td ID="MedicationAuthorFirstName_3">Mikayla</td><td ID="MedicationAuthorLastName_3">Jeff</td><td ID="MedicationTaxonomyCode_3">[id number]</td><td ID="MedicationTaxonomyDesc_3">Psychiatric/Mental Health</td><td ID="MedicationPhoneNumber_3">[phone]</td> [facility] ([facility]) olanzapine 5 MG Oral Tablet olanzapine 02/10/2020 12:00:00 AM EDT 5 mg by mouth completed <td ID="Medica tionRxNorm_8">261368</td><td ID="MedicationMedication_8">olanzapine</td><td ID="MedicationRoute_8">by mouth</td><td ID="MedicationRouteConcept_8">X95327</td><td ID="MedicationStartDate_8">02/10/2020</td><td ID="MedicationStopDate_8">03/09/2020</td><td ID="MedicationDosageFrequency_8">at bedtime</td><td ID="MedicationDuration_8">30</td><td ID="MedicationFormulaStrength_8">5 mg</td><td ID="MedicationDosageForm_8">tablet</td><td ID="MedicationDosageFormCode_8"></td><td ID="MedicationDosageDescription_8"></td><td ID="MedicationMedicationId_8">[id number]</td><td ID="MedicationAccount_8">[id number]</td><td ID="MedicationNpid_8">[id number]</td><td ID="MedicationAuthorFirstName_8">Mikayla</td><td ID="MedicationAuthorLastName_8">[place]</td><td ID="MedicationTaxonomyCode_8">[id number]</td><td ID="MedicationTaxonomyDesc_8">Psychiatric/Mental Health</td><td ID="MedicationPhoneNumber_8">[phone]</td> [facility] ([facility]) gabapentin 600 MG Oral Tablet gabapentin 02/10/2020 12:00:00 AM EDT 600 mg by mouth completed <td ID="Medica tionRxNorm_7">303577</td><td ID="MedicationMedication_7">gabapentin</td><td ID="MedicationRoute_7">by mouth</td><td ID="MedicationRouteConcept_7">B48018</td><td ID="MedicationStartDate_7">02/10/2020</td><td ID="MedicationStopDate_7">03/09/2020</td><td ID="MedicationDosageFrequency_7">four times a day</td><td ID="MedicationDuration_7">30</td><td ID="MedicationFormulaStrength_7">600 mg</td><td ID="MedicationDosageForm_7">tablet</td><td ID="MedicationDosageFormCode_7"></td><td ID="MedicationDosageDescription_7"> </td><td ID="MedicationMedicationId_7">[id number]</td><td ID="MedicationAccount_7">[id number]</td><td ID="MedicationNpid_7">[id number]</td><td ID="MedicationAuthorFirstName_7">Mikayla</td><td ID="MedicationAuthorLastName_7">[place]</td><td ID="MedicationTaxonomyCode_7">[id number]</td><td ID="MedicationTaxonomyDesc_7">Psychiatric/Mental Health</td><td ID="MedicationPhoneNumber_7">[phone]</td> [facility] ([facility]) [place] Carbonate 300 MG Oral Capsule lithium carbonate 12:00:00 AM EDT 300 mg by mouth completed <td ID="MedicationRxNorm_8">234985</td><td ID="MedicationMedication_8">lithium carbonate</td><td ID="MedicationRoute_8">by mouth</td><td ID="MedicationRouteConcept_8">X44858</td><td ID="MedicationStartDate_8">12/27/2019</td><td ID="MedicationStopDate_8">09/06/2020</td><td ID="MedicationDosageFrequency_8">every night</td><td ID="MedicationDuration_8"></td><td ID="MedicationFormulaStrength_8">300 mg</td><td ID="MedicationDosageForm_8">capsule</td><td ID="MedicationDosageFormCode_8"></td><td ID="MedicationDosageDescription_8"></td><td ID="MedicationMedicationId_8">[id number]</td><td ID="MedicationAccount_8">[id number]</td><td ID="MedicationNpid_8">[id number]</td><td ID="MedicationAuthorFirstName_8">Mikayla</td><td ID="MedicationAuthorLastName_8">Jeff</td><td ID="MedicationTaxonomyCode_8">[id number]</td><td ID="MedicationTaxonomyDesc_8">Psychiatric/Mental Health</td><td ID="MedicationPhoneNumber_8">[phone]</td> [facility] ([facility]) Insurance Providers Payer name Policy type / Coverage type Policy ID Covered republican ID Covered republican's relationship to qureshi Policy Qureshi Plan Information Managed Care - Community Plan [facility] P [id number] S [id number] Managed Care - Community Plan [facility] P [id number] S [id number] Managed Care BCBS O [id number] S [id number] Medicaid Dental S [id number] S [id number] Managed Care - Community Plan [facility] P [id number] S [id number] Medicaid S [id number] S [id number] [facility] COMMUNITY PLAN [facility] [id number] SP [id number] ANSI-Medicaid [id number] ANSI-Medicaid [id number] ANSI-Medicaid [id number] ANSI-Medicaid [id number] ANSI-Medicaid [id number] ANSI-Medicaid [id number] ANSI-Medicaid [id number] ANSI-Medicaid [id number] ANSI-Medicaid [id number] ANSI-Medicaid [id number] ANSI-Medicaid [id number] ANSI-Medicaid [id number] ANSI-Medicaid [id number] ANSI-Medicaid [id number] ANSI-Medicaid [id number] ANSI-Medicaid [id number] ANSI-Medicaid [id number] ANSI-Medicaid [id number] ANSI-Medicaid [id number] ANSI-Medicaid [id number] ANSI-Medicaid [id number] ANSI-Medicaid [id number] ANSI-Medicaid [id number] Self Pay P UNAVAILABLE S UNAVAILA BLE Medicaid S [id number] S [id number] [facility] [place] [id number] 18 [id number] [place] [id number] 18 [id number] UNHC COMMUNITY PLAN MCDHMO [id number] SP [id number] [facility](MCAID) O [id number] S [id number] [facility] Health Maintenance Organization (HMO) [id number] Self D Managed Care [facility] P [id number] S [id number] UNHC COMMUNITY PLAN MCDHMO [id number] SP [id number] MEDICAID [id number] SP [id number] MEDICAID [id number] SP [id number] BLUE [employer]OSS [employer] PLAN [id number] SP [id number] O BLUE [id number] SP [id number] UN COMMUNITY PLAN MCDHMO [id number] SP [id number] [facility] [id number] SP [id number] [facility](MCAID) O [id number] S [id number] ANSI-Medicaid [id number] ANSI-Medicaid [id number] ANSI-Medicaid [id number] ANSI-Medicaid [id number] ANSI-Medicaid [id number] Problems, Conditions, and Diagnoses Code Display Name Description Problem Type Effective Dates Data Source(s) F90.2 Attention-deficit hyperactivity disorder , combined type Attention- Deficit/Hyperactivity Disorder, Combined presentation Condition 12/12/2020 12:00:00 AM EDT [facility] ([facility]) 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 Condition 12/12/2020 12:00:00 AM EDT [facility] ([facility]) F43.12 Post-traumatic stress disorder, chronic Post-traumatic stress disorder, chronic Condition 12/12/2020 12:00:00 AM EDT [facility] ([facility]) F11.20 Opioid dependence, uncomplicated Opioid Use Disorder, Severe Condition 12/12/2020 12:00:00 AM EDT [facility] ([facility]) F31.81 Bipolar II disorder Bipolar II Disorder Condition 0 12/12/2020 12:00:00 AM EDT [facility] ([facility]) F17.220 [id number] Chewing tobacco nicotine depende nce without complication Problem 09/29/2020 12:00:00 AM EDT eCW1 ([facility]) F11.20 Opioid dependence, uncomplicated Opioid Use Disorder, Severe Condition 09/21/2020 12:00:00 AM EDT [facility] ([facility]) F90.2 Attention-deficit hyperactivity disorder , combined type Attention- Deficit/Hyperactivity Disorder, Combined presentation Condition 09/21/2020 12:00:00 AM EDT [facility] ([facility]) 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 Condition 09/21/2020 12:00:00 AM EDT [facility] ([facility]) F43.12 Post-traumatic stress disorder, chronic Post-traumatic stress disorder, chronic Condition 09/21/2020 12:00:00 AM EDT [facility] ([facility]) Z72.0 Tobacco use Tobacco Use Disorder, Mild Condition 0 09/06/2020 12:00:00 AM EST [facility] ([facility]) [id number] Finding of esophagus Finding of Esophagus Problem 08/01/2020 08:32:47 AM EST [facility] ([facility]) [id number] Asthma Asthma Problem 08/01/2020 08:32:47 AM ES T ELIJAH ([facility]) [id number] Finding of esophagus Finding of Esophagus Problem 08/01/2020 08:32:47 AM EST [facility] ([facility]) [id number] Asthma Asthma Problem 08/01/2020 08:32:47 AM ES T ELIJAH ([facility]) [id number] SNOMED CT Concept SNOMED CT Concept Problem 08/01 08:32:46 AM EST [facility] ([facility]) 86058497 Depressive disorder Depressive Disorder Problem 0 08/01/2020 08:32:46 AM EST [facility] ([facility]) 17663676 Viral hepatitis C Viral Hepatitis C Problem 08/01/2020 08:32:46 AM EST ELIJAH ([facility]) [id number] SNOMED CT Concept SNOMED CT Concept Problem 08/01 08:32:46 AM EST [facility]IJAH ([facility]) 07903107 Depressive disorder Depressive Disorder Problem 0 08/01/2020 08:32:46 AM EST [facility] ([facility]) 64046245 Viral hepatitis C Viral Hepatitis C Problem 08/01/2020 08:32:46 AM EST [facility]IJAH ([facility]) I11.9 10884946 Hypertensive heart disease without heart failure Problem 07/27/2020 12:00:00 AM EST eCW1 ([facility]) F17.210 46746510 Nicotine dependence, cigarettes, uncompli cated Problem 06/12/2020 12:00:00 AM EST eCW1 ([facility]) Surgeries/Procedures Procedure Description Date Indications Data Source(s) THERAPEUTIC PROPHYLACTIC/DX INJECTION SUBQ/IM 04/06/20 21 12:00:00 AM EDT [facility] ([facility] ) THERAPEUTIC PROPHYLACTIC/DX INJECTION SUBQ/IM 03/27/20 21 12:00:00 AM EDT [facility] ([facility] ) THERAPEUTIC PROPHYLACTIC/DX INJECTION SUBQ/IM 03/12/20 21 12:00:00 AM EDT [facility] ([facility] ) THERAPEUTIC PROPHYLACTIC/DX INJECTION SUBQ/IM 03/01/20 21 12:00:00 AM EDT [facility] ([facility] ) THERAPEUTIC PROPHYLACTIC/DX INJECTION SUBQ/IM 02/20/20 21 12:00:00 AM EDT [facility] ([facility] ) THERAPEUTIC PROPHYLACTIC/DX INJECTION SUBQ/IM 02/09/20 21 12:00:00 AM EDT [facility] ([facility] ) THERAPEUTIC PROPHYLACTIC/DX INJECTION SUBQ/IM 01/26/20 21 12:00:00 AM EDT [facility] ([facility] ) THERAPEUTIC PROPHYLACTIC/DX INJECTION SUBQ/IM 01/16/20 21 12:00:00 AM EDT [facility] ([facility] ) THERAPEUTIC PROPHYLACTIC/DX INJECTION SUBQ/IM 01/06/20 21 12:00:00 AM EDT [facility] ([facility]) Extended Individual Psychotherapy - 45 min 12/29/2020 12:00:00 AM EDT - 12/29/2020 12:00:00 AM EDT [facility] ([facility]) Extended Individual Psychotherapy - 45 min 12:00:00 AM EDT [facility] ([facility]) OFFICE OUTPATIENT VISIT 15 MINUTES 12/28 12:00:00 AM EDT - 12/28/2020 12:00:00 AM EDT [facility] ([facility]) OFFICE OUTPATIENT VISIT 15 MINUTES 12/28/2020 12:00:00 AM EDT [facility] ([facility]) THERAPEUTIC PROPHYLACTIC/DX INJECTION SUBQ/IM 12/26/19 21 12:00:00 AM EDT [facility] ([facility] ) THERAPEUTIC PROPHYLACTIC/DX INJECTION SUBQ/IM 12/14/19 21 12:00:00 AM EDT [facility] ([facility]) OFFICE OUTPATIENT VISIT 25 MINUTES 12/13/2020 12:00:00 AM EDT [facility] ([facility]) OFFICE OUTPATIENT VISIT 15 MINUTES 12/13/2020 12:00:00 AM EDT [facility] ([facility]) Extended Individual Psychotherapy - 45 min 12/12/2020 12:00:00 AM EDT - 12/12/2020 12:00:00 AM EDT [facility] ([facility]) Extended Individual Psychotherapy - 45 min 12:00:00 AM EDT [facility] ([facility]) THERAPEUTIC PROPHYLACTIC/DX INJECTION SUBQ/IM 11/21/19 12:00:00 AM EDT [facility] ([facility]) THERAPEUTIC PROPHYLACTIC/DX INJECTION SUBQ/IM 11/11/19 12:00:00 AM EDT [facility] ([facility]) Extended Individual Psychotherapy - 45 min 11/10/2020 12:00:00 AM EDT - 11/10/2020 12:00:00 AM EDT [facility] ([facility]) Extended Individual Psychotherapy - 45 min 12:00:00 AM EDT [facility] ([facility]) THERAPEUTIC PROPHYLACTIC/DX INJECTION SUBQ/IM 11/01/19 12:00:00 AM EDT [facility] ([facility]) Extended Individual Psychotherapy - 45 min 10/26/2020 12:00:00 AM EDT - 10/26/2020 12:00:00 AM EDT [facility] ([facility]) Extended Individual Psychotherapy - 45 min 12:00:00 AM EDT [facility] ([facility]) Extended Individual Psychotherapy - 45 min 10/20/2020 12:00:00 AM EDT - 10/20/2020 12:00:00 AM EDT [facility] ([facility]) Extended Individual Psychotherapy - 45 min 12:00:00 AM EDT [facility] ([facility]) THERAPEUTIC PROPHYLACTIC/DX INJECTION SUBQ/IM 10/17/19 12:00:00 AM EDT [facility] ([facility] ) THERAPEUTIC PROPHYLACTIC/DX INJECTION SUBQ/IM 10/06/19 21 12:00:00 AM EDT [facility] ([facility] ) THERAPEUTIC PROPHYLACTIC/DX INJECTION SUBQ/IM 09/26/19 21 12:00:00 AM EDT [facility] ([facility] ) Extended Individual Psychotherapy - 45 min 09/21/2020 12:00:00 AM EDT - 09/21/2020 12:00:00 AM EDT [facility] ([facility]) Extended Individual Psychotherapy - 45 min 12:00:00 AM EDT [facility] ([facility]) THERAPEUTIC PROPHYLACTIC/DX INJECTION SUBQ/IM 09/15/19 21 12:00:00 AM EDT [facility] ([facility]) Extended Individual Psychotherapy - 45 min 09/06/2020 12:00:00 AM EST - 09/06/2020 12:00:00 AM EST [facility] ([facility]) Extended Individual Psychotherapy - 45 min 12:00:00 AM EST [facility] ([facility]) THERAPEUTIC PROPHYLACTIC/DX INJECTION SUBQ/IM 09/05/19 21 12:00:00 AM EST [facility] ([facility] ) THERAPEUTIC PROPHYLACTIC/DX INJECTION SUBQ/IM 08/25/19 21 12:00:00 AM EST [facility] ([facility] ) THERAPEUTIC PROPHYLACTIC/DX INJECTION SUBQ/IM 08/16/19 21 12:00:00 AM EST [facility] ([facility] ) THERAPEUTIC PROPHYLACTIC/DX INJECTION SUBQ/IM 08/03/19 21 12:00:00 AM EST [facility] ([facility] ) THERAPEUTIC PROPHYLACTIC/DX INJECTION SUBQ/IM 07/24/19 21 12:00:00 AM EST [facility] ([facility]) THERAPEUTIC PROPHYLACTIC/DX INJECTION SUBQ/IM 07/13/19 21 12:00:00 AM EST [facility] ([facility] ) THERAPEUTIC PROPHYLACTIC/DX INJECTION SUBQ/IM 07/03/19 21 12:00:00 AM EST [facility] ([facility] ) THERAPEUTIC PROPHYLACTIC/DX INJECTION SUBQ/IM 06/21/20 20 12:00:00 AM EST [facility] ([facility]) Extended Individual Psychotherapy - 45 min 06/20/2020 12:00:00 AM EST - 06/20/2020 12:00:00 AM EST [facility] ([facility]) Extended Individual Psychotherapy - 45 min 0 12:00:00 AM EST [facility] ([facility]) OFFICE OUTPATIENT VISIT 15 MINUTES 06/15 12:00:00 AM EST - 06/15/2020 12:00:00 AM EST [facility] ([facility]) OFFICE OUTPATIENT VISIT 15 MINUTES 06/15/2020 12:00:00 AM EST [facility] ([facility]) THERAPEUTIC PROPHYLACTIC/DX INJECTION SUBQ/IM 06/12/20 20 12:00:00 AM EST [facility] ([facility] ) TEMPMHCTelemed 30" Psychotherapy 020 12:00:00 AM EST - 06/05/2020 12:00:00 AM EST [facility] ([facility]) TEMPMHCTelemed 30" Psychotherapy 06/05/2020 12:00:00 A M EST [facility] ([facility]) THERAPEUTIC PROPHYLACTIC/DX INJECTION SUBQ/IM 05/31/20 20 12:00:00 AM EST [facility] ([facility] ) OFFICE OUTPATIENT VISIT 15 MINUTES 05/11 12:00:00 AM EST - 05/11/2020 12:00:00 AM EST [facility] ([facility]) Psychotherapy ADD ON - 30 Minutes 05/11/2020 12:00:00 AM EST [facility] ([facility]) OFFICE OUTPATIENT VISIT 15 MINUTES 05/11/2020 12:00:00 AM EST [facility] ([facility]) THERAPEUTIC PROPHYLACTIC/DX INJECTION SUBQ/IM 05/09/20 20 12:00:00 AM EST [facility] ([facility]) THERAPEUTIC PROPHYLACTIC/DX INJECTION SUBQ/IM 04/18/20 20 12:00:00 AM EDT [facility] ([facility]) MHC Telemed E/M Lvl 3--Est pt 04/06/2020 12:00:00 AM EDT - 04/06/2020 12:00:00 AM EDT [facility] ([facility]) Telemed A/O 30" 04/06/2020 12:00:00 AM EDT [facility] ([facility]) MHC Telemed E/M Lvl 3--Est pt 04/06/2020 12:00:00 AM E DT [facility] ([facility]) THERAPEUTIC PROPHYLACTIC/DX INJECTION SUBQ/IM 04/03/20 20 12:00:00 AM EDT [facility] ([facility] ) TEMPMHCTelemed 30" Psychotherapy 020 12:00:00 AM EDT - 03/24/2020 12:00:00 AM EDT [facility] ([facility]) TEMPMHCTelemed 30" Psychotherapy 03/24/2020 12:00:00 A M EDT [facility] ([facility]) THERAPEUTIC PROPHYLACTIC/DX INJECTION SUBQ/IM 03/23/20 20 12:00:00 AM EDT [facility] ([facility] ) THERAPEUTIC PROPHYLACTIC/DX INJECTION SUBQ/IM 03/13/20 20 12:00:00 AM EDT [facility] ([facility] ) MHC Telemed E/M Lvl 3--Est pt 03/09/2020 12:00:00 AM EDT - 03/09/2020 12:00:00 AM EDT [facility] ([facility]) Telemed A/O 30" 03/09/2020 12:00:00 AM EDT [facility] ([facility]) MHC Telemed E/M Lvl 3--Est pt 03/09/2020 12:00:00 AM E DT [facility] ([facility]) THERAPEUTIC PROPHYLACTIC/DX INJECTION SUBQ/IM 03/02/20 20 12:00:00 AM EDT [facility] ([facility] ) Extended Individual Psychotherapy - 45 min 03/01/2020 12:00:00 AM EDT - 03/01/2020 12:00:00 AM EDT [facility] ([facility]) Extended Individual Psychotherapy - 45 min 0 12:00:00 AM EDT [facility] ([facility]) THERAPEUTIC PROPHYLACTIC/DX INJECTION SUBQ/IM 08/24/20 20 12:00:00 AM EDT [facility] ([facility]) Results ID Date Data Source [id number] 11/24/2020 07:29:00 AM EDT [facility] ([facility]) Name Value Range Interpretation Code Description Data Hoda rce(s) Supporting Document(s) Testosterone [Mass/volume] in Serum or Plasma 777 ng/dL [phone] [facility] ([facility]) NORMAL RANGES ARE FOR ADULT FEMALES (OVE R 15 YRS) AND MALES (OVER 19 YRS). FOR PEDIATRIC RANGES PLE ASE CONSULT LITERATURE. ID Date Data Source [id number] 11/24/2020 07:29:00 AM EDT [facility] ([facility]) Name Value Range Interpretation Code Description Data Hoda rce(s) Supporting Document(s) Hemoglobin 17.0 g/dL 13.5-17.5 [facility] ([facility]) Hematocrit 50.7 % 42.0-52.0 [facility] ([facility]) ID Date Data Source [id number] 05/15/2020 07:32:00 AM EST [facility] ([facility]) Name Value Range Interpretation Code Description Data Hoda rce(s) Supporting Document(s) Prostate specific Ag [Mass/volume] in Serum or Plasma 0.70 ng/mL [facility] ([facility]) The PSA assay is performed on the [employer] analyzer by [employer] sandwich chemiluminescent immunoassay and should not be compared interchangeably with other methods. It should not be used alone as a screening test or diagnosis for the presence or absence of malignant disease. Predictions of disease recurrence should not be based solely on values obtained from serial patient serum values. ID Date Data Source [id number] 05/15/2020 07:32:00 AM EST [facility] ([facility]) Name Value Range Interpretation Code Description Data Hoda rce(s) Supporting Document(s) Hemoglobin 15.3 g/dL 13.5-17.5 [facility] ([facility]) Hematocrit 46.2 % 42.0-52.0 [facility] ([facility]) ID Date Data Source [id number] 05/15/2020 07:32:00 AM EST [facility] ([facility]) Name Value Range Interpretation Code Description Data Hoda rce(s) Supporting Document(s) Testosterone [Mass/volume] in Serum or Plasma 626 ng/dL [phone] [facility] ([facility] ) NORMAL RANGES ARE FOR ADULT FEMALES (OVE R 15 YRS) AND MALES (OVER 19 YRS). FOR PEDIATRIC RANGES PLE ASE CONSULT LITERATURE. Procedure Social History Code Duration Value Status Description Data Source(s ) Smoking 12/29/2020 12:00:00 AM EDT Unknown if ever smoked comp leted Unknown if ever smoked [facility] ([facility] Smoking 12/28/2020 12:00:00 AM EDT Unknown if ever smoked comp leted Unknown if ever smoked [facility] ([facility]) Smoking 12/13/2020 12:00:00 AM EDT Patient is a former smoker completed Patient is a former smoker [facility] ([facility]) Smoking 12/12/2020 12:00:00 AM EDT Unknown if ever smoked comp leted Unknown if ever smoked [facility] ([facility]) Smoking 11/10/2020 12:00:00 AM EDT Unknown if ever smoked comp leted Unknown if ever smoked [facility] ([facility]) Smoking 10/26/2020 12:00:00 AM EDT Unknown if ever smoked comp leted Unknown if ever smoked [facility] ([facility]) Smoking 10/20/2020 12:00:00 AM EDT Unknown if ever smoked comp leted Unknown if ever smoked [facility] ([facility]) Smoking 09/21/2020 12:00:00 AM EDT Unknown if ever smoked comp leted Unknown if ever smoked [facility] ([facility]) Smoking 09/11/2020 12:00:00 AM EDT Former Smoker completed Former Smoker eCW1 ([facility]) Smoking 09/11/2020 12:00:00 AM EDT Former Smoker completed Former Smoker eCW1 ([facility]) Smoking 09/11/2020 12:00:00 AM EDT Former Smoker completed Former Smoker eCW1 ([facility]) Smoking 09/11/2020 12:00:00 AM EDT Former Smoker completed Former Smoker eCW1 ([facility]) Smoking 09/11/2020 12:00:00 AM EDT Former Smoker completed Former Smoker eCW1 ([facility]) Smoking 09/11/2020 12:00:00 AM EDT Former Smoker completed Former Smoker eCW1 ([facility]) Smoking 09/11/2020 12:00:00 AM EDT Former Smoker completed Former Smoker eCW1 ([facility]) Smoking 09/11/2020 12:00:00 AM EDT Former Smoker completed Former Smoker eCW1 ([facility]) Smoking 09/11/2020 12:00:00 AM EDT Former Smoker completed Former Smoker eCW1 ([facility]) Smoking 09/11/2020 12:00:00 AM EDT Former Smoker completed Former Smoker eCW1 ([facility]) Smoking 09/06/2020 12:00:00 AM EST Unknown if ever smoked comp leted Unknown if ever smoked [facility] ([facility]) Smoking 08/24/2020 12:00:00 AM EST Former Smoker completed Former Smoker eCW1 ([facility]) Smoking 08/24/2020 12:00:00 AM EST Former Smoker completed Former Smoker eCW1 ([facility]) Smoking 07/27/2020 12:00:00 AM EST Former Smoker completed Former Smoker eCW1 ([facility]) Smoking 07/27/2020 12:00:00 AM EST Former Smoker completed Former Smoker eCW1 ([facility]) Smoking 07/27/2020 12:00:00 AM EST Former Smoker completed Former Smoker eCW1 ([facility]) Smoking 06/20/2020 12:00:00 AM EST Unknown if ever smoked comp leted Unknown if ever smoked [facility] ([facility]) Smoking 06/15/2020 12:00:00 AM EST Unknown if ever smoked comp leted Unknown if ever smoked [facility] ([facility]) Smoking 06/12/2020 12:00:00 AM EST Former Smoker completed Former Smoker eCW1 ([facility]) Smoking 06/12/2020 12:00:00 AM EST Former Smoker completed Former Smoker eCW1 ([facility]) Smoking 06/05/2020 12:00:00 AM EST Unknown if ever smoked comp leted Unknown if ever smoked [facility] ([facility]) Smoking 05/11/2020 12:00:00 AM EST Unknown if ever smoked comp leted Unknown if ever smoked [facility] ([facility]) Smoking 04/13/2020 12:00:00 AM EDT Former Smoker completed Former Smoker eCW1 ([facility]) Smoking 04/06/2020 12:00:00 AM EDT Unknown if ever smoked comp leted Unknown if ever smoked [facility] ([facility]) Smoking 03/24/2020 12:00:00 AM EDT Unknown if ever smoked comp leted Unknown if ever smoked [facility] ([facility]) Smoking 03/09/2020 12:00:00 AM EDT Unknown if ever smoked comp leted Unknown if ever smoked [facility] ([facility]) Smoking 03/01/2020 12:00:00 AM EDT Unknown if ever smoked comp leted Unknown if ever smoked [facility] ([facility]) Vital Signs ID Date Data Source UNK Name Value Range Interpretation Code Description Data Source(s) Oxygen saturation in Arterial blood by Pulse oximetry 93 % 93 % [facility] ([facility]) Body temperature 97.1 [degF] 97.1 [degF] [facility] Systolic blood pressure 140 mm[Hg] 140 mm[Hg] M [facility]ENT ([facility]) Diastolic blood pressure 84 mm[Hg] 84 mm[Hg] [facility] ([facility]) Heart rate 73 /min 73 /min [facility] ([facility]) Body mass index (BMI) [Ratio] 36.3 kg/m2 36.3 k g/m2 [facility] ([facility]) Body height 70.4 [in_i] 70.4 [in_i] [facility] ([facility]) 5'10.40" Body weight 256.00 [lb_av] 256.00 [lb_av] MEDEN T ([facility]) Body temperature 96.0 [degF] 96.0 [degF] [facility] ([facility]) Body height 70.4 [in_i] 70.4 [in_i] [facility] ([facility]) 5'10.40" Body weight 268.8 [lb_av] 268.8 [lb_av] eCW1 ([facility]) Body height 71 [in_i] 71 [in_i] eCW1 ([facility]) Body mass index (BMI) [Ratio] 37.49 kg/m2 37.49 kg/m2 eCW1 ([facility]) Heart rate 103 /min 103 /min eCW1 ([facility]) Respiratory rate 18 /min 18 /min eCW1 ([facility]) Body temperature 97.9 [degF] 97.9 [degF] eCW1 ( [facility]) Systolic blood pressure 146 mm[Hg] 146 mm[Hg] e CW1 ([facility]) Diastolic blood pressure 86 mm[Hg] 86 mm[Hg] eCW1 ([facility]) Body weight 259.4 [lb_av] 259.4 [lb_av] eCW1 ([facility]) Body height 71 [in_i] 71 [in_i] eCW1 ([facility]) Body mass index (BMI) [Ratio] 36.18 kg/m2 36.18 kg/m2 eCW1 ([facility]) Heart rate 98 /min 98 /min eCW1 ([facility]) Respiratory rate 18 /min 18 /min eCW1 ([facility]) Body temperature 98.4 [degF] 98.4 [degF] eCW1 ( [facility]) Systolic blood pressure 142 mm[Hg] 142 mm[Hg] e CW1 ([facility]) Diastolic blood pressure 90 mm[Hg] 90 mm[Hg] eCW1 ([facility]) Body weight 266 [lb_av] 266 [lb_av] eCW1 ([facility]) Body height 71 [in_i] 71 [in_i] eCW1 ([facility]) Body mass index (BMI) [Ratio] 37.10 kg/m2 37.10 kg/m2 eCW1 ([facility]) Heart rate 111 /min 111 /min eCW1 ([facility]) Respiratory rate 18 /min 18 /min eCW1 ([facility]) Body temperature 97.4 [degF] 97.4 [degF] eCW1 ( [facility]) Systolic blood pressure 152 mm[Hg] 152 mm[Hg] e CW1 ([facility]) Diastolic blood pressure 90 mm[Hg] 90 mm[Hg] eCW1 ([facility]) Body temperature 97.1 [degF] 97.1 [degF] [facility] ([facility]) Body height 70.4 [in_i] 70.4 [in_i] [facility] ([facility]) 5'10.40" Body weight 254 [lb_av] 254 [lb_av] eCW1 ([facility]) Body height 71 [in_i] 71 [in_i] eCW1 ([facility]) Body mass index (BMI) [Ratio] 35.42 kg/m2 35.42 kg/m2 eCW1 ([facility]) Heart rate 96 /min 96 /min eCW1 ([facility]) Respiratory rate 18 /min 18 /min eCW1 ([facility]) Body temperature 98.7 [degF] 98.7 [degF] eCW1 ( [facility]) Systolic blood pressure 142 mm[Hg] 142 mm[Hg] e CW1 ([facility]) Diastolic blood pressure 90 mm[Hg] 90 mm[Hg] eCW1 ([facility]) Body mass index (BMI) [Ratio] 35.1 kg/m2 35.1 k g/m2 [facility] ([facility]) Systolic blood pressure 140 mm[Hg] 140 mm[Hg] M EDENT ([facility]) Diastolic blood pressure 100 mm[Hg] 100 mm[Hg] [facility] ([facility]) Heart rate 100 /min 100 /min [facility] ([facility]) Body weight 247.50 [lb_av] 247.50 [lb_av] MEDEN T ([facility]) Body temperature 96.9 [degF] 96.9 [degF] [facility] ([facility]) Body height 70.4 [in_i] 70.4 [in_i] [facility] ([facility]) 5'10.40" Body height 0.00 in Normal (applies to non-numeric resu lts) 0.00 in [facility] ([facility]) Body weight Measured 0.00 lbs Normal (applies to n on-numeric results) 0.00 lbs [facility] ([facility]) Body mass index (BMI) [Ratio] 0.00 kg/m2 No rmal (applies to non-numeric results) 0.00 kg/m2 [facility] ([facility]) Systolic blood pressure 0 mm[Hg] Normal (applies t o non-numeric results) 0 mm[Hg] [facility] ([facility]) Diastolic blood pressure 0 mm[Hg] Normal (applies to non-numeric results) 0 mm[Hg] [facility] ([facility]) Body height 0.00 in Normal (applies to non-numeric resu lts) 0.00 in [facility] ([facility]) Diastolic blood pressure 0 mm[Hg] Normal (applies to non-numeric results) 0 mm[Hg] [facility] ([facility]) Body weight Measured 0.00 lbs Normal (applies to n on-numeric results) 0.00 lbs [facility]) Body mass index (BMI) [Ratio] 0.00 kg/m2 No rmal (applies to non-numeric results) 0.00 kg/m2 [facility] ([facility]) Systolic blood pressure 0 mm[Hg] Normal (applies t o non-numeric results) 0 mm[Hg] [facility] ([facility]) Body height 0.00 in Normal (applies to non-numeric resu lts) 0.00 in [facility] ([facility]) Body weight Measured 0.00 lbs Normal (applies to n on-numeric results) 0.00 lbs [facility] ([facility]) Body mass index (BMI) [Ratio] 0.00 kg/m2 No rmal (applies to non-numeric results) 0.00 kg/m2 [facility] ([facility]) Systolic blood pressure 0 mm[Hg] Normal (applies t o non-numeric results) 0 mm[Hg] [facility] ([facility]) Diastolic blood pressure 0 mm[Hg] Normal (applies to non-numeric results) 0 mm[Hg] [facility] ([facility]) Patient Treatment Plan of Care Planned Activity Planned Date Details Description Data Source (s) Nicotine 4 MG Chewing Gum [Nicorette] 09/15/2020 12:00:00 AM EDT eCW1 ([facility]) Nicotine 4 MG Chewing Gum [Nicorette] 09/15/2020 12:00:00 AM EDT eCW1 ([facility]) Nicotine 4 MG Chewing Gum [Nicorette] 09/15/2020 12:00:00 AM EDT eCW1 ([facility]) Nicotine 4 MG Chewing Gum [Nicorette] 09/15/2020 12:00:00 AM EDT eCW1 ([facility]) Nicotine 4 MG Chewing Gum [Nicorette] 09/15/2020 12:00:00 AM EDT eCW1 ([facility]) Nicotine 4 MG Chewing Gum [Nicorette] 09/15/2020 12:00:00 AM EDT eCW1 ([facility]) Nicotine 4 MG Chewing Gum [Nicorette] 09/15/2020 12:00:00 AM EDT eCW1 ([facility]) Nicotine 4 MG Chewing Gum [Nicorette] 09/15/2020 12:00:00 AM EDT eCW1 ([facility]) Nicotine 4 MG Chewing Gum [Nicorette] 09/15/2020 12:00:00 AM EDT eCW1 ([facility]) Hydrochlorothiazide 12.5 MG Oral Tablet 08/24/2020 12:00:00 AM EST eCW1 ([facility]) Hydrochlorothiazide 12.5 MG Oral Tablet 08/24/2020 12:00:00 AM EST eCW1 ([facility]) Hydrochlorothiazide 12.5 MG Oral Tablet 08/24/2020 12:00:00 AM EST eCW1 ([facility]) Hydrochlorothiazide 12.5 MG Oral Tablet 08/24/2020 12:00:00 AM EST eCW1 ([facility]) Hydrochlorothiazide 12.5 MG Oral Tablet 08/24/2020 12:00:00 AM EST eCW1 ([facility]) Amphetamine aspartate 5 MG / Amphetamine Sulfate 5 MG / Dextroamphetamine saccharate 5 MG / Dextroamphetamine Sulfate 5 MG Oral Tablet [Adderall] 08/10/2020 12:00:00 AM EST eCW1 ([facility]) Amphetamine aspartate 5 MG / Amphetamine Sulfate 5 MG / Dextroamphetamine saccharate 5 MG / Dextroamphetamine Sulfate 5 MG Oral Tablet [Adderall] 08/10/2020 12:00:00 AM EST eCW1 ([facility]) Lisinopril 30 MG Oral Tablet 07/27/2020 12:00:00 AM EST eCW1 ([facility]) Lisinopril 30 MG Oral Tablet 07/27/2020 12:00:00 AM EST eCW1 ([facility]) Lisinopril 30 MG Oral Tablet 07/27/2020 12:00:00 AM EST eCW1 ([facility]) Lisinopril 30 MG Oral Tablet 07/27/2020 12:00:00 AM EST eCW1 ([facility]) Lisinopril 20 MG Oral Tablet 07/27/2020 12:00:00 AM EST eCW1 ([facility]) Lisinopril 20 MG Oral Tablet 07/27/2020 12:00:00 AM EST eCW1 ([facility]) Lisinopril 20 MG Oral Tablet 07/27/2020 12:00:00 AM EST eCW1 ([facility]) Amphetamine aspartate 5 MG / Amphetamine Sulfate 5 MG / Dextroamphetamine saccharate 5 MG / Dextroamphetamine Sulfate 5 MG Oral Tablet [Adderall] 07/13/2020 12:00:00 AM EST eCW1 ([facility]) Amphetamine aspartate 5 MG / Amphetamine Sulfate 5 MG / Dextroamphetamine saccharate 5 MG / Dextroamphetamine Sulfate 5 MG Oral Tablet [Adderall] 06/12/2020 12:00:00 AM EST eCW1 ([facility])
--- NOTE | 2021-04-12 17:17 | REP ---
INDICATION: arf COMPARISON: Right upper quadrant ultrasound dated 09/20/2016 TECHNIQUE: Real time flores scale ultrasound examination using curved array transducer. FINDINGS: Right kidney measures 12.7 x 6.0 x 6.5 cm and includes small nonobstructing calculus in the lower pole without hydronephrosis, cystic or renal mass lesion. No perinephric fluid collection. Left kidney measures 13.5 x 4.9 x 6.4 cm without hydronephrosis, nephrolithiasis, cystic or renal mass lesion. No perinephric fluid collection. Bladder is grossly unremarkable. IMPRESSION: 1. Possible nonobstructing right renal calculus. 2. No evidence for hydronephrosis bilaterally. <Electronically signed by Fito Bullock > 04/12/21 [id number]
[2021-04-12 17:28] LABS: INR 1.24
[2021-04-12 17:29] LABS: PARTIAL THROMBOPLASTIN TIME 40.1 SECONDS (25.9-37.0)
[2021-04-12] MEDS ORDERED: ACETAMINOPHEN TAB 650MG DOSE (2X325MG) PO ONE (18:05)
[2021-04-12 18:18] LABS: APPEARANCE, URINE HAZY (CLEAR); BACTERIA, URINE AUTO NEGATIVE (NEGATIVE); BILIRUBIN, URINE AUTO NEGATIVE (NEGATIVE); BLOOD, URINE BLOOD NEGATIVE (NEGATIVE); COLOR, URINE YELLOW (YELLOW); GLUCOSE, URINE (UA) AUTO 3+ mg/dL (NEGATIVE); KETONE, URINE AUTO NEGATIVE (NEGATIVE); LEUKOCYTE ESTERASE, URINE AUTO 2+ (NEGATIVE); MUCUS, URINE SMALL (NEGATIVE); NITRITE, URINE AUTO NEGATIVE (NEGATIVE); PROTEIN, URINE AUTO NEGATIVE (NEGATIVE); RBC, URINE AUTO 2 /HPF (0-3); SPECIFIC GRAVITY URINE AUTO 1.008 (1.002-1.035); SQUAMOUS EPITHELIAL CELL UR AU 0 /HPF (0-6); UROBILINOGEN, URINE AUTO 0.2 mg/dL (0.0-2.0); WBC, URINE AUTO 33 /HPF (0-3)
[2021-04-12 18:40] LABS: CREATININE,RANDOM URINE 89.7 MG/DL
[2021-04-12] MEDS ORDERED: ACETAMINOPHEN TAB 650MG DOSE (2X325MG) PO PRN (19:00)
[2021-04-12] MEDS ORDERED: ALBUTEROL SULFATE 2.5 MG/0.5 ML INH NEB SOLN NEB PRN ×2 (19:00→20:00)
--- OUTSIDE RECORDS SUMMARY | 2021-04-12 19:04 | CCD ---
Author Author [facility] Organization [facility] Address Unknown Phone Unavailable Care Team Providers Care Sliver Lapper Name Role Phone Demond Jaquez MD Unavailable [...] Jaquez MD Unavailable Unavailable LANDON, B JORDON PLATER SUPERVISOR Unavailable Unavailable LANDON, B JORDON PLATER SUPERVISOR Unavailable Unavailable LANDON, B JORDON PLATER SUPERVISOR Unavailable Unavailable LANDON, B JORDON PLATER SUPERVISOR Unavailable Unavailable LANDON, B JORDON PLATER SUPERVISOR Unavailable Unavailable LANDON, B JORDON PLATER SUPERVISOR Unavailable Unavailable LANDON, B JORDON PLATER SUPERVISOR Unavailable Unavailable LANDON, B JORDON PLATER SUPERVISOR Unavailable Unavailable LANDON, B JORDON PLATER SUPERVISOR Unavailable Unavailable LANDON, B JORDON PLATER SUPERVISOR Unavailable Unavailable LANDON, B JORDON PLATER SUPERVISOR Unavailable Unavailable LANDON, B JORDON PLATER SUPERVISOR Unavailable Unavailable LANDON, B JORDON PLATER SUPERVISOR Unavailable Unavailable LANDON, B JORDON PLATER SUPERVISOR Unavailable Unavailable LANDON, B JORDON PLATER SUPERVISOR Unavailable Unavailable LANDON, B JORDON PLATER SUPERVISOR Unavailable Unavailable LANDON, B JORDON PLATER SUPERVISOR Unavailable Unavailable LANDON, B JORDON PLATER SUPERVISOR Unavailable Unavailable LANDON, B JORDON PLATER SUPERVISOR Unavailable Unavailable LANDON, B JORDON PLATER SUPERVISOR Unavailable Unavailable LANDON, B JORDON PLATER SUPERVISOR Unavailable Unavailable LANDON, B JORDON PLATER SUPERVISOR Unavailable Unavailable LANDON, B JORDON PLATER SUPERVISOR Unavailable Unavailable LANDON, B JORDON PLATER SUPERVISOR Unavailable Unavailable LANDON, B JORDON PLATER SUPERVISOR Unavailable Unavailable LANDON, B JORDON PLATER SUPERVISOR Unavailable Unavailable LANDON, B JORDON PLATER SUPERVISOR Unavailable Unavailable LANDON, B JORDON PLATER SUPERVISOR Unavailable Unavailable LANDON, B JORDON PLATER SUPERVISOR Unavailable Unavailable LANDON, B JORDON PLATER SUPERVISOR Unavailable Unavailable LANDON, B JORDON PLATER SUPERVISOR Unavailable Unavailable LANDON, B JORDON PLATER SUPERVISOR Unavailable Unavailable LANDON, B JORDON PLATER SUPERVISOR Unavailable Unavailable LANDON, B JORDON PLATER SUPERVISOR Unavailable Unavailable LANDON, B JORDON PLATER SUPERVISOR Unavailable Unavailable LANDON, B JORDON PLATER SUPERVISOR Unavailable Unavailable LANDON, B JORDON PLATER SUPERVISOR Unavailable Unavailable LANDON, B JORDON PLATER SUPERVISOR Unavailable Unavailable LANDON, B JORDON PLATER SUPERVISOR Unavailable Unavailable LANDON, B JORDON PLATER SUPERVISOR Unavailable Unavailable LANDON, B JORDON PLATER SUPERVISOR Unavailable Unavailable LANDON, B JORDON PLATER SUPERVISOR Unavailable Unavailable LANDON, B JORDON PLATER SUPERVISOR Unavailable Unavailable LANDON, B JORDON PLATER SUPERVISOR Unavailable Unavailable LANDON, B JORDON PLATER SUPERVISOR Unavailable Unavailable LANDON, B JORDON PLATER SUPERVISOR Unavailable Unavailable LANDON, B JORDON PLATER SUPERVISOR Unavailable Unavailable LANDON, B JORDON PLATER SUPERVISOR Unavailable Unavailable LANDON, B JORDON PLATER SUPERVISOR Unavailable Unavailable LANDON, B JORDON PLATER SUPERVISOR Unavailable Unavailable LANDON, B JORDON PLATER SUPERVISOR Unavailable Unavailable LANDON, B JORDON PLATER SUPERVISOR Unavailable Unavailable LANDON, B JORDON PLATER SUPERVISOR Unavailable Unavailable LANDON, B JORDON PLATER SUPERVISOR Unavailable Unavailable LANDON, B JORDON PLATER SUPERVISOR Unavailable Unavailable LANDON, B JORDON PLATER SUPERVISOR Unavailable Unavailable LANDON, B JORDON PLATER SUPERVISOR Unavailable Unavailable LANDON, B JORDON PLATER SUPERVISOR Unavailable Unavailable LANDON, B JORDON PLATER SUPERVISOR Unavailable Unavailable LANDON, B JORDON PLATER SUPERVISOR Unavailable Unavailable LANDON, B JORDON PLATER SUPERVISOR Unavailable Unavailable LANDON, B JORDON PLATER SUPERVISOR Unavailable Unavailable Fish, Chevy Manuel MD Unavailable [...] Mar KRUEGER Unavailable Unavailable MEDENT_991, NA Unavailable [phone] Ivory Rubi Unavailable Snyder, K Mikayla PMH-PLATER SUPERVISOR Unavailable Unavailable Snyder, K Mikayla PMH-PLATER SUPERVISOR Unavailable Unavailable Jeff, K Mikayla PMH-PLATER SUPERVISOR Unavailable Unavailable Jeff, K Mikayla PMH-PLATER SUPERVISOR Unavailable Unavailable Jeff, K Mikayla PMH-PLATER SUPERVISOR Unavailable Unavailable Jeff, K Mikayla PMH-PLATER SUPERVISOR Unavailable Unavailable Snyder, K Mikayla PMH-PLATER SUPERVISOR Unavailable Unavailable Snyder, K Mikayla PMH-PLATER SUPERVISOR Unavailable Unavailable Re-disclosure Warning The records that [...] is protected by Article 27-F of the [facility] Public Health law. If you continue you may have access to information: Regarding HIV / AIDS; Provided by facilities licensed or operated by the [facility] Office of Mental Health; or Provided by the [facility] Office for People With Developmental Disabilities. If such information is present, then the following [facility] mandated warning applies: This information has [...] law may result in a fine or skilled nursing sentence or both. A general authorization for the release of medical or other information is NOT sufficient authorization for further disc losure. Allergies and Adverse Reactions Type Description Substance Reaction Status Data Source(s ) Allergy to substance Allergy to substance Allergy to substance ELIJAH ([facility]) Allergy to substance Allergy to substance Allergy to substance ELIJAH ([facility]) Family History Family Member Name Family Member Gender Family Member Status Date o f Status Description Data Source(s) Unknown Unknown Problem MEDENT ([facility], [facility]) Encounters Encounter Providers Location Date Indications Data Source(s ) Unknown [address] [facility] [place] [address] 04/09/2021 12:00:00 AM EDT eCW1 ([facility]) Office Visit Attender: NA MEDENT_991 Physical Therapy 021 09:30:00 AM EDT MEDENT ([facility]) Office Visit Attender: NA MEDENT_991 Physical Therapy 021 09:00:00 AM EDT MEDENT ([facility]) Office Visit Attender: NA MEDENT_991 Physical Therapy 021 09:00:00 AM EDT MEDENT ([facility]) Office Visit Attender: NA MEDENT_991 Physical Therapy 021 09:00:00 AM EDT MEDENT ([facility]) Office Visit Attender: NA MEDENT_991 Physical Therapy 021 09:00:00 AM EDT MEDENT ([facility]) Office Visit Attender: NA MEDENT_991 Physical Therapy 021 09:00:00 AM EDT MEDENT ([facility]) Office Visit Attender: NA MEDENT_991 Physical Therapy 021 10:00:00 AM EDT MEDENT ([facility]) Office Visit Attender: NA MEDENT_991 Physical Therapy 021 09:00:00 AM EDT MEDENT ([facility]) Office Visit Attender: NA MEDENT_991 Physical Therapy 09:00:00 AM EDT MEDENT ([facility]) Extended Individual Psychotherapy - 45 min Attender: Conchita Rubi [facility] 12/29/2020 09:00:00 AM EDT - 12/29/2020 09:00:00 AM EDT [facility] ([facility]) Attender: Ivory Elicia 12/29/2020 12:00:0 0 AM EDT [facility] ([facility]) Outpatient Attender: Mikayla Aguilar [facility]PL[facility] SUPER[facility] 12/28/2020 08:00:00 AM EDT - 12/28/2020 08:00:00 AM EDT [facility] ([facility]) Attender: Mikayla Aguilar [facility]-PLATER SUPERVISOR 12/28/2020 12: 00:00 AM EDT [facility] ([facility]) Office Visit Attender: BRITANY THOMAS991 Physical Therapy 09:00:00 AM EDT MEDENT ([facility]) Outpatient Attender: JORDON NAVARRETE NP Physical Therapy 09:00:00 AM EDT MEDENT ([facility]) Extended Individual Psychotherapy - 45 min Attender: Conchita Rubi [facility] 12/12/2020 10:00:00 AM EDT - 12/12/2020 10:00:00 AM EDT [facility] ([facility]) Attender: Ivory Rubi 12/12/2020 12:00:0 0 AM EDT [facility] ([facility]) Unknown [address] [facility] [address] 11/23/2020 12:00:00 AM EDT eCW1 ([facility]) Office Visit Attender: BRITANY TONY_991 Physical Therapy 09:00:00 AM EDT MEDENT ([facility]) Unknown [address] [facility] [address] 11/13/2020 12:00:00 AM EDT [facility]CW1 [facility]) Office Visit Attender: BRITANY TONY_991 Physical Therapy 09:00:00 AM EDT MEDENT ([facility]) Extended Individual Psychotherapy - 45 min Attender: Conchita Rubi [facility] 11/10/2020 08:00:00 AM EDT - 11/10/2020 08:00:00 AM EDT [facility] ([facility]) Attender: Ivory Rubi 11/10/2020 12:00:0 0 AM EDT [facility] ([facility]) Office Visit Attender: BRITANY TONY_991 Physical Therapy 09:00:00 AM EDT MEDENT ([facility]) Extended Individual Psychotherapy - 45 min Att[facility]: [facility] 10/26/2020 08:00:00 AM EDT - 10/26/2020 08:00:00 AM EDT [facility] ([facility]) Attila Jaquez MD: [address] [place] [phone], Ph. Attender: Attila Jaquez MD ID - [facility] Medical 10/26/2020 12:00:00 AM EDT ELIJAH ([facility]) Attender: Ivory Rubi 10/26/2020 12:00:0 0 AM EDT [facility] ([facility]) Unknown [address] [facility] [address] 10/23/2020 12:00:00 AM EDT eCW1 ([facility]) Extended Individual Psychotherapy - 45 min Attender: Conchitapetra Rubi [facility] 10/20/2020 08:00:00 AM EDT - 10/20/2020 08:00:00 AM EDT [facility] ([facility]) Attender: Ivory Rubi 10/20/2020 12:00:0 0 AM EDT [facility] ([facility]) Office Visit Attender: BRITANY TONY_991 Physical Therapy 10:00:00 AM EDT MEDENT ([facility]) Unknown [address] [facility] [address] 10/13/2020 12:00:00 AM EDT eCW1 ([facility]) Office Visit Attender: BRITANY TONY_991 Physical Therapy 09:30:00 AM EDT MEDENT ([facility]) Attila Jaquez MD: [address] [place] [phone], Ph. Attender: Attila Jaquez MD [facility] Medical 09/26/2020 12:00:00 AM EDT ELIJAH ([facility]) Attila Jaquez MD: [address] [place] [phone], Ph. Attender: Attila Jaquez MD [facility] Medical 09/26/2020 12:00:00 AM EDT ELIJAH ([facility]) Office Visit Attender: BRITANY TONY_991 Physical Therapy 09:30:00 AM EDT MEDENT ([facility]) Extended Individual Psychotherapy - 45 min Attender: Conchita Rubi [facility] 09/21/2020 08:45:00 AM EDT - 09/21/2020 08:45:00 AM EDT [facility] ([facility]) Attender: Ivory Rubi 09/21/2020 12:00:0 0 AM EDT [facility] ([facility]) Unknown [address] [facility] [address] 09/15/2020 12:00:00 AM EDT eCW1 ([facility]) Unknown [address] [facility] [address] 09/15/2020 12:00:00 AM EDT eCW1 ([facility]) Office Visit Attender: BRITANY TONY_991 Physical Therapy 021 09:30:00 AM EDT MEDENT ([facility]) Outpatient [address] [facility] [address] 09/11/2020 12:00:00 AM EDT [facility]CW1 [facility]) Unknown [address] [facility] [address] 09/08/2020 12:00:00 AM EST [facility] Extended Individual Psychotherapy - 45 min Attender: Conchita Rubi [facility] 09/06/2020 08:00:00 AM EST - 09/06/2020 08:00:00 AM EST [facility] ([facility]) Attender: Ivory Rubi 09/06/2020 12:00:0 0 AM EST [facility] ([facility]) Office Visit Attender: BRITANY TONY_991 Physical Therapy 021 08:30:00 AM EST MEDENT ([facility]) Unknown [address] [facility] [address] 08/29/2020 12:00:00 AM EST [facility]CW1 [facility] Office Visit Attender: BRITANY THOMAS991 Physical Therapy 021 09:00:00 AM EST MEDENT ([facility]) Outpatient [address] [facility] [address] 08/24/2020 12:00:00 AM EST [facility]CW[facility] Office Visit Attender: Mar Chakrabotry MD Physical Therapy 08/16 11:15:00 AM EST MEDENT ([facility]) Unknown [address] [facility] [address] 08/14/2020 12:00:00 AM EST eCW1 ([facility]) Unknown [address] [facility] [address] 08/10/2020 12:00:00 AM EST eCW1 ([facility]) Office Visit Attender: BRITANY TONY_991 Physical Therapy 021 08:00:00 AM EST MED[facility] ([facility]) Outpatient [address] [facility] [address] 07/27/2020 12:00:00 AM EST [facility]CW1 [facility]) Office Visit Attender: BRITANY TONY_991 Physical Therapy 021 08:00:00 AM EST MEDENT ([facility]) Office Visit Attender: BRITANY TONY_991 Physical Therapy 021 08:00:00 AM EST MEDENT ([facility]) Unknown [address] [facility] [address] 07/12/2020 12:00:00 AM EST [facility]CW1 [facility]) Unknown [address] [facility] [address] 07/04/2020 12:00:00 AM EST [facility]CW1 [facility]) Office Visit Attender: BRITANY TONY_991 Physical Therapy 09:30:00 AM EST MEDENT ([facility]) Office Visit Attender: BRITANY TONY_991 Physical Therapy 08:30:00 AM EST MEDENT ([facility]) Extended Individual Psychotherapy - 45 min Attender: Conchita Rubi [facility] 06/20/2020 11:45:00 AM EST - 06/20/2020 11:45:00 AM EST [facility] ([facility]) Attender: Ivory Rubi 06/20/2020 12:00:0 0 AM EST [facility] ([facility]) Outpatient Attender: Mikayla Aguilar [facility]-PLATER SUPERVISOR [facility] 06/15/2020 10:30:00 AM EST - 06/15/2020 10:30:00 AM EST [facility] ([facility]) Attender: Mikayla LEAVITT-JOE 06/15/2020 12: 00:00 AM EST [facility] ([facility]) Office Visit Attender: BRITANY TONY_991 Physical Therapy 09:00:00 AM EST MEDENT ([facility]) Outpatient [address] [facility] [address] 06/12/2020 12:00:00 AM EST eCW1 ([facility]) TEMPMHCTelemed 30" Psychotherapy Attender: Ivory espinoza [facility] 06/05/2020 11:30:00 AM EST - 06/05/2020 11:30:00 AM EST [facility] ([facility]) Attender: Ivory Rubi 06/05/2020 12:00:0 0 AM EST [facility] ([facility]) OFFICE OUTPATIENT VISIT 15 MINUTES Attender: JORDON NAVARRETE NP Physical Therapy 05/31/2020 07:30:00 AM EST MEDENT ([facility]) Unknown [address] [facility] [address] 05/18/2020 12:00:00 AM EST eCW1 ([facility]) Outpatient Attender: Mikayla LEAVITTDOMINGUEZ [facility] 05/11/2020 10:00:00 AM EST - 05/11/2020 10:00:00 AM EST [facility] ([facility]) Attender: Mikayla TADEO 05/11/2020 12: 00:00 AM EST [facility] ([facility]) Office Visit Attender: BRITANY TONY_991 Physical Therapy 020 08:00:00 AM EST MEDENT ([facility]) Office Visit Attender: BRITANY THOMAS991 Physical Therapy 020 09:00:00 AM EDT MEDENT ([facility]) Outpatient Attender: Mikayla TADEO [facility] 04/06/2020 09:30:00 AM EDT - 04/06/2020 09:30:00 AM EDT [facility] ([facility]) Attender: Mikayla TADEO 04/06/2020 12: 00:00 AM EDT [facility] ([facility]) Office Visit Attender: BRITANY THOMAS991 Physical Therapy 10:00:00 AM EDT MEDENT ([facility]) TEMPMHCTelemed 30" Psychotherapy Attender: Ivory espinoza [facility] 03/24/2020 08:00:00 AM EDT - 03/24/2020 08:00:00 AM EDT [facility] ([facility]) Attender: Ivory Rubi 03/24/2020 12:00:0 0 AM EDT [facility] ([facility]) Office Visit Attender: BRITANY THOMAS991 Physical Therapy 10:00:00 AM EDT MEDENT ([facility]) Office Visit Attender: BRITANY SRINIVASAN1 Physical Therapy 09:00:00 AM EDT MEDENT ([facility]) Outpatient Attender: Mikayla Aguilar [facility]-PLATER SUPERVISOR [facility] 03/09/2020 09:00:00 AM EDT - 03/09/2020 09:00:00 AM EDT [facility] ([facility]) Attender: Mikayla LEAVITT-JOE 03/09/2020 12: 00:00 AM EDT [facility] ([facility]) Office Visit Attender: BRITANY THOMAS991 Physical Therapy 09:30:00 AM EDT MEDENT ([facility]) Attender: Ivory Rubi 03/01/2020 12:00:0 0 AM EDT [facility] ([facility]) Attender: Ivory Rubi [facility] 02/29/2020 10:00:00 AM EDT - 02/29/2020 10:00:00 AM EDT [facility] ([facility]) Extended Individual Psychotherapy - 45 min Attender: Conchita Rubi [facility] 02/29/2020 10:00:00 AM EDT - 02/29/2020 10:00:00 AM EDT [facility] ([facility]) Office Visit Attender: BRITANY TONY_991 Physical Therapy 08/24/2 020 09:30:00 AM [facility] Functional Status Immunizations Vaccine Date Status Description Data Source(s) COVID-19, mRNA, LNP-S, PF, 100 mcg/0.5 mL dose 10/26/2020 11 :21:03 AM EDT completed 10.5 mL ELIJAH ([facility]) COVID-19 VACCINE Moderna 10/26/2020 12:00:00 AM EDT completed [place]SIIS Vaccine Series Complete: YESThis Data wa s Submitted to [facility] Via [employer]. COVID-19, mRNA, LNP-S, PF, 100 mcg/0.5 mL dose 09/26/2020 09 :54:18 AM EDT completed 10.5 mL ELIJAH ([facility]) COVID-19, mRNA, LNP-S, PF, 100 mcg/0.5 mL dose 09/26/2020 09 :54:18 AM EDT completed .5 mL ELIJAH ([facility]) COVID-19 VACCINE Moderna 09/26/2020 12:00:00 AM EDT completed [facility]IS Vaccine Series Complete: NOThis Data was Submitted to [facility] Via [employer]. Medications Medication Brand Name Start Date Product [...] 15 mg by mouth completed <td ID="Medica tionRxNorm_5">080496</td><td ID="MedicationMedication_5">olanzapine</td><td ID="MedicationRoute_5">by mouth</td><td ID="MedicationRouteConcept_5">W49754</td><td ID="MedicationStartDate_5">12/25/2020</td><td ID="MedicationStopDate_5">02/23/2021</td><td ID="MedicationDosageFrequency_5">every night</td><td ID="MedicationDuration_5">30</td><td ID="MedicationFormulaStrength_5">15 mg</td><td ID="MedicationDosageForm_5">tablet</td><td ID="MedicationDosageFormCode_5"></td><td ID="MedicationDosageDescription_5"></td><td ID="MedicationMedicationId_5">[id number]</td><td ID="MedicationAccount_5">[id number]</td><td ID="MedicationNpid_5">[id number]</td><td ID="MedicationAuthorFirstName_5">Mikayla</td><td ID="MedicationAuthorLastName_5">Jeff</td><td ID="MedicationTaxonomyCode_5">[id number]</td><td ID="MedicationTaxonomyDesc_5">Psychiatric/Mental Health</td><td ID="MedicationPhoneNumber_5">[phone]</td> [facility] ([facility]) 200 mg/mL 11/11/2020 12:00:00 AM EDT oil 3 INJECT 0.7ML INTRAMUSCULARLY EVERY 10 DAYS MAXIMUM DAILY DOSE = 0.7ML EVERY 10 DAYS INJECT 0.7ML INTRAMUSCULARLY EVERY 10 DAYS MAXIMUM DAILY DOSE = 0.7ML EVERY 10 DAYS SOLD: 11/21/2020 [facility] lamotrigine 25 MG Oral Tablet lamotrigine 11/02/2020 12:00:00 AM EDT 25 mg by mouth completed <td ID="Medica tionRxNorm_4">921424</td><td ID="MedicationMedication_4">lamotrigine</td><td ID="MedicationRoute_4">by mouth</td><td ID="MedicationRouteConcept_4">A08537</td><td ID="MedicationStartDate_4">11/02/2020</td><td ID="MedicationStopDate_4"></td><td ID="MedicationDosageFrequency_4">as directed</td><td ID="MedicationDuration_4"></td><td ID="MedicationFormulaStrength_4">25 mg</td><td ID="MedicationDosageForm_4">tablet</td><td ID="MedicationDosageFormCode_4"></td><td ID="MedicationDosageDescription_4"></td><td ID="MedicationMedicationId_4">[id number]</td><td ID="MedicationAccount_4">[id number]</td><td ID="MedicationNpid_4">[id number]</td><td ID="MedicationAuthorFirstName_4">Mikayla</td><td ID="MedicationAuthorLastName_4">Jeff</td><td ID="MedicationTaxonomyCode_4">[id number]</td><td ID="MedicationTaxonomyDesc_4">Psychiatric/Mental Health</td><td ID="MedicationPhoneNumber_4">[phone]</td> [facility] ([facility]) lamotrigine 25 MG Oral Tablet lamotrigine 11/02/2020 12:00:00 AM EDT 25 mg by mouth completed <td ID="Medica tionRxNorm_3">567971</td><td ID="MedicationMedication_3">lamotrigine</td><td ID="MedicationRoute_3">by mouth</td><td ID="MedicationRouteConcept_3">J09251</td><td ID="MedicationStartDate_3">11/02/2020</td><td ID="MedicationStopDate_3"></td><td ID="MedicationDosageFrequency_3">as directed</td><td ID="MedicationDuration_3"></td><td ID="MedicationFormulaStrength_3">25 mg</td><td ID="MedicationDosageForm_3">tablet</td><td ID="MedicationDosageFormCode_3"></td><td ID="MedicationDosageDescription_3"></td><td ID="MedicationMedicationId_3">[id number]</td><td ID="MedicationAccount_3">[id number]</td><td ID="MedicationNpid_3">[id number]</td><td ID="MedicationAuthorFirstName_3">Mikayla</td><td ID="MedicationAuthorLastName_3">Snyder</td><td ID="MedicationTaxonomyCode_3">[id number]</td><td ID="MedicationTaxonomyDesc_3">Psychiatric/Mental Health</td><td ID="MedicationPhoneNumber_3">[phone]</td> [facility] ([facility]) lamotrigine 25 MG Oral Tablet lamotrigine 11/02/2020 12:00:00 AM EDT 25 mg by mouth completed <td ID="Medica tionRxNorm_1">956217</td><td ID="MedicationMedication_1">lamotrigine</td><td ID="MedicationRoute_1">by mouth</td><td ID="MedicationRouteConcept_1">T96577</td><td ID="MedicationStartDate_1">11/02/2020</td><td ID="MedicationStopDate_1">01/21/2021</td><td ID="MedicationDosageFrequency_1">once a day</td><td ID="MedicationDuration_1">30</td><td ID="MedicationFormulaStrength_1">25 mg</td><td ID="MedicationDosageForm_1">tablet</td><td ID="MedicationDosageFormCode_1"></td><td ID="MedicationDosageDescription_1">as directed</td><td ID="MedicationMedicationId_1">[id number]</td><td ID="MedicationAccount_1">[id number]</td><td ID="MedicationNpid_1">[id number]</td><td ID="MedicationAuthorFirstName_1">Oscar</td><td ID="MedicationAuthorLastName_1">Delcid</td><td ID="MedicationTaxonomyCode_1">[id number]</td><td ID="MedicationTaxonomyDesc_1">Nurse Practitioner</td><td ID="MedicationPhoneNumber_1">[phone]</td> [facility] 3 mL 22 x 1 1/2" [...] 15 mg by mouth completed <td ID="Medica tionRxNorm_4">893109</td><td ID="MedicationMedication_4">olanzapine</td><td ID="MedicationRoute_4">by mouth</td><td ID="MedicationRouteConcept_4">W81027</td><td ID="MedicationStartDate_4">09/28/2020</td><td ID="MedicationStopDate_4">11/27/2020</td><td ID="MedicationDosageFrequency_4">every night</td><td ID="MedicationDuration_4">30</td><td ID="MedicationFormulaStrength_4">15 mg</td><td ID="MedicationDosageForm_4">tablet</td><td ID="MedicationDosageFormCode_4"></td><td ID="MedicationDosageDescription_4"></td><td ID="MedicationMedicationId_4">[id number]</td><td ID="MedicationAccount_4">[id number]</td><td ID="MedicationNpid_4">[id number]</td><td ID="MedicationAuthorFirstName_4">Mikayla</td><td ID="MedicationAuthorLastName_4">Jeff</td><td ID="MedicationTaxonomyCode_4">[id number]</td><td ID="MedicationTaxonomyDesc_4">Psychiatric/Mental Health</td><td ID="MedicationPhoneNumber_4">[phone]</td> [facility] ([facility]) olanzapine 10 MG Oral Tablet olanzapine 09/28/2020 12:00:00 AM EDT 10 mg by mouth completed <td ID="Medica tionRxNorm_1">513819</td><td ID="MedicationMedication_1">olanzapine</td><td ID="MedicationRoute_1">by mouth</td><td ID="MedicationRouteConcept_1">R70320</td><td ID="MedicationStartDate_1">09/28/2020</td><td ID="MedicationStopDate_1">02/06/2021</td><td ID="MedicationDosageFrequency_1">every night</td><td ID="MedicationDuration_1">30</td><td ID="MedicationFormulaStrength_1">10 mg</td><td ID="MedicationDosageForm_1">tablet</td><td ID="MedicationDosageFormCode_1"></td><td ID="MedicationDosageDescription_1"></td><td ID="MedicationMedicationId_1">[id number]</td><td ID="MedicationAccount_1">[id number]</td><td ID="MedicationNpid_1">[id number]</td><td ID="MedicationAuthorFirstName_1">Oscar</td><td ID="MedicationAuthorLastName_1">Delcid</td><td ID="MedicationTaxonomyCode_1">[id number]</td><td ID="MedicationTaxonomyDesc_1">Nurse Practitioner</td><td ID="MedicationPhoneNumber_1">[phone]</td> [facility] ([facility]) Nicotine 4 MG Chewing Gum [Nicorette] Nicorette Starte r Kit 4 MG Nicorette Starter Kit 4 MG 09/15/2020 12:00:00 AM EDT a ctive Nicorette Starter Kit 4 MG eCW1 ([facility]) Nicotine 4 MG Chewing Gum [Nicorette] Nicorette Starte r Kit 4 MG Nicorette Starter Kit 4 MG 09/15/2020 12:00:00 AM EDT a ctive Nicorette Starter Kit 4 MG eCW1 ([facility]) Nicotine 4 MG Chewing Gum [Nicorette] Nicorette Starte r Kit 4 MG Nicorette Starter Kit 4 MG 09/15/2020 12:00:00 AM EDT a ctive Nicorette Starter Kit 4 MG eCW1 ([facility]) Nicotine 4 MG Chewing Gum [Nicorette] Nicorette Starte r Kit 4 MG Nicorette Starter Kit 4 MG 09/15/2020 12:00:00 AM EDT a ctive Nicorette Starter Kit 4 MG eCW1 ([facility]) Nicotine 4 MG Chewing Gum [Nicorette] Nicorette Starte r Kit 4 MG Nicorette Starter Kit 4 MG 09/15/2020 12:00:00 AM EDT a ctive Nicorette Starter Kit 4 MG eCW1 ([facility]) Nicotine 4 MG Chewing Gum [Nicorette] Nicorette Starte r Kit 4 MG Nicorette Starter Kit 4 MG 09/15/2020 12:00:00 AM EDT a ctive Nicorette Starter Kit 4 MG eCW1 ([facility]) Nicotine 4 MG Chewing Gum [Nicorette] Nicorette Starte r Kit 4 MG Nicorette Starter Kit 4 MG 09/15/2020 12:00:00 AM EDT a ctive Nicorette Starter Kit 4 MG eCW1 ([facility]) Nicotine 4 MG Chewing Gum [Nicorette] Nicorette Starte r Kit 4 MG Nicorette Starter Kit 4 MG 09/15/2020 12:00:00 AM EDT a ctive Nicorette Starter Kit 4 MG eCW1 ([facility]) Nicotine 4 MG Chewing Gum [Nicorette] Nicorette Starte r Kit 4 MG Nicorette Starter Kit 4 MG 09/15/2020 12:00:00 AM EDT a ctive Nicorette Starter Kit 4 MG eCW1 ([facility]) Hydroxyzine Hydrochloride 50 MG Oral Tablet hydroxyzine HCl 09/06/2020 12:00:00 AM EST 50 mg completed <td ID ="MedicationRxNorm_2">[id number]</td><td ID="MedicationMedication_2">hydroxyzine HCl</td><td ID="MedicationRoute_2"></td><td ID="MedicationRouteConcept_2"></td><td ID="MedicationStartDate_2">09/06/2020</td><td ID="MedicationStopDate_2"></td><td ID="MedicationDosageFrequency_2"></td><td ID="MedicationDuration_2"></td><td ID="MedicationFormulaStrength_2">50 mg</td><td ID="MedicationDosageForm_2">tablet</td><td ID="MedicationDosageFormCode_2"></td><td ID="MedicationDosageDescription_2"></td><td ID="MedicationMedicationId_2">[id number]</td><td ID="MedicationAccount_2">[id number]</td><td ID="MedicationNpid_2">[id number]</td><td ID="MedicationAuthorFirstName_2">Mikayla</td><td ID="MedicationAuthorLastName_2">Snyder</td><td ID="MedicationTaxonomyCode_2">[id number]</td><td ID="MedicationTaxonomyDesc_2">Psychiatric/Mental Health</td><td ID="MedicationPhoneNumber_2">[phone]</td> [facility] ([facility]) Hydroxyzine Hydrochloride 50 MG Oral Tablet hydroxyzine HCl 09/06/2020 12:00:00 AM EST 50 mg completed <td ID ="MedicationRxNorm_3">038270</td><td ID="MedicationMedication_3">hydroxyzine HCl</td><td ID="MedicationRoute_3"></td><td ID="MedicationRouteConcept_3"></td><td ID="MedicationStartDate_3">09/06/2020</td><td ID="MedicationStopDate_3"></td><td ID="MedicationDosageFrequency_3"></td><td ID="MedicationDuration_3"></td><td ID="MedicationFormulaStrength_3">50 mg</td><td ID="MedicationDosageForm_3">tablet</td><td ID="MedicationDosageFormCode_3"></td><td ID="MedicationDosageDescription_3"></td><td ID="MedicationMedicationId_3">[id number]</td><td ID="MedicationAccount_3">[id number]</td><td ID="MedicationNpid_3">[id number]</td><td ID="MedicationAuthorFirstName_3">Mikayla</td><td ID="MedicationAuthorLastName_3">Snyder</td><td ID="MedicationTaxonomyCode_3">[id number]</td><td ID="MedicationTaxonomyDesc_3">Psychiatric/Mental Health</td><td ID="MedicationPhoneNumber_3">[phone]</td> [facility] ([facility]) gabapentin 300 MG Oral Capsule gabapentin 09/06/2020 12:00:00 AM EST 300 mg by mouth completed <td ID="Medica tionRxNorm_4">415518</td><td ID="MedicationMedication_4">gabapentin</td><td ID="MedicationRoute_4">by mouth</td><td ID="MedicationRouteConcept_4">G75984</td><td ID="MedicationStartDate_4">09/06/2020</td><td ID="MedicationStopDate_4">02/23/2021</td><td ID="MedicationDosageFrequency_4">twice a day</td><td ID="MedicationDuration_4">30</td><td ID="MedicationFormulaStrength_4">300 mg</td><td ID="MedicationDosageForm_4">capsule</td><td ID="MedicationDosageFormCode_4"></td><td ID="MedicationDosageDescription_4"></td><td ID="MedicationMedicationId_4">[id number]</td><td ID="MedicationAccount_4">[id number]</td><td ID="MedicationNpid_4">[id number]</td><td ID="MedicationAuthorFirstName_4">Mikayla</td><td ID="MedicationAuthorLastName_4">Snyder</td><td ID="MedicationTaxonomyCode_4">[id number]</td><td ID="MedicationTaxonomyDesc_4">Psychiatric/Mental Health</td><td ID="MedicationPhoneNumber_4">[phone]</td> [facility] ([facility]) gabapentin 300 MG Oral Capsule gabapentin 09/06/2020 12:00:00 AM EST 300 mg by mouth completed <td ID="Medica tionRxNorm_3">217860</td><td ID="MedicationMedication_3">gabapentin</td><td ID="MedicationRoute_3">by mouth</td><td ID="MedicationRouteConcept_3">L40401</td><td ID="MedicationStartDate_3">09/06/2020</td><td ID="MedicationStopDate_3">11/05/2020</td><td ID="MedicationDosageFrequency_3">twice a day</td><td ID="MedicationDuration_3">30</td><td ID="MedicationFormulaStrength_3">300 mg</td><td ID="MedicationDosageForm_3">capsule</td><td ID="MedicationDosageFormCode_3"></td><td ID="MedicationDosageDescription_3"></td><td ID="MedicationMedicationId_3">[id number]</td><td ID="MedicationAccount_3">[id number]</td><td ID="MedicationNpid_3">[id number]</td><td ID="MedicationAuthorFirstName_3">Mikayla</td><td ID="MedicationAuthorLastName_3">Snyder</td><td ID="MedicationTaxonomyCode_3">[id number]</td><td ID="MedicationTaxonomyDesc_3">Psychiatric/Mental Health</td><td ID="MedicationPhoneNumber_3">[phone]</td> [facility] ([facility]) gabapentin 300 MG Oral Capsule gabapentin 09/06/2020 12:00:00 AM EST 300 mg by mouth completed <td ID="Medica tionRxNorm_6">569537</td><td ID="MedicationMedication_6">gabapentin</td><td ID="MedicationRoute_6">by mouth</td><td ID="MedicationRouteConcept_6">M34758</td><td ID="MedicationStartDate_6">09/06/2020</td><td ID="MedicationStopDate_6">11/05/2020</td><td ID="MedicationDosageFrequency_6">twice a day</td><td ID="MedicationDuration_6">30</td><td ID="MedicationFormulaStrength_6">300 mg</td><td ID="MedicationDosageForm_6">capsule</td><td ID="MedicationDosageFormCode_6"></td><td ID="MedicationDosageDescription_6"></td><td ID="MedicationMedicationId_6">[id number]</td><td ID="MedicationAccount_6">[id number]</td><td ID="MedicationNpid_6">[id number]</td><td ID="MedicationAuthorFirstName_6">Mikayla</td><td ID="MedicationAuthorLastName_6">Jeff</td><td ID="MedicationTaxonomyCode_6">[id number]</td><td ID="MedicationTaxonomyDesc_6">Psychiatric/Mental Health</td><td ID="MedicationPhoneNumber_6">[phone]</td> [facility] ([facility]) gabapentin 300 MG Oral Capsule gabapentin 09/06/2020 12:00:00 AM EST 300 mg by mouth completed <td ID="Medica tionRxNorm_5">928605</td><td ID="MedicationMedication_5">gabapentin</td><td ID="MedicationRoute_5">by mouth</td><td ID="MedicationRouteConcept_5">P62917</td><td ID="MedicationStartDate_5">09/06/2020</td><td ID="MedicationStopDate_5">01/01/2021</td><td ID="MedicationDosageFrequency_5">twice a day</td><td ID="MedicationDuration_5">30</td><td ID="MedicationFormulaStrength_5">300 mg</td><td ID="MedicationDosageForm_5">capsule</td><td ID="MedicationDosageFormCode_5"></td><td ID="MedicationDosageDescription_5"></td><td ID="MedicationMedicationId_5">[id number]</td><td ID="MedicationAccount_5">[id number]</td><td ID="MedicationNpid_5">[id number]</td><td ID="MedicationAuthorFirstName_5">Mikayla</td><td ID="MedicationAuthorLastName_5">Jeff</td><td ID="MedicationTaxonomyCode_5">[id number]</td><td ID="MedicationTaxonomyDesc_5">Psychiatric/Mental Health</td><td ID="MedicationPhoneNumber_5">[phone]</td> [facility] ([facility]) Hydroxyzine Hydrochloride 50 MG Oral Tablet hydroxyzine HCl 09/06/2020 12:00:00 AM EST 50 mg completed <td ID ="MedicationRxNorm_7">652729</td><td ID="MedicationMedication_7">hydroxyzine HCl</td><td ID="MedicationRoute_7"></td><td ID="MedicationRouteConcept_7"></td><td ID="MedicationStartDate_7">09/06/2020</td><td ID="MedicationStopDate_7"></td><td ID="MedicationDosageFrequency_7"></td><td ID="MedicationDuration_7"></td><td ID="MedicationFormulaStrength_7">50 mg</td><td ID="MedicationDosageForm_7">tablet</td><td ID="MedicationDosageFormCode_7"></td><td ID="MedicationDosageDescription_7"></td><td ID="MedicationMedicationId_7">[id number]</td><td ID="MedicationAccount_7">[id number]</td><td ID="MedicationNpid_7">[id number]</td><td ID="MedicationAuthorFirstName_7">Mikayla</td><td ID="MedicationAuthorLastName_7">Jeff</td><td ID="MedicationTaxonomyCode_7">[id number]</td><td ID="MedicationTaxonomyDesc_7">Psychiatric/Mental Health</td><td ID="MedicationPhoneNumber_7">[phone]</td> [facility] ([facility]) 200 mg/mL 08/26/2020 12:00:00 AM EST oil 3 INJECT 0.7MLS INTRAMUSCULARLY EVERY 10 DAYS MAXIMUM DAILY DOSE = 0.7MLS/10 DAY INJECT 0.7MLS INTRAMUSCULARLY EVERY 10 DAYS MAXIMUM DAILY DOSE = 0.7MLS/10 DAY SOLD: 09/01/2020 [facility] Hydrochlorothiazide 12.5 MG Oral Tablet Hydrochlorothiazide 12.5 MG 08/24/2020 12:00:00 AM EST 1.0 {tablet_in_the_morning} acti ve Hydrochlorothiazide 12.5 MG eCW1 ([facility]) 30 mg 08/24/2020 12:00:00 AM EST tablet [...] {tablet_in_the_morning} acti ve Hydrochlorothiazide 12.5 MG eCW1 ([facility]) Hydrochlorothiazide 12.5 MG Oral Tablet Hydrochlorothiazide 12.5 MG 08/24/2020 12:00:00 AM EST 1.0 {tablet_in_the_morning} acti ve Hydrochlorothiazide 12.5 MG eCW1 ([facility]) Hydrochlorothiazide 12.5 MG Oral Tablet Hydrochlorothiazide 12.5 MG 08/24/2020 12:00:00 AM EST 1.0 {tablet_in_the_morning} acti ve Hydrochlorothiazide 12.5 MG eCW1 ([facility]) Hydrochlorothiazide 12.5 MG Oral Tablet Hydrochlorothiazide 12.5 MG 08/24/2020 12:00:00 AM EST 1.0 {tablet_in_the_morning} acti ve Hydrochlorothiazide 12.5 MG eCW1 ([facility]) Hydrochlorothiazide 12.5 MG Oral Tablet Hydrochlorothiazide 12.5 MG 08/24/2020 12:00:00 AM EST 1.0 {tablet_in_the_morning} acti ve Hydrochlorothiazide 12.5 MG eCW1 ([facility]) Hydrochlorothiazide 12.5 MG Oral Tablet Hydrochlorothiazide 12.5 MG 08/24/2020 12:00:00 AM EST 1.0 {tablet_in_the_morning} acti ve Hydrochlorothiazide 12.5 MG eCW1 ([facility]) Hydrochlorothiazide 12.5 MG Oral Tablet Hydrochlorothiazide 12.5 MG 08/24/2020 12:00:00 AM EST 1.0 {tablet_in_the_morning} acti ve Hydrochlorothiazide 12.5 MG eCW1 ([facility]) Hydrochlorothiazide 12.5 MG Oral Tablet Hydrochlorothiazide 12.5 MG 08/24/2020 12:00:00 AM EST 1.0 {tablet_in_the_morning} acti ve Hydrochlorothiazide 12.5 MG W1 ([facility]) Hydrochlorothiazide 12.5 MG Oral Tablet Hydrochlorothiazide 12.5 MG 08/24/2020 12:00:00 AM EST 1.0 {tablet_in_the_morning} acti ve Hydrochlorothiazide 12.5 MG W ([facility]) Hydrochlorothiazide 12.5 MG Oral Tablet hydroCHLOROthi azide 12.5 MG hydroCHLOROthiazide 12.5 MG 08/24/2020 12:00:00 AM EST 1.0 {tablet_in_the_morning} active hydroCHL OROthiazide 12.5 MG [facility] ([facility]) Hydrochlorothiazide 12.5 MG Oral Tablet Hydrochlorothiazide 12.5 MG 08/24/2020 12:00:00 AM EST 1.0 {tablet_in_the_morning} acti ve Hydrochlorothiazide 12.5 MG W ([facility]) 5 mg 08/23/2020 12:00:00 AM EST tablet [...] 1.0 {tablet} suspended Adderall 20 mg eCW1 ([facility]) Amphetamine aspartate 5 MG / Amphetamine Sulfate 5 MG / Dextroamphetamine saccharate 5 MG / Dextroamphetamine Sulfate 5 MG Oral Tablet [Adderall] Adderall 20 mg Adderall 20 mg 08/10/2020 12:00:00 AM EST 1.0 {tablet} suspended Adderall 20 mg eCW1 ([facility]) Amphetamine aspartate 5 MG / Amphetamine Sulfate 5 MG / Dextroamphetamine saccharate 5 MG / Dextroamphetamine Sulfate 5 MG Oral Tablet [Adderall] Adderall 20 mg Adderall 20 mg 08/10/2020 12:00:00 AM EST 1.0 {tablet} active Adderall 20 mg eCW1 ([facility]) Amphetamine aspartate 5 MG / Amphetamine Sulfate 5 MG / Dextroamphetamine saccharate 5 MG / Dextroamphetamine Sulfate 5 MG Oral Tablet [Adderall] Adderall 20 mg Adderall 20 mg 08/10/2020 12:00:00 AM EST 1.0 {tablet} suspended Adderall 20 mg eCW1 ([facility]) Amphetamine aspartate 5 MG / Amphetamine Sulfate 5 MG / Dextroamphetamine saccharate 5 MG / Dextroamphetamine Sulfate 5 MG Oral Tablet [Adderall] Adderall 20 mg Adderall 20 mg 08/10/2020 12:00:00 AM EST 1.0 {tablet} suspended Adderall 20 mg eCW1 ([facility]) Amphetamine aspartate 5 MG / Amphetamine Sulfate 5 MG / Dextroamphetamine saccharate 5 MG / Dextroamphetamine Sulfate 5 MG Oral Tablet [Adderall] Adderall 20 mg Adderall 20 mg 08/10/2020 12:00:00 AM EST 1.0 {tablet} suspended Adderall 20 mg eCW1 ([facility]) Amphetamine aspartate 5 MG / Amphetamine Sulfate 5 MG / Dextroamphetamine saccharate 5 MG / Dextroamphetamine Sulfate 5 MG Oral Tablet [Adderall] Adderall 20 mg Adderall 20 mg 08/10/2020 12:00:00 AM EST 1.0 {tablet} active Adderall 20 mg eCW1 ([facility]) Amphetamine aspartate 5 MG / Amphetamine Sulfate 5 MG / Dextroamphetamine saccharate 5 MG / Dextroamphetamine Sulfate 5 MG Oral Tablet [Adderall] Adderall 20 mg Adderall 20 mg 08/10/2020 12:00:00 AM EST 1.0 {tablet} suspended Adderall 20 mg eCW1 ([facility]) 25 mg 08/10/2020 12:00:00 AM EST tablet [...] 1.0 {tablet} suspended Adderall 20 mg eCW1 ([facility]) Amphetamine aspartate 5 MG / Amphetamine Sulfate 5 MG / Dextroamphetamine saccharate 5 MG / Dextroamphetamine Sulfate 5 MG Oral Tablet [Adderall] Adderall 20 mg Adderall 20 mg 08/10/2020 12:00:00 AM EST 1.0 {tablet} suspended Adderall 20 mg eCW1 ([facility]) Amphetamine aspartate 5 MG / Amphetamine Sulfate 5 MG / Dextroamphetamine saccharate 5 MG / Dextroamphetamine Sulfate 5 MG Oral Tablet [Adderall] Adderall 20 mg Adderall 20 mg 08/10/2020 12:00:00 AM EST 1.0 {tablet} active Adderall 20 mg eCW1 ([facility]) Amphetamine aspartate 5 MG / Amphetamine Sulfate 5 MG / Dextroamphetamine saccharate 5 MG / Dextroamphetamine Sulfate 5 MG Oral Tablet [Adderall] Adderall 20 mg Adderall 20 mg 08/10/2020 12:00:00 AM EST 1.0 {tablet} active Adderall 20 mg eCW1 ([facility]) Amphetamine aspartate 5 MG / Amphetamine Sulfate 5 MG / Dextroamphetamine saccharate 5 MG / Dextroamphetamine Sulfate 5 MG Oral Tablet [Adderall] Adderall 20 mg Adderall 20 mg 08/10/2020 12:00:00 AM EST 1.0 {tablet} suspended Adderall 20 mg eCW1 ([facility]) Amphetamine aspartate 5 MG / Amphetamine Sulfate 5 MG / Dextroamphetamine saccharate 5 MG / Dextroamphetamine Sulfate 5 MG Oral Tablet [Adderall] Adderall 20 mg Adderall 20 mg 08/10/2020 12:00:00 AM EST 1.0 {tablet} suspended Adderall 20 mg eCW1 ([facility]) 10 mg 07/28/2020 12:00:00 AM EST tablet 30 TAKE ONE TABLET BY MOUTH EVERY DAY TAKE ONE TABLET BY MOUTH EVERY DAY SOLD: 07/28/2020 [facility] Lisinopril 30 MG Oral Tablet Lisinopril 30 MG 07/27/2020 12:00:00 A M EST 1.0 {tablet} active Lisinopril 30 MG eCW1 ( [facility]) Lisinopril 30 MG Oral Tablet Lisinopril 30 MG 07/27/2020 12:00:00 A M EST 1.0 {tablet} active Lisinopril 30 MG eCW1 ( [facility]) Lisinopril 30 MG Oral Tablet Lisinopril 30 MG 07/27/2020 12:00:00 A M EST 1.0 {tablet} active Lisinopril 30 MG eCW1 ( [facility]) Lisinopril 30 MG Oral Tablet Lisinopril 30 MG 07/27/2020 12:00:00 A M EST 1.0 {tablet} active Lisinopril 30 MG eCW1 ( [facility]) Lisinopril 30 MG Oral Tablet Lisinopril 30 MG 07/27/2020 12:00:00 A M EST 1.0 {tablet} active Lisinopril 30 MG eCW1 ( [facility]) 20 mg 07/27/2020 12:00:00 AM EST tablet 30 TAKE ONE TABLET BY MOUTH EVERY DAY TAKE ONE TABLET BY MOUTH EVERY DAY SOLD: 07/28/2020 [facility] Lisinopril 30 MG Oral Tablet Lisinopril 30 MG 07/27/2020 12:00:00 A M EST 1.0 {tablet} active Lisinopril 30 MG eCW1 ( [facility]) Lisinopril 30 MG Oral Tablet Lisinopril 30 MG 07/27/2020 12:00:00 A M EST 1.0 {tablet} active Lisinopril 30 MG eCW1 ( [facility]) Lisinopril 30 MG Oral Tablet Lisinopril 30 MG 07/27/2020 12:00:00 A M EST 1.0 {tablet} active Lisinopril 30 MG eCW1 ( [facility]) Lisinopril 20 MG Oral Tablet Lisinopril 20 MG 07/27/2020 12:00:00 A M EST 1.0 {tablet} active Lisinopril 20 MG eCW1 ( [facility]) 20 mg 07/27/2020 12:00:00 AM EST tablet 30 TAKE ONE TABLET BY MOUTH EVERY DAY TAKE ONE TABLET BY MOUTH EVERY DAY SOLD: 08/24/2020 [facility] Lisinopril 30 MG Oral Tablet Lisinopril 30 MG 07/27/2020 12:00:00 A M EST 1.0 {tablet} active Lisinopril 30 MG eCW1 ( [facility]) Lisinopril 20 MG Oral Tablet Lisinopril 20 MG 07/27/2020 12:00:00 A M EST 1.0 {tablet} active Lisinopril 20 MG eCW1 ( [facility]) Lisinopril 20 MG Oral Tablet Lisinopril 20 MG 07/27/2020 12:00:00 A M EST 1.0 {tablet} active Lisinopril 20 MG eCW1 ( [facility]) Lisinopril 30 MG Oral Tablet Lisinopril 30 MG 07/27/2020 12:00:00 A M EST 1.0 {tablet} active Lisinopril 30 MG eCW1 ( [facility]) Lisinopril 30 MG Oral Tablet Lisinopril 30 MG 07/27/2020 12:00:00 A M EST 1.0 {tablet} active Lisinopril 30 MG eCW1 ( [facility]) Lisinopril 30 MG Oral Tablet Lisinopril 30 MG 07/27/2020 12:00:00 A M EST 1.0 {tablet} active Lisinopril 30 MG eCW1 ( [facility]) Amphetamine aspartate 5 MG / Amphetamine Sulfate 5 MG / Dextroamphetamine saccharate 5 MG / Dextroamphetamine Sulfate 5 MG Oral Tablet [Adderall] Adderall 20 mg Adderall 20 mg 07/13/2020 12:00:00 AM EST 1.0 {tablet} active Adderall 20 mg eCW1 ([facility]) 200 mg/mL 07/13/2020 12:00:00 AM EST oil [...] active Adderall 20 mg eCW1 ([facility]) 20 mg 06/12/2020 12:00:00 AM EST tablet [...] active Adderall 20 mg W1 ([facility]) 100 mg 06/12/2020 12:00:00 AM EST tablet [...] 7.5 mg by mouth completed <td ID="Medica tionRxNorm_9">[id number]</td><td ID="MedicationMedication_9">olanzapine</td><td ID="MedicationRoute_9">by mouth</td><td ID="MedicationRouteConcept_9">Y65032</td><td ID="MedicationStartDate_9">03/09/2020</td><td ID="MedicationStopDate_9">05/08/2020</td><td ID="MedicationDosageFrequency_9">at bedtime</td><td ID="MedicationDuration_9">30</td><td ID="MedicationFormulaStrength_9">7.5 mg</td><td ID="MedicationDosageForm_9">tablet</td><td ID="MedicationDosageFormCode_9"></td><td ID="MedicationDosageDescription_9"></td><td ID="MedicationMedicationId_9">[id number]</td><td ID="MedicationAccount_9">[id number]</td><td ID="MedicationNpid_9">[id number]</td><td ID="MedicationAuthorFirstName_9">Mikayla</td><td ID="MedicationAuthorLastName_9">Snyder</td><td ID="MedicationTaxonomyCode_9">[id number]</td><td ID="MedicationTaxonomyDesc_9">Psychiatric/Mental Health</td><td ID="MedicationPhoneNumber_9">[phone]</td> [facility] ([facility]) olanzapine 7.5 MG Oral Tablet olanzapine 03/09/2020 12:00:00 AM EDT 7.5 mg by mouth completed <td ID="Medica tionRxNorm_6">039604</td><td ID="MedicationMedication_6">olanzapine</td><td ID="MedicationRoute_6">by mouth</td><td ID="MedicationRouteConcept_6">M26508</td><td ID="MedicationStartDate_6">03/09/2020</td><td ID="MedicationStopDate_6">07/10/2020</td><td ID="MedicationDosageFrequency_6">at bedtime</td><td ID="MedicationDuration_6">30</td><td ID="MedicationFormulaStrength_6">7.5 mg</td><td ID="MedicationDosageForm_6">tablet</td><td ID="MedicationDosageFormCode_6"></td><td ID="MedicationDosageDescription_6"></td><td ID="MedicationMedicationId_6">[id number]</td><td ID="MedicationAccount_6">[id number]</td><td ID="MedicationNpid_6">[id number]</td><td ID="MedicationAuthorFirstName_6">Mikayla</td><td ID="MedicationAuthorLastName_6">Jeff</td><td ID="MedicationTaxonomyCode_6">[id number]</td><td ID="MedicationTaxonomyDesc_6">Psychiatric/Mental Health</td><td ID="MedicationPhoneNumber_6">[phone]</td> [facility] ([facility]) olanzapine 7.5 MG Oral Tablet olanzapine 03/09/2020 12:00:00 AM EDT 7.5 mg by mouth completed <td ID="Medica tionRxNorm_7">357883</td><td ID="MedicationMedication_7">olanzapine</td><td ID="MedicationRoute_7">by mouth</td><td ID="MedicationRouteConcept_7">H97241</td><td ID="MedicationStartDate_7">03/09/2020</td><td ID="MedicationStopDate_7">05/08/2020</td><td ID="MedicationDosageFrequency_7">at bedtime</td><td ID="MedicationDuration_7">30</td><td ID="MedicationFormulaStrength_7">7.5 mg</td><td ID="MedicationDosageForm_7">tablet</td><td ID="MedicationDosageFormCode_7"></td><td ID="MedicationDosageDescription_7"></td><td ID="MedicationMedicationId_7">[id number]</td><td ID="MedicationAccount_7">[id number]</td><td ID="MedicationNpid_7">[id number]</td><td ID="MedicationAuthorFirstName_7">Mikayla</td><td ID="MedicationAuthorLastName_7">Snyder</td><td ID="MedicationTaxonomyCode_7">[id number]</td><td ID="MedicationTaxonomyDesc_7">Psychiatric/Mental Health</td><td ID="MedicationPhoneNumber_7">[phone]</td> [facility] ([facility]) Prazosin 1 MG Oral Capsule prazosin 02/10/2020 12:00:00 AM EDT 1 mg by mouth completed <td ID="Medicat ionRxNorm_3">474629</td><td ID="MedicationMedication_3">prazosin</td><td ID="MedicationRoute_3">by mouth</td><td ID="MedicationRouteConcept_3">[id number]</td><td ID="MedicationStartDate_3">02/10/2020</td><td ID="MedicationStopDate_3">09/06/2020</td><td ID="MedicationDosageFrequency_3">every night</td><td ID="MedicationDuration_3"></td><td ID="MedicationFormulaStrength_3">1 mg</td><td ID="MedicationDosageForm_3">capsule</td><td ID="MedicationDosageFormCode_3"></td><td ID="MedicationDosageDescription_3"></td><td ID="MedicationMedicationId_3">[id number]</td><td ID="MedicationAccount_3">[id number]</td><td ID="MedicationNpid_3">[id number]</td><td ID="MedicationAuthorFirstName_3">Mikayla</td><td ID="MedicationAuthorLastName_3">Jeff</td><td ID="MedicationTaxonomyCode_3">[id number]</td><td ID="MedicationTaxonomyDesc_3">Psychiatric/Mental Health</td><td ID="MedicationPhoneNumber_3">[phone]</td> [facility] ([facility]) olanzapine 5 MG Oral Tablet olanzapine 02/10/2020 12:00:00 AM EDT 5 mg by mouth completed <td ID="Medica tionRxNorm_8">[id number]</td><td ID="MedicationMedication_8">olanzapine</td><td ID="MedicationRoute_8">by mouth</td><td ID="MedicationRouteConcept_8">G52156</td><td ID="MedicationStartDate_8">02/10/2020</td><td ID="MedicationStopDate_8">03/09/2020</td><td ID="MedicationDosageFrequency_8">at bedtime</td><td ID="MedicationDuration_8">30</td><td ID="MedicationFormulaStrength_8">5 mg</td><td ID="MedicationDosageForm_8">tablet</td><td ID="MedicationDosageFormCode_8"></td><td ID="MedicationDosageDescription_8"></td><td ID="MedicationMedicationId_8">[id number]</td><td ID="MedicationAccount_8">[id number]</td><td ID="MedicationNpid_8">[id number]</td><td ID="MedicationAuthorFirstName_8">Mikayla</td><td ID="MedicationAuthorLastName_8">Snyder</td><td ID="MedicationTaxonomyCode_8">[id number]</td><td ID="MedicationTaxonomyDesc_8">Psychiatric/Mental Health</td><td ID="MedicationPhoneNumber_8">[phone]</td> [facility] ([facility]) gabapentin 600 MG Oral Tablet gabapentin 02/10/2020 12:00:00 AM EDT 600 mg by mouth completed <td ID="Medica tionRxNorm_7">000718</td><td ID="MedicationMedication_7">gabapentin</td><td ID="MedicationRoute_7">by mouth</td><td ID="MedicationRouteConcept_7">C91451</td><td ID="MedicationStartDate_7">02/10/2020</td><td ID="MedicationStopDate_7">03/09/2020</td><td ID="MedicationDosageFrequency_7">four times a day</td><td ID="MedicationDuration_7">30</td><td ID="MedicationFormulaStrength_7">600 mg</td><td ID="MedicationDosageForm_7">tablet</td><td ID="MedicationDosageFormCode_7"></td><td ID="MedicationDosageDescription_7"> </td><td ID="MedicationMedicationId_7">[id number]</td><td ID="MedicationAccount_7">[id number]</td><td ID="MedicationNpid_7">[id number]</td><td ID="MedicationAuthorFirstName_7">Mikayla</td><td ID="MedicationAuthorLastName_7">Snyder</td><td ID="MedicationTaxonomyCode_7">[id number]</td><td ID="MedicationTaxonomyDesc_7">Psychiatric/Mental Health</td><td ID="MedicationPhoneNumber_7">[phone]</td> [facility] ([facility]) [place] Carbonate 300 MG Oral Capsule lithium carbonate 12:00:00 AM EDT 300 mg by mouth completed <td ID="MedicationRxNorm_8">437174</td><td ID="MedicationMedication_8">lithium carbonate</td><td ID="MedicationRoute_8">by mouth</td><td ID="MedicationRouteConcept_8">Y90588</td><td ID="MedicationStartDate_8">12/27/2019</td><td ID="MedicationStopDate_8">09/06/2020</td><td ID="MedicationDosageFrequency_8">every night</td><td ID="MedicationDuration_8"></td><td ID="MedicationFormulaStrength_8">300 mg</td><td ID="MedicationDosageForm_8">capsule</td><td ID="MedicationDosageFormCode_8"></td><td ID="MedicationDosageDescription_8"></td><td ID="MedicationMedicationId_8">[id number]</td><td ID="MedicationAccount_8">[id number]</td><td ID="MedicationNpid_8">[id number]</td><td ID="MedicationAuthorFirstName_8">Mikayla</td><td ID="MedicationAuthorLastName_8">Jeff</td><td ID="MedicationTaxonomyCode_8">[id number]</td><td ID="MedicationTaxonomyDesc_8">Psychiatric/Mental Health</td><td ID="MedicationPhoneNumber_8">[phone]</td> [facility] ([facility]) Insurance Providers Payer name Policy type / Coverage type Policy ID Covered republican ID Covered republican's relationship to qureshi Policy Qureshi Plan Information Managed Care - Community Plan [facility] P [id number] S [id number] Managed Care - Community Plan [facility] P [id number] S [id number] Managed Care BCBS O [id number] S [id number] Medicaid Dental S [id number] S [id number] Managed Care - Community Plan [facility] P [id number] S [id number] Medicaid S [id number] S [id number] [facility] COMMUNITY PLAN [place] [id number] SP [id number] ANSI-Medicaid [id number] ANSI-Medicaid [id number] ANSI-Medicaid [id number] ANSI-Medicaid [id number] ANSI-Medicaid [id number] ANSI-Medicaid [id number] ANSI-Medicaid [id number] ANSI-Medicaid [id number] ANSI-Medicaid [id number] ANSI-Medicaid [id number] ANSI-Medicaid [id number] ANSI-Medicaid [id number] ANSI-Medicaid [id number] ANSI-Medicaid [id number] ANSI-Medicaid [id number] ANSI-Medicaid [id number] ANSI-Medicaid [id number] ANSI-Medicaid [id number] ANSI-Medicaid [id number] ANSI-Medicaid [id number] ANSI-Medicaid [id number] ANSI-Medicaid [id number] ANSI-Medicaid [id number] Self Pay P UNAVAILABLE S UNAVAILA BLE Medicaid S [id number] S [id number] [facility] [place] [id number] 18 [id number] [place] [id number] 18 [id number] UNHC COMMUNITY PLAN MCDHMO [id number] SP [id number] [facility](MCAID) O [id number] S [id number] [facility] Health Maintenance Organization (HMO) [id number] Self D Managed Care [facility] P [id number] S [id number] UNHC COMMUNITY PLAN MCDHMO [id number] SP [id number] MEDICAID [id number] SP [id number] MEDICAID [id number] SP [id number] BLUE [employer] PLAN [id number] SP [id number] O BLUE [id number] SP [id number] UN COMMUNITY PLAN MCDHMO [id number] SP [id number] [facility] [id number] SP [id number] [facility](MCAID) O [id number] S [id number] ANSI-Medicaid [id number] ANSI-Medicaid [id number] ANSI-Medicaid [id number] ANSI-Medicaid [id number] ANSI-Medicaid [id number] Problems, Conditions, and Diagnoses Code Display Name Description Problem Type Effective Dates Data Source(s) F90.2 Attention-deficit hyperactivity disorder , combined type Attention- Deficit/Hyperactivity Disorder, Combined presentation Condition 12/12/2020 12:00:00 AM EDT [facility] ([facility]) 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 Condition 12/12/2020 12:00:00 AM EDT [facility] ([facility]) F43.12 Post-traumatic stress disorder, chronic Post-traumatic stress disorder, chronic Condition 12/12/2020 12:00:00 AM EDT [facility] ([facility]) F11.20 Opioid dependence, uncomplicated Opioid Use Disorder, Severe Condition 12/12/2020 12:00:00 AM EDT [facility] ([facility]) F31.81 Bipolar II disorder Bipolar II Disorder Condition 0 12/12/2020 12:00:00 AM EDT [facility] ([facility]) F17.220 [id number] Chewing tobacco nicotine depende nce without complication Problem 09/29/2020 12:00:00 AM EDT eCW1 ([facility]) F11.20 Opioid dependence, uncomplicated Opioid Use Disorder, Severe Condition 09/21/2020 12:00:00 AM EDT [facility] ([facility]) F90.2 Attention-deficit hyperactivity disorder , combined type Attention- Deficit/Hyperactivity Disorder, Combined presentation Condition 09/21/2020 12:00:00 AM EDT [facility] ([facility]) 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 Condition 09/21/2020 12:00:00 AM EDT [facility] ([facility]) F43.12 Post-traumatic stress disorder, chronic Post-traumatic stress disorder, chronic Condition 09/21/2020 12:00:00 AM EDT [facility] ([facility]) Z72.0 Tobacco use Tobacco Use Disorder, Mild Condition 0 09/06/2020 12:00:00 AM EST [facility] ([facility]) [id number] Finding of esophagus Finding of Esophagus Problem 08/01/2020 08:32:47 AM EST [facility] ([facility]) [id number] Asthma Asthma Problem 08/01/2020 08:32:47 AM ES T ELIJAH ([facility]) 562706090 Finding of esophagus Finding of Esophagus Problem 08/01/2020 08:32:47 AM EST ELIJAH ([facility]) [id number] Asthma Asthma Problem 08/01/2020 08:32:47 AM ES T ELIJAH ([facility]) 756955426 SNOMED CT Concept SNOMED CT Concept Problem 08/01 08:32:46 AM EST [facility]IJAH ([facility]) 84457144 Depressive disorder Depressive Disorder Problem 0 08/01/2020 08:32:46 AM EST [facility] ([facility]) 80691671 Viral hepatitis C Viral Hepatitis C Problem 08/01/2020 08:32:46 AM EST ELIJAH ([facility]) 873861881 SNOMED CT Concept SNOMED CT Concept Problem 08/01 08:32:46 AM EST [facility] ([facility]) 88781355 Depressive disorder Depressive Disorder Problem 0 08/01/2020 08:32:46 AM EST [facility]IJAH ([facility]) 58622766 Viral hepatitis C Viral Hepatitis C Problem 08/01/2020 08:32:46 AM EST ELIJAH ([facility]) I11.9 98279778 Hypertensive heart disease without heart failure Problem 07/27/2020 12:00:00 AM EST eCW1 ([facility]) F17.210 18003144 Nicotine dependence, cigarettes, uncompli cated Problem 06/12/2020 12:00:00 AM EST eCW1 ([facility]) Surgeries/Procedures Procedure Description Date Indications Data Source(s) THERAPEUTIC PROPHYLACTIC/DX INJECTION SUBQ/IM 04/06/20 21 12:00:00 AM EDT [facility] ([facility] ) THERAPEUTIC PROPHYLACTIC/DX INJECTION SUBQ/IM 03/27/20 21 12:00:00 AM EDT [facility] ([facility] ) THERAPEUTIC PROPHYLACTIC/DX INJECTION SUBQ/IM 03/12/20 21 12:00:00 AM EDT [facility] ([facility] ) THERAPEUTIC PROPHYLACTIC/DX INJECTION SUBQ/IM 03/01/20 21 12:00:00 AM EDT [facility] ([facility] ) THERAPEUTIC PROPHYLACTIC/DX INJECTION SUBQ/IM 02/20/20 21 12:00:00 AM EDT [facility] ([facility] ) THERAPEUTIC PROPHYLACTIC/DX INJECTION SUBQ/IM 02/09/20 21 12:00:00 AM EDT [facility] ([facility] ) THERAPEUTIC PROPHYLACTIC/DX INJECTION SUBQ/IM 01/26/20 21 12:00:00 AM EDT [facility] ([facility] ) THERAPEUTIC PROPHYLACTIC/DX INJECTION SUBQ/IM 01/16/20 21 12:00:00 AM EDT [facility] ([facility] ) THERAPEUTIC PROPHYLACTIC/DX INJECTION SUBQ/IM 01/06/20 21 12:00:00 AM EDT [facility] ([facility]) Extended Individual Psychotherapy - 45 min 12/29/2020 12:00:00 AM EDT - 12/29/2020 12:00:00 AM EDT [facility] ([facility]) Extended Individual Psychotherapy - 45 min 12:00:00 AM EDT [facility] ([facility]) OFFICE OUTPATIENT VISIT 15 MINUTES 12/28 12:00:00 AM EDT - 12/28/2020 12:00:00 AM EDT [facility] ([facility]) OFFICE OUTPATIENT VISIT 15 MINUTES 12/28/2020 12:00:00 AM EDT [facility] ([facility]) THERAPEUTIC PROPHYLACTIC/DX INJECTION SUBQ/IM 12/26/19 21 12:00:00 AM EDT [facility] ([facility] ) THERAPEUTIC PROPHYLACTIC/DX INJECTION SUBQ/IM 12/14/19 21 12:00:00 AM EDT [facility] ([facility]) OFFICE OUTPATIENT VISIT 25 MINUTES 12/13/2020 12:00:00 AM EDT [facility] ([facility]) OFFICE OUTPATIENT VISIT 15 MINUTES 12/13/2020 12:00:00 AM EDT [facility] ([facility]) Extended Individual Psychotherapy - 45 min 12/12/2020 12:00:00 AM EDT - 12/12/2020 12:00:00 AM EDT [facility] ([facility]) Extended Individual Psychotherapy - 45 min 12:00:00 AM EDT [facility] ([facility]) THERAPEUTIC PROPHYLACTIC/DX INJECTION SUBQ/IM 11/21/19 12:00:00 AM EDT [facility] ([facility]) THERAPEUTIC PROPHYLACTIC/DX INJECTION SUBQ/IM 11/11/19 12:00:00 AM EDT [facility] ([facility]) Extended Individual Psychotherapy - 45 min 11/10/2020 12:00:00 AM EDT - 11/10/2020 12:00:00 AM EDT [facility] ([facility]) Extended Individual Psychotherapy - 45 min 12:00:00 AM EDT [facility] ([facility]) THERAPEUTIC PROPHYLACTIC/DX INJECTION SUBQ/IM 11/01/19 12:00:00 AM EDT [facility] ([facility]) Extended Individual Psychotherapy - 45 min 10/26/2020 12:00:00 AM EDT - 10/26/2020 12:00:00 AM EDT [facility] ([facility]) Extended Individual Psychotherapy - 45 min 12:00:00 AM EDT [facility] ([facility]) Extended Individual Psychotherapy - 45 min 10/20/2020 12:00:00 AM EDT - 10/20/2020 12:00:00 AM EDT [facility] ([facility]) Extended Individual Psychotherapy - 45 min 12:00:00 AM EDT [facility] ([facility]) THERAPEUTIC PROPHYLACTIC/DX INJECTION SUBQ/IM 10/17/19 12:00:00 AM EDT [facility] ([facility] ) THERAPEUTIC PROPHYLACTIC/DX INJECTION SUBQ/IM 10/06/19 21 12:00:00 AM EDT [facility] ([facility] ) THERAPEUTIC PROPHYLACTIC/DX INJECTION SUBQ/IM 09/26/19 21 12:00:00 AM EDT [facility] ([facility] ) Extended Individual Psychotherapy - 45 min 09/21/2020 12:00:00 AM EDT - 09/21/2020 12:00:00 AM EDT [facility] ([facility]) Extended Individual Psychotherapy - 45 min 12:00:00 AM EDT [facility] ([facility]) THERAPEUTIC PROPHYLACTIC/DX INJECTION SUBQ/IM 09/15/19 21 12:00:00 AM EDT [facility] ([facility]) Extended Individual Psychotherapy - 45 min 09/06/2020 12:00:00 AM EST - 09/06/2020 12:00:00 AM EST [facility] ([facility]) Extended Individual Psychotherapy - 45 min 12:00:00 AM EST [facility] ([facility]) THERAPEUTIC PROPHYLACTIC/DX INJECTION SUBQ/IM 09/05/19 21 12:00:00 AM EST [facility] ([facility] ) THERAPEUTIC PROPHYLACTIC/DX INJECTION SUBQ/IM 08/25/19 21 12:00:00 AM EST [facility] ([facility] ) THERAPEUTIC PROPHYLACTIC/DX INJECTION SUBQ/IM 08/16/19 21 12:00:00 AM EST [facility] ([facility] ) THERAPEUTIC PROPHYLACTIC/DX INJECTION SUBQ/IM 08/03/19 21 12:00:00 AM EST [facility] ([facility] ) THERAPEUTIC PROPHYLACTIC/DX INJECTION SUBQ/IM 07/24/19 21 12:00:00 AM EST [facility] ([facility]) THERAPEUTIC PROPHYLACTIC/DX INJECTION SUBQ/IM 07/13/19 21 12:00:00 AM EST [facility] ([facility] ) THERAPEUTIC PROPHYLACTIC/DX INJECTION SUBQ/IM 07/03/19 21 12:00:00 AM EST [facility] ([facility] ) THERAPEUTIC PROPHYLACTIC/DX INJECTION SUBQ/IM 06/21/20 20 12:00:00 AM EST [facility] ([facility]) Extended Individual Psychotherapy - 45 min 06/20/2020 12:00:00 AM EST - 06/20/2020 12:00:00 AM EST [facility] ([facility]) Extended Individual Psychotherapy - 45 min 0 12:00:00 AM EST [facility] ([facility]) OFFICE OUTPATIENT VISIT 15 MINUTES 06/15 12:00:00 AM EST - 06/15/2020 12:00:00 AM EST [facility] ([facility]) OFFICE OUTPATIENT VISIT 15 MINUTES 06/15/2020 12:00:00 AM EST [facility] ([facility]) THERAPEUTIC PROPHYLACTIC/DX INJECTION SUBQ/IM 06/12/20 20 12:00:00 AM EST [facility] ([facility] ) TEMPMHCTelemed 30" Psychotherapy 020 12:00:00 AM EST - 06/05/2020 12:00:00 AM EST [facility] ([facility]) TEMPMHCTelemed 30" Psychotherapy 06/05/2020 12:00:00 A M EST [facility] ([facility]) THERAPEUTIC PROPHYLACTIC/DX INJECTION SUBQ/IM 05/31/20 20 12:00:00 AM EST [facility] ([facility] ) OFFICE OUTPATIENT VISIT 15 MINUTES 05/11 12:00:00 AM EST - 05/11/2020 12:00:00 AM EST [facility] ([facility]) Psychotherapy ADD ON - 30 Minutes 05/11/2020 12:00:00 AM EST [facility] ([facility]) OFFICE OUTPATIENT VISIT 15 MINUTES 05/11/2020 12:00:00 AM EST [facility] ([facility]) THERAPEUTIC PROPHYLACTIC/DX INJECTION SUBQ/IM 05/09/20 20 12:00:00 AM EST [facility] ([facility]) THERAPEUTIC PROPHYLACTIC/DX INJECTION SUBQ/IM 04/18/20 20 12:00:00 AM EDT [facility] ([facility]) MHC Telemed E/M Lvl 3--Est pt 04/06/2020 12:00:00 AM EDT - 04/06/2020 12:00:00 AM EDT [facility] ([facility]) Telemed A/O 30" 04/06/2020 12:00:00 AM EDT [facility] ([facility]) MHC Telemed E/M Lvl 3--Est pt 04/06/2020 12:00:00 AM E DT [facility] ([facility]) THERAPEUTIC PROPHYLACTIC/DX INJECTION SUBQ/IM 04/03/20 20 12:00:00 AM EDT [facility] ([facility] ) TEMPMHCTelemed 30" Psychotherapy 020 12:00:00 AM EDT - 03/24/2020 12:00:00 AM EDT [facility] ([facility]) TEMPMHCTelemed 30" Psychotherapy 03/24/2020 12:00:00 A M EDT [facility] ([facility]) THERAPEUTIC PROPHYLACTIC/DX INJECTION SUBQ/IM 03/23/20 20 12:00:00 AM EDT [facility] ([facility] ) THERAPEUTIC PROPHYLACTIC/DX INJECTION SUBQ/IM 03/13/20 20 12:00:00 AM EDT [facility] ([facility] ) MHC Telemed E/M Lvl 3--Est pt 03/09/2020 12:00:00 AM EDT - 03/09/2020 12:00:00 AM EDT [facility] ([facility]) Telemed A/O 30" 03/09/2020 12:00:00 AM EDT [facility] ([facility]) MHC Telemed E/M Lvl 3--Est pt 03/09/2020 12:00:00 AM E DT [facility] ([facility]) THERAPEUTIC PROPHYLACTIC/DX INJECTION SUBQ/IM 03/02/20 20 12:00:00 AM EDT [facility] ([facility] ) Extended Individual Psychotherapy - 45 min 03/01/2020 12:00:00 AM EDT - 03/01/2020 12:00:00 AM EDT [facility] ([facility]) Extended Individual Psychotherapy - 45 min 0 12:00:00 AM EDT [facility] ([facility]) THERAPEUTIC PROPHYLACTIC/DX INJECTION SUBQ/IM 08/24/20 20 12:00:00 AM EDT [facility] ([facility]) Results ID Date Data Source [id number] 11/24/2020 07:29:00 AM EDT [facility] ([facility]) Name Value Range Interpretation Code Description Data Hoda rce(s) Supporting Document(s) Testosterone [Mass/volume] in Serum or Plasma 777 ng/dL [phone] [facility] ([facility]) NORMAL RANGES ARE FOR ADULT FEMALES (OVE R 15 YRS) AND MALES (OVER 19 YRS). FOR PEDIATRIC RANGES PLE ASE CONSULT LITERATURE. ID Date Data Source [id number] 11/24/2020 07:29:00 AM EDT [facility] ([facility]) Name Value Range Interpretation Code Description Data Hoda rce(s) Supporting Document(s) Hemoglobin 17.0 g/dL 13.5-17.5 [facility] ([facility]) Hematocrit 50.7 % 42.0-52.0 [facility] ([facility]) ID Date Data Source [id number] 05/15/2020 07:32:00 AM EST [facility] ([facility]) Name Value Range Interpretation Code Description Data Hoda rce(s) Supporting Document(s) Prostate specific Ag [Mass/volume] in Serum or Plasma 0.70 ng/mL [facility] ([facility]) The PSA assay is performed on the [employer] analyzer by LOCI sandwich chemiluminescent immunoassay and should not be compared interchangeably with other methods. It should not be used alone as a screening test or diagnosis for the presence or absence of malignant disease. Predictions of disease recurrence should not be based solely on values obtained from serial patient serum values. ID Date Data Source [id number] 05/15/2020 07:32:00 AM EST [facility] ([facility]) Name Value Range Interpretation Code Description Data Hoda rce(s) Supporting Document(s) Hemoglobin 15.3 g/dL 13.5-17.5 [facility] ([facility]) Hematocrit 46.2 % 42.0-52.0 [facility] ([facility]) ID Date Data Source [id number] 05/15/2020 07:32:00 AM EST [facility] ([facility]) Name Value Range Interpretation Code Description Data Hoda rce(s) Supporting Document(s) Testosterone [Mass/volume] in Serum or Plasma 626 ng/dL [phone] [facility] ([facility] ) NORMAL RANGES ARE FOR ADULT FEMALES (OVE R 15 YRS) AND MALES (OVER 19 YRS). FOR PEDIATRIC RANGES PLE ASE CONSULT LITERATURE. Procedure Social History Code Duration Value Status Description Data Source(s ) Smoking 12/29/2020 12:00:00 AM EDT Unknown if ever smoked comp leted Unknown if ever smoked [facility] ([facility]) Smoking 12/28/2020 12:00:00 AM EDT Unknown if ever smoked comp leted Unknown if ever smoked [facility] ([facility]) Smoking 12/13/2020 12:00:00 AM EDT Patient is a former smoker completed Patient is a former smoker [facility] ([facility]) Smoking 12/12/2020 12:00:00 AM EDT Unknown if ever smoked comp leted Unknown if ever smoked [facility] ([facility]) Smoking 11/10/2020 12:00:00 AM EDT Unknown if ever smoked comp leted Unknown if ever smoked [facility] ([facility]) Smoking 10/26/2020 12:00:00 AM EDT Unknown if ever smoked comp leted Unknown if ever smoked [facility] ([facility]) Smoking 10/20/2020 12:00:00 AM EDT Unknown if ever smoked comp leted Unknown if ever smoked [facility] ([facility]) Smoking 09/21/2020 12:00:00 AM EDT Unknown if ever smoked comp leted Unknown if ever smoked [facility] ([facility]) Smoking 09/11/2020 12:00:00 AM EDT Former Smoker completed Former Smoker [email or web address] ([facility]) Smoking 09/11/2020 12:00:00 AM EDT Former Smoker completed Former Smoker [email or web address] ([facility]) Smoking 09/11/2020 12:00:00 AM EDT Former Smoker completed Former Smoker [email or web address] ([facility]) Smoking 09/11/2020 12:00:00 AM EDT Former Smoker completed Former Smoker [email or web address] ([facility]) Smoking 09/11/2020 12:00:00 AM EDT Former Smoker completed Former Smoker [email or web address] ([facility]) Smoking 09/11/2020 12:00:00 AM EDT Former Smoker completed Former Smoker [email or web address] ([facility]) Smoking 09/11/2020 12:00:00 AM EDT Former Smoker completed Former Smoker [email or web address] ([facility]) Smoking 09/11/2020 12:00:00 AM EDT Former Smoker completed Former Smoker [email or web address] ([facility]) Smoking 09/11/2020 12:00:00 AM EDT Former Smoker completed Former Smoker [email or web address] ([facility]) Smoking 09/11/2020 12:00:00 AM EDT Former Smoker completed Former Smoker [email or web address] ([facility]) Smoking 09/06/2020 12:00:00 AM EST Unknown if ever smoked comp leted Unknown if ever smoked [facility] ([facility]) Smoking 08/24/2020 12:00:00 AM EST Former Smoker completed Former Smoker [email or web address] ([facility]) Smoking 08/24/2020 12:00:00 AM EST Former Smoker completed [email or web address] [place]) Smoking 07/27/2020 12:00:00 AM EST Former Smoker completed Former Smoker eCW1 ([facility] [place]) Smoking 07/27/2020 12:00:00 AM EST Former Smoker completed Former Smoker eCW1 ([facility] [place]) Smoking 07/27/2020 12:00:00 AM EST Former Smoker completed Former Smoker eCW1 ([facility] [place]) Smoking 06/20/2020 12:00:00 AM EST Unknown if ever smoked comp leted Unknown if ever smoked [facility] ([facility]) Smoking 06/15/2020 12:00:00 AM EST Unknown if ever smoked comp leted Unknown if ever smoked [facility] ([facility]) Smoking 06/12/2020 12:00:00 AM EST Former Smoker completed Former Smoker eCW1 ([facility] [place]) Smoking 06/12/2020 12:00:00 AM EST Former Smoker completed Former Smoker eCW1 ([facility] [place]) Smoking 06/05/2020 12:00:00 AM EST Unknown if ever smoked comp leted Unknown if ever smoked [facility] ([facility]) Smoking 05/11/2020 12:00:00 AM EST Unknown if ever smoked comp leted Unknown if ever smoked [facility] ([facility]) Smoking 04/13/2020 12:00:00 AM EDT Former Smoker completed Former Smoker eCW1 ([facility] [place]) Smoking 04/06/2020 12:00:00 AM EDT Unknown if ever smoked comp leted Unknown if ever smoked [facility] ([facility]) Smoking 03/24/2020 12:00:00 AM EDT Unknown if ever smoked comp leted Unknown if ever smoked [facility] ([facility]) Smoking 03/09/2020 12:00:00 AM EDT Unknown if ever smoked comp leted Unknown if ever smoked [facility] ([facility]) Smoking 03/01/2020 12:00:00 AM EDT Unknown if ever smoked comp leted Unknown if ever smoked [facility] ([facility]) Vital Signs ID Date Data Source UNK Name Value Range Interpretation Code Description Data Source(s) Oxygen saturation in Arterial blood by Pulse oximetry 93 % 93 % [facility] ([facility]) Systolic blood pressure 140 mm[Hg] 140 mm[Hg] M EDENT ([facility]) Body temperature 97.1 [degF] 97.1 [degF] [facility] ([facility]) Diastolic blood pressure 84 mm[Hg] 84 mm[Hg] [facility] ([facility]) Heart rate 73 /min 73 /min [facility] ([facility]) Body mass index (BMI) [Ratio] 36.3 kg/m2 36.3 k g/m2 [facility] ([facility]) Body height 70.4 [in_i] 70.4 [in_i] MEDENT ([facility]) 5'10.40" Body weight 256.00 [lb_av] 256.00 [lb_av] MEDEN T ([facility]) Body temperature 96.0 [degF] 96.0 [degF] [facility] ([facility]) Body height 70.4 [in_i] 70.4 [in_i] MEDENT ([facility]) 5'10.40" Body weight 268.8 [lb_av] 268.8 [lb_av] eCW1 ([facility], 1928[facility]1983) Body height 71 [in_i] 71 [in_i] eCW1 ([facility]) Body mass index (BMI) [Ratio] 37.49 kg/m2 37.49 kg/m2 eCW1 ([facility] [place]) Heart rate 103 /min 103 /min eCW1 ([facility]) Respiratory rate 18 /min 18 /min eCW1 (Count includes the [facility]) Body temperature 97.9 [degF] 97.9 [degF] eCW1 ( [facility] [place]) Systolic blood pressure 146 mm[Hg] 146 mm[Hg] e CW1 ([facility] [place]) Diastolic blood pressure 86 mm[Hg] 86 mm[Hg] eCW1 ([facility] [place]) Body weight 259.4 [lb_av] 259.4 [lb_av] eCW1 ([facility], [facility]) Body height 71 [in_i] 71 [in_i] eCW1 ([facility]) Body mass index (BMI) [Ratio] 36.18 kg/m2 36.18 kg/m2 eCW1 ([facility] [place]) Heart rate 98 /min 98 /min eCW1 ([facility]) Respiratory rate 18 /min 18 /min eCW1 (Count includes the [facility]) Body temperature 98.4 [degF] 98.4 [degF] eCW1 ( [facility] [place]) Systolic blood pressure 142 mm[Hg] 142 mm[Hg] e CW1 ([facility] [place]) Diastolic blood pressure 90 mm[Hg] 90 mm[Hg] eCW1 ([facility] [place]) Body weight 266 [lb_av] 266 [lb_av] eCW1 ([facility]) Body height 71 [in_i] 71 [in_i] eCW1 ([facility]) Body mass index (BMI) [Ratio] 37.10 kg/m2 37.10 kg/m2 eCW1 ([facility] [place]) Heart rate 111 /min 111 /min eCW1 ([facility]) Respiratory rate 18 /min 18 /min eCW1 (Count includes the [facility]) Body temperature 97.4 [degF] 97.4 [degF] eCW1 ( [facility] [place]) Systolic blood pressure 152 mm[Hg] 152 mm[Hg] e CW1 ([facility] [place]) Diastolic blood pressure 90 mm[Hg] 90 mm[Hg] eCW1 ([facility] [place]) Body temperature 97.1 [degF] 97.1 [degF] MEDENT ([facility]) Body height 70.4 [in_i] 70.4 [in_i] MEDENT ([facility]) 5'10.40" Body weight 254 [lb_av] 254 [lb_av] eCW1 ([facility]) Body height 71 [in_i] 71 [in_i] eCW1 ([facility]) Body mass index (BMI) [Ratio] 35.42 kg/m2 35.42 kg/m2 eCW1 ([facility] [place]) Heart rate 96 /min 96 /min eCW1 ([facility]) Respiratory rate 18 /min 18 /min eCW1 (Count includes the [facility]) Body temperature 98.7 [degF] 98.7 [degF] eCW1 ( [facility] [place]) Systolic blood pressure 142 mm[Hg] 142 mm[Hg] e CW1 ([facility] [place]) Diastolic blood pressure 90 mm[Hg] 90 mm[Hg] eCW1 ([facility] [place]) Body mass index (BMI) [Ratio] 35.1 kg/m2 35.1 k g/m2 MEDENT ([facility]) Heart rate 100 /min 100 /min [facility] ([facility]) Diastolic blood pressure 100 mm[Hg] 100 mm[Hg] MEDENT ([facility]) Systolic blood pressure 140 mm[Hg] 140 mm[Hg] M EDENT ([facility]) Body temperature 96.9 [degF] 96.9 [degF] MEDENT ([facility]) Body height 70.4 [in_i] 70.4 [in_i] MEDENT ([facility]) 5'10.40" Body weight 247.50 [lb_av] 247.50 [lb_av] MEDEN T ([facility]) Body height 0.00 in Normal (applies to non-numeric resu lts) 0.00 in [facility] ([facility]) Body weight Measured 0.00 lbs Normal (applies to n on-numeric results) 0.00 lbs [facility] ([facility]) Body mass index (BMI) [Ratio] 0.00 kg/m2 No rmal (applies to non-numeric results) 0.00 kg/m2 [facility] ([facility]) Systolic blood pressure 0 mm[Hg] Normal (applies t o non-numeric results) 0 mm[Hg] [facility] ([facility]) Diastolic blood pressure 0 mm[Hg] Normal (applies to non-numeric results) 0 mm[Hg] [facility] ([facility]) Diastolic blood pressure 0 mm[Hg] Normal (applies to non-numeric results) 0 mm[Hg] [facility] ([facility]) Body height 0.00 in Normal (applies to non-numeric resu lts) 0.00 in [facility] ([facility]) Body weight Measured 0.00 lbs Normal (applies to n on-numeric results) 0.00 lbs [facility] ([facility]) Body mass index (BMI) [Ratio] 0.00 kg/m2 No rmal (applies to non-numeric results) 0.00 kg/m2 [facility] ([facility]) Systolic blood pressure 0 mm[Hg] Normal (applies t o non-numeric results) 0 mm[Hg] [facility] ([facility]) Body height 0.00 in Normal (applies to non-numeric resu lts) 0.00 in [facility] ([facility]) Body weight Measured 0.00 lbs Normal (applies to n on-numeric results) 0.00 lbs [facility] ([facility]) Body mass index (BMI) [Ratio] 0.00 kg/m2 No rmal (applies to non-numeric results) 0.00 kg/m2 [facility] ([facility]) Systolic blood pressure 0 mm[Hg] Normal (applies t o non-numeric results) 0 mm[Hg] [facility] ([facility]) Diastolic blood pressure 0 mm[Hg] Normal (applies to non-numeric results) 0 mm[Hg] [facility] ([facility]) Patient Treatment Plan of Care Planned Activity Planned Date Details Description Data Source (s) Nicotine 4 MG Chewing Gum [[place]] 09/15/2020 12:00:00 AM EDT eCW1 ([facility] [place]) Nicotine 4 MG Chewing Gum [[place]] 09/15/2020 12:00:00 AM EDT eCW1 ([facility] [place]) Nicotine 4 MG Chewing Gum [[place]] 09/15/2020 12:00:00 AM EDT eCW1 ([facility] [place]) Nicotine 4 MG Chewing Gum [[place]] 09/15/2020 12:00:00 AM EDT eCW1 ([facility] [place]) Nicotine 4 MG Chewing Gum [[place]] 09/15/2020 12:00:00 AM EDT eCW1 ([facility] [place]) Nicotine 4 MG Chewing Gum [[place]] 09/15/2020 12:00:00 AM EDT eCW1 ([facility] [place]) Nicotine 4 MG Chewing Gum [[place]] 09/15/2020 12:00:00 AM EDT eCW1 ([facility] [place]) Nicotine 4 MG Chewing Gum [[place]] 09/15/2020 12:00:00 AM EDT eCW1 ([facility] [place]) Nicotine 4 MG Chewing Gum [[place]] 09/15/2020 12:00:00 AM EDT eCW1 ([facility] [place]) Hydrochlorothiazide 12.5 MG Oral Tablet 08/24/2020 12:00:00 AM EST eCW1 ([facility] [place]) Hydrochlorothiazide 12.5 MG Oral Tablet 08/24/2020 12:00:00 AM EST eCW1 ([facility] [place]) Hydrochlorothiazide 12.5 MG Oral Tablet 08/24/2020 12:00:00 AM EST eCW1 ([facility] [place]) Hydrochlorothiazide 12.5 MG Oral Tablet 08/24/2020 12:00:00 AM EST eCW1 ([facility] [place]) Hydrochlorothiazide 12.5 MG Oral Tablet 08/24/2020 12:00:00 AM EST eCW1 ([facility] [place]) Amphetamine aspartate 5 MG / Amphetamine Sulfate 5 MG / Dextroamphetamine saccharate 5 MG / Dextroamphetamine Sulfate 5 MG Oral Tablet [Adderall] 08/10/2020 12:00:00 AM EST eCW1 ([facility]) Amphetamine aspartate 5 MG / Amphetamine Sulfate 5 MG / Dextroamphetamine saccharate 5 MG / Dextroamphetamine Sulfate 5 MG Oral Tablet [Adderall] 08/10/2020 12:00:00 AM EST eCW1 ([facility]) Lisinopril 30 MG Oral Tablet 07/27/2020 12:00:00 AM EST eCW1 ([facility] [place]) Lisinopril 30 MG Oral Tablet 07/27/2020 12:00:00 AM EST eCW1 ([facility] [place]) Lisinopril 30 MG Oral Tablet 07/27/2020 12:00:00 AM EST eCW1 ([facility] [place]) Lisinopril 30 MG Oral Tablet 07/27/2020 12:00:00 AM EST eCW1 ([facility] [place]) Lisinopril 20 MG Oral Tablet 07/27/2020 12:00:00 AM EST eCW1 ([facility] [place]) Lisinopril 20 MG Oral Tablet 07/27/2020 12:00:00 AM EST eCW1 ([facility] [place]) Lisinopril 20 MG Oral Tablet 07/27/2020 12:00:00 AM EST eCW1 ([facility] [place]) Amphetamine aspartate 5 MG / Amphetamine Sulfate 5 MG / Dextroamphetamine saccharate 5 MG / Dextroamphetamine Sulfate 5 MG Oral Tablet [Adderall] 07/13/2020 12:00:00 AM EST eCW1 ([facility]) Amphetamine aspartate 5 MG / Amphetamine Sulfate 5 MG / Dextroamphetamine saccharate 5 MG / Dextroamphetamine Sulfate 5 MG Oral Tablet [Adderall] 06/12/2020 12:00:00 AM EST eCW1 ([facility])
[2021-04-12] MEDS ORDERED: methylPREDNISolone 125MG 2ML VIAL IV STA (19:56)
[2021-04-12] MEDS ORDERED: ASPIRIN 81 MG CHEW TABLET PO ONE (20:00)
--- NOTE | 2021-04-12 20:10 | IPNPDOC ---
Text Note Date of Service The patient was seen on 04/12/21. NOTE TIME OF SERVICE 745PM is a 51 yr old M w a hx of GERD, Asthma, hx of Hep A& C and Migranes who presented w c/o dizziness & passing out for 1 week; he had non-bloody diarrhea. He came to the hospital because he is weak and having difficulties walking. He denies having runny nose, cough, or fevers but does admit that he is a bit short of breath and his asthma may be acting up. PE: he appears anxious / he has right hip flexor, right knee and right ankle weakness He will be admitted for # Syncope concerning for vertebrobasilar insufficiency # RLE weakness # AUGUSTUS # Mild asthma exacerbation +/- right sided PNA ? # Diarrhea # Lactic acidosis # Suspected liver cirrhosis (w thrombocytopenia & transaminitis) # Class obesity # Hypotension (resolved after IVF) Plan: stroke order set (CT head, MRI brain and carotid US & Echo (can't do CTA bc of low GFR)), check phosphorus, PT/OT, f/u renal US and ulytes, IVF, check UDS, Steroids, c/w abx per PNA order set, Neb treatments, check GI panel, trend lactic acid, check liver US, resume his home meds once the Painting Worker is able to get a hold of his bilingual patient support caseworker Rest per 's H&P AAMIR ULLOA MD Apr 12, 2021 20:10
[2021-04-12 20:43] LABS: AMPHETAMINES LEVEL URINE POSITIVE (NEGATIVE); BARBITURATES URINE NEGATIVE (NEGATIVE); BENZODIAZEPINES URINE NEGATIVE (NEGATIVE); CANNABINOIDS URINE NEGATIVE (NEGATIVE); COCAINE METABOLITE URINE NEGATIVE (NEGATIVE); METHADONE URINE POSITIVE (NEGATIVE); OPIATES URINE POSITIVE (NEGATIVE); PHENCYCLIDINE URINE NEGATIVE (NEGATIVE)
[2021-04-12 20:59] LABS: CALCIUM LEVEL 7.9 MG/DL (8.5-10.1); CREATININE FOR GFR 2.06 MG/DL (0.70-1.30); GLOMERULAR FILTRATION RATE 36.6 (>56); POTASSIUM SERUM 4.2 MEQ/L (3.5-5.1)
[2021-04-12] MEDS ORDERED: DOXYCYCLINE HYCLATE 100 MG in D5W MINI-BAG PLUS 100 ML IV SCH (21:00)
[2021-04-12] MEDS ORDERED: SIMVASTATIN 20 MG TAB PO SCH (21:00)
[2021-04-12] MEDS ORDERED: OLANZapine 5 MG TAB PO SCH (21:00)
--- NOTE | 2021-04-12 21:00 | HPEPDOC ---
[facility] Medical History & Physical Date of Admission Apr 12, 2021 Date of Service: Apr 12, [address] Mar Chakraborty, endocrinology; Domenica (counselor) and Elie (research neuropsychologist) at [facility]; Kenzie (counselor) and a provider at [facility]; transitional living services case resource manager (Lesly) History and Physical CHIEF COMPLAINT: Lightheadedness, diarrhea, abdominal pain HISTORY OF PRESENT ILLNESS: is a pleasant 51yo male with notable PMHx of asthma, GLADYS not on CPAP, bipolar with jarrod/depression/anxiety/PTSD/ADHD, HTN, HCV s/p tx, testosterone insufficiency on q10d injections, prior IVDA, DLD, and acid reflux who presented to the [facility] ED on 04/12/21 with the chief complaint of lightheadedness, non- bloody diarrhea, and abdominal pain. Patient reports that beginning last week, about 04/05, he began to experience 12 episodes of lightheadedness per day when transitioning from seated to standing positions, denying any room spinning/dizziness. The episodes became more frequent to the point that in the last few days they have been occurring anytime he stands up. He did experience one episode of loss of consciousness 2 days ago (04/10) around 10 AM, but when he came to, was seated in his couch with no obvious signs of injury and assumed he had simply collapsed back down. He reports 23 episodes of nonbloody diarrhea yesterday (04/11) and today (04/12) that he describes as "all water" with no tangible stool. Accompanying the diarrhea was a gaseous pressure periumbilically that has since improved. He denies any associated nausea or vomiting. On review, he reports being feverish intermittently along with chills and sweats. He does report a decreased oral intake over the past few days. He denies any recent medication changes, significant travel, or exposure to known sick contacts. In addition, he does report a feeling of intermittently trying to catch his breath that accompanies the lightheadedness and has needed to use his as needed inhaler (has h/o asthma) more frequently than his typical baseline. He denies recent cough or pleuritic chest pain. In the ED, patient was afebrile without leukocytosis but was hypotensive (initial BP 86/44 reaching as low as 67/37) with elevated lactate (2.5) and CRP (3.17). A chest x-ray showed a right lower lobe "airspace disease" suggestive of pneumonia versus atelectasis. Respiratory viral panel was negative, and patient had acute renal failure (BUN 34, creatinine 2.65 - - bl about 0.8-1). Patient was administered 30 mg/kg sepsis fluid resuscitation protocol and responded well, subsequently becoming normotensive. Care was transferred over to the hospital service with admission primarily for suspected right lower lobe pneumonia with associated signs of acute organ dysfunction (lactic > 2, SBP < 90, and Cr > 2) and acute renal failure. PAST MEDICAL HISTORY: Asthma GLADYS not currently using CPAP HTN Dyslipidemia ADHD Bipolar depression with jarrod/PTSD/anxiety Hepatitis C infection status post treatment Former IV drug abuse (heroin) Testosterone insufficiency, follows with endocrinology and receives injections of testosterone every 10 weeks Acid reflux Active chewing tobacco user PAST SURGICAL HISTORY: [place] teeth extraction SOCIAL HISTORY: Patient lives in [place] and is currently on disability due to his psychiatric history. He does have a pet dog. He has the former IV drug abuse history (heroin) but reports being free of illicit substances at this time; he receives methadone through [facility] He reports active use of chewing tobacco going through a single tin in a week He is a former cigarette smoker with a [id number]-[id number] history (half a pack per day for 20 years) He reports no current alcohol use but does state a former heavy alcohol use history with his last drink coming 5 years ago. FAMILY HISTORY: Father: ; pancreatic cancer Mother: Living; diabetes mellitus 2, depression, bipolar Patient has 1 brother who is living and has no known significant medical histo ry. ALLERGIES: Please see below. REVIEW OF SYSTEMS: CONSTITUTIONAL: Reports subjective fever, sweats, and chills. HEENT: Denies any vision or hearing changes. CARDIOVASCULAR: Denies chest pain, chest pressure, or palpitations RESPIRATORY: Reports feeling of trying to catch his breath that is associated with the lightheadedness and needing to use inhaler more frequently. Denies cough or pleuritic chest pain. GASTROINTESTINAL: Reports nonbloody watery diarrhea a few episodes over the past 2 days, with additional feeling of gaseous abdominal pressure that has since improved. Denies specific abdominal pain. Reports decreased oral intake over the past 48 to 72 hours. Denies nausea or vomiting. GENITOURINARY: Denies dysuria or hematuria NEUROLOGICAL: Reports the episodes of lightheadedness with transitions from seated to standing position as described extensively in HPI. He did also have the LOC event with 1 of those transitions. PSYCHIATRIC: Reports mood has been similar to his recent baseline. Denies any homicidal or suicidal ideations. HEMATOLOGIC: Denies easy bleeding or bruising. LYMPHATIC: Denies any new lumps or bumps. HOME MEDICATIONS: Please see below. PHYSICAL EXAMINATION: VITAL SIGNS: Temperature 96.2, pulse 63, respiratory rate 18, blood pressure 126/76, pulse oximetry 94% on room air. GENERAL APPEARANCE: Pleasant male lying relatively flat in ED bed. Appears to be somewhat weak but otherwise is not appear to be in acute distress. HEENT: Normocephalic, atraumatic. Noninjected, anicteric sclera. No significant conjunctival pallor appreciated. Oral cavity: Somewhat dry mucous membranes. No pharyngeal erythema or exudate is appreciated. Mallampati 4. Neck: Wide. No lymphadenopathy appreciated. CARDIOVASCULAR: Borderline bradycardic rate, regular rhythm. Normal S1, S2. His heart sounds are distant appearing which made it difficult to appreciate with any degree of accuracy for significant murmurs or rubs. LUNGS: Patient has somewhat decreased tidal volume as well as slightly decreased breath sounds in the right base posteriorly. There were coarse breath sounds posteriorly most prominent over the middle and basilar sections in the left side. Symmetric chest expansion. No accessory muscle use appreciated. Breathing room air. ABDOMEN: Soft, obese. Non-distended. There is moderate tenderness of the epigastric region. Normoactive bowel sounds throughout. No guarding or rigidity is appreciated. No significant hepatosplenomegaly or palpable masses are appreciated. MUSCULOSKELETAL: 5/5 muscle strength of upper and lower extremities bilaterally. EXTREMITIES: Bilateral lower extremities are free of pitting edema. 2+ radial and dorsalis pedis pulses bilaterally. NEUROLOGICAL: No gross focal neurologic deficits appreciated. Nondysarthric speech. PSYCHIATRIC: Maintained good eye contact throughout the exam. Respond appr opriate all questions and commands. Relatively pleasant mood with mild anxiety manifested by intermittently shaking his feet. Appropriate appearing affect LABORATORY DATA: Please see below. IMAGING: Portable chest x-ray, 04/12/2021 FINDINGS: The mediastinum and cardiac silhouette are stable and within normal limits for portable technique. The lung fontenot demonstrate right lower lobe airspace disease. No effusion or pneumothorax. Skeletal structures are intact. IMPRESSION: Right lower lobe airspace disease suggesting pneumonia versus atelectasis. Follow-up to resolution recommended. Renal ultrasound, 04/12/2021 FINDINGS: Right kidney measures 12.7 x 6.0 x 6.5 cm and includes small nonobstructing calculus in the lower pole without hydronephrosis, cystic or renal mass lesion. No pe rinephric fluid collection. Left kidney measures 13.5 x 4.9 x 6.4 cm without hydronephrosis, nephrol ithiasis, cystic or renal mass lesion. No perinephric fluid collection. Bladder is grossly unremarkable. IMPRESSION: 1. Possible nonobstructing right renal calculus. 2. No evidence for hydronephrosis bilaterally. MICROBIOLOGY: Please see below. ASSESSMENT & PLAN: This is a 51yo male w/ notable h/o asthma, GLADYS not on CPAP, HTN, DLD, acid reflux, testosterone insuff on injections, HCV s/p tx w/ past IVDA and EtOH abuse, multiple psych issues (Bipolar I/PTSD/ADHD), & active chewing tobacco use who presented to the ED on 04/12 complaining of lightheadedness on transitions from seated to standing with single episode of LOC and 2 days of nonbloody watery diarrhea. He was hypotensive in the ED and responded to sepsis fluid bolus while also having an elevated lactic acid (2.5) and CRP (3.17) with x-ray findings suggestive of right lower lobe airspace disease and acute renal failure (creatinine 2.65). He was admitted primarily for treatment of suspected CAP and ARF. #Hypotension - likely 2/2 recent diarrhea/poor PO intake and suspected CAP i/s/o ARF; resolved -Patient initially presented hypotensive (lowest reading was 67/37) -s/p 30mg/kg fluid bolus w/ return to normotensive pressures -IVF running now i/s/o ARF -No inital SIRS criteria, but signs of organ compromise (ARF w/ Cr > 2, SBP < 90, and Lactate > 2) #Right lower lobe airspace disease on imaging suggestive of CAP -Patient was afebrile without leukocytosis but was hypotensive on presentation with elevated CRP and lactic acid -Chest x-ray imaging findings as noted above in imaging section -Patient started on ceftriaxone and doxycycline (due to ARF, azithromycin was substituted for with the doxycycline for atypical coverage) -IV fluids running; status post sepsis fluid bundle resuscitation -Procalcitonin ordered -Status post 125 IV Solu-Medrol dose in the ED -cont pulse ox; o2 titration #Acute renal failure - likely 2/2 recent GI losses via diarrhea and decreased appetite -Patient has had approximately 3 episodes of nonbloody watery diarrhea each the last 2 days as well as reported decreased oral intake -Initial BUN 34, creatinine 2.65; baseline creatinine is about 0.81 -Calculated fractional excretion of sodium was 0.9; as this is less than 1, in prerenal likely because of recent GI losses and/poor p.o. intake; possibly also a component of liver cirrhosis due to patient's IV drug use history/HCV/EtOH abuse -Renal ultrasound showed no hydronephrosis and possible right renal non obstructing stone -Initially hypotensive on presentation received sepsis fluid bolus -Patient became normotensive and scheduled IV fluids initiated thereafter -Repeat metabolic panel ordered for the morning -avoid nephrotoxic agents; home talib-i and tzd not continued upon admission. #Lightheadedness w/ episode of syncope - likely 2/2 dehydration and/or possible orthostatic hypotension -IVF running; fall risk precautions; assisted ambulation only -orthostats ordered -tele #Non-bloody watery diarrhea -Pt reports roughly 3 episodes/day the past two days -GI panel ordered -loperamide prn #Elevated liver enzymes -Initial AST 65, ALT 111 -Patient does have a history of IV drug abuse (heroin) and prior heavy alcohol use -Hepatitis panel has been ordered -Abdominal ultrasound has also been ordered #Elevated lactic acid -initial level 2.5; reflex repeat value upcoming -likely 2/2 CAP and decreased renal clearance i/s/o ARF -s/p sepsis IVF bolus w/ scheduled fluids to follow #History of asthma -Pt px w/ suspected RLL CAP -saturating well on room air -negative viral panel -scheduled duonebs; home inhalers continued #History of HTN -Patient was hypotensive upon presentation and required sepsis initial fluid resuscitation -Bonded well, now normotensive -Antihypertensives were initially not continued in the setting of acute renal failure and hypotension #History of acid reflux -Oral pantoprazole ordered #Behavioral health issues -Patient has significant psych history (PTSD/ADHD/bipolar jarrod/anxiety) -At time of admission, home medications were not reconciled by pharmacy -We will plan to continue these medications once able -Of note, TSH was in the low normal range with T4 borderline elevated -Possible consideration for smoldering hyperthyroidism; something to monitor for outpatient evaluation #History of testosterone insufficiency -Patient receives testosterone injections via endocrinology as outpatient every 10 days #DVT prophylaxis: sc heparin tid i/s/o ARF Code status: Full code Disposition: Pending ARF improvement, respiratory stability in setting of suspected CAP, and hemodynamic stability. Vital Signs Vital Signs Date Time Temp Pulse Resp B/P (MAP) Pulse Ox O2 Delivery O2 Flow Rate FiO2 04/12/21 17:20 126/76 (93) 04/12/21 17:16 63 18 94 04/12/21 14:31 Room Air 04/12/21 13:47 96.2 Laboratory Data Labs 24H Laboratory Tests 2 04/12/21 14:08: Immature Granulocyte % (Auto) 0.3, Neutrophils (%) (Auto) 57.9, Lymphocytes (%) (Auto) 28.1, Monocytes (%) (Auto) 9.9H, Eosinophils (%) (Auto) 3.1H, Basophils (%) (Auto) 0.7, Neutrophils # (Auto) 3.3, Lymphocytes # (Auto) 1.6, Monocytes # (Auto) 0.6, Eosinophils # (Auto) 0.2, Basophils # (Auto) 0.0, Nucleated Red Blood Cells % (auto) 0.0, Lactic Acid Level 2.5*H 04/12/21 14:58: Anion Gap 5L, Glomerular Filtration Rate 27.3L, Calcium Level 7.5L, Total Bilirubin 0.6, Direct Bilirubin 0.2, Aspartate Amino Transf (AST/SGOT) 65H, Alanine Aminotransferase (ALT/SGPT) 111H, Alkaline Phosphatase 73, Total Creatine Kinase 57, Creatine Kinase MB < 1.0, Creatine Kinase MB Relative Index 1.75, Troponin I < 0.02, C-Reactive Protein, Quantitative 3.17H, Total Protein 6.1L, Albumin 2.9L, Albumin/Globulin Ratio 0.9, Amylase Level 32, Thyroid Stimulating Hormone (TSH) 0.647, Thyroxine (T4) 12.0 04/12/21 16:21: Prothrombin Time 16.0H, Prothromb Time International Ratio 1.24, Activated Partial Thromboplast Time 40.1H 04/12/21 17:55: Urine Color YELLOW, Urine Appearance HAZY, Urine pH 6.0, Urine Specific [place] 1.008, Urine Protein NEGATIVE, Urine Glucose (Auto)(UA) 3+H, Urine Ketones (Auto) NEGATIVE, Urine Blood NEGATIVE, Urine Nitrite NEGATIVE, Urine Bilirubin NEGATIVE, Urine Urobilinogen 0.2, Urine Leukocyte Esterase (Auto) 2+H, Urine WBC (Auto) 33H, Urine RBC (Auto) 2, Urine Hyaline Casts (Auto) 0, Urine Bacteria (Auto) NEGATIVE, Urine Squamous Epithelial Cells 0, Urine Mucus (Auto) SMALL, Urine Sperm (Auto) , Urine Random Creatinine 89.7, Urine Random Sodium 40, Urine Opiates Screen POSITIVEH, Urine Methadone Screen POSITIVEH, Urine Barbiturates Screen NEGATIVE, Urine Phencyclidine Screen NEGATIVE, Urine Amphetamines Screen POSITIVEH, Urine Benzodiazepines Screen NEGATIVE, Urine Cocaine Metabolite Screen NEGATIVE, Urine Cannabinoids Screen NEGATIVE 04/12/21 20:30: CBC/BMP Laboratory Tests 04/12/21 14:08 04/12/21 14:58 Microbiology Microbiology 04/12/21 Urine Culture, Received Pending 04/12/21 Respiratory Virus Panel (PCR) (RADHA) - Final, Complete 04/12/21 Blood Culture, Received Pending 04/12/21 Blood Culture, Received Pending Home Medications Scheduled Bupropion HCl (Wellbutrin Xl) 150 Mg Tab.er.24h, 150 MG PO DAILY Cetirizine HCl (Cetirizine HCl) 10 Mg Tablet, 10 MG PO DAILY Gabapentin (Neurontin) 300 Mg Capsule, 300 MG PO BID Hydrochlorothiazide (Hydrochlorothiazide) 12.5 Mg Capsule, 12.5 MG PO DAILY Lamotrigine (Lamotrigine) 100 Mg Tablet, 100 MG PO DAILY Lisinopril (Lisinopril) 30 Mg Tablet, 30 MG PO DAILY Methadone HCl (Methadone HCl) 10 Mg/1 Ml Oral.conc, 60 MG PO DAILY Multivitamins (Thera M Plus Tablet) 1 Each Tablet, 1 TAB PO DAILY Olanzapine (Olanzapine) 15 Mg Tablet, 15 MG PO QHS Omeprazole (Omeprazole) 40 Mg Cap, 40 MG PO DAILY Oxybutynin Chloride (Oxybutynin Chloride) 5 Mg Tablet, 5 MG PO BID Simvastatin (Simvastatin) 20 Mg Tablet, 20 MG PO QHS Scheduled PRN Albuterol Sulfate (Proair Hfa) 8.5 Gm Hfa.aer.ad, 2 PUFF INH Q4H PRN for SHORTNESS OF BREATH Hydroxyzine HCl (Hydroxyzine HCl) 50 Mg Tablet, 50 MG PO TID PRN for ANXIETY Ibuprofen (Ibuprofen) 200 Mg Tablet, 600 MG PO Q6H PRN for HEADACHE OR MILD PAIN Sumatriptan Succinate (Sumatriptan Succinate) 50 Mg Tablet, 50 MG PO BID PRN for MIGRAINE Allergies Coded Allergies: No Known Allergies (Verified , 01/03/03) ABDELRAHMAN SIMS D.O. Apr 12, 2021 20:59 AAMIR ULLOA MD Apr 15, 2021 03:21
[2021-04-12] MEDS ORDERED: LISI30TA4 PO (21:17)
[2021-04-12] MEDS ORDERED: HYDR50TA70 PO (21:17)
[2021-04-12] MEDS ORDERED: VITMTA PO (21:17)
[2021-04-12] MEDS ORDERED: HYDR12CA PO (21:17)
[2021-04-12] MEDS ORDERED: METH10CO PO (21:17)
[2021-04-12] MEDS ORDERED: NEUR300C PO (21:17)
[2021-04-12] MEDS ORDERED: OXYB5TAB10 PO (21:17)
[2021-04-12] MEDS ORDERED: SIMV20TA22 PO (21:17)
[2021-04-12] MEDS ORDERED: SUMA50TA2 PO (21:17)
[2021-04-12] MEDS ORDERED: LAMO100T3 PO (21:17)
[2021-04-12] MEDS ORDERED: OLAN15TA13 PO (21:17)
[2021-04-12] MEDS ORDERED: WELLTAB38 PO (21:17)
[2021-04-12] MEDS ORDERED: CETI-24 PO (21:17)
[2021-04-12] MEDS ORDERED: PROAAER10 INH (21:17)
[2021-04-12] MEDS ORDERED: IBUP-1720 PO (21:17)
--- NOTE | 2021-04-12 21:54 | REPVR ---
PROCEDURE INFORMATION: Exam: CT Head Without Contrast Exam date and time: 04/12/2021 8:45 PM Age: 51 years old Clinical indication: Dizziness and weakness, extremity; Right; Additional info: Right leg weakness / dizziness TECHNIQUE: Imaging protocol: Computed tomography of the head without contrast. Radiation optimization: All CT scans at this facility use at least one of these dose optimization techniques: automated exposure control; mA and/or kV adjustment per patient size (includes targeted exams where dose is matched to clinical indication); or iterative reconstruction. COMPARISON: MRI-Brain W/O FOLL BY WITH 04/01/2019 8:45 AM FINDINGS: Brain: Normal. No hemorrhage. Unremarkable white matter. No mass effect. Cerebral ventricles: No ventriculomegaly. Paranasal sinuses: Visualized sinuses are unremarkable. No fluid levels. Mastoid air cells: Visualized mastoid air cells are well aerated. Bones/joints: Unremarkable. No acute fracture. Soft tissues: Unremarkable. IMPRESSION: No acute intracranial abnormality. Electronically signed by: Ramírez Hernandez On 04/12/2021 21:54:12 PM
--- NOTE | 2021-04-12 22:38 | REPVR ---
PROCEDURE INFORMATION: Exam: MR Head Without Contrast Exam date and time: 04/12/2021 9:32 PM Age: 51 years old Clinical indication: Dizziness and other: Headache; Patient HX: PT states has been having extreme dizziness and headaches for the past week; Additional info: Right leg weakness TECHNIQUE: Imaging protocol: MR of the head without contrast. COMPARISON: CT Head without contrast 04/12/2021 8:40 PM FINDINGS: Major vascular flow voids at the skull base are preserved. No extra-axial fluid collection. No hydrocephalus. No midline shift or intracranial mass effect. No cerebral edema or pathologic susceptibility. No diffusion restriction. Visualized paranasal sinuses and mastoid air cells are clear. IMPRESSION: No acute intracranial abnormality. Electronically signed by: Ramírez Hernandez On 04/12/2021 22:38:29 PM
[2021-04-13] MEDS: IPRATROPIUM 0.5MG/ALBUTEROL 2.5MG INH SOL UD 3ML (DUONEB) NEB SCH ×2 (00:07→08:31)
[2021-04-13] MEDS: NS 1,000 ML IV SCH ×2 (00:10→00:21)
[2021-04-13 01:50] VITALS: BP 111/62
[2021-04-13] MEDS ORDERED: LOPERAMIDE 2 MG CAPLET PO PRN (02:55)
[2021-04-13] MEDS ORDERED: SUMAtriptan SUCCINATE 25 MG TAB PO PRN (03:00)
[2021-04-13] MEDS ORDERED: hydrOXYzine 50 MG TAB PO PRN (03:00)
[2021-04-13] MEDS ORDERED: HEPARIN SOD (PORCINE) 5000UNITS/ML 1ML VIAL/SYRINGE SC SCH (06:00)
[2021-04-13 06:38] LABS: BASO % 0.2 % (0.0-1.0); EOS % 0.5 % (0.0-3.0); HEMATOCRIT 41.2 % (42.0-52.0); HEMOGLOBIN 14.3 g/dl (13.5-17.5); LYMPH # 0.8 10^3/uL (1.5-5.0); LYMPH % 20.2 % (24.0-44.0); MEAN CORPUSCULAR HEMOGLOBIN 29.5 pg (27.0-33.0); MEAN CORPUSCULAR HGB CONC 34.7 g/dl (32.0-36.5); MEAN CORPUSCULAR VOLUME 85.1 fl (80.0-96.0); MONO # 0.1 10^3/uL (0.0-0.8); NEUTROPHILS # 3.1 10^3/uL (1.5-8.5); NEUTROPHILS % 76.6 % (36.0-66.0); PLATELET COUNT, AUTOMATED 118 10^3/uL (150-450); RED BLOOD COUNT 4.84 10^6/uL (4.30-6.10); WHITE BLOOD COUNT 4.1 10^3/uL (4.0-10.0)
[2021-04-13 07:09] LABS: ALBUMIN 3.1 GM/DL (3.2-5.2); BILIRUBIN,TOTAL 0.5 MG/DL (0.2-1.0); CALCIUM LEVEL 8.2 MG/DL (8.5-10.1); CREATININE FOR GFR 1.66 MG/DL (0.70-1.30); GLOMERULAR FILTRATION RATE 46.9 (>56); MAGNESIUM LEVEL 1.6 MG/DL (1.8-2.4); POTASSIUM SERUM 4.5 MEQ/L (3.5-5.1); TOTAL PROTEIN 6.6 GM/DL (6.4-8.2)
[2021-04-13 07:10] LABS: CHOLESTEROL RISK RATIO 3.888 (<5)
[2021-04-13] MEDS ORDERED: HOME MED LIST COMPLETE! XX SCH (08:10)
--- NOTE | 2021-04-13 08:20 | ECGEPIP ---
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
[2021-04-13] MEDS ORDERED: PANTOPRAZOLE 40MG TAB (PROTONIX) PO SCH (09:00)
[2021-04-13] MEDS ORDERED: oxyBUTYnin 5 MG TAB PO SCH (09:00)
[2021-04-13] MEDS ORDERED: buPROPion **XL** TABLET 150MG (WELLBUTRIN XL) PO SCH (09:00)
[2021-04-13] MEDS ORDERED: CETIRIZINE (ZyrTEC) 10 MG TAB PO SCH (09:00)
[2021-04-13] MEDS ORDERED: MULTIVITAMINS/MINERALS THERAP 1 TAB PO SCH (09:00)
[2021-04-13] MEDS ORDERED: GABAPENTIN 300 MG CAP PO SCH (09:00)
[2021-04-13] MEDS ORDERED: lamoTRIgine 100MG TAB PO SCH (09:00)
--- NOTE | 2021-04-13 14:51 | IPNPDOC ---
Text Note Date of Service The patient was seen on 04/13/21. NOTE Subjective: Patient is a 51-year-old male with a past medical history of asthma, GLADYS not on CPAP, bipolar with jarrod/depression/anxiety/PTSD/ADHD, hypertension, treated hepatitis C, testosterone insufficiency on every 10 day injections, prior IV drug use presented to the emergency department reporting lightheadedness, nonbloody diarrhea and abdominal pain. Patient reports patient having diarrhea for the past few weeks. Patient was admitted with for acute kidney injury which has mildly improved. Patient states he is feeling better. Patient was found to be hypotensive which is most likely reason for his AUGUSTUS. Patient was on have possible pneumonia. Patient was given fluid resuscitation and is feeling better now. Patient says that the diarrhea is also slowed down. Review of systems: General: Patient denies fevers HEENT: Patient denies headaches Cardiovascular: Patient denies chest pain Respiratory: Patient denies shortness of breath, cough GI: Patient denies abdominal pain, nausea, vomiting, diarrhea : Patient denies increased frequency or pain with urination Extremities: Patient denies swelling or pain in extremities Neurological: Patient denies numbness or tingling in legs Physical exam: Vitals: See below General: Alert and oriented male patient who was laying in bed when I walked in. Patient did not appear to be in any acute distress. HEENT: Normocephalic, atraumatic, moist mucous membranes. Neck: No lymphadenopathy or thyromegaly Cardiac: Regular rate and rhythm, no murmurs, normal S1, normal S2 Pulm: Clear to auscultation bilaterally. No wheezes, rhonchi, rales Abd: Nondistended, nontender to palpation, normal bowel sounds Ext: No edema bilateral lower extremities Labs: See below Imaging: No new imaging has been performed Assessment/plan: 51-year-old male patient who presented to the emergency department with hypotension who was found to have AUGUSTUS most likely secondary to either pneumonia and/or diarrhea 1. Hypotension. Likely secondary to recent diarrhea/poor p.o. intake and suspected community-acquired pneumonia. Hypotension resolved after fluid bolus. Patient will continue on IV fluids for acute kidney injury. 2. Acute kidney injury. This has improved from a creatinine greater than 2 with creatinine now 1.6. We will continue IV fluids and recheck in the morning. 3. Community-acquired pneumonia. Patient appears to have been acquired pneumonia on x-ray. Patient will be given ceftriaxone and doxycycline. If the patient is able to go home tomorrow, patient will be switched to cefdinir and oral doxycycline. 4. Lightheadedness with episode of syncope. Likely secondary to dehydration. Continue IV fluids. 5. Nonbloody watery diarrhea. Patient had roughly 3 episodes per day with past 2 days. GI panel has been ordered. 6. Elevated liver enzymes. Initial AST 65, ALT 111. Patient does have history of IV drug use and prior heavy alcohol use. Hepatitis panel ordered. Abdominal ultrasound is also been ordered. 7. Elevated lactic acid, this is improved. Continue IV fluid hydration. 8. History of asthma. Saturating well on room air with negative viral panel. 9. History of hypertension. Holding hypertensive secondary to hypotension. 10. GERD. Pantoprazole has been given. 11. Behavioral issues. Continue to follow-up outpatient psych. DVT Prophylaxis: Heparin Disposition: Pending clinical improvement, possible discharge tomorrow VS,Monica, I+O VS, Monica, I+O Laboratory Tests 04/12/21 14:58 04/12/21 20:30 04/13/21 06:20 Vital Signs Date Time Temp Pulse Resp B/P (MAP) Pulse Ox O2 Delivery O2 Flow Rate FiO2 04/13/21 01:50 71 111/62 (78) 04/13/21 00:20 92 04/12/21 17:16 18 04/12/21 14:31 Room Air 04/12/21 13:47 96.2 I&O- Last 24 Hours up to 6 AM 04/13/21 05:59 Intake Total 3270 ml Balance 3270 ml YURI SALVADOR DO Apr 13, 2021 14:51
[2021-04-13] MEDS ORDERED: cefTRIAXone SOD 2 GM in D5W MINI-BAG PLUS 50 ML IV SCH (16:00)
--- NOTE | 2021-04-13 18:33 | DS.PDOC ---
Discharge Summary General Date of Admission Apr 12, 2021 at 18:54 Date of Discharge 04/13/2021 Attending Physician: YURI SALVADOR DO Discharge Summary PROCEDURES PERFORMED DURING STAY: None. ADMITTING DIAGNOSES: 1. Hypotension. 2. Right lower lobe airspace disease suggestive of community-acquired pneumonia 3. Acute renal failure 4. Lightheadedness 5. Nonbloody watery diarrhea 6. Elevated liver enzymes 7. Elevated lactic acid 8. History of asthma 9. History of hypertension 10. History of acid reflux 11. Bipolar 12. History of testosterone insufficiency DISCHARGE DIAGNOSES: 1. Hypotension. 2. Right lower lobe airspace disease suggestive of community-acquired pneumonia 3. Acute renal failure 4. Lightheadedness 5. Nonbloody watery diarrhea 6. Elevated liver enzymes 7. Elevated lactic acid 8. History of asthma 9. History of hypertension 10. History of acid reflux 11. Bipolar 12. History of testosterone insufficiency COMPLICATIONS/CHIEF COMPLAINT: Pneumonia. HISTORY OF PRESENT ILLNESS: Patient is a 51-year-old male who presented to the emergency department with a few day history of lightheadedness and dizziness. Patient is also been having diarrhea which she describes all water. Patient was having gaseous pressure periumbilical which has improved. Patient had 1-2 episodes of lightheadedness per day when transitioning from sitting to standing position but it denied the room spinning or any dizziness. Patient states that the episodes became more frequent yesterday causing him to come into the emergency department. Patient denies any medication changes or significant travel. Patient was found to be afebrile without leukocytosis but was hypotensive and with an elevated lactic acid. Chest x-ray showed possible airspace disease suggestive of pneumonia versus atelectasis. Respiratory viral panel was negative. Patient was admitted for hypotension and acute renal failure. HOSPITAL COURSE: Patient's renal failure was improving and the patient's hypotension had improved with fluid resuscitation. Patient stated this morning that his diarrhea had resolved. The decision was made to keep the patient 1 additional night to ensure that his renal failure was going to continue to improve. Patient seemed upset when I saw him early this morning because he was in the emergency department as a qureshi due to the lack of beds on the inpatient floors. Patient apparently walked out of the emergency department and will stop at the triage nurse with multiple IVs in his arms around 830 this morning. Patient had the IVs taken out and left AGAINST MEDICAL ADVICE. I was not aware or contacted of this until later on in the afternoon. I am unsure whether or not the patient signed the AGAINST MEDICAL ADVICE form or was told of the risks of leaving AGAINST MEDICAL ADVICE which include but not limited to worsening of his kidney function, worsening of his blood pressure, and/or . Patient was discharged in the hospital on AGAINST MEDICAL ADVICE DISCHARGE MEDICATIONS: Please see below. ALLERGIES: Please see below. PHYSICAL EXAMINATION ON DISCHARGE: VITAL SIGNS: Please see below. General: Alert and oriented male patient who was laying in bed when I walked in the room. Patient not appear to be in any acute distress. HEENT: Normocephalic, atraumatic, moist mucous membranes. Neck: No lymphadenopathy or thyromegaly Cardiac: Regular rate and rhythm, no murmurs, normal S1, normal S2 Pulm: Clear to auscultation bilaterally. No wheezes, rhonchi, rales Abd: Nondistended, nontender to palpation, normal bowel sounds Ext: No edema bilateral lower extremities LABORATORY DATA: Please see below. IMAGING: Chest x-ray performed on 04/12/2021 was reported to show right lower lobe airspace disease suggesting pneumonia versus atelectasis. Follow-up to resolution recommended. Renal ultrasound performed on 04/12/2021 is reported to show probable nonobstructive right renal calculus. No evidence of for hydronephrosis bilaterally. MRI of the brain without contrast on 04/12/2021 was reported to show no acute intracranial abnormality. CT of the head performed without contrast on 04/12/2021 was reported to show no acute intracranial abnormality. PROGNOSIS: Fair ACTIVITY: As tolerated. DIET: Regular DISCHARGE PLAN: Discharge AGAINST MEDICAL ADVICE DISPOSITION: Against Medical Advice. DISCHARGE INSTRUCTIONS: 1. Follow-up with primary care provider within 3 to 5 days of discharge. 2. Return to the emergency department symptoms worsen ITEMS TO FOLLOWUP ON ON OUTPATIENT: 1. Follow-up resolution of diarrhea and possible pneumonia. DISCHARGE CONDITION: Stable. TIME SPENT ON DISCHARGE: 25 minutes. Vital Signs/I&Os Vital Signs Date Time Temp Pulse Resp B/P (MAP) Pulse Ox O2 Delivery O2 Flow Rate FiO2 04/13/21 01:50 71 111/62 (78) 04/13/21 00:20 92 04/12/21 17:16 18 04/12/21 14:31 Room Air 10/14/21 13:47 96.2 I&O- Last 24 Hours up to 6 AM 04/13/21 06:00 Intake Total 3270 ml Balance 3270 ml Laboratory Data Labs 24H Laboratory Tests 2 04/12/21 20:30: Anion Gap 5L, Glomerular Filtration Rate 36.6L, Lactic Acid Level 2.1*H, Calcium Level 7.9L, Phosphorus Level 2.8, Procalcitonin 0.10 04/12/21 23:29: Lactic Acid Level 2.3*H 04/13/21 06:20: Anion Gap 3L, Glomerular Filtration Rate 46.9L, Calcium Level 8.2L, Immature Granulocyte % (Auto) 0.5, Neutrophils (%) (Auto) 76.6H, Lymphocytes (%) (Auto) 20.2L, Monocytes (%) (Auto) 2.0, Eosinophils (%) (Auto) 0.5, Basophils (%) (Auto) 0.2, Neutrophils # (Auto) 3.1, Lymphocytes # (Auto) 0.8L, Monocytes # (Auto) 0.1, Eosinophils # (Auto) 0.0, Basophils # (Auto) 0.0, Nucleated Red Blood Cells % (auto) 0.0, Estimated Mean Plasma Glucose 269H, Hemoglobin A1c 11.0, Lactic Acid Followup at 4 Hours 1.6, Magnesium Level 1.6L, Total Bilirubin 0.5, Aspartate Amino Transf (AST/SGOT) 59H, Alanine Aminotransferase (ALT/SGPT) 111H, Alkaline Phosphatase 79, Total Protein 6.6, Albumin 3.1L, Albumin/Globulin Ratio 0.9, Triglycerides Level 125, Total Cholesterol 105, LDL Cholesterol 53, Non-HDL Cholesterol (LDL + VLDL) 78, Total HDL Cholesterol 27L, Cholesterol/HDL Ratio 3.888 CBC/BMP Laboratory Tests 04/12/21 20:30 04/13/21 06:20 Microbiology Microbiology 04/12/21 Urine Culture - Final, Complete 04/12/21 Respiratory Virus Panel (PCR) ([facility]) - Final, Complete 04/12/21 Blood Culture - Preliminary, Resulted No growth after 24 hours . All specim... 04/12/21 Blood Culture - Preliminary, Resulted No growth after 24 hours . All specim... Discharge Medications Scheduled Bupropion HCl (Wellbutrin Xl) 150 Mg Tab.er.24h, 150 MG PO DAILY, (Reported) Cetirizine HCl (Cetirizine HCl) 10 Mg Tablet, 10 MG PO DAILY, (Reported) Gabapentin (Neurontin) 300 Mg Capsule, 300 MG PO BID, (Reported) Hydrochlorothiazide (Hydrochlorothiazide) 12.5 Mg Capsule, 12.5 MG PO DAILY, (Re ported) Lamotrigine (Lamotrigine) 100 Mg Tablet, 100 MG PO DAILY, (Reported) Lisinopril (Lisinopril) 30 Mg Tablet, 30 MG PO DAILY, (Reported) Methadone HCl (Methadone HCl) 10 Mg/1 Ml Oral.conc, 60 MG PO DAILY, (Reported) Multivitamins (Thera M Plus Tablet) 1 Each Tablet, 1 TAB PO DAILY, (Reported) Olanzapine (Olanzapine) 15 Mg Tablet, 15 MG PO QHS, (Reported) Omeprazole (Omeprazole) 40 Mg Cap, 40 MG PO DAILY, (Reported) Oxybutynin Chloride (Oxybutynin Chloride) 5 Mg Tablet, 5 MG PO BID, (Reported) Simvastatin (Simvastatin) 20 Mg Tablet, 20 MG PO QHS, (Reported) Scheduled PRN Albuterol Sulfate (Proair Hfa) 8.5 Gm Hfa.aer.ad, 2 PUFF INH Q4H PRN for SHORTNESS OF BREATH, (Reported) Hydroxyzine HCl (Hydroxyzine HCl) 50 Mg Tablet, 50 MG PO TID PRN for ANXIETY, (Reported) Ibuprofen (Ibuprofen) 200 Mg Tablet, 600 MG PO Q6H PRN for HEADACHE OR MILD PAIN, (Reported) Sumatriptan Succinate (Sumatriptan Succinate) 50 Mg Tablet, 50 MG PO BID PRN for MIGRAINE, (Reported) Allergies Coded Allergies: No Known Allergies (Verified , 01/03/03) YURI SALVADOR DO Apr 13, 2021 18:33
== END 2021-04-13 10:55 | disposition left against medical advice (07) | DRG 469 ==
LOC: M ED 13:46 → M ED INP 18:54
PROVIDERS: ADMIT General Practice; ATTEND Internal Medicine
DX: N17.9 Acute kidney failure, unspecified (principal); J18.9 Pneumonia, unspecified organism; I95.9 Hypotension, unspecified; E87.2 Acidosis; J45.901 Unspecified asthma with (acute) exacerbation; K74.60 Unspecified cirrhosis of liver; R19.7 Diarrhea, unspecified; R55 Syncope and collapse; E66.9 Obesity, unspecified; Z68.33 Body mass index [BMI] 33.0-33.9, adult; F31.9 Bipolar disorder, unspecified; I10 Essential (primary) hypertension; K21.9 Gastro-esophageal reflux disease without esophagitis; Z79.899 Other long term (current) drug therapy; G47.33 Obstructive sleep apnea (adult) (pediatric); E78.5 Hyperlipidemia, unspecified; F17.220 Nicotine dependence, chewing tobacco, uncomplicated

== ENCOUNTER → 2021-06-13 | Outpatient (CLI) | payer OTHER ==
[~2021-06-13] MED LIST changes: +CETI-24 PO; +HYDR12CA PO; +HYDR50TA70 PO; +IBUP-1720 PO; +LAMO100T3 PO; +LISI30TA4 PO; +NEUR300C PO; +OLAN15TA13 PO; +OXYB5TAB10 PO; +PROAAER10 INH; +SIMV20TA22 PO; +SUMA50TA2 PO; +VITMTA PO; +WELLTAB38 PO
[2021-06-13 07:08] LABS: HEMATOCRIT 40.5 % (42.0-52.0); HEMOGLOBIN 14.1 g/dl (13.5-17.5)
== END ==
LOC: M LAB 06:31
PROVIDERS: ATTEND Nurse Practitioner Family
DX: E29.1 Testicular hypofunction (principal)

== ENCOUNTER → 2021-10-04 | Outpatient (CLI) | payer OTHER ==
[2021-10-04 10:51] LABS: HEMOGLOBIN 16.4 g/dl (13.5-17.5)
== END ==
LOC: M LAB 09:26
PROVIDERS: ATTEND Nurse Practitioner Family
DX: E29.1 Testicular hypofunction (principal)

== ENCOUNTER → 2021-10-04 | Outpatient (CLI) | payer OTHER ==
[2021-10-04 10:40] LABS: HEMOGLOBIN 16.3 g/dl (13.5-17.5); MEAN CORPUSCULAR HEMOGLOBIN 29.7 pg (27.0-33.0); MEAN CORPUSCULAR HGB CONC 34.7 g/dl (32.0-36.5); MEAN CORPUSCULAR VOLUME 85.8 fl (80.0-96.0); PLATELET COUNT, AUTOMATED 142 10^3/uL (150-450); RED BLOOD COUNT 5.48 10^6/uL (4.30-6.10); WHITE BLOOD COUNT 9.9 10^3/uL (4.0-10.0)
[2021-10-04 11:30] LABS: ALBUMIN 4.1 GM/DL (3.2-5.2); ALT/SGPT 102 U/L (12-78); BILIRUBIN,TOTAL 1.3 MG/DL (0.2-1.0); BLOOD UREA NITROGEN 26 MG/DL (7-18); CALCIUM LEVEL 9.9 MG/DL (8.5-10.1); CARBON DIOXIDE LEVEL 22 MEQ/L (21-32); CHLORIDE LEVEL 102 MEQ/L (98-107); CREATININE FOR GFR 1.28 MG/DL (0.70-1.30); GLOMERULAR FILTRATION RATE > 60.0 (>56); GLUCOSE, FASTING 431 MG/DL (70-100); POTASSIUM SERUM 5.2 MEQ/L (3.5-5.1); SODIUM LEVEL 134 MEQ/L (136-145); TOTAL PROTEIN 8.2 GM/DL (6.4-8.2)
[2021-10-04 12:09] LABS: GC DNA AMPLIFICATION NEGATIVE (NEGATIVE)
== END ==
LOC: M EKG 09:23
PROVIDERS: ATTEND Family Medicine
DX: F11.20 Opioid dependence, uncomplicated (principal)

== ENCOUNTER → 2022-01-10 | Outpatient (CLI) | payer OTHER ==
[2022-01-10 07:21] LABS: HEMATOCRIT 45.4 % (42.0-52.0); HEMOGLOBIN 15.4 g/dl (13.5-17.5); MEAN CORPUSCULAR HEMOGLOBIN 29.4 pg (27.0-33.0); MEAN CORPUSCULAR HGB CONC 33.9 g/dl (32.0-36.5); MEAN CORPUSCULAR VOLUME 86.8 fl (80.0-96.0); PLATELET COUNT, AUTOMATED 126 10^3/uL (150-450); RED BLOOD COUNT 5.23 10^6/uL (4.30-6.10)
[2022-01-10 08:03] LABS: HEMOGLOBIN A1c 8.3 %
[2022-01-10 08:06] LABS: ALBUMIN 3.8 GM/DL (3.2-5.2); ALT/SGPT 128 U/L (12-78); BILIRUBIN,TOTAL 0.9 MG/DL (0.2-1.0); BLOOD UREA NITROGEN 15 MG/DL (7-18); CALCIUM LEVEL 8.9 MG/DL (8.5-10.1); CARBON DIOXIDE LEVEL 24 MEQ/L (21-32); CHLORIDE LEVEL 108 MEQ/L (98-107); CHOLESTEROL LEVEL 114 MG/DL (<200); CHOLESTEROL RISK RATIO 3.257 (<5); CREATININE FOR GFR 1.07 MG/DL (0.70-1.30); GLOMERULAR FILTRATION RATE > 60.0 (>56); GLUCOSE, FASTING 128 MG/DL (70-100); HDL CHOLESTEROL 35 MG/DL (>40); LDL CHOLESTEROL 56 MG/DL (<100); NON-HDL-C 79 MG/DL; POTASSIUM SERUM 3.7 MEQ/L (3.5-5.1); SODIUM LEVEL 139 MEQ/L (136-145); THYROID STIMULATING HORMONE 0.756 uIU/ML (0.358-3.740); TOTAL PROTEIN 6.9 GM/DL (6.4-8.2); TRIGLYCERIDES LEVEL 117 MG/DL (<150)
== END ==
LOC: M LAB 06:51
PROVIDERS: ATTEND Physician Assistant
DX: F32.A Depression, unspecified (principal); E78.5 Hyperlipidemia, unspecified; R73.03 Prediabetes

== ENCOUNTER 2022-07-02 12:37 | Inpatient (IN) | payer OTHER ==
[~2022-07-02] VITALS: Ht 180.3 cm; Wt 94.0 kg
[2022-07-02] MEDS ORDERED: cefTRIAXone SOD 1 GM in D5W MINI-BAG PLUS 50 ML IV ONE (17:00)
[2022-07-02] MEDS ORDERED: NS 1,000 ML IV ONE (17:00)
[2022-07-02] MEDS ORDERED: IPRATROPIUM 0.5MG/ALBUTEROL 2.5MG INH SOL UD 3ML (DUONEB) NEB ONE (17:05)
[2022-07-02] MEDS: COMBIVENT RESPIMAT 100-20MCG INHALER 4GM INH SCH ×2 (17:25→23:20)
[2022-07-02 18:37] LABS: RSV AMPLIFICATION NEGATIVE (NEGATIVE)
[2022-07-02 18:54] LABS: LIPASE 104 U/L (12-53)
[2022-07-02 18:55] LABS: BILIRUBIN,DIRECT 0.6 MG/DL (<0.4)
[2022-07-02 18:56] LABS: ALKALINE PHOSPHATASE 270 U/L (46-116); ALT/SGPT 90 U/L (7.0-40); AST/SGOT 74 U/L (<34); BILIRUBIN,TOTAL 0.7 MG/DL (0.3-1.2); TOTAL PROTEIN 7.4 G/DL (5.7-8.2)
[2022-07-02 19:10] LABS: HEPATITIS B SURFACE ANTIGEN NEGATIVE (NEGATIVE)
[2022-07-02 19:13] LABS: CALCIUM LEVEL 6.2 MG/DL (8.5-10.1); MAGNESIUM LEVEL 3.1 MG/DL (1.8-2.4)
[2022-07-02 19:32] LABS: HEPATITIS B CORE ANTIBODY IGM NEGATIVE (NEGATIVE)
[2022-07-02 19:35] LABS: CPK CREATINE PHOSPHOKINASE 44 U/L (46-171)
[2022-07-02] MEDS ORDERED: ACETAMINOPHEN 500 MG TAB PO ONE (19:45)
[2022-07-02] MEDS ORDERED: CALCIUM GLUCONATE 1,000 MG in D5W MINI-BAG PLUS 100 ML IV ONE (19:45)
[2022-07-02 20:04] LABS: BASO % 0.1 % (0.0-1.0); EOS % 0.3 % (0.0-3.0); HEMATOCRIT 36.5 % (42.0-52.0); HEMOGLOBIN 12.2 g/dl (13.5-17.5); LYMPH # 0.8 10^3/uL (1.5-5.0); LYMPH % 10.6 % (24.0-44.0); MEAN CORPUSCULAR HEMOGLOBIN 27.6 pg (27.0-33.0); MEAN CORPUSCULAR HGB CONC 33.4 g/dl (32.0-36.5); MEAN CORPUSCULAR VOLUME 82.6 fl (80.0-96.0); MONO # 0.2 10^3/uL (0.0-0.8); MONO % 2.7 % (2.0-8.0); NEUTROPHILS # 6.4 10^3/uL (1.5-8.5); NEUTROPHILS % 84.7 % (36.0-66.0); PLATELET COUNT, AUTOMATED 200 10^3/uL (150-450); RED BLOOD COUNT 4.42 10^6/uL (4.30-6.10); WHITE BLOOD COUNT 7.5 10^3/uL (4.0-10.0)
[2022-07-02 20:30] LABS: ERYTHROCYTE SEDIMENTATION RATE > 130 mm/hr (0-20)
[2022-07-02 20:35] LABS: HEPATITIS C VIRUS ABY INDEX > 11.0 INDEX (<0.8)
[2022-07-02 20:39] LABS: D-DIMER QUANT > 4000 ng/ml (<500)
[2022-07-02 20:51] LABS: ETHYL ALCOHOL (ETHANOL) 0.003 % (0.000-0.010)
[2022-07-02] MEDS ORDERED: LORazepam 2 MG TAB PO PRN (20:55)
[2022-07-02] MEDS ORDERED: GLUCOSE 4GM CHEW TABLET PO PRN (20:55)
[2022-07-02] MEDS ORDERED: DEXTROSE 50% 50ML SYRINGE IV PRN (20:55)
[2022-07-02] MEDS ORDERED: GLUCAGON INJ 1MG VIAL SC PRN (20:55)
[2022-07-02] MEDS: NS 1,000 ML IV SCH (21:20)
[2022-07-02 21:21] LABS: INR 1.13; PROTHROMBIN TIME 14.7 SECONDS (12.5-14.5)
[2022-07-02] MEDS: THIAMINE 100 MG TAB PO SCH (21:40)
[2022-07-02] MEDS: INSULIN LISPRO (NovoLOG) PER UNIT SC SCH (21:40)
[2022-07-02] MEDS ORDERED: ALBUTEROL SULFATE 2.5MG/0.5ML INH NEB SOLN NEB PRN (22:00)
[2022-07-02] MEDS: PIPERACILLIN/TAZOBACTAM SOD 2.25 GM in D5W MINI-BAG PLUS 50 ML IV SCH (23:00)
[2022-07-02] MEDS: ACETAMINOPHEN TAB 650MG DOSE (2X325MG) PO PRN (23:12)
[2022-07-02] MEDS ORDERED: ALBU8.5H INH (23:34)
[2022-07-02] MEDS ORDERED: ZOLO100T PO (23:34)
[2022-07-02] MEDS ORDERED: DOCU100C16 PO (23:34)
[2022-07-02] MEDS ORDERED: METF-877 PO (23:34)
[2022-07-02] MEDS ORDERED: HOME MED LIST COMPLETE! XX SCH (23:40)
[2022-07-03] MEDS ORDERED: PILL CUTTER 1 EACH XX PRN (00:30)
[2022-07-03] MEDS ORDERED: METH10CO PO (00:30)
[2022-07-03] MEDS: ALBUTEROL SULFATE 2.5MG/0.5ML INH NEB SOLN NEB SCH ×7 (00:41→23:19)
[2022-07-03 01:13] LABS: ABG BASE EXCESS -5.3 (-2.0-2.0); ABG HCO3 17.4 MEQ/L (22.0-26.0); ABG O2 SATURATION 92.2 % (95.0-99.0); ABG PARTIAL PRESSURE CO2 26.7 mmHg (35.0-45.0); ABG PARTIAL PRESSURE O2 62.2 mmHg (75.0-100.0); ABG TOTAL CO2 18.2 MEQ/L (22.0-29.0); ABG pH (ARTERIAL) 7.432 UNITS (7.350-7.450)
[2022-07-03 01:23] LABS: APPEARANCE, URINE MANUAL CLEAR (CLEAR); COLOR, URINE MANUAL YELLOW (YELLOW)
[2022-07-03 01:25] LABS: BILIRUBIN, URINE MANUAL NEGATIVE (NEGATIVE); BLOOD URINE MANUAL TRACE (NEGATIVE); GLUCOSE, URINE (UA) MANUAL NEGATIVE (NEGATIVE); KETONE, URINE MANUAL NEGATIVE (NEGATIVE); LEUKOCYTE ESTERASE, URINE MAN NEGATIVE (NEGATIVE); NITRITE, URINE MANUAL NEGATIVE (NEGATIVE); PROTEIN, URINE MANUAL NEGATIVE (NEGATIVE); SPECIFIC GRAVITY,URINE MANUAL 1.015 (1.002-1.035); UROBILINOGEN, URINE MANUAL NORMAL (NORMAL)
[2022-07-03 01:34] LABS: SQUAMOUS EPITHELIAL CELL URINE SMALL AMOUNT /hpf (SMALL AMT); WBC, URINE 0-1 /hpf (0-3)
[2022-07-03 01:36] LABS: TRANSITIONAL EPI CELLS, URINE SMALL AMOUNT /hpf
[2022-07-03 01:38] LABS: BACTERIA, URINE 0; HYALINE CAST, URINE 0-1 /lpf (0-1); RENAL EPITHELIAL CELLS, URINE SMALL AMOUNT /hpf
[2022-07-03 01:39] LABS: AMORPHOUS SEDIMENT, URINE SMALL AMOUNT (NEGATIVE)
[2022-07-03 01:41] VITALS: BP 122/67
[2022-07-03] MEDS ORDERED: HEPARIN DRIP 25,000 UNITS in IV 1 EA IV SCH (03:00)
[2022-07-03] MEDS ORDERED: HEPARIN SOD (PORCINE) 5000UNITS/ML 1ML VIAL/SYRINGE IV PRN (03:00)
[2022-07-03] MEDS: ACETAMINOPHEN TAB 650MG DOSE (2X325MG) PO PRN ×2 (03:13→08:39)
[2022-07-03 03:40] LABS: BASO % 0.3 % (0.0-1.0); EOS % 0.1 % (0.0-3.0); HEMATOCRIT 36.4 % (42.0-52.0); HEMOGLOBIN 12.3 g/dl (13.5-17.5); LYMPH # 1.1 10^3/uL (1.5-5.0); LYMPH % 14.7 % (24.0-44.0); MEAN CORPUSCULAR HEMOGLOBIN 27.5 pg (27.0-33.0); MEAN CORPUSCULAR HGB CONC 33.8 g/dl (32.0-36.5); MEAN CORPUSCULAR VOLUME 81.3 fl (80.0-96.0); MONO # 0.3 10^3/uL (0.0-0.8); MONO % 3.9 % (2.0-8.0); NEUTROPHILS # 5.8 10^3/uL (1.5-8.5); NEUTROPHILS % 78.6 % (36.0-66.0); PLATELET COUNT, AUTOMATED 235 10^3/uL (150-450); RED BLOOD COUNT 4.48 10^6/uL (4.30-6.10); WHITE BLOOD COUNT 7.4 10^3/uL (4.0-10.0)
[2022-07-03 04:09] LABS: ALBUMIN 2.1 G/DL (3.2-5.2); ALKALINE PHOSPHATASE 260 U/L (46-116); ALT/SGPT 85 U/L (7.0-40); AST/SGOT 63 U/L (<34); BILIRUBIN,TOTAL 0.9 MG/DL (0.3-1.2); BLOOD UREA NITROGEN 109 MG/DL (9-23); CALCIUM LEVEL 6.6 MG/DL (8.5-10.1); CARBON DIOXIDE LEVEL 14 MMOL/L (20-31); CHLORIDE LEVEL 97 MMOL/L (98-107); CREATININE FOR GFR 3.82 MG/DL (0.70-1.30); GLOMERULAR FILTRATION RATE 17.9 (>56); GLUCOSE, FASTING 229 MG/DL (60-100); PHOSPHORUS LEVEL 6.5 MG/DL (2.5-4.9); POTASSIUM SERUM 4.4 MMOL/L (3.5-5.1); SODIUM LEVEL 132 MMOL/L (136-145); TOTAL PROTEIN 7.4 G/DL (5.7-8.2)
[2022-07-03 04:10] LABS: COMPLEMENT C3 156.3 MG/DL (90.0-170.0); COMPLEMENT C4 27.2 MG/DL (12-36)
[2022-07-03] MEDS: PIPERACILLIN/TAZOBACTAM SOD 2.25 GM in D5W MINI-BAG PLUS 50 ML IV SCH (04:28)
[2022-07-03 04:31] VITALS: BP 117/67
[2022-07-03 06:30] LABS: HIV 1&2 SCREEN CENTAUR NEGATIVE (NEGATIVE)
[2022-07-03 08:00] VITALS: BP 131/62
[2022-07-03] MEDS: THIAMINE 100 MG TAB PO SCH (08:38)
[2022-07-03] MEDS: oxyBUTYnin 5 MG TAB PO SCH ×2 (08:38→21:26)
[2022-07-03] MEDS: buPROPion **XL** TABLET 150MG (WELLBUTRIN XL) PO SCH (08:38)
[2022-07-03] MEDS: OMEPRAZOLE 20MG CAP PO SCH (08:38)
[2022-07-03] MEDS: GABAPENTIN 300 MG CAP PO SCH ×3 (08:38→21:26)
[2022-07-03] MEDS: INSULIN LISPRO (NovoLOG) PER UNIT SC SCH ×4 (08:43→21:27)
[2022-07-03] MEDS ORDERED: VANCOMYCIN HCL 750 MG, VIAL MATE ADAPTER 1 EACH in NS 250 ML IV SCH (08:45)
[2022-07-03] MEDS ORDERED: MULTIVITAMINS/MINERALS THERAP 1 TAB PO SCH (09:00)
[2022-07-03] MEDS ORDERED: FOLIC ACID 1MG TAB PO SCH (09:00)
[2022-07-03] MEDS: methylPREDNISolone 125MG 2ML VIAL IV SCH ×2 (10:12→17:18)
[2022-07-03 12:00] VITALS: BP 138/66
[2022-07-03] MEDS ORDERED: VANCOMYCIN HCL 1,000 MG, VIAL MATE ADAPTER 1 EACH in D5W 250 ML IV SCH (12:00)
[2022-07-03] MEDS: PIPERACILLIN/TAZOBACTAM SOD 3.375 GM in D5W MINI-BAG PLUS 50 ML IV SCH ×3 (12:21→23:00)
[2022-07-03] MEDS: NS 1,000 ML IV SCH (12:21)
[2022-07-03] MEDS: METHADONE 10MG TAB PO SCH (12:23)
[2022-07-03] MEDS ORDERED: VANCOMYCIN HCL 1,000 MG, VIAL MATE ADAPTER 1 EACH in D5W 250 ML IV ONE (15:00)
[2022-07-03 15:04] LABS: CALCIUM LEVEL 7.2 MG/DL (8.5-10.1); CREATININE FOR GFR 2.31 MG/DL (0.70-1.30); GLOMERULAR FILTRATION RATE 31.9 (>56); POTASSIUM SERUM 4.7 MMOL/L (3.5-5.1)
[2022-07-03 16:00] VITALS: BP 138/78
[2022-07-03] MEDS ORDERED: SENNA 8.6 MG TAB (SENOKOT) PO PRN (17:00)
[2022-07-03] MEDS ORDERED: MIRALAX *UNIT DOSE* 17GM PACKET PO PRN (17:00)
[2022-07-03] MEDS: SUMAtriptan SUCCINATE 25 MG TAB PO PRN (17:23)
[2022-07-03 19:55] LABS: HEMOGLOBIN A1c 8.4 % (4.0-6.0)
[2022-07-03 20:00] VITALS: BP 146/70
[2022-07-03] MEDS: DOCUSATE SODIUM 100MG CAPSULE PO SCH (21:25)
[2022-07-03] MEDS: SIMVASTATIN 20 MG TAB PO SCH (21:25)
[2022-07-03] MEDS: SERTRALINE 100 MG TAB PO SCH (21:25)
[2022-07-03] MEDS: HEPARIN SOD (PORCINE) 5000UNITS/ML 1ML VIAL/SYRINGE SQ SCH (21:27)
[2022-07-03] MEDS: OLANZapine 5 MG TAB PO SCH (21:27)
[2022-07-04] VITALS (10 sets, daily range): BP systolic 117–135; BP diastolic 56–87; O2SAT 90–91
[2022-07-04] MEDS: ALBUTEROL SULFATE 2.5MG/0.5ML INH NEB SOLN NEB SCH ×6 (03:39→23:37)
[2022-07-04] MEDS: PIPERACILLIN/TAZOBACTAM SOD 3.375 GM in D5W MINI-BAG PLUS 50 ML IV SCH ×2 (04:05→11:33)
[2022-07-04] MEDS: methylPREDNISolone 125MG 2ML VIAL IV SCH ×3 (04:05→18:06)
[2022-07-04] MEDS: HEPARIN SOD (PORCINE) 5000UNITS/ML 1ML VIAL/SYRINGE SQ SCH ×3 (05:48→21:17)
[2022-07-04 08:07] LABS: BASO % 0.2 % (0.0-1.0); HEMATOCRIT 43.1 % (42.0-52.0); HEMOGLOBIN 13.8 g/dl (13.5-17.5); LYMPH # 0.9 10^3/uL (1.5-5.0); LYMPH % 10.1 % (24.0-44.0); MEAN CORPUSCULAR HEMOGLOBIN 27.5 pg (27.0-33.0); MONO # 0.2 10^3/uL (0.0-0.8); MONO % 2.4 % (2.0-8.0); NEUTROPHILS # 7.5 10^3/uL (1.5-8.5); NEUTROPHILS % 86.3 % (36.0-66.0); PLATELET COUNT, AUTOMATED 258 10^3/uL (150-450); RED BLOOD COUNT 5.01 10^6/uL (4.30-6.10); WHITE BLOOD COUNT 8.7 10^3/uL (4.0-10.0)
[2022-07-04 08:33] LABS: VANCOMYCIN RANDOM 9.7 UG/ML
[2022-07-04 08:52] LABS: ALBUMIN 2.3 G/DL (3.2-5.2); BILIRUBIN,TOTAL 1.6 MG/DL (0.3-1.2); CALCIUM LEVEL 9.1 MG/DL (8.5-10.1); CREATININE FOR GFR 1.34 MG/DL (0.70-1.30); GLOMERULAR FILTRATION RATE 59.8 (>56); POTASSIUM SERUM 6.2 MMOL/L (3.5-5.1); TOTAL PROTEIN 8.2 G/DL (5.7-8.2)
[2022-07-04] MEDS: INSULIN LISPRO (NovoLOG) PER UNIT SC SCH ×4 (09:43→21:17)
[2022-07-04] MEDS: VANCOMYCIN HCL 1,000 MG, VIAL MATE ADAPTER 1 EACH in D5W 250 ML IV SCH ×2 (09:44→21:16)
[2022-07-04] MEDS: LEVEMIR (INSULIN DETEMIR) 1 UNITS/0.01ML SC SCH (09:45)
[2022-07-04] MEDS: oxyBUTYnin 5 MG TAB PO SCH ×2 (09:45→21:18)
[2022-07-04] MEDS: SERTRALINE 100 MG TAB PO SCH ×2 (09:45→21:18)
[2022-07-04] MEDS: buPROPion **XL** TABLET 150MG (WELLBUTRIN XL) PO SCH (09:45)
[2022-07-04] MEDS: OMEPRAZOLE 20MG CAP PO SCH (09:45)
[2022-07-04] MEDS: MULTIVITAMINS/MINERALS THERAP 1 TAB PO SCH (09:46)
[2022-07-04] MEDS: METHADONE 10MG TAB PO SCH (09:46)
[2022-07-04] MEDS: DOCUSATE SODIUM 100MG CAPSULE PO SCH ×2 (09:46→20:09)
[2022-07-04] MEDS: SUMAtriptan SUCCINATE 25 MG TAB PO PRN ×2 (09:46→21:18)
[2022-07-04] MEDS: GABAPENTIN 300 MG CAP PO SCH ×3 (09:46→21:18)
[2022-07-04] MEDS ORDERED: CALCIUM GLUCONATE 1,000 MG in D5W MINI-BAG PLUS 100 ML IV ONE (10:00)
[2022-07-04] MEDS ORDERED: FUROSEMIDE 20MG/2ML VIAL IV ONE (10:05)
[2022-07-04] MEDS ORDERED: PATIROMER SORBITEX CALCIUM 8.4 GM POWDER PACKET (VELTASSA) PO ONE (11:00)
[2022-07-04] MEDS ORDERED: ALBUTEROL SULFATE 2.5MG/0.5ML INH NEB SOLN NEB ONE (11:00)
[2022-07-04] MEDS ORDERED: LIDOCAINE 1% MDV 20ML VIAL As Ordered ONE (14:49)
[2022-07-04] MEDS ORDERED: SODIUM CHLORIDE 0.9% INJ 10 ML SYR IV PRN (16:25)
[2022-07-04 16:36] LABS: BLOOD UREA NITROGEN 54 MG/DL (9-23); CALCIUM LEVEL 9.9 MG/DL (8.5-10.1); CARBON DIOXIDE LEVEL 20 MMOL/L (20-31); CHLORIDE LEVEL 100 MMOL/L (98-107); CREATININE FOR GFR 1.19 MG/DL (0.70-1.30); GLOMERULAR FILTRATION RATE > 60.0 (>56); GLUCOSE, FASTING 379 MG/DL (60-100); POTASSIUM SERUM 5.4 MMOL/L (3.5-5.1); SODIUM LEVEL 133 MMOL/L (136-145)
[2022-07-04] MEDS: PIPERACILLIN/TAZOBACTAM SOD 4.5 GM in D5W MINI-BAG PLUS 50 ML IV SCH ×2 (16:55→22:24)
[2022-07-04] MEDS: NICOTINE 21MG/24HR 1 EA TRANSDERMAL TD SCH (16:55)
[2022-07-04] MEDS: SODIUM CHLORIDE 0.9% INJ 10 ML SYR IV SCH (18:06)
[2022-07-04] MEDS: ACETAMINOPHEN TAB 650MG DOSE (2X325MG) PO PRN (19:37)
[2022-07-04] MEDS: OLANZapine 5 MG TAB PO SCH (21:17)
[2022-07-04] MEDS: SIMVASTATIN 20 MG TAB PO SCH (21:18)
[2022-07-04 23:04] LABS: BLOOD UREA NITROGEN 43 MG/DL (9-23); CALCIUM LEVEL 9.6 MG/DL (8.5-10.1); CARBON DIOXIDE LEVEL 20 MMOL/L (20-31); CHLORIDE LEVEL 99 MMOL/L (98-107); CREATININE FOR GFR 1.22 MG/DL (0.70-1.30); GLOMERULAR FILTRATION RATE > 60.0 (>56); GLUCOSE, FASTING 501 MG/DL (60-100); POTASSIUM SERUM 5.3 MMOL/L (3.5-5.1); SODIUM LEVEL 130 MMOL/L (136-145)
[2022-07-05] VITALS (9 sets, daily range): BP systolic 116–133; BP diastolic 66–84; O2SAT 90–92
[2022-07-05] MEDS: ALBUTEROL SULFATE 2.5MG/0.5ML INH NEB SOLN NEB SCH ×6 (03:49→23:26)
[2022-07-05] MEDS: PIPERACILLIN/TAZOBACTAM SOD 4.5 GM in D5W MINI-BAG PLUS 50 ML IV SCH ×2 (04:08→11:03)
[2022-07-05 04:25] LABS: BASO % 0.1 % (0.0-1.0); HEMATOCRIT 36.9 % (42.0-52.0); HEMOGLOBIN 12.2 g/dl (13.5-17.5); LYMPH # 1.4 10^3/uL (1.5-5.0); LYMPH % 19.5 % (24.0-44.0); MEAN CORPUSCULAR HEMOGLOBIN 27.9 pg (27.0-33.0); MEAN CORPUSCULAR HGB CONC 33.1 g/dl (32.0-36.5); MEAN CORPUSCULAR VOLUME 84.4 fl (80.0-96.0); MONO # 0.5 10^3/uL (0.0-0.8); MONO % 7.4 % (2.0-8.0); NEUTROPHILS # 5.2 10^3/uL (1.5-8.5); PLATELET COUNT, AUTOMATED 236 10^3/uL (150-450); RED BLOOD COUNT 4.37 10^6/uL (4.30-6.10); WHITE BLOOD COUNT 7.2 10^3/uL (4.0-10.0)
[2022-07-05 04:56] LABS: ALBUMIN 2.5 G/DL (3.2-5.2); ALKALINE PHOSPHATASE 208 U/L (46-116); ALT/SGPT 58 U/L (7.0-40); AST/SGOT 29 U/L (<34); BILIRUBIN,TOTAL 1.3 MG/DL (0.3-1.2); BLOOD UREA NITROGEN 37 MG/DL (9-23); CALCIUM LEVEL 9.9 MG/DL (8.5-10.1); CARBON DIOXIDE LEVEL 21 MMOL/L (20-31); CHLORIDE LEVEL 102 MMOL/L (98-107); CREATININE FOR GFR 1.16 MG/DL (0.70-1.30); GLOMERULAR FILTRATION RATE > 60.0 (>56); GLUCOSE, FASTING 295 MG/DL (60-100); POTASSIUM SERUM 4.8 MMOL/L (3.5-5.1); SODIUM LEVEL 133 MMOL/L (136-145); TOTAL PROTEIN 7.6 G/DL (5.7-8.2)
[2022-07-05] MEDS: HEPARIN SOD (PORCINE) 5000UNITS/ML 1ML VIAL/SYRINGE SQ SCH (05:15)
[2022-07-05] MEDS: SODIUM CHLORIDE 0.9% INJ 10 ML SYR IV SCH ×2 (05:16→18:14)
[2022-07-05] MEDS ORDERED: methylPREDNISolone 125MG 2ML VIAL IV SCH (06:00)
[2022-07-05] MEDS: NICOTINE 21MG/24HR 1 EA TRANSDERMAL TD SCH (08:27)
[2022-07-05] MEDS: LEVEMIR (INSULIN DETEMIR) 1 UNITS/0.01ML SC SCH ×2 (08:27→21:02)
[2022-07-05] MEDS: INSULIN LISPRO (NovoLOG) PER UNIT SC SCH ×4 (08:27→21:00)
[2022-07-05] MEDS: DOCUSATE SODIUM 100MG CAPSULE PO SCH ×2 (08:28→21:04)
[2022-07-05] MEDS: OMEPRAZOLE 20MG CAP PO SCH (08:28)
[2022-07-05] MEDS: SERTRALINE 100 MG TAB PO SCH ×2 (08:28→21:04)
[2022-07-05] MEDS: MULTIVITAMINS/MINERALS THERAP 1 TAB PO SCH (08:28)
[2022-07-05] MEDS: buPROPion **XL** TABLET 150MG (WELLBUTRIN XL) PO SCH (08:28)
[2022-07-05] MEDS: oxyBUTYnin 5 MG TAB PO SCH ×2 (08:28→21:04)
[2022-07-05] MEDS: GABAPENTIN 300 MG CAP PO SCH ×3 (08:29→21:04)
[2022-07-05] MEDS: METHADONE 10MG TAB PO SCH (08:29)
[2022-07-05] MEDS: ACETAMINOPHEN TAB 650MG DOSE (2X325MG) PO PRN ×2 (10:05→19:57)
[2022-07-05] MEDS: VANCOMYCIN HCL 1,000 MG, VIAL MATE ADAPTER 1 EACH in D5W 250 ML IV SCH (10:05)
[2022-07-05] MEDS ORDERED: LEVEMIR (INSULIN DETEMIR) 1 UNITS/0.01ML SC SCH (10:30)
[2022-07-05] MEDS: SUMAtriptan SUCCINATE 25 MG TAB PO PRN (11:02)
[2022-07-05] MEDS ORDERED: LEVEMIR (INSULIN DETEMIR) 1 UNITS/0.01ML SC ONE (11:05)
[2022-07-05] MEDS ORDERED: hydrOXYzine 50 MG TAB PO PRN (15:35)
[2022-07-05 17:07] LABS: MYCOPLASMA PNEUMONIAE IgG 528 U/mL (0-99); MYCOPLASMA PNEUMONIAE IgM <770 U/mL (0-769)
[2022-07-05] MEDS: AUGMENTIN 875 MG TAB PO SCH (21:04)
[2022-07-05] MEDS: OLANZapine 5 MG TAB PO SCH (21:04)
[2022-07-05] MEDS: SIMVASTATIN 20 MG TAB PO SCH (21:04)
[2022-07-06] VITALS: BP 120/80
[2022-07-06] MEDS ORDERED: RAMELTEON 8 MG TAB (ROZEREM) PO ONE (01:30)
[2022-07-06 04:00] VITALS: BP 123/78
[2022-07-06] MEDS: ALBUTEROL SULFATE 2.5MG/0.5ML INH NEB SOLN NEB SCH ×3 (04:00→11:28)
[2022-07-06] MEDS: ACETAMINOPHEN TAB 650MG DOSE (2X325MG) PO PRN (04:30)
[2022-07-06] MEDS: SODIUM CHLORIDE 0.9% INJ 10 ML SYR IV SCH (06:12)
[2022-07-06 07:30] LABS: ALBUMIN 2.4 G/DL (3.2-5.2); ALKALINE PHOSPHATASE 211 U/L (46-116); ALT/SGPT 92 U/L (7.0-40); AST/SGOT 61 U/L (<34); BLOOD UREA NITROGEN 42 MG/DL (9-23); CARBON DIOXIDE LEVEL 23 MMOL/L (20-31); CHLORIDE LEVEL 103 MMOL/L (98-107); CREATININE FOR GFR 0.98 MG/DL (0.70-1.30); GLOMERULAR FILTRATION RATE > 60.0 (>56); GLUCOSE, FASTING 161 MG/DL (60-100); POTASSIUM SERUM 4.2 MMOL/L (3.5-5.1); SODIUM LEVEL 137 MMOL/L (136-145); TOTAL PROTEIN 6.8 G/DL (5.7-8.2)
[2022-07-06 07:56] VITALS: BP 145/82
[2022-07-06 08:00] LABS: BASO % 0.1 % (0.0-1.0); EOS % 0.3 % (0.0-3.0); HEMATOCRIT 37.8 % (42.0-52.0); HEMOGLOBIN 12.4 g/dl (13.5-17.5); LYMPH # 2.3 10^3/uL (1.5-5.0); MEAN CORPUSCULAR HEMOGLOBIN 27.9 pg (27.0-33.0); MEAN CORPUSCULAR HGB CONC 32.8 g/dl (32.0-36.5); MEAN CORPUSCULAR VOLUME 84.9 fl (80.0-96.0); MONO # 0.6 10^3/uL (0.0-0.8); MONO % 7.6 % (2.0-8.0); NEUTROPHILS # 4.6 10^3/uL (1.5-8.5); NEUTROPHILS % 60.7 % (36.0-66.0); PLATELET COUNT, AUTOMATED 244 10^3/uL (150-450); RED BLOOD COUNT 4.45 10^6/uL (4.30-6.10); WHITE BLOOD COUNT 7.6 10^3/uL (4.0-10.0)
[2022-07-06] MEDS: INSULIN LISPRO (NovoLOG) PER UNIT SC SCH (08:45)
[2022-07-06] MEDS: GABAPENTIN 300 MG CAP PO SCH (08:46)
[2022-07-06] MEDS: SERTRALINE 100 MG TAB PO SCH (08:46)
[2022-07-06] MEDS: MULTIVITAMINS/MINERALS THERAP 1 TAB PO SCH (08:46)
[2022-07-06] MEDS: LEVEMIR (INSULIN DETEMIR) 1 UNITS/0.01ML SC SCH (08:46)
[2022-07-06] MEDS: OMEPRAZOLE 20MG CAP PO SCH (08:46)
[2022-07-06] MEDS: DOCUSATE SODIUM 100MG CAPSULE PO SCH (08:47)
[2022-07-06] MEDS: buPROPion **XL** TABLET 150MG (WELLBUTRIN XL) PO SCH (08:47)
[2022-07-06] MEDS: AUGMENTIN 875 MG TAB PO SCH (08:47)
[2022-07-06] MEDS: oxyBUTYnin 5 MG TAB PO SCH (08:47)
[2022-07-06] MEDS: NICOTINE 21MG/24HR 1 EA TRANSDERMAL TD SCH (08:48)
[2022-07-06] MEDS ORDERED: ENOXAPARIN 40MG/0.4ML SYRINGE (J1650 PER 10MG) SC SCH (09:00)
[2022-07-06] MEDS ORDERED: METHADONE 10MG TAB PO SCH ×2 (09:00)
[2022-07-06] MEDS ORDERED: predniSONE 20 MG TAB PO SCH (09:00)
[2022-07-06] MEDS ORDERED: PRED20TA PO (11:23)
[2022-07-06] MEDS ORDERED: AMOX875T2 PO (11:23)
[2022-07-06] MEDS ORDERED: SITA50TAB PO (11:23)
[2022-07-06] MEDS ORDERED: FARX1TAB3 PO (11:23)
[2022-07-06] MEDS ORDERED: AMLO1TAB24 PO (11:32)
[2022-07-06] MEDS ORDERED: NESI25TA PO (11:48)
[2022-07-08 15:07] LABS: ANTINUCLEAR ANTIBODIES DIRECT Negative (Negative); COMPLEMENT TOTAL (CH50) > 60 U/mL (>41)
== END 2022-07-06 13:28 | disposition home or self-care (01) | DRG 133 ==
LOC: M ED 12:37 → M ED INP 20:52 → M ICU 07-03 01:27
PROVIDERS: ADMIT Family Medicine; ATTEND Family Medicine
PROC: 02HV33Z Insertion of Infusion Device into Superior Vena Cava, Percutaneous Approach (ICD-10-PCS; principal; 2022-07-04 15:49)
DX: J96.01 Acute respiratory failure with hypoxia (principal); J15.9 Unspecified bacterial pneumonia; N17.9 Acute kidney failure, unspecified; E87.20 Acidosis, unspecified; E87.1 Hypo-osmolality and hyponatremia; J45.901 Unspecified asthma with (acute) exacerbation; R04.2 Hemoptysis; E86.0 Dehydration; E83.41 Hypermagnesemia; E83.51 Hypocalcemia; E83.52 Hypercalcemia; E87.5 Hyperkalemia; E11.9 Type 2 diabetes mellitus without complications; E78.5 Hyperlipidemia, unspecified; F17.220 Nicotine dependence, chewing tobacco, uncomplicated; F31.9 Bipolar disorder, unspecified; F41.9 Anxiety disorder, unspecified; F43.10 Post-traumatic stress disorder, unspecified; F90.9 Attention-deficit hyperactivity disorder, unspecified type; G47.33 Obstructive sleep apnea (adult) (pediatric); I10 Essential (primary) hypertension; J45.909 Unspecified asthma, uncomplicated; K21.9 Gastro-esophageal reflux disease without esophagitis; R94.5 Abnormal results of liver function studies; Z79.891 Long term (current) use of opiate analgesic; Z79.899 Other long term (current) drug therapy; B18.2 Chronic viral hepatitis C; G43.909 Migraine, unspecified, not intractable, without status migrainosus

== ENCOUNTER → 2022-07-22 | Outpatient (CLI) | payer OTHER ==
[~2022-07-22] MED LIST changes: +ALBU8.5H INH; +AMLO1TAB24 PO; +AMOX875T2 PO; +DOCU100C16 PO; +FARX1TAB3 PO; +METF-877 PO; +NESI25TA PO; +PRED20TA PO; +SITA50TAB PO; +ZOLO100T PO
== END ==
LOC: M LAB 10:49
DX: R76.11 Nonspecific reaction to tuberculin skin test without active tuberculosis (principal)

== ENCOUNTER → 2022-08-06 | Outpatient (CLI) | payer OTHER ==
[2022-08-06 10:07] LABS: INR 0.97; PROTHROMBIN TIME 13.1 SECONDS (12.5-14.5)
[2022-08-07 19:09] LABS: HEPATITIS C QUANTITATION 3730000 IU/mL (.)
[2022-08-09 23:07] LABS: HEPATITIS C VIRUS GENOTYPE 3 (.)
== END ==
LOC: M LAB 08:58
PROVIDERS: ATTEND Physician Assistant
DX: R04.2 Hemoptysis (principal); Z11.1 Encounter for screening for respiratory tuberculosis; Z86.19 Personal history of other infectious and parasitic diseases

== ENCOUNTER → 2022-08-07 | Outpatient (CLI) | payer OTHER | LOC: M PLAIMG 08:34 | PROVIDERS: ATTEND Physician Assistant | DX: J96.00 Acute respiratory failure, unspecified whether with hypoxia or hypercapnia (principal); R91.8 Other nonspecific abnormal finding of lung field ==

== ENCOUNTER → 2022-09-10 | Outpatient (CLI) | payer OTHER ==
[2022-09-10 14:01] LABS: APPEARANCE, URINE CLEAR (CLEAR); BACTERIA, URINE AUTO NEGATIVE (NEGATIVE); BILIRUBIN, URINE AUTO NEGATIVE (NEGATIVE); BLOOD, URINE BLOOD NEGATIVE (NEGATIVE); CALCIUM OXALATE CRYSTALS SMALL; COLOR, URINE AMBER (YELLOW); GLUCOSE, URINE (UA) AUTO NEGATIVE (NEGATIVE); KETONE, URINE AUTO TRACE mg/dL (NEGATIVE); LEUKOCYTE ESTERASE, URINE AUTO NEGATIVE (NEGATIVE); MUCUS, URINE SMALL (NEGATIVE); NITRITE, URINE AUTO NEGATIVE (NEGATIVE); PROTEIN, URINE AUTO NEGATIVE (NEGATIVE); RBC, URINE AUTO 0 /HPF (0-3); SPECIFIC GRAVITY URINE AUTO 1.023 (1.002-1.035); SQUAMOUS EPITHELIAL CELL UR AU 0 /HPF (0-6); WBC, URINE AUTO 2 /HPF (0-3)
[2022-09-11 16:10] LABS: GC DNA AMPLIFICATION NEGATIVE (NEGATIVE)
== END ==
LOC: M PLALAB 10:20
PROVIDERS: ATTEND Internal Medicine Infectious Disease
DX: R39.198 Other difficulties with micturition (principal); B18.2 Chronic viral hepatitis C

== ENCOUNTER → 2022-09-24 | Outpatient (REF) | payer OTHER ==
[2022-09-24 16:52] LABS: CREATININE, URINE 158.2 MG/DL
[2022-09-24 16:53] LABS: MAU/CREAT RATIO 11.3 MCG/MG (0.0-30.0)
== END ==
LOC: M LAB REF 16:06
PROVIDERS: ATTEND Physician Assistant
DX: E11.65 Type 2 diabetes mellitus with hyperglycemia (principal)

== ENCOUNTER → 2022-09-30 | Outpatient (CLI) | payer OTHER ==
[2022-09-30 10:25] LABS: HEMATOCRIT 42.2 % (42.0-52.0); HEMOGLOBIN 14.5 g/dl (13.5-17.5)
== END ==
LOC: M LAB 09:39
PROVIDERS: ATTEND Internal Medicine Endocrinology, Diabetes & Metabolism
DX: E29.1 Testicular hypofunction (principal)

== ENCOUNTER → 2022-10-23 | Outpatient (CLI) | payer OTHER ==
[2022-10-23 17:25] LABS: HEMATOCRIT 40.9 % (42.0-52.0); HEMOGLOBIN 13.9 g/dl (13.5-17.5)
== END ==
LOC: M LAB 16:06
PROVIDERS: ATTEND Nurse Practitioner Family
DX: E29.1 Testicular hypofunction (principal)

== ENCOUNTER → 2022-11-08 | Outpatient (CLI) | payer OTHER | LOC: M LAB 13:47 | PROVIDERS: ATTEND Nurse Practitioner Family | DX: E29.1 Testicular hypofunction (principal) ==

== ENCOUNTER → 2022-11-08 | Outpatient (CLI) | payer OTHER ==
[2022-11-08 14:47] LABS: HEMATOCRIT 41.9 % (42.0-52.0); HEMOGLOBIN 13.9 g/dl (13.5-17.5); MEAN CORPUSCULAR HEMOGLOBIN 29.4 pg (27.0-33.0); MEAN CORPUSCULAR HGB CONC 33.2 g/dl (32.0-36.5); MEAN CORPUSCULAR VOLUME 88.8 fl (80.0-96.0); PLATELET COUNT, AUTOMATED 147 10^3/uL (150-450); RED BLOOD COUNT 4.72 10^6/uL (4.30-6.10); WHITE BLOOD COUNT 7.9 10^3/uL (4.0-10.0)
[2022-11-08 15:05] LABS: ALBUMIN 4.1 G/DL (3.2-5.2); ALKALINE PHOSPHATASE 76 U/L (46-116); ALT/SGPT 15 U/L (7.0-40); AST/SGOT 19 U/L (<34); BILIRUBIN,TOTAL 0.3 MG/DL (0.3-1.2); BLOOD UREA NITROGEN 31 MG/DL (9-23); CALCIUM LEVEL 9.2 MG/DL (8.5-10.1); CARBON DIOXIDE LEVEL 25 MMOL/L (20-31); CHLORIDE LEVEL 105 MMOL/L (98-107); CREATININE FOR GFR 4.23 MG/DL (0.70-1.30); GLOMERULAR FILTRATION RATE 15.9 (>56); GLUCOSE, FASTING 145 MG/DL (60-100); POTASSIUM SERUM 4.6 MMOL/L (3.5-5.1); SODIUM LEVEL 139 MMOL/L (136-145); TOTAL PROTEIN 7.2 G/DL (5.7-8.2)
[2022-11-08 15:20] LABS: HEPATITIS B SURFACE ANTIGEN NEGATIVE (NEGATIVE)
[2022-11-08 15:32] LABS: HIV 1&2 SCREEN NEGATIVE (NEGATIVE)
[2022-11-08 15:58] LABS: HEPATITIS C VIRUS ABY INDEX > 11.0 INDEX (<0.8)
[2022-11-08 16:54] LABS: GC DNA AMPLIFICATION NEGATIVE (NEGATIVE)
== END ==
LOC: M LAB 13:42
PROVIDERS: ATTEND Family Medicine
DX: F11.20 Opioid dependence, uncomplicated (principal)

== ENCOUNTER → 2022-11-12 | Outpatient (CLI) | payer OTHER ==
[2022-11-12 16:06] LABS: CALCIUM LEVEL 9.3 MG/DL (8.5-10.1); CREATININE FOR GFR 1.88 MG/DL (0.70-1.30); GLOMERULAR FILTRATION RATE 40.5 (>56); POTASSIUM SERUM 4.8 MMOL/L (3.5-5.1)
== END ==
LOC: M LAB 14:59
PROVIDERS: ATTEND Physician Assistant
DX: N17.9 Acute kidney failure, unspecified (principal)

== ENCOUNTER → 2022-12-20 | Outpatient (CLI) | payer OTHER | LOC: M PLAIMG 10:12 | PROVIDERS: ATTEND Physician Assistant | DX: R91.1 Solitary pulmonary nodule (principal) ==

== ENCOUNTER → 2023-01-01 | Outpatient (CLI) | payer OTHER ==
[~2023-01-01] MED LIST changes: +SOFO1TAB PO; +TEST200I14 IM
[2023-01-01 12:58] LABS: BLOOD UREA NITROGEN 22 MG/DL (9-23); CALCIUM LEVEL 9.7 MG/DL (8.5-10.1); CARBON DIOXIDE LEVEL 24 MMOL/L (20-31); CHLORIDE LEVEL 110 MMOL/L (98-107); CREATININE FOR GFR 1.11 MG/DL (0.70-1.30); GLOMERULAR FILTRATION RATE > 60.0 (>56); GLUCOSE, FASTING 127 MG/DL (60-100); POTASSIUM SERUM 4.6 MMOL/L (3.5-5.1); SODIUM LEVEL 140 MMOL/L (136-145)
== END ==
LOC: M LAB 12:03
PROVIDERS: ATTEND Physician Assistant
DX: R79.89 Other specified abnormal findings of blood chemistry (principal)

== ENCOUNTER → 2023-01-01 | Outpatient (CLI) | payer OTHER ==
[2023-01-01 12:59] LABS: ALBUMIN 4.4 G/DL (3.2-5.2); ALKALINE PHOSPHATASE 82 U/L (46-116); ALT/SGPT 17 U/L (7.0-40); AST/SGOT 10 U/L (<34); BILIRUBIN,TOTAL 0.5 MG/DL (0.3-1.2); BLOOD UREA NITROGEN 23 MG/DL (9-23); CALCIUM LEVEL 10.4 MG/DL (8.5-10.1); CARBON DIOXIDE LEVEL 24 MMOL/L (20-31); CHLORIDE LEVEL 108 MMOL/L (98-107); CREATININE FOR GFR 1.12 MG/DL (0.70-1.30); GLOMERULAR FILTRATION RATE > 60.0 (>56); GLUCOSE, FASTING 122 MG/DL (60-100); POTASSIUM SERUM 4.6 MMOL/L (3.5-5.1); SODIUM LEVEL 139 MMOL/L (136-145); TOTAL PROTEIN 7.3 G/DL (5.7-8.2)
[2023-01-02 14:08] LABS: HEPATITIS C QUANTITATION HCV Not Detected IU/mL (.)
== END ==
LOC: M LAB 12:06
PROVIDERS: ATTEND Internal Medicine Infectious Disease
DX: B18.2 Chronic viral hepatitis C (principal)

== ENCOUNTER → 2023-01-07 | Day surgery (SDC) | payer OTHER ==
[~2023-01-07] VITALS: Ht 180.3 cm; Wt 96.2 kg
[~2023-01-07] MED LIST changes: +GLYCOPYRROLATE INJ 0.2 MG/ML 2 ML VIAL As Ordered ONE; +LIDOCAINE 2% 100MG/5ML SDV (FOR ANES.) As Ordered ONE; +NS 1,000 ML IV ONE; +propofoL 200 MG/20 ML VIAL As Ordered ONE
[2023-01-07 08:14] VITALS: TEMP 97
[2023-01-07 08:34] VITALS: BP 99/57; O2SAT 95
== END | disposition home or self-care (01) ==
LOC: M OPP 06:39
PROVIDERS: ATTEND Internal Medicine Gastroenterology
DX: Z12.11 Encounter for screening for malignant neoplasm of colon (principal); K64.4 Residual hemorrhoidal skin tags; K64.8 Other hemorrhoids; K29.70 Gastritis, unspecified, without bleeding; K74.60 Unspecified cirrhosis of liver; Z79.51 Long term (current) use of inhaled steroids; Z79.84 Long term (current) use of oral hypoglycemic drugs; Z79.620 Long term (current) use of immunosuppressive biologic; Z79.891 Long term (current) use of opiate analgesic; Z79.899 Other long term (current) drug therapy; Z88.8 Allergy status to other drugs, medicaments and biological substances; Z91.018 Allergy to other foods

== ENCOUNTER → 2023-02-16 | Outpatient (CLI) | payer OTHER ==
[~2023-02-16] MED LIST changes: -GLYCOPYRROLATE INJ 0.2 MG/ML 2 ML VIAL As Ordered ONE; -LIDOCAINE 2% 100MG/5ML SDV (FOR ANES.) As Ordered ONE; -NS 1,000 ML IV ONE; -propofoL 200 MG/20 ML VIAL As Ordered ONE
[2023-02-16 16:51] LABS: BLOOD UREA NITROGEN 16 MG/DL (9-23); CALCIUM LEVEL 9.5 MG/DL (8.5-10.1); CARBON DIOXIDE LEVEL 23 MMOL/L (20-31); CHLORIDE LEVEL 110 MMOL/L (98-107); CREATININE FOR GFR 1.22 MG/DL (0.70-1.30); GLOMERULAR FILTRATION RATE > 60.0 (>56); GLUCOSE, FASTING 123 MG/DL (60-100); POTASSIUM SERUM 3.7 MMOL/L (3.5-5.1); SODIUM LEVEL 141 MMOL/L (136-145)
== END ==
LOC: M LAB 15:18
PROVIDERS: ATTEND Physician Assistant
DX: R79.89 Other specified abnormal findings of blood chemistry (principal)

== ENCOUNTER → 2023-02-16 | Outpatient (CLI) | payer OTHER ==
[2023-02-16 16:05] LABS: HEMATOCRIT 43.2 % (42.0-52.0); HEMOGLOBIN 14.7 g/dl (13.5-17.5)
[2023-02-16 16:50] LABS: PROSTATIC SPECIFIC AG MONITOR 0.64 NG/ML (< 4.00)
== END ==
LOC: M LAB 15:16
PROVIDERS: ATTEND Nurse Practitioner Family
DX: E29.1 Testicular hypofunction (principal)

== ENCOUNTER → 2023-05-04 | Outpatient (CLI) | payer OTHER ==
[~2023-05-04] MED LIST changes: -OXYB5TAB10 PO; +OXYB5TAB11 PO
[2023-05-04 09:11] LABS: BASO % 0.5 % (0.0-1.0); EOS # 0.2 10^3/uL (0.0-0.5); EOS % 4.8 % (0.0-3.0); HEMATOCRIT 41.7 % (42.0-52.0); HEMOGLOBIN 14.4 g/dl (13.5-17.5); LYMPH # 1.5 10^3/uL (1.5-5.0); MEAN CORPUSCULAR HEMOGLOBIN 30.1 pg (27.0-33.0); MEAN CORPUSCULAR HGB CONC 34.5 g/dl (32.0-36.5); MEAN CORPUSCULAR VOLUME 87.2 fl (80.0-96.0); MONO # 0.4 10^3/uL (0.0-0.8); MONO % 8.9 % (2.0-8.0); NEUTROPHILS # 2.3 10^3/uL (1.5-8.5); NEUTROPHILS % 51.6 % (36.0-66.0); RED BLOOD COUNT 4.78 10^6/uL (4.30-6.10); WHITE BLOOD COUNT 4.4 10^3/uL (4.0-10.0)
[2023-05-04 09:29] LABS: PLATELET COUNT, AUTOMATED 93 10^3/uL (150-450)
[2023-05-04 09:32] LABS: ALKALINE PHOSPHATASE 81 U/L (46-116); ALT/SGPT 26 U/L (7.0-40); AST/SGOT 27 U/L (<34); BILIRUBIN,TOTAL 0.6 MG/DL (0.3-1.2); BLOOD UREA NITROGEN 18 MG/DL (9-23); CALCIUM LEVEL 8.9 MG/DL (8.5-10.1); CARBON DIOXIDE LEVEL 23 MMOL/L (20-31); CHLORIDE LEVEL 109 MMOL/L (98-107); CREATININE FOR GFR 1.04 MG/DL (0.70-1.30); GLOMERULAR FILTRATION RATE > 60.0 (>56); GLUCOSE, FASTING 88 MG/DL (60-100); POTASSIUM SERUM 3.8 MMOL/L (3.5-5.1); SODIUM LEVEL 143 MMOL/L (136-145)
== END ==
LOC: M LAB 08:08
PROVIDERS: ATTEND Internal Medicine Infectious Disease
DX: B18.2 Chronic viral hepatitis C (principal)

== ENCOUNTER → 2023-05-08 | Outpatient (CLI) | payer OTHER | LOC: M WUC 12:34 | PROVIDERS: ATTEND Nurse Practitioner Family | DX: M79.642 Pain in left hand (principal); M19.042 Primary osteoarthritis, left hand ==

== ENCOUNTER → 2023-05-13 | Outpatient (CLI) | payer OTHER | LOC: M RAD 08:32 | PROVIDERS: ATTEND Internal Medicine Infectious Disease | DX: B18.2 Chronic viral hepatitis C (principal); R16.2 Hepatomegaly with splenomegaly, not elsewhere classified ==

== ENCOUNTER → 2023-08-25 | Outpatient (CLI) | payer OTHER ==
[~2023-08-25] MED LIST changes: -OXYB5TAB11 PO; +OXYB5TAB14 PO
[2023-08-25 10:27] LABS: HEMATOCRIT 43.6 % (42.0-52.0); HEMOGLOBIN 15.4 g/dl (13.5-17.5); MEAN CORPUSCULAR HEMOGLOBIN 30.1 pg (27.0-33.0); MEAN CORPUSCULAR HGB CONC 35.3 g/dl (32.0-36.5); MEAN CORPUSCULAR VOLUME 85.2 fl (80.0-96.0); PLATELET COUNT, AUTOMATED 135 10^3/uL (150-450); RED BLOOD COUNT 5.12 10^6/uL (4.30-6.10); WHITE BLOOD COUNT 5.9 10^3/uL (4.0-10.0)
[2023-08-25 11:48] LABS: ALBUMIN 4.6 G/DL (3.2-5.2); ALKALINE PHOSPHATASE 78 U/L (46-116); ALT/SGPT 27 U/L (7.0-40); AST/SGOT 51 U/L (<34); BILIRUBIN,TOTAL 0.9 MG/DL (0.3-1.2); BLOOD UREA NITROGEN 29 MG/DL (9-23); CALCIUM LEVEL 9.3 MG/DL (8.5-10.1); CARBON DIOXIDE LEVEL 24 MMOL/L (20-31); CHLORIDE LEVEL 107 MMOL/L (98-107); CREATININE FOR GFR 1.31 MG/DL (0.70-1.30); GLOMERULAR FILTRATION RATE > 60.0 (>56); GLUCOSE, FASTING 100 MG/DL (60-100); HIV 1&2 SCREEN NEGATIVE (NEGATIVE); POTASSIUM SERUM 4.8 MMOL/L (3.5-5.1); SODIUM LEVEL 140 MMOL/L (136-145); TOTAL PROTEIN 7.5 G/DL (5.7-8.2)
[2023-08-25 12:05] LABS: HEPATITIS C VIRUS ABY INDEX > 11.00 INDEX (<0.8)
[2023-08-25 12:24] LABS: GC DNA AMPLIFICATION NEGATIVE (NEGATIVE)
== END ==
LOC: M LAB 09:20
PROVIDERS: ATTEND Family Medicine
DX: F11.20 Opioid dependence, uncomplicated (principal)

== ENCOUNTER → 2023-12-22 | Outpatient (CLI) | payer OTHER ==
[2023-12-23 13:27] LABS: HCV RNA QUANTITATION <15 NOT DETECTED IU/mL (NOT DETECTED); HCV RNA log10 <1.18 NOT DETECTED Log IU/mL (NOT DETECTED)
== END ==
LOC: M LAB 08:05
PROVIDERS: ATTEND Family Medicine
DX: F11.20 Opioid dependence, uncomplicated (principal)

== ENCOUNTER → 2023-12-30 | Outpatient (CLI) | payer OTHER | LOC: M RAD 08:05 | PROVIDERS: ATTEND Internal Medicine Gastroenterology | DX: K74.60 Unspecified cirrhosis of liver (principal); R16.2 Hepatomegaly with splenomegaly, not elsewhere classified; K76.0 Fatty (change of) liver, not elsewhere classified; I77.819 Aortic ectasia, unspecified site ==

== ENCOUNTER → 2024-02-03 | Outpatient (CLI) | payer OTHER ==
[2024-02-03 10:03] LABS: HEMATOCRIT 48.3 % (42.0-52.0); HEMOGLOBIN 16.6 g/dl (13.5-17.5)
== END ==
LOC: M LAB 08:17
PROVIDERS: ATTEND Internal Medicine
DX: E29.1 Testicular hypofunction (principal)

== ENCOUNTER → 2024-02-03 | Outpatient (CLI) | payer OTHER ==
[2024-02-03 09:37] LABS: BASO % 0.4 % (0.0-1.0); EOS # 0.2 10^3/uL (0.0-0.5); EOS % 2.2 % (0.0-3.0); HEMATOCRIT 48.3 % (42.0-52.0); HEMOGLOBIN 16.6 g/dl (13.5-17.5); LYMPH # 3.3 10^3/uL (1.5-5.0); LYMPH % 41.4 % (24.0-44.0); MEAN CORPUSCULAR HEMOGLOBIN 30.2 pg (27.0-33.0); MEAN CORPUSCULAR HGB CONC 34.4 g/dl (32.0-36.5); MONO # 0.4 10^3/uL (0.0-0.8); MONO % 5.5 % (2.0-8.0); NEUTROPHILS % 50.4 % (36.0-66.0); PLATELET COUNT, AUTOMATED 134 10^3/uL (150-450); RED BLOOD COUNT 5.49 10^6/uL (4.30-6.10); WHITE BLOOD COUNT 7.9 10^3/uL (4.0-10.0)
[2024-02-03 10:59] LABS: ALBUMIN 4.7 G/DL (3.2-5.2); ALKALINE PHOSPHATASE 86 U/L (46-116); ALT/SGPT 29 U/L (7.0-40); AST/SGOT 31 U/L (<34); BILIRUBIN,DIRECT 0.2 MG/DL (<0.4); BILIRUBIN,TOTAL 0.9 MG/DL (0.3-1.2); BLOOD UREA NITROGEN 12 MG/DL (9-23); CALCIUM LEVEL 9.6 MG/DL (8.5-10.1); CARBON DIOXIDE LEVEL 28 MMOL/L (20-31); CHLORIDE LEVEL 104 MMOL/L (98-107); CREATININE FOR GFR 1.31 MG/DL (0.70-1.30); GLOMERULAR FILTRATION RATE > 60.0 (>56); GLUCOSE, FASTING 86 MG/DL (60-100); POTASSIUM SERUM 4.2 MMOL/L (3.5-5.1); SODIUM LEVEL 140 MMOL/L (136-145)
== END ==
LOC: M LAB 08:20
PROVIDERS: ATTEND Internal Medicine Gastroenterology
DX: K74.60 Unspecified cirrhosis of liver (principal)

== ENCOUNTER → 2024-05-12 | Outpatient (CLI) | payer OTHER ==
[~2024-05-12] MED LIST changes: -OLAN15TA13 PO; +OLAN15TA69 PO
== END ==
LOC: M LAB 14:52
PROVIDERS: ATTEND Nurse Practitioner Family
DX: E29.1 Testicular hypofunction (principal)

== ENCOUNTER → 2024-10-08 | Outpatient (CLI) | payer OTHER ==
[2024-10-08 09:25] LABS: HEMATOCRIT 52.4 % (42.0-52.0); HEMOGLOBIN 18.1 g/dl (13.5-17.5)
[2024-10-08 09:54] LABS: PSA SCREENING 2.71 NG/ML (< 4.00)
== END ==
LOC: M LAB 07:55
PROVIDERS: ATTEND Nurse Practitioner Family
DX: E29.1 Testicular hypofunction (principal)

== ENCOUNTER → 2024-10-08 | Outpatient (CLI) | payer OTHER ==
[2024-10-08 09:26] LABS: HEMATOCRIT 52.1 % (42.0-52.0); HEMOGLOBIN 17.7 g/dl (13.5-17.5); MEAN CORPUSCULAR HEMOGLOBIN 29.4 pg (27.0-33.0); MEAN CORPUSCULAR VOLUME 86.5 fl (80.0-96.0); PLATELET COUNT, AUTOMATED 143 10^3/uL (150-450); RED BLOOD COUNT 6.02 10^6/uL (4.30-6.10); WHITE BLOOD COUNT 8.5 10^3/uL (4.0-10.0)
[2024-10-08 09:57] LABS: ALKALINE PHOSPHATASE 80 U/L (40-129); ALT/SGPT 19 U/L (7.0-40); AST/SGOT 13 U/L (<34); BILIRUBIN,TOTAL 0.6 MG/DL (0.3-1.2); BLOOD UREA NITROGEN 11 MG/DL (9-23); CALCIUM LEVEL 9.5 MG/DL (8.5-10.1); CARBON DIOXIDE LEVEL 32 MMOL/L (20-31); CHLORIDE LEVEL 102 MMOL/L (98-107); GLUCOSE, FASTING 109 MG/DL (60-100); POTASSIUM SERUM 4.2 MMOL/L (3.5-5.1); SODIUM LEVEL 141 MMOL/L (136-145); TOTAL PROTEIN 7.7 G/DL (5.7-8.2)
[2024-10-08 10:12] LABS: HEPATITIS B SURFACE ANTIGEN NEGATIVE (NEGATIVE)
[2024-10-08 10:24] LABS: HIV 1&2 SCREEN NEGATIVE (NEGATIVE)
[2024-10-08 10:42] LABS: HEPATITIS C VIRUS ABY INDEX > 11.00 INDEX (<0.8)
[2024-10-08 11:03] LABS: GC DNA AMPLIFICATION NEGATIVE (NEGATIVE)
[2024-10-10 01:37] LABS: HCV RNA QUANTITATION <15 NOT DETECTED IU/mL (NOT DETECTED); HCV RNA log10 <1.18 NOT DETECTED Log IU/mL (NOT DETECTED)
== END ==
LOC: M LAB 07:57
PROVIDERS: ATTEND Family Medicine
DX: F11.20 Opioid dependence, uncomplicated (principal)

== ENCOUNTER 2025-05-30 13:48 | Emergency (ER) | payer OTHER ==
[~2025-05-30] VITALS: Ht 180.3 cm; Wt 107.0 kg
[~2025-05-30 13:48] MED LIST changes: +HYDR12.510 PO; -HYDR12CA PO
[2025-05-30 14:43] LABS: BASO # 0.0 10^3/uL (0.0-0.2); BASO % 0.4 % (0.0-1.0); EOS # 0.1 10^3/uL (0.0-0.5); EOS % 0.9 % (0.0-3.0); LYMPH # 1.6 10^3/uL (1.5-5.0); LYMPH % 17.1 % (24.0-44.0); MONO # 0.5 10^3/uL (0.0-0.8); MONO % 4.8 % (2.0-8.0); NEUTROPHILS # 7.3 10^3/uL (1.5-8.5); NEUTROPHILS % 76.5 % (36.0-66.0); PLATELET COUNT, AUTOMATED 144 10^3/uL (150-450)
[2025-05-30] MEDS ORDERED: SULF-8 PO (14:55)
[2025-05-30 15:13] LABS: ALT/SGPT 21.0 U/L (7.0-40); AST/SGOT 18.0 U/L (<34); C REACTIVE PROTEIN QUANTITATIV 2.99 MG/DL (<1.0); CALCIUM LEVEL 9.0 MG/DL (8.5-10.1); CARBON DIOXIDE LEVEL 32.0 MMOL/L (20-31); CHLORIDE LEVEL 101.0 MMOL/L (98-107); CREATININE FOR GFR 1.22 MG/DL (0.70-1.30); GLOMERULAR FILTRATION RATE 70.5 (>56); POTASSIUM SERUM 4.0 MMOL/L (3.5-5.1); SODIUM LEVEL 142.0 MMOL/L (136-145)
[2025-05-30] MEDS: DALBAVANCIN 1,500 MG in D5W 250 ML IV ONE (16:30)
[2025-05-30 17:20] VITALS: BP 135/82; TEMP 96.5; O2SAT 97
== END 2025-05-30 17:28 | disposition home or self-care (01) ==
LOC: M ED 13:48
DX: L03.114 Cellulitis of left upper limb (principal); J45.909 Unspecified asthma, uncomplicated; I10 Essential (primary) hypertension; K21.9 Gastro-esophageal reflux disease without esophagitis; F31.9 Bipolar disorder, unspecified; B19.20 Unspecified viral hepatitis C without hepatic coma; F19.10 Other psychoactive substance abuse, uncomplicated; Z79.52 Long term (current) use of systemic steroids; Z79.899 Other long term (current) drug therapy; Z79.2 Long term (current) use of antibiotics; Z79.4 Long term (current) use of insulin
CPT/HCPCS: 36415; 73130; 80048; 80076; 83605; 84145; 85025; 85652; 86140; 87040; 99284; J0875

== ENCOUNTER 2025-06-03 16:24 | Emergency (ER) | payer OTHER ==
[~2025-06-03] VITALS: Ht 180.3 cm; Wt 103.0 kg
[~2025-06-03 16:24] MED LIST changes: +SULF-8 PO
[2025-06-03 19:00] VITALS: TEMP 97.9
[2025-06-03] MEDS: CEFTAROLINE FOSAMIL 600 MG in DEXTROSE 5% (D5W) ADV/MINI-BAG 50 ML IV ONE (20:38)
[2025-06-03 20:51] LABS: BASO # 0.0 10^3/uL (0.0-0.2); BASO % 0.4 % (0.0-1.0); EOS # 0.1 10^3/uL (0.0-0.5); EOS % 1.8 % (0.0-3.0); LYMPH # 2.6 10^3/uL (1.5-5.0); LYMPH % 35.3 % (24.0-44.0); MONO # 0.4 10^3/uL (0.0-0.8); MONO % 5.3 % (2.0-8.0); NEUTROPHILS # 4.2 10^3/uL (1.5-8.5); NEUTROPHILS % 56.9 % (36.0-66.0); PLATELET COUNT, AUTOMATED 162 10^3/uL (150-450)
[2025-06-03 21:18] LABS: ALT/SGPT 30.0 U/L (7.0-40); AST/SGOT 38.0 U/L (<34); C REACTIVE PROTEIN QUANTITATIV 2.68 MG/DL (<1.0); CALCIUM LEVEL 8.8 MG/DL (8.5-10.1); CARBON DIOXIDE LEVEL 27.0 MMOL/L (20-31); CHLORIDE LEVEL 108.0 MMOL/L (98-107); CREATININE FOR GFR 1.14 MG/DL (0.70-1.30); GLOMERULAR FILTRATION RATE 76.4 (>56); POTASSIUM SERUM 4.6 MMOL/L (3.5-5.1); SODIUM LEVEL 144.0 MMOL/L (136-145)
[2025-06-03 21:30] VITALS: BP 121/77; O2SAT 93
== END 2025-06-03 22:13 | disposition short-term general hospital (02) ==
LOC: EEVIPCON 16:24 → M ED 16:24
DX: L03.114 Cellulitis of left upper limb (principal); E11.9 Type 2 diabetes mellitus without complications; J45.909 Unspecified asthma, uncomplicated; E78.5 Hyperlipidemia, unspecified; F90.9 Attention-deficit hyperactivity disorder, unspecified type; G47.33 Obstructive sleep apnea (adult) (pediatric); F19.10 Other psychoactive substance abuse, uncomplicated; Z79.52 Long term (current) use of systemic steroids; Z79.2 Long term (current) use of antibiotics; Z79.899 Other long term (current) drug therapy; Z79.4 Long term (current) use of insulin
CPT/HCPCS: 80048; 80076; 83605; 84145; 85025; 85652; 86140; 87040; 87070; 87077; 87186; 87205; 93041; 94760; 96365; 96366; 99284; J0712